=== PATIENT | female | born 1955 | race Caucasian/White ===

== ENCOUNTER → 2016-11-04 | Outpatient (CLI) | payer MEDICARE ==
[~2016-11-04] MED LIST: /ADVA50050; /ADVA50050 IN; AMBI10TA OR; AMRIX; ANEXSIA; ASPI325T OR; ASPI81TA63; ATIV0.5T; ATIV0.5T OR; BACL10TA2 OR; BENEDRYL OR; CALC500T21 PO; CALCCHW12 OR; CELE40TA; CELE40TA OR; CITRACAL; CITRACAL OR; COLA100C2; COLA100C2 OR; DULC100C PO; ECHI80CA PO; ECHINACEA PO; FIBEPOW PO; HYDR25TA6; HYDR25TA6 OR; HYDROCODONE/APAP PO; LAC PO; LISI5TAB PO; LYRI150C PO; METAMUCIL; MULTTAB4 PO; NEUR100C OR; NEUR600T; OCUVTAB PO; OXYB5TA PO; PENNSAID DROPS TOP; PREG50CA OR; PROV90AE; PROV90AE IN; RANI150C; RANI150C OR; RYZOLT; SAVELLA OR; SIMV40TA2 PO; SKEL800T5; SKEL800T5 OR; SOMA350T PO; SUPECAP24 PO; SYNT100T; SYNT100T OR; TOPA25TA10 PO; TOPI25TA2 PO; TOPI50TA; TRAM50TA2; TRAM50TA2 OR; TRAZADONE PO; ULTR300T; UTI ANTIBIOTIC PO; VITA100C7 PO; VITA500047 PO; VITAD1000T PO; ZINC220T2 OR; ZOCO40TA; ZOCO40TA OR; [UNRECOGNIZED DRUG - OTHER] PO; b/p med PO; cyclobenzaprine PO; savella PO
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
== END ==
LOC: M PAIN 13:20
PROVIDERS: ATTEND Nurse Practitioner Family
DX: Z09 Encounter for follow-up examination after completed treatment for conditions other than malignant neoplasm (principal); G89.29 Other chronic pain; M51.26 Other intervertebral disc displacement, lumbar region; I10 Essential (primary) hypertension; E03.9 Hypothyroidism, unspecified; F32.9 Major depressive disorder, single episode, unspecified; F41.9 Anxiety disorder, unspecified; M79.7 Fibromyalgia; M19.90 Unspecified osteoarthritis, unspecified site; K21.9 Gastro-esophageal reflux disease without esophagitis; E78.5 Hyperlipidemia, unspecified; J44.9 Chronic obstructive pulmonary disease, unspecified; I69.351 Hemiplegia and hemiparesis following cerebral infarction affecting right dominant side; G43.909 Migraine, unspecified, not intractable, without status migrainosus; E55.9 Vitamin D deficiency, unspecified; M94.0 Chondrocostal junction syndrome [Tietze]; Z79.891 Long term (current) use of opiate analgesic; Z79.82 Long term (current) use of aspirin; Z79.51 Long term (current) use of inhaled steroids; Z79.899 Other long term (current) drug therapy; Z88.0 Allergy status to penicillin; Z91.010 Allergy to peanuts; Z88.8 Allergy status to other drugs, medicaments and biological substances

== ENCOUNTER 2016-12-06 09:38 | Emergency (ER) | payer MEDICARE ==
[~2016-12-06] VITALS: Ht 152.4 cm; Wt 117.9 kg
[~2016-12-06 09:38] MED LIST changes: -PRED20TA PO; -VALI5TAB PO
[2016-12-06] MEDS ORDERED: methylPREDNISolone INJ 125 MG/2 ML VIAL (J2930) IM ONE (10:15)
[2016-12-06] MEDS ORDERED: PRED20TA PO (11:47)
[2016-12-06] MEDS ORDERED: VALI5TAB PO (11:47)
--- NOTE | 2016-12-06 11:52 | REP ---
LUMBOSACRAL SPINE: Five views of the lumbosacral spine performed. There is no compression fracture or malalignment. There is no spondylolysis or spondylolisthesis. There is mild diffuse spurring. There is mild disc space narrowing and subchondral sclerosis at all levels with a more moderate degree of disc space narrowing at L5-S1, with vacuum phenomenon also noted at that level. There is scleroses and spurring at the posterior facet joints of L5-S1. The posterior elements are intact. IMPRESSION: Degenerative changes without fracture or dislocation. Signed by Dmitri Arthur MD 12/06/2016 01:26 P
[2016-12-06 11:53] VITALS: BP 133/82
--- NOTE | 2016-12-06 12:06 | REP ---
PELVIS AND RIGHT HIP: AP view of the pelvis and two views of the right hip are performed. There is no acute fracture or dislocation. Multiple phleboliths are seen in the pelvis. IMPRESSION: No fracture or dislocation. Signed by Dmitri Arthur MD 12/06/2016 01:27 P
== END 2016-12-06 11:59 | disposition home or self-care (01) ==
LOC: M ED 10:21
DX: M25.551 Pain in right hip (principal); G89.29 Other chronic pain; M54.9 Dorsalgia, unspecified; I10 Essential (primary) hypertension; E03.9 Hypothyroidism, unspecified; M79.7 Fibromyalgia; E78.00 Pure hypercholesterolemia, unspecified; F41.9 Anxiety disorder, unspecified; F32.9 Major depressive disorder, single episode, unspecified; Z86.73 Personal history of transient ischemic attack (TIA), and cerebral infarction without residual deficits; F19.21 Other psychoactive substance dependence, in remission; Z79.899 Other long term (current) drug therapy; Z79.82 Long term (current) use of aspirin; Z88.0 Allergy status to penicillin; Z88.8 Allergy status to other drugs, medicaments and biological substances
CPT/HCPCS: 72110; 73502; 96372; 99282; J2930; J3360

== ENCOUNTER → 2016-12-06 | Outpatient (CLI) | payer MEDICARE ==
[~2016-12-06] MED LIST changes: +PRED20TA PO; +VALI5TAB PO
[2016-12-06 09:59] LABS: BASO # 0.1 K/mm3 (0.0-0.2); BASO % 1.6 % (0.0-1.0); EOS # 0.2 K/mm3 (0.0-0.50); EOS % 3.2 % (0.0-3.0); LYMPH # 2.2 K/mm3 (1.5-4.5); LYMPH % 41.8 % (24.0-44.0); MEAN CORPUSCULAR HEMOGLOBIN 27.1 pg (27.0-33.0); MEAN CORPUSCULAR HGB CONC 31.5 g/dl (32.0-36.5); MEAN CORPUSCULAR VOLUME 86.3 fl (80.0-96.0); MONO # 0.2 K/mm3 (0.0-0.8); MONO % 4.4 % (0.0-5.0); NEUTROPHILS # 2.5 K/mm3 (1.8-7.7); RED CELL DISTRIBUTION WIDTH 12.7 % (11.5-14.5); WHITE BLOOD COUNT 5.3 K/mm3 (4.0-10.0)
[2016-12-06 10:41] LABS: ALBUMIN 3.7 GM/DL (3.2-5.2); ALBUMIN/GLOBULIN RATIO 1.28 (1.00-1.93); BILIRUBIN,TOTAL 0.2 MG/DL (0.2-1.0); CALCIUM LEVEL 9.2 MG/DL (8.5-10.1); CREATININE FOR GFR 1.06 MG/DL (0.55-1.02); FREE T4 1.25 NG/DL (0.76-1.46); GLOMERULAR FILTRATION RATE 56.5 (>51); POTASSIUM SERUM 3.8 MEQ/L (3.5-5.1); TOTAL PROTEIN 6.6 GM/DL (6.4-8.2)
== END ==
LOC: M LAB 09:21
PROVIDERS: ATTEND Nurse Practitioner Adult Health
DX: E03.9 Hypothyroidism, unspecified (principal); E78.4 Other hyperlipidemia; E55.9 Vitamin D deficiency, unspecified; Z79.899 Other long term (current) drug therapy

== ENCOUNTER → 2016-12-13 | Outpatient (CLI) | payer MEDICARE ==
[~2016-12-13] MED LIST changes: +ISOVUE-M 300 61% 15ML VIAL (Q9967) As Ordered ONE; +LIDOCAINE 1% SDV INJ 30 ML VIAL As Ordered ONE; +PRED20TA PO; +VALI5TAB PO; +methylPREDNISolone SUSP 40 MG/ML (DEPO-medrol) VIAL (J1030) As Ordered ONE
--- NOTE | 2016-12-13 10:32 | REP ---
FLUOROSCOPIC GUIDANCE FOR LUMBAR SPINE EPIDURAL INJECTION: 12/13/2016 CLINICAL HISTORY: Back pain. Three images from C-arm fluoroscopy provided to Dr. Joyner of the pain clinic are reviewed. Initial image shows a needle to the right of midline at the L4-5 disc level with the second image showing epidural contrast adjacent and the third image with the needle removed. Fluoroscopy time: 10 seconds. Signed by Arron Thompson MD 12/13/2016 08:07 P
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
== END | disposition home or self-care (01) ==
LOC: M PAIN 08:40
PROVIDERS: ATTEND Anesthesiology
DX: G89.29 Other chronic pain (principal); M51.16 Intervertebral disc disorders with radiculopathy, lumbar region; I10 Essential (primary) hypertension; J44.9 Chronic obstructive pulmonary disease, unspecified; E78.5 Hyperlipidemia, unspecified; M94.0 Chondrocostal junction syndrome [Tietze]; E55.9 Vitamin D deficiency, unspecified; K21.9 Gastro-esophageal reflux disease without esophagitis; G43.909 Migraine, unspecified, not intractable, without status migrainosus; Z79.899 Other long term (current) drug therapy; Z79.82 Long term (current) use of aspirin; Z79.51 Long term (current) use of inhaled steroids; Z88.0 Allergy status to penicillin; Z88.8 Allergy status to other drugs, medicaments and biological substances; Z91.018 Allergy to other foods
CPT/HCPCS: 62323; J1030; Q9967

== ENCOUNTER → 2017-01-01 | Outpatient (CLI) | payer MEDICARE ==
[~2017-01-01] MED LIST changes: -ISOVUE-M 300 61% 15ML VIAL (Q9967) As Ordered ONE; -LIDOCAINE 1% SDV INJ 30 ML VIAL As Ordered ONE; -methylPREDNISolone SUSP 40 MG/ML (DEPO-medrol) VIAL (J1030) As Ordered ONE
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
== END ==
LOC: M PAIN 14:40
PROVIDERS: ATTEND Nurse Practitioner Family
DX: M51.26 Other intervertebral disc displacement, lumbar region (principal); Z79.891 Long term (current) use of opiate analgesic; Z79.82 Long term (current) use of aspirin; Z79.899 Other long term (current) drug therapy; Z88.0 Allergy status to penicillin; Z88.8 Allergy status to other drugs, medicaments and biological substances; Z91.010 Allergy to peanuts; Z91.018 Allergy to other foods; Z91.048 Other nonmedicinal substance allergy status

== ENCOUNTER → 2017-02-06 | Outpatient (CLI) | payer MEDICARE ==
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
== END ==
LOC: M PAIN 14:00
PROVIDERS: ATTEND Nurse Practitioner Family
DX: M51.26 Other intervertebral disc displacement, lumbar region (principal); Z79.891 Long term (current) use of opiate analgesic; Z79.82 Long term (current) use of aspirin; Z79.899 Other long term (current) drug therapy; Z88.0 Allergy status to penicillin; Z91.018 Allergy to other foods; Z91.09 Other allergy status, other than to drugs and biological substances; Z88.8 Allergy status to other drugs, medicaments and biological substances

== ENCOUNTER → 2017-04-01 | Outpatient (REF) | payer MEDICARE ==
[~2017-04-01] MED LIST changes: +AMIT10TA PO; +ASPI1TAB15 PO; +DITR1TAB PO; +ESOM1CAP5 PO; +HYDR25TAB PO; +LEVO100T5 PO; -OXYB5TA PO; +OXYB5TAB10 PO; +SERT50TA PO; +TOPA1TAB PO; -TOPA25TA10 PO; +TRAM100T18 PO
[2017-04-01 13:41] LABS: ALBUMIN 3.8 GM/DL (3.2-5.2); ALBUMIN/GLOBULIN RATIO 1.19 (1.00-1.93); BILIRUBIN,TOTAL 0.4 MG/DL (0.2-1.0); CALCIUM LEVEL 9.8 MG/DL (8.5-10.1); CREATININE FOR GFR 1.06 MG/DL (0.55-1.02); GLOMERULAR FILTRATION RATE 56.5 (>51); POTASSIUM SERUM 3.8 MEQ/L (3.5-5.1)
== END ==
LOC: M LAB REF 12:23
PROVIDERS: ATTEND Family Medicine Addiction Medicine
DX: E03.9 Hypothyroidism, unspecified (principal)

== ENCOUNTER → 2017-04-17 | Outpatient (CLI) | payer MEDICARE, MEDICAID ==
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
== END ==
LOC: M PAIN 13:00
PROVIDERS: ATTEND Nurse Practitioner Family
DX: M51.26 Other intervertebral disc displacement, lumbar region (principal); Z79.891 Long term (current) use of opiate analgesic; Z79.82 Long term (current) use of aspirin; Z79.899 Other long term (current) drug therapy; Z87.891 Personal history of nicotine dependence; Z88.0 Allergy status to penicillin; Z91.010 Allergy to peanuts; Z91.048 Other nonmedicinal substance allergy status

== ENCOUNTER → 2017-05-27 | Outpatient (CLI) | payer MEDICARE, MEDICAID ==
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
== END ==
LOC: M PAIN 11:15
PROVIDERS: ATTEND Nurse Practitioner Family
DX: G43.719 Chronic migraine without aura, intractable, without status migrainosus (principal); Z79.82 Long term (current) use of aspirin; Z79.891 Long term (current) use of opiate analgesic; Z79.899 Other long term (current) drug therapy; Z87.891 Personal history of nicotine dependence; I10 Essential (primary) hypertension; J44.9 Chronic obstructive pulmonary disease, unspecified; K21.9 Gastro-esophageal reflux disease without esophagitis; Z88.0 Allergy status to penicillin; Z88.8 Allergy status to other drugs, medicaments and biological substances; Z91.010 Allergy to peanuts; Z91.09 Other allergy status, other than to drugs and biological substances

== ENCOUNTER → 2017-06-09 | Outpatient (CLI) | payer MEDICARE, MEDICAID ==
--- NOTE | 2017-06-09 16:06 | REP ---
CAROTID ULTRASOUND: Real-time ultrasound evaluation and duplex Doppler interrogation of the extracranial carotid vasculature is performed. There is mild plaquing and narrowing in both carotid bulbs extending into the internal and external carotid arteries. Luminal narrowing is less than 50%. There is no evidence of hemodynamically significant stenosis of either internal carotid artery. Normal flow velocities are seen. The vertebral arteries demonstrate normal direction of flow. RIGHT LEFT Peak systolic velocity ICA 66.7 cm/s 74.7 cm/s End diastolic velocity ICA 30.1 cm/s 20.9 cm/s Peak systolic velocity CCA 83.3 cm/s 98.1 cm/s Peak systolic velocity ECA 81.1 cm/s 68.1 cm/s ICA/CCA ratio 0.8 0.8 IMPRESSION: Bilateral luminal narrowing of the internal carotid arteries less than 50%. No evidence of hemodynamically significant stenosis. Signed by Dmitri Arthur MD 06/09/2017 03:58 P
== END ==
LOC: M RAD 13:36
PROVIDERS: ATTEND Family Medicine Addiction Medicine
DX: R42 Dizziness and giddiness (principal)

== ENCOUNTER 2017-07-03 10:50 | Day surgery (SDC) | payer MEDICARE ==
[~2017-07-03] VITALS: Ht 152.4 cm; Wt 96.2 kg
[2017-07-03] MEDS ORDERED: NS 1,000 ML IV ONE (11:15)
[2017-07-03] MEDS ORDERED: LIDOCAINE 2% INJ 100 MG/5 ML SDV (FOR ANES.) As Ordered ONE (13:17)
[2017-07-03] MEDS ORDERED: PROPOFOL 200 MG/20 ML VIAL As Ordered ONE (13:17)
--- NOTE | 2017-07-03 13:20 | ROOR ---
Patient Name: Andree Pablo Procedure Date: 07/03/2017 12:56 PM Date of : 1955 Age: 61 Room: [facility], [facility]IN [facility] Gender: Female Note Status: Finalized Procedure: Colonoscopy Indications: High risk colon cancer surveillance: Personal history of colonic polyps, Last colonoscopy: June 2014 Providers: Micah MIRZA MD Referring MD: Tien LOAIZA MD Requesting Provider: Medicines: Monitored Anesthesia Care Complications: No immediate complications. Procedure: Pre-Anesthesia Assessment: - The heart rate, respiratory rate, oxygen saturations, blood pressure, adequacy of pulmonary ventilation, and response to care were monitored throughout the procedure. The Colonoscope was introduced through the anus and advanced to the terminal ileum, with identification of the appendiceal orifice and IC valve. Findings: The perianal and digital rectal examinations were normal. (EXAM: Complete, PREP: Fair/Adequate) The colon (entire examined portion) was redundant. Mild diverticulosis and small internal hemorrhoids. The entire examined colon appeared normal on direct and retroflexion views. Impression: - (EXAM: Complete, PREP: Fair/Adequate) - Redundant colon. - Mild diverticulosis and small internal hemorrhoids. - The entire examined colon is normal on direct and retroflexion views. - No specimens collected. Recommendation: - Repeat colonoscopy in 5 years for surveillance based on personal history of previous adenomatous polyps. Micah Mirza MD Micah MIRZA MD 07/03/2017 1:20:14 PM This report has been signed electronically. Number of Addenda: 0 Note Initiated On: 07/03/2017 12:56 PM Estimated Blood Loss: Estimated blood loss: none.
[2017-07-03 13:31] VITALS: BP 61/67
== END 2017-07-03 14:01 | disposition home or self-care (01) ==
LOC: M OPP 10:50 → EDSTATUS 12:30 → M OPP 14:01
PROVIDERS: ATTEND Internal Medicine Gastroenterology
DX: Z12.11 Encounter for screening for malignant neoplasm of colon (principal); Z86.010 Personal history of colon polyps; K57.30 Diverticulosis of large intestine without perforation or abscess without bleeding; K64.8 Other hemorrhoids; Q43.8 Other specified congenital malformations of intestine; I10 Essential (primary) hypertension; E78.5 Hyperlipidemia, unspecified; E03.9 Hypothyroidism, unspecified; R12 Heartburn; M19.90 Unspecified osteoarthritis, unspecified site; M51.9 Unspecified thoracic, thoracolumbar and lumbosacral intervertebral disc disorder; F41.9 Anxiety disorder, unspecified; F31.9 Bipolar disorder, unspecified; R51 Headache; I63.9 Cerebral infarction, unspecified; R06.02 Shortness of breath; J44.9 Chronic obstructive pulmonary disease, unspecified; G47.30 Sleep apnea, unspecified; F10.20 Alcohol dependence, uncomplicated; Z87.891 Personal history of nicotine dependence; Z88.8 Allergy status to other drugs, medicaments and biological substances; Z88.0 Allergy status to penicillin; Z79.82 Long term (current) use of aspirin; Z79.899 Other long term (current) drug therapy; Z80.1 Family history of malignant neoplasm of trachea, bronchus and lung

== ENCOUNTER 2017-08-11 09:41 | Emergency (ER) | payer MEDICARE ==
[~2017-08-11] VITALS: Ht 152.4 cm; Wt 100.0 kg
[2017-08-11] MEDS ORDERED: TIZA4CAP3 PO (09:56)
[2017-08-11] MEDS ORDERED: ERYTOIN8 OD (11:11)
[2017-08-11] MEDS ORDERED: ALLE180T33 PO (11:11)
[2017-08-11] MEDS ORDERED: BACT800T5 PO (11:11)
[2017-08-11 11:23] VITALS: BP 128/78
== END 2017-08-11 11:25 | disposition home or self-care (01) ==
LOC: M ED 09:41
DX: H01.004 Unspecified blepharitis left upper eyelid (principal)

== ENCOUNTER → 2017-09-03 | Outpatient (CLI) | payer MEDICARE ==
[~2017-09-03] MED LIST changes: -/ADVA50050; -/ADVA50050 IN; -AMBI10TA OR; -AMIT10TA PO; -AMRIX; -ANEXSIA; -ASPI1TAB15 PO; -ASPI325T OR; -ASPI81TA63; -ATIV0.5T; -ATIV0.5T OR; -BACL10TA2 OR; -BENEDRYL OR; +BOTULINUM INJ 100 UNITS (J0585) IM; -CALC500T21 PO; -CALCCHW12 OR; -CELE40TA; -CELE40TA OR; -CITRACAL; -CITRACAL OR; -COLA100C2; -COLA100C2 OR; -DITR1TAB PO; -DULC100C PO; -ECHI80CA PO; -ECHINACEA PO; -ESOM1CAP5 PO; -FIBEPOW PO; -HYDR25TA6; -HYDR25TA6 OR; -HYDR25TAB PO; -HYDROCODONE/APAP PO; -LAC PO; -LEVO100T5 PO; -LISI5TAB PO; -LYRI150C PO; -METAMUCIL; -MULTTAB4 PO; -NEUR100C OR; -NEUR600T; -OCUVTAB PO; -OXYB5TAB10 PO; -PENNSAID DROPS TOP; -PRED20TA PO; -PREG50CA OR; -PROV90AE; -PROV90AE IN; -RANI150C; -RANI150C OR; -RYZOLT; -SAVELLA OR; -SERT50TA PO; -SIMV40TA2 PO; -SKEL800T5; -SKEL800T5 OR; -SOMA350T PO; -SUPECAP24 PO; -SYNT100T; -SYNT100T OR; -TOPA1TAB PO; -TOPI25TA2 PO; -TOPI50TA; -TRAM100T18 PO; -TRAM50TA2; -TRAM50TA2 OR; -TRAZADONE PO; -ULTR300T; -UTI ANTIBIOTIC PO; -VALI5TAB PO; -VITA100C7 PO; -VITA500047 PO; -VITAD1000T PO; -ZINC220T2 OR; -ZOCO40TA; -ZOCO40TA OR; -[UNRECOGNIZED DRUG - OTHER] PO; -b/p med PO; -cyclobenzaprine PO; -savella PO
== END ==
LOC: M PAIN 13:00
DX: G43.709 Chronic migraine without aura, not intractable, without status migrainosus (principal); I10 Essential (primary) hypertension; E03.9 Hypothyroidism, unspecified; F31.9 Bipolar disorder, unspecified; F41.9 Anxiety disorder, unspecified; J44.9 Chronic obstructive pulmonary disease, unspecified; F10.21 Alcohol dependence, in remission; L23.1 Allergic contact dermatitis due to adhesives; Z88.0 Allergy status to penicillin; Z88.8 Allergy status to other drugs, medicaments and biological substances; Z91.010 Allergy to peanuts; Z79.82 Long term (current) use of aspirin; Z79.891 Long term (current) use of opiate analgesic; Z79.899 Other long term (current) drug therapy; Z86.59 Personal history of other mental and behavioral disorders
CPT/HCPCS: J0585

== ENCOUNTER → 2017-09-29 | Outpatient (CLI) | payer MEDICARE | LOC: M PAIN 13:15 | DX: G43.709 Chronic migraine without aura, not intractable, without status migrainosus (principal); I10 Essential (primary) hypertension; E03.9 Hypothyroidism, unspecified; F31.9 Bipolar disorder, unspecified; F41.9 Anxiety disorder, unspecified; M79.7 Fibromyalgia; M19.90 Unspecified osteoarthritis, unspecified site; E78.5 Hyperlipidemia, unspecified; J44.9 Chronic obstructive pulmonary disease, unspecified; M94.0 Chondrocostal junction syndrome [Tietze]; Z79.82 Long term (current) use of aspirin; Z79.899 Other long term (current) drug therapy; Z88.0 Allergy status to penicillin; Z88.8 Allergy status to other drugs, medicaments and biological substances; Z91.010 Allergy to peanuts; Z91.048 Other nonmedicinal substance allergy status; Z86.59 Personal history of other mental and behavioral disorders; Z87.891 Personal history of nicotine dependence | CPT/HCPCS: G0463 ==

== ENCOUNTER → 2017-10-07 | Outpatient (CLI) | payer MEDICARE | LOC: M PAIN 10:15 | DX: M46.96 Unspecified inflammatory spondylopathy, lumbar region (principal); G89.29 Other chronic pain; I10 Essential (primary) hypertension; E03.9 Hypothyroidism, unspecified; E78.5 Hyperlipidemia, unspecified; J44.9 Chronic obstructive pulmonary disease, unspecified; F32.9 Major depressive disorder, single episode, unspecified; F41.9 Anxiety disorder, unspecified; Z79.891 Long term (current) use of opiate analgesic; Z79.899 Other long term (current) drug therapy; Z88.0 Allergy status to penicillin; Z88.8 Allergy status to other drugs, medicaments and biological substances; Z91.010 Allergy to peanuts; Z91.09 Other allergy status, other than to drugs and biological substances; Z87.891 Personal history of nicotine dependence | CPT/HCPCS: G0463 ==

== ENCOUNTER → 2017-10-22 | Outpatient (CLI) | payer MEDICARE ==
[~2017-10-22] MED LIST changes: -BOTULINUM INJ 100 UNITS (J0585) IM; +BUPIVACAINE HCL 0.25% 30 ML VIAL As Ordered; +ISOVUE-M 300 61% 15ML VIAL (Q9967) As Ordered; +LIDOCAINE 1% SDV INJ 30 ML VIAL As Ordered; +TRIAMCINOLONE ACETONIDE SUSP 40 MG/ML VIAL (J3301) As Ordered
== END ==
LOC: M PAIN 11:15
DX: G89.29 Other chronic pain (principal); M47.816 Spondylosis without myelopathy or radiculopathy, lumbar region; M47.817 Spondylosis without myelopathy or radiculopathy, lumbosacral region; I10 Essential (primary) hypertension; E03.9 Hypothyroidism, unspecified; E78.5 Hyperlipidemia, unspecified; F32.9 Major depressive disorder, single episode, unspecified; J44.9 Chronic obstructive pulmonary disease, unspecified; F41.9 Anxiety disorder, unspecified; Z79.82 Long term (current) use of aspirin; Z79.891 Long term (current) use of opiate analgesic; Z79.899 Other long term (current) drug therapy; Z88.0 Allergy status to penicillin; Z88.8 Allergy status to other drugs, medicaments and biological substances; Z91.010 Allergy to peanuts; Z91.048 Other nonmedicinal substance allergy status
CPT/HCPCS: J3301

== ENCOUNTER → 2017-11-05 | Outpatient (CLI) | payer MEDICARE | LOC: M PAIN 13:00 | DX: M46.96 Unspecified inflammatory spondylopathy, lumbar region (principal); I10 Essential (primary) hypertension; E03.9 Hypothyroidism, unspecified; F32.9 Major depressive disorder, single episode, unspecified; F41.9 Anxiety disorder, unspecified; E78.5 Hyperlipidemia, unspecified; M94.0 Chondrocostal junction syndrome [Tietze]; J44.9 Chronic obstructive pulmonary disease, unspecified; Z79.891 Long term (current) use of opiate analgesic; Z79.899 Other long term (current) drug therapy; Z79.82 Long term (current) use of aspirin; Z87.891 Personal history of nicotine dependence | CPT/HCPCS: G0463 ==

== ENCOUNTER → 2018-01-13 | Outpatient (REF) | payer MEDICARE ==
[2018-01-13 13:28] LABS: ALBUMIN 3.7 GM/DL (3.2-5.2); ALBUMIN/GLOBULIN RATIO 1.09 (1.00-1.93); ALKALINE PHOSPHATASE 98 U/L (45-117); ALT/SGPT 24 U/L (12-78); ANION GAP 9 MEQ/L (8-16); AST/SGOT 18 U/L (7-37); BILIRUBIN,TOTAL 0.3 MG/DL (0.2-1.0); BLOOD UREA NITROGEN 17 MG/DL (7-18); CALCIUM LEVEL 9.1 MG/DL (8.8-10.2); CARBON DIOXIDE LEVEL 32 MEQ/L (21-32); CHLORIDE LEVEL 103 MEQ/L (98-107); CHOLESTEROL LEVEL 221 MG/DL (<200); CHOLESTEROL RISK RATIO 4.169 (<5); CREATININE FOR GFR 1.13 MG/DL (0.55-1.30); GLOMERULAR FILTRATION RATE 52.3 (>45); GLUCOSE, FASTING 93 MG/DL (70-100); HDL CHOLESTEROL 53 MG/DL (>40); NON-HDL-C 168 MG/DL; POTASSIUM SERUM 3.3 MEQ/L (3.5-5.1); SODIUM LEVEL 144 MEQ/L (136-145); TOTAL PROTEIN 7.1 GM/DL (6.4-8.2); TRIGLYCERIDES LEVEL 240 MG/DL (<150)
[2018-01-14 10:29] LABS: HEPATITIS B SURFACE ANTIGEN NEGATIVE (NEGATIVE)
[2018-01-14 10:40] LABS: HEPATITIS B SURFACE ANTIBODY NEGATIVE (POSITIVE)
[2018-01-14 10:54] LABS: HEPATITIS C VIRUS ABY INDEX < 0.0 INDEX (<0.8)
== END ==
LOC: M LAB REF 12:40
DX: E78.5 Hyperlipidemia, unspecified (principal); Z20.5 Contact with and (suspected) exposure to viral hepatitis
CPT/HCPCS: 84443

== ENCOUNTER → 2018-01-15 | Outpatient (CLI) | payer MEDICARE ==
[~2018-01-15] MED LIST changes: +BOTULINUM INJ 100 UNITS (J0585) IM; -BUPIVACAINE HCL 0.25% 30 ML VIAL As Ordered; -ISOVUE-M 300 61% 15ML VIAL (Q9967) As Ordered; -LIDOCAINE 1% SDV INJ 30 ML VIAL As Ordered; -TRIAMCINOLONE ACETONIDE SUSP 40 MG/ML VIAL (J3301) As Ordered
== END ==
LOC: M PAIN 11:30
DX: G43.709 Chronic migraine without aura, not intractable, without status migrainosus (principal); I10 Essential (primary) hypertension; E03.9 Hypothyroidism, unspecified; F31.9 Bipolar disorder, unspecified; F41.9 Anxiety disorder, unspecified; M54.5 Low back pain; M79.7 Fibromyalgia; K21.9 Gastro-esophageal reflux disease without esophagitis; E78.5 Hyperlipidemia, unspecified; J44.9 Chronic obstructive pulmonary disease, unspecified; E55.9 Vitamin D deficiency, unspecified; I69.351 Hemiplegia and hemiparesis following cerebral infarction affecting right dominant side; Z79.891 Long term (current) use of opiate analgesic; Z79.899 Other long term (current) drug therapy; Z87.891 Personal history of nicotine dependence; Z88.0 Allergy status to penicillin; Z88.8 Allergy status to other drugs, medicaments and biological substances; Z91.018 Allergy to other foods; Z91.048 Other nonmedicinal substance allergy status
CPT/HCPCS: J0585

== ENCOUNTER → 2018-03-23 | Outpatient (REF) | payer MEDICARE ==
[2018-03-23 13:56] LABS: ALBUMIN 3.6 GM/DL (3.2-5.2); ALBUMIN/GLOBULIN RATIO 1.13 (1.00-1.93); ALKALINE PHOSPHATASE 97 U/L (45-117); ALT/SGPT 21 U/L (12-78); ANION GAP 8 MEQ/L (8-16); AST/SGOT 13 U/L (7-37); BILIRUBIN,TOTAL 0.2 MG/DL (0.2-1.0); BLOOD UREA NITROGEN 22 MG/DL (7-18); CALCIUM LEVEL 9.1 MG/DL (8.8-10.2); CARBON DIOXIDE LEVEL 32 MEQ/L (21-32); CHLORIDE LEVEL 101 MEQ/L (98-107); CREATININE FOR GFR 1.14 MG/DL (0.55-1.30); GLOMERULAR FILTRATION RATE 51.8 (>45); GLUCOSE, FASTING 108 MG/DL (70-100); POTASSIUM SERUM 3.3 MEQ/L (3.5-5.1); SODIUM LEVEL 141 MEQ/L (136-145); TOTAL PROTEIN 6.8 GM/DL (6.4-8.2)
== END ==
LOC: M LAB REF 13:17
DX: E87.6 Hypokalemia (principal); E03.9 Hypothyroidism, unspecified
CPT/HCPCS: 84443

== ENCOUNTER → 2018-04-13 | Outpatient (CLI) | payer MEDICARE ==
[2018-04-13 12:51] LABS: COLLAGEN EPINEPHRINE 102 SECONDS (74-162)
== END ==
LOC: M LAB 12:03
DX: H02.423 Myogenic ptosis of bilateral eyelids (principal)
CPT/HCPCS: 36415

== ENCOUNTER 2018-05-16 19:45 | Emergency (ER) | payer MEDICARE ==
[2018-05-16 20:43] LABS: BEDSIDE GLUCOSE 128 MG/DL (80-115)
[2018-05-16 20:47] LABS: BASO # 0.1 10^3/uL (0.0-0.2); BASO % 0.9 % (0.0-1.0); EOS # 0.1 10^3/uL (0.0-0.50); EOS % 0.9 % (0.0-3.0); HEMOGLOBIN 14.1 g/dl (12.0-15.5); IMMATURE GRANULOCYTE % 0.4 % (0-3.0); LYMPH # 2.1 10^3/uL (1.5-4.5); MEAN CORPUSCULAR HEMOGLOBIN 27.7 pg (27.0-33.0); MEAN CORPUSCULAR HGB CONC 33.6 g/dl (32.0-36.5); MEAN CORPUSCULAR VOLUME 82.5 fl (80.0-96.0); MONO # 0.6 10^3/uL (0.0-0.8); MONO % 6.7 % (0.0-5.0); NEUTROPHILS # 6.2 10^3/uL (1.8-7.7); NEUTROPHILS % 68.1 % (36.0-66.0); PLATELET COUNT, AUTOMATED 233 10^3/uL (150-450); RED BLOOD COUNT 5.09 10^6/uL (4.00-5.40); RED CELL DISTRIBUTION WIDTH 12.6 % (11.5-14.5); WHITE BLOOD COUNT 9.1 10^3/uL (4.0-10.0)
[2018-05-16 20:48] LABS: ANION GAP 10 MEQ/L (8-16); BLOOD UREA NITROGEN 17 MG/DL (7-18); CALCIUM LEVEL 9.1 MG/DL (8.8-10.2); CARBON DIOXIDE LEVEL 29 MEQ/L (21-32); CHLORIDE LEVEL 101 MEQ/L (98-107); CK-MB VALUE MASS < 1.0 NG/ML (<3.6); CPK CREATINE PHOSPHOKINASE 45 U/L (26-192); CREATININE FOR GFR 1.33 MG/DL (0.55-1.30); GLOMERULAR FILTRATION RATE 43.3 (>45); GLUCOSE, FASTING 122 MG/DL (70-100); MB/CK RELATIVE INDEX 2.22 (< OR =4); SODIUM LEVEL 140 MEQ/L (136-145); TROPONIN I < 0.02 NG/ML (< 0.10)
[2018-05-16 20:51] LABS: INR 0.95; PROTHROMBIN TIME 12.8 SECONDS (12.1-14.4)
[2018-05-16 20:52] LABS: PARTIAL THROMBOPLASTIN TIME 26.7 SECONDS (25.4-37.6)
[2018-05-16] MEDS: NS 1,000 ML IV (21:10)
== END 2018-05-16 21:25 | disposition short-term general hospital (02) ==
LOC: M ED 19:45
DX: I69.320 Aphasia following cerebral infarction (principal); I10 Essential (primary) hypertension; J44.9 Chronic obstructive pulmonary disease, unspecified; Z87.891 Personal history of nicotine dependence; Z79.82 Long term (current) use of aspirin; Z79.899 Other long term (current) drug therapy; Z88.0 Allergy status to penicillin; Z88.8 Allergy status to other drugs, medicaments and biological substances; Z91.018 Allergy to other foods
CPT/HCPCS: 71045

== ENCOUNTER → 2018-05-21 | Outpatient (CLI) | payer MEDICARE | LOC: M PAIN 14:00 | DX: G43.009 Migraine without aura, not intractable, without status migrainosus (principal); I10 Essential (primary) hypertension; E03.9 Hypothyroidism, unspecified; F31.9 Bipolar disorder, unspecified; F41.9 Anxiety disorder, unspecified; M54.5 Low back pain; M79.7 Fibromyalgia; M19.90 Unspecified osteoarthritis, unspecified site; K21.9 Gastro-esophageal reflux disease without esophagitis; E78.5 Hyperlipidemia, unspecified; J44.9 Chronic obstructive pulmonary disease, unspecified; E55.9 Vitamin D deficiency, unspecified; Z87.891 Personal history of nicotine dependence; Z79.82 Long term (current) use of aspirin; Z79.899 Other long term (current) drug therapy; Z88.0 Allergy status to penicillin; Z88.8 Allergy status to other drugs, medicaments and biological substances; Z91.018 Allergy to other foods; Z91.048 Other nonmedicinal substance allergy status | CPT/HCPCS: G0463 ==

== ENCOUNTER → 2018-06-23 | Outpatient (CLI) | payer MEDICARE | LOC: M PAIN 12:30 | DX: G43.709 Chronic migraine without aura, not intractable, without status migrainosus (principal); I10 Essential (primary) hypertension; E03.9 Hypothyroidism, unspecified; F31.9 Bipolar disorder, unspecified; F41.9 Anxiety disorder, unspecified; M79.7 Fibromyalgia; M19.90 Unspecified osteoarthritis, unspecified site; E78.5 Hyperlipidemia, unspecified; J44.9 Chronic obstructive pulmonary disease, unspecified; G81.91 Hemiplegia, unspecified affecting right dominant side; F10.21 Alcohol dependence, in remission; E66.01 Morbid (severe) obesity due to excess calories; Z68.42 Body mass index [BMI] 45.0-49.9, adult; Z79.82 Long term (current) use of aspirin; Z79.899 Other long term (current) drug therapy; Z88.0 Allergy status to penicillin; Z88.8 Allergy status to other drugs, medicaments and biological substances; Z91.09 Other allergy status, other than to drugs and biological substances; Z91.010 Allergy to peanuts; Z86.59 Personal history of other mental and behavioral disorders | CPT/HCPCS: J0585 ==

== ENCOUNTER → 2018-07-15 | Outpatient (CLI) | payer MEDICARE | LOC: M PAIN 13:00 | DX: G43.009 Migraine without aura, not intractable, without status migrainosus (principal); I10 Essential (primary) hypertension; E03.9 Hypothyroidism, unspecified; F31.9 Bipolar disorder, unspecified; F41.9 Anxiety disorder, unspecified; M54.5 Low back pain; M79.7 Fibromyalgia; M19.90 Unspecified osteoarthritis, unspecified site; K21.9 Gastro-esophageal reflux disease without esophagitis; E78.5 Hyperlipidemia, unspecified; J44.9 Chronic obstructive pulmonary disease, unspecified; I69.351 Hemiplegia and hemiparesis following cerebral infarction affecting right dominant side; E55.9 Vitamin D deficiency, unspecified; Z87.891 Personal history of nicotine dependence; Z88.0 Allergy status to penicillin; Z88.8 Allergy status to other drugs, medicaments and biological substances; Z91.018 Allergy to other foods; Z91.048 Other nonmedicinal substance allergy status; Z79.82 Long term (current) use of aspirin; Z79.891 Long term (current) use of opiate analgesic; Z79.899 Other long term (current) drug therapy | CPT/HCPCS: G0463 ==

== ENCOUNTER → 2018-07-29 | Outpatient (CLI) | payer MEDICARE | LOC: M RAD 15:16 | DX: M51.16 Intervertebral disc disorders with radiculopathy, lumbar region (principal) | CPT/HCPCS: 72148 ==

== ENCOUNTER → 2018-10-28 | Outpatient (CLI) | payer MEDICARE ==
[~2018-10-28] MED LIST changes: +/ADVA50050; +/ADVA50050 IN; +ALLE180T33 PO; +AMBI10TA OR; +AMIT10TA PO; +AMRIX; +ANEXSIA; +ASPI1TAB15 PO; +ASPI325T OR; +ASPI81TA63; +ATIV0.5T; +ATIV0.5T OR; +BACL10TA2 OR; +BACT800T5 PO; +BENEDRYL OR; -BOTULINUM INJ 100 UNITS (J0585) IM; +BOTULINUM INJ 100 UNITS (J0585) IM ONE; +CALC500T21 PO; +CALCCHW12 OR; +CELE40TA; +CELE40TA OR; +CITRACAL; +CITRACAL OR; +COLA100C2; +COLA100C2 OR; +DITR1TAB PO; +DULC100C PO; +ECHI80CA PO; +ECHINACEA PO; +ERYTOIN8 OD; +ESOM1CAP5 PO; +FIBEPOW PO; +HYDR25TA6; +HYDR25TA6 OR; +HYDR25TAB PO; +HYDROCODONE/APAP PO; +LAC PO; +LEVO100T5 PO; +LISI5TAB PO; +LYRI150C PO; +METAMUCIL; +MULTTAB4 PO; +NEUR100C OR; +NEUR600T; +OCUVTAB PO; +OXYB10TA; +OXYB5TAB10 PO; +PENNSAID DROPS TOP; +PRED20TA PO; +PREG50CA OR; +PROV90AE; +PROV90AE IN; +RANI150C; +RANI150C OR; +RANI150T; +RYZOLT; +SAVELLA OR; +SERT50TA PO; +SIMV40TA2 PO; +SKEL800T5; +SKEL800T5 OR; +SOMA350T PO; +SUPECAP24 PO; +SYNT100T; +SYNT100T OR; +TIZA4CAP PO; +TOPA1TAB PO; +TOPI25TA2 PO; +TOPI50TA; +TRAM100T18 PO; +TRAM50TA2; +TRAM50TA2 OR; +TRAZADONE PO; +ULTR300T; +UTI ANTIBIOTIC PO; +VALI5TAB PO; +VITA100C7 PO; +VITA500047 PO; +VITAD1000T PO; +ZINC220T2 OR; +ZOCO40TA; +ZOCO40TA OR; +[UNRECOGNIZED DRUG - OTHER] PO; +b/p med PO; +cyclobenzaprine PO; +savella PO
--- NOTE | 2018-11-16 00:18 | ECWPNPC ---
PATIENT NAME: LUIS ENRIQUE MCMILLAN : 1955 GENDER: FEMALE VISIT DATE: 10/28/2018 DISCHARGE DATE: 10/28/18 1326 VISIT LOCKED DATE TIME: PHYSICIAN: SCOTT BRUCE MD RESOURCE: SCOTT BRUCE MD REASON FOR APPOINTMENT 1. BOTOX IN OCT HISTORY OF PRESENT ILLNESS HISTORY OF PRESENT ILLNESS: PAIN THE PATIENT DESCRIBES THE PAIN... FALL RISK SCREENING: SCREENING : NO FALLS IN THE PAST YEAR. CURRENT MEDICATIONS TAKING ASPIR-81 81 MG TABLET DELAYED RELEASE 1 TABLET ORALLY ONCE A DAY, NOTES: NONE IN >2 WEEKS TAKING LEVOTHYROXINE SODIUM 100 MCG TABLET 1 TABLET EVERY MORNING ON AN EMPTY STOMACH ORALLY ONCE A DAY, NOTES: 10/28/18 0800 TAKING ADVAIR DISKUS 250-50 MCG/DOSE MISCELLANEOUS 1 INHALATION EVERY 12 HRS, NOTES: CURRENTLY OUT OF TAKING VENTOLIN HFA 108 (90 BASE) MCG/ACT AEROSOL SOLUTION 2 PUFFS INHALATION Q4-6H PRN, NOTES: 10/26/18 TAKING GENERLAC 10 GM/15ML SOLUTION 30 ML NEEDED ORALLY BID, NOTES: 10/27/18 TAKING OXYBUTYNIN CHLORIDE ER 10 MG TABLET EXTENDED RELEASE 24 HOUR 1 TABLET ORALLY ONCE A DAY, NOTES: 10/28/18 0800 TAKING HYDROCHLOROTHIAZIDE 25 MG TABLET 1 TABLET ORALLY ONCE A DAY, NOTES: 10/28/18 0800 TAKING NEBULIZERS - MISCELLANEOUS ALBUTEROL INHALATION Q 4-6 HRS. PRN TAKING MAXALT 10 MG TABLET 1 TABLET NEEDED ONE TIME ORALLY ONCE AT ONSET OF H/A,REPEAT IN 2HR IF NO IMPROVEMENT, NOTES: NONE IN A FEW WEEKS TAKING SERTRALINE HCL 25 MG TABLET 1 TABLET ORALLY ONCE A DAY, NOTES: 10/28/18 0800 TAKING TRAZODONE HCL 100 MG TABLET 2 TABLET AT BEDTIME ORALLY ONCE A DAY, NOTES: 10/27/18 PM TAKING ZANTAC 150 MG TABLET 1 TABLET ORALLY DAILY, NOTES: 10/28/18 0800 TAKING MUCINEX 600 MG TABLET EXTENDED RELEASE 1 TABLET NEEDED ORALLY EVERY 12 HRS, NOTES: NONE IN 3 DAYS TAKING TIZANIDINE HCL 4 MG TABLET 1 TABLET NEEDED ORALLY THREE TIMES A DAY, NOTES: 10/27/18 PM TAKING NORCO 7.5-325 MG TABLET 1 TABLET NEEDED ORALLY EVERY 6 HRS PRN MDD4, NOTES: 10/28/18 0800 NOT-TAKING ZOCOR 40 MG TABLET 1 TABLET EVERY EVENING ORALLY ONCE A DAY, NOTES: NONE IN >2 WEEKS NOT-TAKING ATORVASTATIN CALCIUM 20 MG TABLET 4 TABLET ORALLY ONCE A DAY MEDICATION LIST REVIEWED AND RECONCILED WITH THE PATIENT PAST MEDICAL HISTORY HYPERTENSION HYPOTHYROIDISM DEPRESSION BIPOLAR DISORDER ANXIETY LOW BACK PAIN FIBROMYALGIA ARTHRITIS ESOPHAGEAL REFLUX HYPERLIPIDEMIA COPD CVA S/P R SIDE WEAKNESS MIGRAINE HEADACHE VITAMIN D DEFICIENCY ETOH HX OF SUBSTANCE ABUSE HX OF TIETZE SYNDROME BRONCHITIS 03/2016 ALLERGIES LITHIUM CARBONATE: COLLEPSED, WENT TO ED: ALLERGY PENICILLIN (FOR ALLERGIES USE ONLY): HIVES: ALLERGY NUTS: SOB: ALLERGY ADHESIVES: TEARS SKINS: ALLERGY SURGICAL HISTORY T&A APPENDECTOMY C SECTION X 3 BILAT EYE LID LIFT 04/2018 FAMILY HISTORY FATHER: ALIVE, DIAGNOSED WITH HYPERTENSION SOCIAL HISTORY GENERAL: TOBACCO USE ARE YOU A: QUIT SMOKING ABOUT 7 YEARS AGO ALCOHOL SCREENING POINTS: 0, INTERPRETATION: NEGATIVE. RECREATIONAL DRUG USE DENIES; HISTORY OF ETOH DRUG ABUSE. CLEAN/SOBER SINCE EARLY . CAFFEINE >5/DAY. SEXUAL HX HAD SEX IN THE LAST 12 MONTHS (VAGINAL, ORAL, OR ANAL)?: NO, HAVE YOU EVER HAD AN STD?: NO. QUAKER NO JUDAISM BELIEFS THAT WOULD IMPACT HEALTH CARE. LANGUAGE SYRIAC. LEARNING BARRIERS / SPECIAL NEEDS CHANGE FROM LAST VISIT?NO BARRIERS TO LEARNING?NO HEARING IMPAIRED?NO VISION IMPAIRED?YES :CORRECTIVE LENSES COGNITIVELY IMPAIRED?NO READINESS TO LEARN?YES LEARNING PREFERENCES?NO LEARNING CAPABILITIES PRESENT?YES EMOTIONAL BARRIERS?NO SPECIAL DEVICES?YES :CANE ASSOCIATE PROGRAM MANAGER NEEDED?NO OCCUPATION: UNEMPLOYED. DIET: REG. EXERCISE: WALKS,WATER AEROBICS. MARITAL STATUS: . OTHERS AT HOME: DAUGHTER & GRANDDAUGHTER. PAIN CLINIC PFS, CLERGY, PUBLIC HEALTH REFERRALS PFS REFERRAL NEEDED?NO CLERGY REFERRAL NEEDED?NO PUBLIC HEALTH REFERRAL NEEDED?NO HAS THE PATIENT BEEN EDUCATED REGARDING HIS/HER PLAN OF CARE?YES HERE FOR A NEW BODY PART / ALREADY ESTABLISHED PT HAS THE PATIENT BEEN EDUCATED REGARDING PAIN, THE RISK FOR PAIN, THE IMPORTANCE OF EFFECTIVE PAIN MANAGEMENT, AND THE PAIN ASSESSMENT PROCESS?YES PLEASE DOCUMENT ANY ADDTIONAL DETAILS. INSTRUCTED ON KEEPING TRACK OF WHICH BODY PART SHE IS HERE FOR ADVANCE DIRECTIVE ADVANCE DIRECTIVE DISCUSSED WITH PATIENT:YES DECLINED HCP INFO AND ASSISTANCE WITH FORM AT THIS TIME. 10/28/18 REVIEWED WITH PT 10/28/18 1126 BV. HOSPITALIZATION/MAJOR DIAGNOSTIC PROCEDURE SURGICAL RELATED BACK PAIN E REVIEW OF SYSTEMS REVIEWED BY: PROVIDER: . CONSTITUTIONAL: ANY CHANGE IN YOUR MEDICAL CONDITION? NO . CHILLS NO . FEVER NO . INFECTION: DO YOU HAVE NEW INFECTIONS? NO . DO YOU HAVE HISTORY OF MRSA? NO . MUSCULOSKELETAL: ANY NEW PATTERNS OF PAIN OR NUMBNESS? NO . GASTROENTEROLOGY: ANY NEW CHANGE IN BOWEL CONTROL? NO . GENITOURINARY: ANY NEW CHANGE IN BLADDER CONTROL? NO . IS THERE A CHANCE YOU COULD BE ? NO . HEMATOLOGY/LYMPH: DO YOU TAKE ANY BLOOD THINNERS? (FOR EXAMPLE- COUMADIN, PLAVIX, AGGRENOX, PLATEL, PRADAXA, OR XARELTO) NO . WHEN WAS YOUR LAST DOSE? DATE: TIME: . NEUROLOGY: HAVE YOU FALLEN IN THE PAST 12 MONTHS? YES, PT HAD A FALL IN JULY, SLIPPED ON ICE. DENIES ANY INJURIES OR ED VISIT ASSOCIATED WITH FALL. . ANY NEW EXTREMITY NUMBNESS OR WEAKNESS? NO . CARDIOLOGY: DO YOU HAVE A PACEMAKER OR DEFIBRILLATOR? NO . RESPIRATORY: HAVE YOU BEEN SICK IN THE PAST WEEK? NO . FEVER NO . FLU LIKE SYMPTOMS? NO . COUGH NO . INTEGUMENTARY: DO YOU HAVE ANY RASHES OR OPEN SORES? NO . ALLERGIC/IMMUNO: ARE YOU ALLERGIC TO IV DYE? NO . ANY NEW ALLERGIES? NO . PSYCHIATRIC: DO YOU HAVE THOUGHTS OF HURTING YOURSELF OR SOMEONE ELSE? NO . ARE YOU ABUSED, NEGLECTED, OR IN AN UNSAFE ENVIRONMENT? NO . ENDOCRINOLOGY: ARE YOU DIABETIC? NO . OTHER: DO YOU NEED ANY PRESCRIPTIONS? NO . IF YES, PLEASE LIST: ____ . ANY NEW PROBLEMS WITH YOUR MEDICATIONS? NO . WHEN DID YOU LAST EAT? YES, 10/27/18 PM . WHEN DID YOU LAST DRINK? 10/28/18 0500 DIET COKE . WHAT DID YOU LAST DRINK? ____ . NAME OF PERSON DRIVING YOU HOME? TRAVIS . DO YOU HAVE ANY OTHER QUESTIONS OR CONCERNS NO . VITAL SIGNS WT 232.8 LBS, HT 60.5", BMI 44.71 INDEX, BP 141/63 MM HG, HR 89 /MIN, RR 18 /MIN, TEMP 97.0 F, OXYGEN SAT % 95%, NA INITIALS AW 1057, REVIEWED BY: BV. ASSESSMENTS CHRONIC MIGRAINE - G43.709 (PRIMARY) PROCEDURES PN BOTOX INJECTIONS SUBSEQUENT INJECTIONS PRE PROCEDURE DIAGNOSIS CHRONIC MIGRAINE HEADACHES. POST PROCEDURE DIAGNOSIS CHRONIC MIGRAINE HEADACHES. PROCEDURE BOTOX INJECTION AT THE HEAD, NECK AND SHOULDERS. SURGEON DR. SCOTT BRUCE APPRENTICE COSMETOLOGIST NONE ANESTHESIA NONE PRE PROCEDURE NOTE THE PATIENT HAS HISTORY OF CHRONIC MIGRAINE HEADACHES. I EVALUATE THE PATIENT AND REVIEWED THE CHART. I WENT OVER THE RISKS, ALTERNATIVES, AND BENEFITS ASSOCIATED WITH THIS PROCEDURE. THE PATIENT WOULD LIKE TO PROCEED AND GIVE CONSENT TO PERFORMED THE PROCEDURE. THE PATIENT DENIES UNEXPLAINABLE WEIGHT LOSS, FEVER, CHILLS, OR NEW CHANGES IN URINARY OR BOWEL CONTROL. THE PATIENT DID A BOTOX INJECTION AT THE HEAD, NECK AND SHOULDERS 3 MONTHS AGO AND EXPRESSED MORE THAN 50% REDUCTION ON THE FREQUENCY AND INTENSITY OF THE HEADACHES. PRESENTLY SHE IS HAVING APPROXIMATELY 2 HEADACHES PER MONTH. THE PATIENT EXPRESS THAT THE USE OF BOTOX HAS REDUCE SIGNIFICANTLY THE SEVERITY OF THE HEADACHES AND EXPRESSED THAT WANT TO RECEIVE THIS PROCEDURE AGAIN TODAY DESCRIPTION OF PROCEDURE THE PATIENTS WAS BROUGHT TO THE PROCEDURE ROOM AND PLACED IN THE SUPINE POSITION. I CHECKED LATERALITY AND THE AREAS WHERE THE PROCEDURE WAS GOING TO BE PERFORMED WITH THE PATIENT AND THE SUPPORTING STAFF AT THE MOMENT OF THE TIME OUT IN THE PROCEDURE ROOM. FOR THE PROCEDURE I USED A SOLUTION OF 5 UNITS OF BOTOX PER EACH 0.1 ML OF THE SOLUTION. I USED A 30-GAUGE NEEDLE TO INJECT THE SOLUTION AT THE SELECTED LOCATIONS. I INJECTED FIRST THE RIGHT AND LEFT BINDER CHAINSTITCH MUSCLES. THE LANDMARK FOR BOTH INJECTIONS WAS APPROXIMATELY 1 CM ABOVE THE SUPERIOR MEDIAL EDGE OF THE EYEBROW. AFTER THESE TWO INJECTIONS, I INJECTED THE PROCERUS MUSCLE AT THE MIDLINE POINT BETWEEN THESE FIRST TWO INJECTIONS. THEN I PROCEEDED TO INJECT THE RIGHT AND LEFT FRONTALIS MUSCLE. TWO INJECTIONS WERE DONE IN EACH SIDE. THE FIRST INJECTION WAS DONE APPROXIMATELY 2 CM ABOVE THE FIRST INJECTION OF THE BINDER CHAINSTITCH. THE SECOND INJECTION WAS DONE APPROXIMATELY 1.5 CM LATERAL TO THIS FIST INJECTION OF THE FRONTALIS OF EACH SIDE. AFTER THE INJECTIONS OVER THE FOREHEAD WERE DONE, THE PATIENT'S HEAD WAS TURNED TO THE LEFT SIDE AND WE STARTED TO WORK WITH THE RIGHT TEMPORALIS MUSCLE. FIRST INJECTION WAS DONE IN A VERTICAL LINE OF THE TRAGUS APPROXIMATELY 3 CM ABOVE THE TRAGUS. THE SECOND INJECTION WAS DONE APPROXIMATELY 2 CM ABOVE THE FIRST INJECTION. THE THIRD INJECTION WAS DONE APPROXIMATELY 1 CM FRONT SINCLAIR FROM THIS VERTICAL LINE CREATED AT THE LEVEL OF THE TRAGUS, SNF BETWEEN THESE TWO INJECTIONS. THE FOURTH INJECTION WAS DONE APPROXIMATELY 1.5 CM BACK FROM THE SECOND INJECTION TO THE TEMPORALIS IN LINE TO THE MIDPORTION OF THE EAR. THEN, WE PROCEEDED TO INJECT THE LEFT TEMPORALIS MUSCLE. WE CLEANED THE AREA WITH ALCOHOL AND PROCEEDED TO PERFORM THE SAME FOR INJECTIONS DESCRIBED ABOVE BUT IN THE LEFT TEMPORALIS MUSCLE USING THE SAME LANDMARKS. AFTER THESE INJECTIONS WERE DONE, THE PATIENT WAS SEATED. FIRST, WE STARTED TO INJECT THE LEFT AND RIGHT OCCIPITALIS MUSCLE. I INJECTED AT THE FOLLOWING PLACES IN THE RIGHT AND LEFT MUSCLE. THE FIRST INJECTION WAS DONE AT THE MIDPOINT POSITION BETWEEN THE MASTOID PROCESS AND THE INION OF THE OCCIPITAL PROTUBERANCE. THE SECOND INJECTION WAS DONE APPROXIMATELY 1.5 CM SUPERIOR AND LATERAL OF THIS POINT. THE THIRD INJECTION WAS DONE APPROXIMATELY 1.5 CM SUPERIOR AND MEDIAL TO THIS FIRST INJECTION. THEN, I PROCEEDED TO INJECT THE RIGHT AND LEFT PARASPINAL MUSCLES. LANDMARK OF THE INJECTION WERE APPROXIMATELY: FIRST INJECTION 3 CM BELOW THE INION AND 1 CM LATERAL TO THE MIDLINE AND SECOND INJECTION AT EACH SIDE WAS DONE APPROXIMATELY 1.5 CM SUPERIOR AND LATERAL OF THE FIRST INJECTION. THE LAST GROUP OF INJECTIONS WAS DONE OVER THE RIGHT AND LEFT TRAPEZIUS MUSCLE OVER THE SHOULDERS AREA. THE FIRST INJECTION WAS DONE AT THE MIDPOINT BETWEEN THE INFLECTION POINT BETWEEN THE NECK AND SHOULDER AND THE ACROMION. THE SECOND AND THIRD INJECTIONS WERE DONE APPROXIMATELY 2.5 CM LATERAL AND MEDIAL FROM THIS FIRST INJECTION. SAME TARGETS WERE USED IN THE RIGHT AND LEFT SIDE. IN TOTAL, I INJECTED 155 UNITS OF BOTOX. PROCEDURE WAS DONE WITHOUT EVIDENCE OF PARESTHESIA, PNEUMOTHORAX, OR ANY COMPLICATIONS. THE PATIENT TOLERATED THE PROCEDURE VERY WELL. THE PATIENT WAS SENT TO THE RECOVERY ROOM FOR OBSERVATIONS. INJECTIONS WERE DONE AFTER CLEANING WITH ALCOHOL, USING ASEPTIC TECHNIQUES POST PROCEDURE NOTE THE PROCEDURE DONE WAS DISCUSSED WITH THE PATIENT. THE PATIENT WILL BE SEEN IN A FOLLOW UP IN THE NEXT FEW WEEKS. INSTRUCTIONS WERE GIVEN, QUESTIONS WERE ANSWERED, AND THE PATIENT EXPRESSED UNDERSTANDING AND AGREES WITH THE PLAN. I, ANNABEL ARMAS, DOCUMENTED THE ABOVE INFORMATION ACTING A SCRIBE FOR DR. BRUCE. I HAVE REVIEWED THE ABOVE DOCUMENT, WRITTEN BY ANNABEL LOZOYA AND I VERIFY THAT IT IS ACCURATE. PROCEDURE CODES 42073 CHEMODENERV MUSC MIGRAINE DISPOSITION & COMMUNICATION FOLLOW UP 3 WEEKS ELECTRONICALLY SIGNED BY SCOTT BRUCE MD, MD ON 11/15/2018 AT 12:53 PM EST DISCLAIMER : THIS IS A VISIT SUMMARY EXTRACTED FROM THE [facility] [facility]. IT IS NOT A COPY OF THE [employer] PROGRESS NOTE. MTDD
== END ==
LOC: M PAIN 11:30
PROVIDERS: ATTEND Anesthesiology
DX: G43.709 Chronic migraine without aura, not intractable, without status migrainosus (principal); I10 Essential (primary) hypertension; E03.9 Hypothyroidism, unspecified; M79.7 Fibromyalgia; M19.90 Unspecified osteoarthritis, unspecified site; E78.5 Hyperlipidemia, unspecified; J44.9 Chronic obstructive pulmonary disease, unspecified; M94.0 Chondrocostal junction syndrome [Tietze]; E66.01 Morbid (severe) obesity due to excess calories; Z68.41 Body mass index [BMI] 40.0-44.9, adult; Z79.82 Long term (current) use of aspirin; Z79.899 Other long term (current) drug therapy; Z88.0 Allergy status to penicillin; Z88.8 Allergy status to other drugs, medicaments and biological substances; Z91.010 Allergy to peanuts; Z91.09 Other allergy status, other than to drugs and biological substances; Z86.59 Personal history of other mental and behavioral disorders; Z87.891 Personal history of nicotine dependence
CPT/HCPCS: 64615; J0585

== ENCOUNTER → 2018-11-11 | Outpatient (CLI) | payer MEDICARE ==
[~2018-11-11] MED LIST changes: -BOTULINUM INJ 100 UNITS (J0585) IM ONE
--- NOTE | 2018-11-26 01:05 | ECWPNPC ---
PATIENT NAME: LUIS ENRIQUE MCMILLAN : 1955 GENDER: FEMALE VISIT DATE: 11/11/2018 DISCHARGE DATE: 11/11/18 1525 VISIT LOCKED DATE TIME: PHYSICIAN: MEAGAN OROSCO RESOURCE: MEAGAN OROSCO REASON FOR APPOINTMENT 1. POST BOTOX/ MEDS HISTORY OF PRESENT ILLNESS HISTORY OF PRESENT ILLNESS: HERE FOR POST PROCEDURE F/U.HAD BOTOX ON 10/28/18.REPORTING SIGNIFICANT DECREASE IN FREQUENCY AND INTENSITY OF MIGRAINE HEADACHES SINCE BOTOX.CHIEF AREA OF PAIN IS LOW BACK WITH RADIATION INTO RIGHT LEG.PAIN HAS GOTTEN SO BAD IT MAKES HER CRY.RATING PAIN VAS 6/10-LOW BACK. PAIN THE PATIENT DESCRIBES THE PAIN... FALL RISK SCREENING: SCREENING : NO FALLS IN THE PAST YEAR. CURRENT MEDICATIONS TAKING ASPIR-81 81 MG TABLET DELAYED RELEASE 1 TABLET ORALLY ONCE A DAY TAKING LEVOTHYROXINE SODIUM 100 MCG TABLET 1 TABLET EVERY MORNING ON AN EMPTY STOMACH ORALLY ONCE A DAY TAKING ADVAIR DISKUS 250-50 MCG/DOSE MISCELLANEOUS 1 INHALATION EVERY 12 HRS TAKING VENTOLIN HFA 108 (90 BASE) MCG/ACT AEROSOL SOLUTION 2 PUFFS INHALATION Q4-6H PRN TAKING GENERLAC 10 GM/15ML SOLUTION 30 ML NEEDED ORALLY BID TAKING OXYBUTYNIN CHLORIDE ER 10 MG TABLET EXTENDED RELEASE 24 HOUR 1 TABLET ORALLY ONCE A DAY TAKING HYDROCHLOROTHIAZIDE 25 MG TABLET 1 TABLET ORALLY ONCE A DAY TAKING NEBULIZERS - MISCELLANEOUS ALBUTEROL INHALATION Q 4-6 HRS. PRN TAKING MAXALT 10 MG TABLET 1 TABLET NEEDED ONE TIME ORALLY ONCE AT ONSET OF H/A,REPEAT IN 2HR IF NO IMPROVEMENT TAKING SERTRALINE HCL 25 MG TABLET 1 TABLET ORALLY ONCE A DAY TAKING TRAZODONE HCL 100 MG TABLET 2 TABLET AT BEDTIME ORALLY ONCE A DAY TAKING ZANTAC 150 MG TABLET 1 TABLET ORALLY DAILY TAKING MUCINEX 600 MG TABLET EXTENDED RELEASE 1 TABLET NEEDED ORALLY EVERY 12 HRS TAKING TIZANIDINE HCL 4 MG TABLET 1 TABLET NEEDED ORALLY THREE TIMES A DAY TAKING NORCO 7.5-325 MG TABLET 1 TABLET NEEDED ORALLY EVERY 6 HRS PRN MDD4 NOT-TAKING ZOCOR 40 MG TABLET 1 TABLET EVERY EVENING ORALLY ONCE A DAY, NOTES: NONE IN >2 WEEKS NOT-TAKING ATORVASTATIN CALCIUM 20 MG TABLET 4 TABLET ORALLY ONCE A DAY MEDICATION LIST REVIEWED AND RECONCILED WITH THE PATIENT PAST MEDICAL HISTORY HYPERTENSION HYPOTHYROIDISM DEPRESSION BIPOLAR DISORDER ANXIETY LOW BACK PAIN FIBROMYALGIA ARTHRITIS ESOPHAGEAL REFLUX HYPERLIPIDEMIA COPD CVA S/P R SIDE WEAKNESS MIGRAINE HEADACHE VITAMIN D DEFICIENCY ETOH HX OF SUBSTANCE ABUSE HX OF TIETZE SYNDROME BRONCHITIS 03/2016 ALLERGIES LITHIUM CARBONATE: COLLEPSED, WENT TO ED: ALLERGY PENICILLIN (FOR ALLERGIES USE ONLY): HIVES: ALLERGY NUTS: SOB: ALLERGY ADHESIVES: TEARS SKINS: ALLERGY SURGICAL HISTORY T&A APPENDECTOMY C SECTION X 3 BILAT EYE LID LIFT 04/2018 FAMILY HISTORY FATHER: ALIVE, DIAGNOSED WITH HYPERTENSION, CANCER MOTHER: , DIAGNOSED WITH DIABETES, PSYCHIATRIC CONDITIONS, OTHER 3 BROTHER(S) . 1 SON(S) , 2 DAUGHTER(S) . MOTHER - PARKINSON'SBROTHER - COLON CANCERDAUGHTER - FIBROMYALGIA. SOCIAL HISTORY GENERAL: TOBACCO USE ARE YOU A: QUIT SMOKING ABOUT 7 YEARS AGO ALCOHOL SCREENING POINTS: 0, INTERPRETATION: NEGATIVE. RECREATIONAL DRUG USE DENIES; HISTORY OF ETOH DRUG ABUSE. CLEAN/SOBER SINCE EARLY . CAFFEINE >5/DAY. SEXUAL HX HAD SEX IN THE LAST 12 MONTHS (VAGINAL, ORAL, OR ANAL)?: NO, HAVE YOU EVER HAD AN STD?: NO. PENTECOSTAL NO TAOISM BELIEFS THAT WOULD IMPACT HEALTH CARE. LANGUAGE [place]. LEARNING BARRIERS / SPECIAL NEEDS CHANGE FROM LAST VISIT?NO BARRIERS TO LEARNING?NO HEARING IMPAIRED?NO VISION IMPAIRED?YES :CORRECTIVE LENSES COGNITIVELY IMPAIRED?NO READINESS TO LEARN?YES LEARNING PREFERENCES?NO LEARNING CAPABILITIES PRESENT?YES EMOTIONAL BARRIERS?NO SPECIAL DEVICES?YES :CANE REFERRAL AND INFORMATION AIDE NEEDED?NO OCCUPATION: UNEMPLOYED. DIET: REG. EXERCISE: WALKS,WATER AEROBICS. MARITAL STATUS: . OTHERS AT HOME: DAUGHTER & GRANDDAUGHTER. PAIN CLINIC PFS, CLERGY, PUBLIC HEALTH REFERRALS PFS REFERRAL NEEDED?NO CLERGY REFERRAL NEEDED?NO PUBLIC HEALTH REFERRAL NEEDED?NO HAS THE PATIENT BEEN EDUCATED REGARDING HIS/HER PLAN OF CARE?YES HERE FOR A NEW BODY PART / ALREADY ESTABLISHED PT HAS THE PATIENT BEEN EDUCATED REGARDING PAIN, THE RISK FOR PAIN, THE IMPORTANCE OF EFFECTIVE PAIN MANAGEMENT, AND THE PAIN ASSESSMENT PROCESS?YES PLEASE DOCUMENT ANY ADDTIONAL DETAILS. INSTRUCTED ON KEEPING TRACK OF WHICH BODY PART SHE IS HERE FOR ADVANCE DIRECTIVE ADVANCE DIRECTIVE DISCUSSED WITH PATIENT:YES DECLINED HCP INFO AND ASSISTANCE WITH FORM AT THIS TIME. REVIEWED WITH PT 10/28/18 1126 BVREVIEWED WITH PATIENT 11/11/18 1444 JS. HOSPITALIZATION/MAJOR DIAGNOSTIC PROCEDURE SURGICAL RELATED BACK PAIN MHE REVIEW OF SYSTEMS REVIEWED BY: PROVIDER: MEAGAN NORMAN . CONSTITUTIONAL: ANY CHANGE IN YOUR MEDICAL CONDITION? NO . CHILLS NO . FEVER NO . INFECTION: DO YOU HAVE NEW INFECTIONS? NO . DO YOU HAVE HISTORY OF MRSA? NO . MUSCULOSKELETAL: ANY NEW PATTERNS OF PAIN OR NUMBNESS? NO . GASTROENTEROLOGY: ANY NEW CHANGE IN BOWEL CONTROL? NO . GENITOURINARY: ANY NEW CHANGE IN BLADDER CONTROL? NO . IS THERE A CHANCE YOU COULD BE ? NO . HEMATOLOGY/LYMPH: DO YOU TAKE ANY BLOOD THINNERS? (FOR EXAMPLE- COUMADIN, PLAVIX, AGGRENOX, PLATEL, PRADAXA, OR XARELTO) NO . WHEN WAS YOUR LAST DOSE? DATE: TIME: . NEUROLOGY: HAVE YOU FALLEN IN THE PAST 12 MONTHS? NO . ANY NEW EXTREMITY NUMBNESS OR WEAKNESS? YES, STATES RIGHT LEG NUMBNESS, BURNING, AND WEAKNESS. BURNING NEW WITHIN THE LAST COUPLS OF MONTHS . CARDIOLOGY: DO YOU HAVE A PACEMAKER OR DEFIBRILLATOR? NO . RESPIRATORY: HAVE YOU BEEN SICK IN THE PAST WEEK? NO . FEVER NO . FLU LIKE SYMPTOMS? NO . COUGH NO . INTEGUMENTARY: DO YOU HAVE ANY RASHES OR OPEN SORES? NO . ALLERGIC/IMMUNO: ARE YOU ALLERGIC TO IV DYE? NO . ANY NEW ALLERGIES? NO . PSYCHIATRIC: DO YOU HAVE THOUGHTS OF HURTING YOURSELF OR SOMEONE ELSE? NO . ARE YOU ABUSED, NEGLECTED, OR IN AN UNSAFE ENVIRONMENT? NO . ENDOCRINOLOGY: ARE YOU DIABETIC? NO . OTHER: DO YOU NEED ANY PRESCRIPTIONS? YES . IF YES, PLEASE LIST: ____NORCO . ANY NEW PROBLEMS WITH YOUR MEDICATIONS? NO . WHEN DID YOU LAST EAT? ____ . WHEN DID YOU LAST DRINK? ____ . WHAT DID YOU LAST DRINK? ____ . NAME OF PERSON DRIVING YOU HOME? ____ . DO YOU HAVE ANY OTHER QUESTIONS OR CONCERNS NO . VITAL SIGNS WT 232.6 LBS, HT 60.5", BMI 44.67 INDEX, BP 141/66 MM HG, HR 86 /MIN, RR 18 /MIN, TEMP 98.0 F, OXYGEN SAT % 95%, SAFE IN ENV? (Y/N) YES, NA INITIALS SC 14:42, REVIEWED BY: JOSE. EXAMINATION NEUROLOGICAL: CRANIAL NERVES:2-12-INTACT . MOTOR STRENGTH:WEAK OVER RIGHT UPPER AND LOWER EXTREMITY COMPARED WITH LEFT. . SENSORY:SLIGHT DECREASE IN SENSE OF TOUCH OVER RIGHT UPPER AND LOWER EXTREMITY. . REFLEXES:2/4 BILATERALLY . CEREBELLAR SIGNS:NEGATIVE RHOMBERG . GAIT AND STATION:WITHIN NORMAL LIMITS . GENERAL EXAMINATION: GENERAL APPEARANCE:AWAKE,ALERT ,PLEAASANT . PSYCHAFFECT NORMAL . LUNGS:LUNG NUÑEZ ARE CLEAR TO AUSCULTATION BILATERALLY. GOOD MOVEMENT OF AIR . HEART:S1, S2 IN A REGULAR RATE AND RHYTHM. NO SIGNIFICANT MURMURS, RUBS OR GALLOPS NOTED . LUMBAR SACRAL SPINEPALPATION:TENDER OVER BILAT. L4/5-L5/S1 LUMBAR FACETS WITH FACET LOADING. INCREASE IN PAIN W EXTENSION. ASSESSMENTS OTHER SPONDYLOSIS, LUMBOSACRAL REGION - M47.897 (PRIMARY) TREATMENT OTHER SPONDYLOSIS, LUMBOSACRAL REGION NOTES: BILAT L4/5-L5/S1 DIAG FACET BLOCKISTOP REGISTRY REVIEWED AND DEMONSTRATES COMPLLIANCE. (REF # [id number] ) BRINGS IN MEDICATIONS WHICH IS APPROPRIATE FOR WHAT WAS DISPENSED. RECENT URINE TOXICOLOGY REVIEWED. NO UNAUTHORIZED MEDICATIONS. NO ILLICIT SUBSTANCES AND PRESCRIBED MEDICATIONS WERE PRESENT. , URINE TOX TODAYRISKS AND BENEFITS OF NARCOTIC/OPIOD MEDICATIONS WERE REVIEWED WITH PATIENT - THIS INCLUDES BUT IS NOT LIMITED TO RISK OF DEPENDANCE/DEVELOPMENT OF ADDICTION, MOOD DISTURBANCE AND DEPRESSION, OSTEOPOROSIS, HORMONAL AND LABIDAL CHANGES, RESPIRATORY DEPRESSION AND . PATIENT IS ADVISED NOT TO DRIVE OR DRINK ALCOHOL WHILE ON THESE MEDICATIONS, , [facility] NARCOTIC AGREEMENT WAS UPDATED REVIEWED AND SIGNED TODAY BY THE PATIENT. SEE ATTACHED DOCUMENT FOR FULL DETAILS; SPECIFIC ISSUES WERE REVIEWED: 1) KEEP PAIN MEDS IN THEIR ORIGINAL BOTTLES AND ANY WEEKLY PLANNERS ARE TO BE BROUGHT TO THE PAIN CENTER AT EVERY VISIT. 2) THE PATIENT IS NOT TO INCREASE DOSING OR TIMING OF THEIR PAIN MEDICATION WITHOUT SPECIFIC DIRECTION OF THEIR PAIN CENTERPROVIDER (NOT ER OR OTHER PROVIDERS). 3) ALL PAIN MEDS ARE TO BE KEPT SECURED, IN A LOCKED BOX. 4) NO PAIN MEDS ARE TO BE SHARED WITH ANY OTHER PERSON FOR ANY REASON. 5) NO PAIN MEDS MAY BE TAKEN FROM ANY FRIENDS OR RELATIVES FOR ANY REASON 6) NO MEDS OR SUBSTANCES WHICH ARE NOT LEGAL ARE TO BE USED- NO MARIJUANA, NO COCAINE, AMPHETAMINES, HEROIN, OR OTHERS ARE EVER TO BE USED. 7)URINE TESTING IS DONE TO ACCOUNT FOR MEDS AND SUBSTANCES BEING TAKEN AND WILL BE DONE RANDOMLY. PROCEDURE CODES FA211 ESTABILISHED PATIENT [facility] CHARGE DISPOSITION & COMMUNICATION FOLLOW UP POST (REASON: BILAT L4/5-L5/S1 DIAG FACET BLOCK) ELECTRONICALLY SIGNED BY ESTER DUARTE ON 11/25/2018 AT 11:43 AM EDT DISCLAIMER : THIS IS A VISIT SUMMARY EXTRACTED FROM THE [employer] CHART. IT IS NOT A COPY OF THE [employer] PROGRESS NOTE. ELE[employer]ARD
== END ==
LOC: M PAIN 14:30
PROVIDERS: ATTEND Nurse Practitioner Family
DX: M47.897 Other spondylosis, lumbosacral region (principal); I10 Essential (primary) hypertension; E03.9 Hypothyroidism, unspecified; M79.7 Fibromyalgia; M19.90 Unspecified osteoarthritis, unspecified site; E78.5 Hyperlipidemia, unspecified; J44.9 Chronic obstructive pulmonary disease, unspecified; E66.01 Morbid (severe) obesity due to excess calories; Z68.41 Body mass index [BMI] 40.0-44.9, adult; Z79.82 Long term (current) use of aspirin; Z79.899 Other long term (current) drug therapy; Z88.0 Allergy status to penicillin; Z88.8 Allergy status to other drugs, medicaments and biological substances; Z91.018 Allergy to other foods; Z91.09 Other allergy status, other than to drugs and biological substances; Z87.891 Personal history of nicotine dependence; Z86.69 Personal history of other diseases of the nervous system and sense organs; Z86.59 Personal history of other mental and behavioral disorders

== ENCOUNTER → 2018-12-01 | Outpatient (CLI) | payer MEDICARE ==
[~2018-12-01] MED LIST changes: +BUPIVACAINE HCL 0.25% 30 ML VIAL As Ordered ONE; +ISOVUE-M 300 61% 15ML VIAL (Q9967) As Ordered ONE; +LIDOCAINE 1% SDV INJ 30 ML VIAL As Ordered ONE
--- NOTE | 2018-12-01 12:42 | REP ---
Partial lumbar spine series: Four views . History: Injection procedure for pain. 34 seconds of fluoroscopy time is reported. Findings: A sequence of four fluoroscopically obtained last image hold procedural spot radiographs of the lumbar spine document needle position and contrast injection associated with injection procedure. Electronically Signed by Andrea Woods MD 12/01/2018 12:34 P
--- NOTE | 2018-12-11 01:18 | ECWPNPC ---
PATIENT NAME: LUIS ENRIQUE MCMILLAN : 1955 GENDER: FEMALE VISIT DATE: 12/01/2018 DISCHARGE DATE: 12/01/18 1211 VISIT LOCKED DATE TIME: PHYSICIAN: SCOTT BRUCE MD RESOURCE: SCOTT BRUCE MD REASON FOR APPOINTMENT 1. BILAT L4/5-L5/S1 DIAG FACET BLOCK HISTORY OF PRESENT ILLNESS HISTORY OF PRESENT ILLNESS: PAIN THE PATIENT DESCRIBES THE PAIN... FALL RISK SCREENING: SCREENING : NO FALLS IN THE PAST YEAR. CURRENT MEDICATIONS TAKING LEVOTHYROXINE SODIUM 100 MCG TABLET 1 TABLET EVERY MORNING ON AN EMPTY STOMACH ORALLY ONCE A DAY, NOTES: 0700 TAKING ADVAIR DISKUS 250-50 MCG/DOSE MISCELLANEOUS 1 INHALATION EVERY 12 HRS, NOTES: COUPLE DAYS AGO TAKING VENTOLIN HFA 108 (90 BASE) MCG/ACT AEROSOL SOLUTION 2 PUFFS INHALATION Q4-6H PRN, NOTES: NONE RECENT TAKING GENERLAC 10 GM/15ML SOLUTION 30 ML NEEDED ORALLY BID, NOTES: 11/30/18 0900 TAKING OXYBUTYNIN CHLORIDE ER 10 MG TABLET EXTENDED RELEASE 24 HOUR 1 TABLET ORALLY ONCE A DAY, NOTES: 0700 TAKING HYDROCHLOROTHIAZIDE 25 MG TABLET 1 TABLET ORALLY ONCE A DAY, NOTES: 0700 TAKING NEBULIZERS - MISCELLANEOUS ALBUTEROL INHALATION Q 4-6 HRS. PRN, NOTES: NONE RECENT TAKING MAXALT 10 MG TABLET 1 TABLET NEEDED ONE TIME ORALLY ONCE AT ONSET OF H/A,REPEAT IN 2HR IF NO IMPROVEMENT, NOTES: NONE RECENT TAKING SERTRALINE HCL 25 MG TABLET 1 TABLET ORALLY ONCE A DAY, NOTES: 0700 TAKING TRAZODONE HCL 100 MG TABLET 2 TABLET AT BEDTIME ORALLY ONCE A DAY, NOTES: 11/30/18 2200 TAKING ZANTAC 150 MG TABLET 1 TABLET ORALLY DAILY, NOTES: 0700 TAKING MUCINEX 600 MG TABLET EXTENDED RELEASE 1 TABLET NEEDED ORALLY EVERY 12 HRS, NOTES: 0700 TAKING TIZANIDINE HCL 4 MG TABLET 1 TABLET NEEDED ORALLY THREE TIMES A DAY, NOTES: 2 DAYS AGO TAKING NORCO 7.5-325 MG TABLET 1 TABLET NEEDED ORALLY EVERY 6 HRS PRN MDD4, NOTES: 11/30/18 1600 NOT-TAKING ASPIR-81 81 MG TABLET DELAYED RELEASE 1 TABLET ORALLY ONCE A DAY NOT-TAKING ZOCOR 40 MG TABLET 1 TABLET EVERY EVENING ORALLY ONCE A DAY, NOTES: NONE IN >2 WEEKS NOT-TAKING ATORVASTATIN CALCIUM 20 MG TABLET 4 TABLET ORALLY ONCE A DAY MEDICATION LIST REVIEWED AND RECONCILED WITH THE PATIENT PAST MEDICAL HISTORY HYPERTENSION HYPOTHYROIDISM DEPRESSION BIPOLAR DISORDER ANXIETY LOW BACK PAIN FIBROMYALGIA ARTHRITIS ESOPHAGEAL REFLUX HYPERLIPIDEMIA COPD CVA S/P R SIDE WEAKNESS MIGRAINE HEADACHE VITAMIN D DEFICIENCY ETOH HX OF SUBSTANCE ABUSE HX OF TIETZE SYNDROME BRONCHITIS 03/2016 ALLERGIES LITHIUM CARBONATE: COLLEPSED, WENT TO ED - ALLERGY PENICILLIN (FOR ALLERGIES USE ONLY): HIVES - ALLERGY NUTS: SOB - ALLERGY ADHESIVES: TEARS SKINS - ALLERGY SURGICAL HISTORY T&A APPENDECTOMY C SECTION X 3 BILAT EYE LID LIFT 04/2018 FAMILY HISTORY FATHER: ALIVE, DIAGNOSED WITH HYPERTENSION, CANCER MOTHER: , OTHER, DIABETES, PSYCHIATRIC CONDITIONS 3 BROTHER(S) . 1 SON(S) , 2 DAUGHTER(S) . MOTHER - PARKINSON\\'S\\NBROTHER - COLON CANCER\\NDAUGHTER - FIBROMYALGIA. SOCIAL HISTORY GENERAL: TOBACCO USE ARE YOU A: QUIT SMOKING ABOUT 7 YEARS AGO LATEX QUESTIONNAIRE LATEX ALLERGY : HAVE YOU EVER DEVELOPED ANY TYPE OF REACTION AFTER HANDLING LATEX PRODUCTS SUCH RUBBER GLOVES, CONDOMS, DIAPHRAGMS, BALLOONS, SOCKS, OR UNDERWEAR?NO LATEX ALLERGY : HAVE YOU EVER DEVELOPED ANY TYPE OF REACTION DURING OR AFTER DENTAL APPOINTMENT, VAGINAL/RECTAL EXAMINATION, SURGICAL PROCEDURE, OR ANY OTHER EXPOSURE?NO LATEX RISK : HAVE YOU EVER HAD ANY DIFFICULTY BREATHING OR HIVES AFTER EATING OR HANDLING ANY FRUITS, OR VEGETABLES; SUCH KIWI, BANANAS, STONE FRUITS, OR CHESTNUTSYES - PLEASE INDICATE : CHESTNUTS LATEX RISK : DO YOU HAVE A PREVIOUS PERSONAL HISTORY OF MORE THAN NINE SURGERIES, SPINA BIFIDA, OR REPEATED CATHERTIZATIONS? NO LATEX RISK : ARE YOU FREQUENTLY EXPOSED TO LATEX PRODUCTS IN YOUR OCCUPATION?NO DATE ASKED : 12/01/2018 ALCOHOL SCREENING POINTS: 0, INTERPRETATION: NEGATIVE. RECREATIONAL DRUG USE DENIES; HISTORY OF ETOH DRUG ABUSE. CLEAN/SOBER SINCE EARLY . CAFFEINE >5/DAY. SEXUAL HX HAD SEX IN THE LAST 12 MONTHS (VAGINAL, ORAL, OR ANAL)?: NO, HAVE YOU EVER HAD AN STD?: NO. EVANGELICAL NO HINDUISM BELIEFS THAT WOULD IMPACT HEALTH CARE. LANGUAGE BENGALI. 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 DIET: REG. EXERCISE: WALKS,WATER AEROBICS. MARITAL STATUS: . OTHERS AT HOME: DAUGHTER & GRANDDAUGHTER. PAIN CLINIC PFS, CLERGY, PUBLIC HEALTH REFERRALS PFS REFERRAL NEEDED?NO CLERGY REFERRAL NEEDED?NO PUBLIC HEALTH REFERRAL NEEDED?NO HAS THE PATIENT BEEN EDUCATED REGARDING HIS/HER PLAN OF CARE?YES HERE FOR A NEW BODY PART / ALREADY ESTABLISHED PT HAS THE PATIENT BEEN EDUCATED REGARDING PAIN, THE RISK FOR PAIN, THE IMPORTANCE OF EFFECTIVE PAIN MANAGEMENT, AND THE PAIN ASSESSMENT PROCESS?YES PLEASE DOCUMENT ANY ADDTIONAL DETAILS. INSTRUCTED ON KEEPING TRACK OF WHICH BODY PART SHE IS HERE FOR ADVANCE DIRECTIVE ADVANCE DIRECTIVE DISCUSSED WITH PATIENT:YES DECLINED HCP INFO AND ASSISTANCE WITH FORM AT THIS TIME. REVIEWED WITH PT 10/28/18 1126 BVREVIEWED WITH PATIENT 11/11/18 1444 JSREVIEWED WITH PATIENT 12/01/18 1001 JS. HOSPITALIZATION/MAJOR DIAGNOSTIC PROCEDURE SURGICAL RELATED BACK PAIN MHE REVIEW OF SYSTEMS REVIEWED BY: PROVIDER: . CONSTITUTIONAL: ANY CHANGE IN YOUR MEDICAL CONDITION? NO . CHILLS NO . FEVER NO . INFECTION: DO YOU HAVE NEW INFECTIONS? NO . DO YOU HAVE HISTORY OF MRSA? NO . MUSCULOSKELETAL: ANY NEW PATTERNS OF PAIN OR NUMBNESS? NO . GASTROENTEROLOGY: ANY NEW CHANGE IN BOWEL CONTROL? NO . GENITOURINARY: ANY NEW CHANGE IN BLADDER CONTROL? NO . IS THERE A CHANCE YOU COULD BE ? NO . HEMATOLOGY/LYMPH: DO YOU TAKE ANY BLOOD THINNERS? (FOR EXAMPLE- COUMADIN, PLAVIX, AGGRENOX, PLATEL, PRADAXA, OR XARELTO) NO . WHEN WAS YOUR LAST DOSE? DATE: TIME: . NEUROLOGY: HAVE YOU FALLEN IN THE PAST 12 MONTHS? NO . ANY NEW EXTREMITY NUMBNESS OR WEAKNESS? YES, STATES RIGHT LEG NUMBNESS AND WEAKNESS, STATES IT STARTED A FEW MONTHS AGO . CARDIOLOGY: DO YOU HAVE A PACEMAKER OR DEFIBRILLATOR? NO . RESPIRATORY: HAVE YOU BEEN SICK IN THE PAST WEEK? NO . FEVER NO . FLU LIKE SYMPTOMS? NO . COUGH NO . INTEGUMENTARY: DO YOU HAVE ANY RASHES OR OPEN SORES? NO . ALLERGIC/IMMUNO: ARE YOU ALLERGIC TO IV DYE? NO . ANY NEW ALLERGIES? NO . PSYCHIATRIC: DO YOU HAVE THOUGHTS OF HURTING YOURSELF OR SOMEONE ELSE? NO . ARE YOU ABUSED, NEGLECTED, OR IN AN UNSAFE ENVIRONMENT? NO . ENDOCRINOLOGY: ARE YOU DIABETIC? NO . OTHER: DO YOU NEED ANY PRESCRIPTIONS? NO . IF YES, PLEASE LIST: ____ . ANY NEW PROBLEMS WITH YOUR MEDICATIONS? NO . WHEN DID YOU LAST EAT? ____11/30/18 1800 . WHEN DID YOU LAST DRINK? ____12/01/18 0700 . WHAT DID YOU LAST DRINK? ____WATER . NAME OF PERSON DRIVING YOU HOME? ____MARY . DO YOU HAVE ANY OTHER QUESTIONS OR CONCERNS NO . VITAL SIGNS WT 235.8 LBS, HT 60.5", BMI 45.29 INDEX, BP 127/80 MM HG, HR 104 /MIN, RR 18 /MIN, TEMP 98.1 F, OXYGEN SAT % 96%, SAFE IN ENV? (Y/N) YES, NA INITIALS AW 0910, REVIEWED BY: JS. ASSESSMENTS SPONDYLOSIS OF LUMBAR REGION WITHOUT MYELOPATHY OR RADICULOPATHY - M47.816 (PRIMARY) SPONDYLOSIS OF LUMBOSACRAL REGION WITHOUT MYELOPATHY OR RADICULOPATHY - M47.817 PROCEDURES PN LUMBAR FACET BLOCK DIAGNOSTIC PRE PROCEDURE DIAGNOSIS LUMBAR SPONDYLOSIS, LUMBOSACRAL SPONDYLOSIS POST PROCEDURE DIAGNOSIS LUMBAR SPONDYLOSIS, LUMBOSACRAL SPONDYLOSIS PROCEDURE BILATERAL L4-L5 AND BILATERAL L5-S1 FACET BLOCK DIAGNOSTIC NUMBER [address] SCOTT BRUCE ORANGE GROWER NONE ANESTHESIA LOCAL PRE PROCEDURE NOTE THE PATIENT WITH HISTORY OF CHRONIC LOW BACK PAIN. I EVALUATED THE PATIENT AND REVIEWED THE CHART. I WENT OVER THE RISKS, ALTERNATIVES, AND BENEFITS ASSOCIATED WITH THIS PROCEDURE. THE PATIENT WOULD LIKE TO PROCEED AND GAVE CONSENT TO PERFORM THE PROCEDURE. AGREED WITH THE PATIENT WE ARE DOING THIS PROCEDURE TO DETERMINE IF THE PATIENT IS A CANDIDATE FOR A RADIOFREQUENCY ABLATION OF THE FACETS JOINTS. THE PATIENT DENIES UNEXPLAINABLE WEIGHT LOSS, FEVER, CHILLS, OR NEW CHANGES IN URINARY OR BOWEL CONTROL DESCRIPTION OF PROCEDURE THE PATIENT WAS BROUGHT TO THE PROCEDURE ROOM AND PLACED IN THE PRONE POSITION. THE LUMBOSACRAL AREA WAS CLEANED WITH CHLORAPREP SOLUTION AND DRAPED ASEPTICALLY. THE PROCEDURE WAS DONE UNDER STERILE CONDITIONS. I CHECKED LATERALITY AND THE LEVEL WHERE THE PROCEDURE WAS GOING TO BE PERFORMED WITH THE PATIENT AND THE SUPPORTING STAFF AT THE MOMENT OF THE TIME OUT IN THE PROCEDURE ROOM. UNDER FLUOROSCOPIC GUIDANCE, TARGETS WERE SELECTED AT THE INTERSECTION OF THE RIGHT AND LEFT TRANSVERSE PROCESS OF L4, L5 AND ALA OF S1 WITH ITS RESPECTIVE SUPERIOR ARTICULAR PROCESS. LIDOCAINE WAS USED TO NUMB THE SKIN AND THE SUBCUTANEOUS TISSUE BELOW IT. SPINAL NEEDLE, 22-GAUGE WAS ADVANCED UNDER FLUOROSCOPIC GUIDANCE AND FOLLOWING PATIENT FEEDBACK UNTIL THE TARGETS WERE REACHED. POSITION OF THE NEEDLES WAS VERIFIED WITH AP AND LATERAL VIEWS. AFTER PROPER POSITION OF THE NEEDLES WAS ACHIEVED, ISOVUE-M DYE 30% 0.1 ML WAS INJECTED AT EACH SITE SHOWING ADEQUATE SPREAD OF THE DYE. THEN A SOLUTION OF 0.4 ML OF BUPIVACAINE 0.25% WAS INJECTED AT EACH SITE. THERE WAS NO EVIDENCE OF BLOOD, PARESTHESIA OR CEREBROSPINAL FLUID DURING THE PROCEDURE. THE PATIENT WAS SENT TO THE RECOVERY ROOM. THE PATIENT WAS MOVING THE EXTREMITIES AND DOING WELL. THERE WAS NO COMPLICATION DURING THE PROCEDURE. FLUOROSCOPY TIME WAS 34 SECONDS POST PROCEDURE NOTE THE PATIENT WILL DOCUMENT HIS PAIN LEVEL AND RESPONSE TO THIS PROCEDURE EVERY 30 MINUTES. THE PATIENT WILL BE SEEN IN A FOLLOW UP IN THE NEXT FEW WEEKS. FURTHER DETERMINATION FOR HIS CASE WILL BE DONE AT THE NEXT VISIT. INSTRUCTIONS WERE GIVEN, QUESTIONS WERE ANSWERED, AND THE PATIENT EXPRESSED UNDERSTANDING AND AGREED WITH THE PLAN. I, ANNABEL ARMAS, DOCUMENTED THE ABOVE INFORMATION ACTING A SCRIBE FOR DR. BRUCE. I HAVE REVIEWED THE ABOVE DOCUMENT, WRITTEN BY ANNABEL RACHELIBKeyona AND I VERIFY THAT IT IS ACCURATE. DIAGNOSTIC IMAGING [facility] FACET BLOCK (PAIN)[id number] PROCEDURE CODES 6045F RADXPS IN END [id number] PXD [id number] INJ PARAVERT F JNT L/S 1 LEV, MODIFIERS: 50 [id number] INJ PARAVERT F JNT L/S 2 LEV, MODIFIERS: 50 DISPOSITION & COMMUNICATION FOLLOW UP 3 WEEKS ELECTRONICALLY SIGNED BY SCOTT BRUCE MD, MD ON 12/10/2018 AT 09:28 AM EDT DISCLAIMER : THIS IS A VISIT SUMMARY EXTRACTED FROM THE [employer] CHART. IT IS NOT A COPY OF THE [employer] PROGRESS NOTE. MTDD
== END ==
LOC: M PAIN 08:45
PROVIDERS: ATTEND Anesthesiology
DX: G89.29 Other chronic pain (principal); M47.816 Spondylosis without myelopathy or radiculopathy, lumbar region; M47.817 Spondylosis without myelopathy or radiculopathy, lumbosacral region; I10 Essential (primary) hypertension; E03.9 Hypothyroidism, unspecified; F31.9 Bipolar disorder, unspecified; F41.9 Anxiety disorder, unspecified; J44.9 Chronic obstructive pulmonary disease, unspecified; E78.5 Hyperlipidemia, unspecified; M79.7 Fibromyalgia; M19.90 Unspecified osteoarthritis, unspecified site; G43.909 Migraine, unspecified, not intractable, without status migrainosus; M94.0 Chondrocostal junction syndrome [Tietze]; E66.01 Morbid (severe) obesity due to excess calories; Z68.42 Body mass index [BMI] 45.0-49.9, adult; Z79.899 Other long term (current) drug therapy; Z88.0 Allergy status to penicillin; Z88.8 Allergy status to other drugs, medicaments and biological substances; Z91.018 Allergy to other foods; Z91.09 Other allergy status, other than to drugs and biological substances; Z87.891 Personal history of nicotine dependence; Z86.59 Personal history of other mental and behavioral disorders
CPT/HCPCS: 64493; 64494; Q9967

== ENCOUNTER → 2018-12-31 | Outpatient (CLI) | payer MEDICARE ==
[~2018-12-31] MED LIST changes: -/ADVA50050; -/ADVA50050 IN; +ADVA1AER2; +ADVA1AER2 IN; -BUPIVACAINE HCL 0.25% 30 ML VIAL As Ordered ONE; -ISOVUE-M 300 61% 15ML VIAL (Q9967) As Ordered ONE; -LIDOCAINE 1% SDV INJ 30 ML VIAL As Ordered ONE; +SERT-141 PO; -SERT50TA PO
--- NOTE | 2019-01-18 00:16 | ECWPNPC ---
PATIENT NAME: LUIS ENRIQUE MCMILLAN : 1955 GENDER: FEMALE VISIT DATE: 12/31/2018 DISCHARGE DATE: 12/31/18 1405 VISIT LOCKED DATE TIME: PHYSICIAN: MEAGAN OROSCO RESOURCE: MEAGAN OROSCO REASON FOR APPOINTMENT 1. POST PROC HISTORY OF PRESENT ILLNESS HISTORY OF PRESENT ILLNESS: HERE FOR POST PROCEDURE F/U .HAD DX BILAT. L4/5-L5/S1 LFB ON 12/01/18.REPORTING >80% REDUCTION IN PAIN X24 HRS THEN PAIN ABRUPTLY RETURNED.RATING LBP 7-9/10 VAS. PAIN THE PATIENT DESCRIBES THE PAIN... THE PATIENT DESCRIBES THE PAIN... FALL RISK SCREENING: SCREENING :NO FALLS REPORTED IN THE LAST YEAR :NO FALLS REPORTED IN THE LAST YEAR SCREENING :NO FALLS REPORTED IN THE LAST YEAR :NO FALLS REPORTED IN THE LAST YEAR CURRENT MEDICATIONS TAKING ZOCOR 40 MG TABLET 1 TABLET EVERY EVENING ORALLY ONCE A DAY, NOTES: NONE IN >2 WEEKS TAKING ATORVASTATIN CALCIUM 20 MG TABLET 4 TABLET ORALLY ONCE A DAY TAKING LEVOTHYROXINE SODIUM 100 MCG TABLET 1 TABLET EVERY MORNING ON AN EMPTY STOMACH ORALLY ONCE A DAY, NOTES: 0700 TAKING ADVAIR DISKUS 250-50 MCG/DOSE MISCELLANEOUS 1 INHALATION EVERY 12 HRS, NOTES: COUPLE DAYS AGO TAKING VENTOLIN HFA 108 (90 BASE) MCG/ACT AEROSOL SOLUTION 2 PUFFS INHALATION Q4-6H PRN, NOTES: NONE RECENT TAKING GENERLAC 10 GM/15ML SOLUTION 30 ML NEEDED ORALLY BID, NOTES: 11/30/18 0900 TAKING OXYBUTYNIN CHLORIDE ER 10 MG TABLET EXTENDED RELEASE 24 HOUR 1 TABLET ORALLY ONCE A DAY, NOTES: 0700 TAKING HYDROCHLOROTHIAZIDE 25 MG TABLET 1 TABLET ORALLY ONCE A DAY, NOTES: 0700 TAKING NEBULIZERS - MISCELLANEOUS ALBUTEROL INHALATION Q 4-6 HRS. PRN, NOTES: NONE RECENT TAKING MAXALT 10 MG TABLET 1 TABLET NEEDED ONE TIME ORALLY ONCE AT ONSET OF H/A,REPEAT IN 2HR IF NO IMPROVEMENT, NOTES: NONE RECENT TAKING SERTRALINE HCL 25 MG TABLET 1 TABLET ORALLY ONCE A DAY, NOTES: 0700 TAKING TRAZODONE HCL 100 MG TABLET 2 TABLET AT BEDTIME ORALLY ONCE A DAY, NOTES: 11/30/18 2200 TAKING ZANTAC 150 MG TABLET 1 TABLET ORALLY DAILY, NOTES: 0700 TAKING MUCINEX 600 MG TABLET EXTENDED RELEASE 1 TABLET NEEDED ORALLY EVERY 12 HRS, NOTES: 0700 TAKING TIZANIDINE HCL 4 MG TABLET 1 TABLET NEEDED ORALLY THREE TIMES A DAY, NOTES: 2 DAYS AGO TAKING NORCO 7.5-325 MG TABLET 1 TABLET NEEDED ORALLY EVERY 6 HRS PRN MDD4, NOTES: 11/30/18 1600 DISCONTINUED ASPIR-81 81 MG TABLET DELAYED RELEASE 1 TABLET ORALLY ONCE A DAY MEDICATION LIST REVIEWED AND RECONCILED WITH THE PATIENT PAST MEDICAL HISTORY HYPERTENSION HYPOTHYROIDISM DEPRESSION BIPOLAR DISORDER ANXIETY LOW BACK PAIN FIBROMYALGIA ARTHRITIS ESOPHAGEAL REFLUX HYPERLIPIDEMIA COPD CVA S/P R SIDE WEAKNESS MIGRAINE HEADACHE VITAMIN D DEFICIENCY ETOH HX OF SUBSTANCE ABUSE HX OF TIETZE SYNDROME BRONCHITIS 03/2016 ALLERGIES LITHIUM CARBONATE: COLLEPSED, WENT TO ED - ALLERGY PENICILLIN (FOR ALLERGIES USE ONLY): HIVES - ALLERGY NUTS: SOB - ALLERGY ADHESIVES: TEARS SKINS - ALLERGY SURGICAL HISTORY T&A APPENDECTOMY C SECTION X 3 BILAT EYE LID LIFT 04/2018 FAMILY HISTORY FATHER: ALIVE, DIAGNOSED WITH HYPERTENSION, CANCER MOTHER: , DIABETES, PSYCHIATRIC CONDITIONS, OTHER 3 BROTHER(S) . 1 SON(S) , 2 DAUGHTER(S) . MOTHER - PARKINSON\\\\\\'S\\\\NBROTHER - COLON CANCER\\\\NDAUGHTER - FIBROMYALGIA//SON DDD. SOCIAL HISTORY GENERAL: TOBACCO USE ARE YOU A: QUIT SMOKING ABOUT 7 YEARS AGO LATEX QUESTIONNAIRE LATEX ALLERGY : HAVE YOU EVER DEVELOPED ANY TYPE OF REACTION AFTER HANDLING LATEX PRODUCTS SUCH RUBBER GLOVES, CONDOMS, DIAPHRAGMS, BALLOONS, SOCKS, OR UNDERWEAR?NO LATEX ALLERGY : HAVE YOU EVER DEVELOPED ANY TYPE OF REACTION DURING OR AFTER DENTAL APPOINTMENT, VAGINAL/RECTAL EXAMINATION, SURGICAL PROCEDURE, OR ANY OTHER EXPOSURE?NO LATEX RISK : HAVE YOU EVER HAD ANY DIFFICULTY BREATHING OR HIVES AFTER EATING OR HANDLING ANY FRUITS, OR VEGETABLES; SUCH KIWI, BANANAS, STONE FRUITS, OR CHESTNUTSYES - PLEASE INDICATE : CHESTNUTS LATEX RISK : DO YOU HAVE A PREVIOUS PERSONAL HISTORY OF MORE THAN NINE SURGERIES, SPINA BIFIDA, OR REPEATED CATHERTIZATIONS? NO LATEX RISK : ARE YOU FREQUENTLY EXPOSED TO LATEX PRODUCTS IN YOUR OCCUPATION?NO DATE ASKED : 12/31/2018 ALCOHOL SCREENING POINTS: 0, INTERPRETATION: NEGATIVE. RECREATIONAL DRUG USE DENIES; HISTORY OF ETOH DRUG ABUSE. CLEAN/SOBER SINCE EARLY . CAFFEINE >5/DAY. SEXUAL HX HAD SEX IN THE LAST 12 MONTHS (VAGINAL, ORAL, OR ANAL)?: NO, HAVE YOU EVER HAD AN STD?: NO. MORAVIAN NO VOODOO BELIEFS THAT WOULD IMPACT HEALTH CARE. LANGUAGE ICELANDIC. 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 DIET: REG. EXERCISE: WALKS,WATER AEROBICS. MARITAL STATUS: . OTHERS AT HOME: DAUGHTER & GRANDDAUGHTER. PAIN CLINIC PFS, CLERGY, PUBLIC HEALTH REFERRALS PFS REFERRAL NEEDED?NO CLERGY REFERRAL NEEDED?NO PUBLIC HEALTH REFERRAL NEEDED?NO HAS THE PATIENT BEEN EDUCATED REGARDING HIS/HER PLAN OF CARE?YES HERE FOR A NEW BODY PART / ALREADY ESTABLISHED PT HAS THE PATIENT BEEN EDUCATED REGARDING PAIN, THE RISK FOR PAIN, THE IMPORTANCE OF EFFECTIVE PAIN MANAGEMENT, AND THE PAIN ASSESSMENT PROCESS?YES PLEASE DOCUMENT ANY ADDTIONAL DETAILS. INSTRUCTED ON KEEPING TRACK OF WHICH BODY PART SHE IS HERE FOR ADVANCE DIRECTIVE ADVANCE DIRECTIVE DISCUSSED WITH PATIENT:YES DECLINED HCP INFO AND ASSISTANCE WITH FORM AT THIS TIME. REVIEWED WITH PT 10/28/18 1126 BVREVIEWED WITH PATIENT 11/11/18 1444 JSREVIEWED WITH PATIENT 12/01/18 1001 JS. HOSPITALIZATION/MAJOR DIAGNOSTIC PROCEDURE SURGICAL RELATED BACK PAIN MHE REVIEW OF SYSTEMS REVIEWED BY: PROVIDER: MEAGAN NORMAN, . CONSTITUTIONAL: ANY CHANGE IN YOUR MEDICAL CONDITION? NO, NO . CHILLS NO, NO . FEVER NO, NO . INFECTION: DO YOU HAVE NEW INFECTIONS? NO, NO . DO YOU HAVE HISTORY OF MRSA? NO, NO . MUSCULOSKELETAL: ANY NEW PATTERNS OF PAIN OR NUMBNESS? NO, NO . GASTROENTEROLOGY: ANY NEW CHANGE IN BOWEL CONTROL? NO, NO . GENITOURINARY: ANY NEW CHANGE IN BLADDER CONTROL? NO, NO . IS THERE A CHANCE YOU COULD BE ? NO, NO . HEMATOLOGY/LYMPH: DO YOU TAKE ANY BLOOD THINNERS? (FOR EXAMPLE- COUMADIN, PLAVIX, AGGRENOX, PLATEL, PRADAXA, OR XARELTO) NO, NO . WHEN WAS YOUR LAST DOSE? DATE: TIME: , DATE: TIME: . NEUROLOGY: HAVE YOU FALLEN IN THE PAST 12 MONTHS? NO, NO . ANY NEW EXTREMITY NUMBNESS OR WEAKNESS? NO, NO . CARDIOLOGY: DO YOU HAVE A PACEMAKER OR DEFIBRILLATOR? NO, NO . RESPIRATORY: HAVE YOU BEEN SICK IN THE PAST WEEK? NO, NO . FEVER NO, NO . FLU LIKE SYMPTOMS? NO, NO . COUGH NO, NO . INTEGUMENTARY: DO YOU HAVE ANY RASHES OR OPEN SORES? NO, NO . ALLERGIC/IMMUNO: ARE YOU ALLERGIC TO IV DYE? NO, NO . ANY NEW ALLERGIES? NO, NO . PSYCHIATRIC: DO YOU HAVE THOUGHTS OF HURTING YOURSELF OR SOMEONE ELSE? NO, NO . ARE YOU ABUSED, NEGLECTED, OR IN AN UNSAFE ENVIRONMENT? NO, NO . ENDOCRINOLOGY: ARE YOU DIABETIC? NO, NO . OTHER: DO YOU NEED ANY PRESCRIPTIONS? YES, NO . IF YES, PLEASE LIST: ____VICODIN, ____ . ANY NEW PROBLEMS WITH YOUR MEDICATIONS? NO, NO . WHEN DID YOU LAST EAT? ____, ____ . WHEN DID YOU LAST DRINK? ____, ____ . WHAT DID YOU LAST DRINK? ____, ____ . NAME OF PERSON DRIVING YOU HOME? ____, ____ . DO YOU HAVE ANY OTHER QUESTIONS OR CONCERNS NO, NO . VITAL SIGNS WT 231.6 LBS, HT 60.5", BMI 44.48 INDEX, BP 137/66 MM HG, HR 85 /MIN, RR 18 /MIN, TEMP 99.1 F, OXYGEN SAT % 94%, SAFE IN ENV? (Y/N) YES, NA INITIALS AW 1307, REVIEWED BY: DEMETRI. EXAMINATION GENERAL EXAMINATION: GENERAL APPEARANCE:AWAKE,ALERT ,PLEAASANT . PSYCHAFFECT NORMAL . LUNGS:LUNG NUÑEZ ARE CLEAR TO AUSCULTATION BILATERALLY. GOOD MOVEMENT OF AIR . HEART:S1, S2 IN A REGULAR RATE AND RHYTHM. NO SIGNIFICANT MURMURS, RUBS OR GALLOPS NOTED . LUMBAR SACRAL SPINEPALPATION:TENDER OVER BILAT. L4/5-L5/S1 LUMBAR FACETS WITH FACET LOADING RIGHT >LEFT INCREASE IN PAIN W EXTENSION. ASSESSMENTS SPONDYLOSIS OF LUMBAR REGION WITHOUT MYELOPATHY OR RADICULOPATHY - M47.816 (PRIMARY) TREATMENT SPONDYLOSIS OF LUMBAR REGION WITHOUT MYELOPATHY OR RADICULOPATHY REFILL NORCO TABLET, 7.5-325 MG, 1 TABLET NEEDED, ORALLY, EVERY 6 HRS PRN MDD4, 30 DAY(S), 120, REFILLS 0, NOTES: 11/30/18 1600 STOP TIZANIDINE HCL TABLET, 4 MG, 1 TABLET NEEDED, ORALLY, THREE TIMES A DAY, NOTES: 2 DAYS AGO START SOMA TABLET, 350 MG, 1 TABLET NEEDED, ORALLY, BID, 30 DAY(S), 60 TABLET, REFILLS 2 NOTES: RIGHT L4/5-L5/S1 DX BLOCK #2, ISTOP REGISTRY REVIEWED AND DEMONSTRATES COMPLLIANCE. BRINGS IN MEDICATIONS WHICH IS APPROPRIATE FOR WHAT WAS DISPENSED. RECENT URINE TOXICOLOGY REVIEWED. NO UNAUTHORIZED MEDICATIONS. NO ILLICIT SUBSTANCES AND PRESCRIBED MEDICATIONS WERE PRESENT.RISKS AND BENEFITS OF NARCOTIC/OPIOD MEDICATIONS WERE REVIEWED WITH PATIENT - THIS INCLUDES BUT IS NOT LIMITED TO RISK OF DEPENDANCE/DEVELOPMENT OF ADDICTION, MOOD DISTURBANCE AND DEPRESSION, OSTEOPOROSIS, HORMONAL AND LABIDAL CHANGES, RESPIRATORY DEPRESSION AND . PATIENT IS ADVISED NOT TO DRIVE OR DRINK ALCOHOL WHILE ON THESE MEDICATIONS,. PREVENTIVE MEDICINE PAIN CLINIC TEACHING: PROCEDURE TEACHING TEACHING FOR LUMBAR DIAGNOSTIC FACET BLOCKS REVEIWED WITH PT. RUSSELL SALEH RN. PROCEDURE CODES FA211 ESTABILISHED PATIENT [facility] CHARGE DISPOSITION & COMMUNICATION FOLLOW UP POST (REASON: RIGHT L4/5-L5/S1 DX BLOCK #2) ELECTRONICALLY SIGNED BY ESTER DUARTE ON 01/17/2019 AT 03:03 PM EDT DISCLAIMER : THIS IS A VISIT SUMMARY EXTRACTED FROM THE [employer] CHART. IT IS NOT A COPY OF THE [employer] PROGRESS NOTE. CAN
== END ==
LOC: M PAIN 13:30
PROVIDERS: ATTEND Nurse Practitioner Family
DX: M47.816 Spondylosis without myelopathy or radiculopathy, lumbar region (principal); I10 Essential (primary) hypertension; E03.9 Hypothyroidism, unspecified; Z86.59 Personal history of other mental and behavioral disorders; M79.7 Fibromyalgia; M19.90 Unspecified osteoarthritis, unspecified site; K21.9 Gastro-esophageal reflux disease without esophagitis; E78.5 Hyperlipidemia, unspecified; J44.9 Chronic obstructive pulmonary disease, unspecified; G43.909 Migraine, unspecified, not intractable, without status migrainosus; Z87.891 Personal history of nicotine dependence; Z88.0 Allergy status to penicillin; Z88.8 Allergy status to other drugs, medicaments and biological substances; Z91.010 Allergy to peanuts; Z91.09 Other allergy status, other than to drugs and biological substances; E66.01 Morbid (severe) obesity due to excess calories; Z68.41 Body mass index [BMI] 40.0-44.9, adult; Z79.899 Other long term (current) drug therapy

== ENCOUNTER → 2019-01-21 | Outpatient (CLI) | payer MEDICARE ==
[~2019-01-21] MED LIST changes: +BUPIVACAINE HCL 0.25% 30 ML VIAL As Ordered ONE; +ISOVUE-M 300 61% 15ML VIAL (Q9967) As Ordered ONE; +LIDOCAINE 1% SDV INJ 30 ML VIAL As Ordered ONE
--- NOTE | 2019-01-21 14:58 | REP ---
Partial lumbar spine series: Three views . History: Injection procedure for pain. 21 seconds of fluoroscopy time is reported. Findings: A sequence of three fluoroscopically obtained last image hold procedural spot radiographs of the lumbar spine document needle position and contrast injection associated with injection procedure. Electronically Signed by Andrea Woods MD 01/21/2019 02:50 P
--- NOTE | 2019-02-06 23:33 | ECWPNPC ---
PATIENT NAME: LUIS ENRIQUE MCMILLAN : 1955 GENDER: FEMALE VISIT DATE: 01/21/2019 DISCHARGE DATE: 01/21/19 1333 VISIT LOCKED DATE TIME: PHYSICIAN: SCOTT BRUCE MD RESOURCE: SCOTT BRUCE MD REASON FOR APPOINTMENT 1. RIGHT L4/5-L5/S1 DX BLOCK #2 HISTORY OF PRESENT ILLNESS HISTORY OF PRESENT ILLNESS: PAIN THE PATIENT DESCRIBES THE PAIN... FALL RISK SCREENING: SCREENING :NO FALLS REPORTED IN THE LAST YEAR CURRENT MEDICATIONS TAKING ZOCOR 40 MG TABLET 1 TABLET EVERY EVENING ORALLY ONCE A DAY, NOTES: 01/20 1000 TAKING LEVOTHYROXINE SODIUM 100 MCG TABLET 1 TABLET EVERY MORNING ON AN EMPTY STOMACH ORALLY ONCE A DAY, NOTES: 01/20 1000 TAKING ADVAIR DISKUS 250-50 MCG/DOSE MISCELLANEOUS 1 INHALATION EVERY 12 HRS, NOTES: NONE RECENT TAKING VENTOLIN HFA 108 (90 BASE) MCG/ACT AEROSOL SOLUTION 2 PUFFS INHALATION Q4-6H PRN, NOTES: NONE RECENT TAKING GENERLAC 10 GM/15ML SOLUTION 30 ML NEEDED ORALLY BID, NOTES: 1 WEEK AGO TAKING OXYBUTYNIN CHLORIDE ER 10 MG TABLET EXTENDED RELEASE 24 HOUR 1 TABLET ORALLY ONCE A DAY, NOTES: 01/20 1000 TAKING HYDROCHLOROTHIAZIDE 25 MG TABLET 1 TABLET ORALLY ONCE A DAY, NOTES: 01/21 0700 TAKING NEBULIZERS - MISCELLANEOUS ALBUTEROL INHALATION Q 4-6 HRS. PRN TAKING MAXALT 10 MG TABLET 1 TABLET NEEDED ONE TIME ORALLY ONCE AT ONSET OF H/A,REPEAT IN 2HR IF NO IMPROVEMENT, NOTES: NONE RECENT TAKING SERTRALINE HCL 25 MG TABLET 1 TABLET ORALLY ONCE A DAY, NOTES: 01/20 1000 TAKING TRAZODONE HCL 100 MG TABLET 2 TABLET AT BEDTIME ORALLY ONCE A DAY, NOTES: 01/20 2200 TAKING ZANTAC 150 MG TABLET 1 TABLET ORALLY DAILY, NOTES: 01/20 1000 TAKING MUCINEX 600 MG TABLET EXTENDED RELEASE 1 TABLET NEEDED ORALLY EVERY 12 HRS, NOTES: 01/20 1400 TAKING NORCO 7.5-325 MG TABLET 1 TABLET NEEDED ORALLY EVERY 6 HRS PRN MDD4, NOTES: 01/20 1800 TAKING TIZANIDINE HCL 4 MG TABLET 1 TABLET NEEDED ORALLY THREE TIMES A DAY, NOTES: 01/19 NOT-TAKING ATORVASTATIN CALCIUM 20 MG TABLET 4 TABLET ORALLY ONCE A DAY NOT-TAKING SOMA 350 MG TABLET 1 TABLET NEEDED ORALLY BID, NOTES: INSURANCE WON'T COVER MEDICATION LIST REVIEWED AND RECONCILED WITH THE PATIENT PAST MEDICAL HISTORY HYPERTENSION HYPOTHYROIDISM DEPRESSION BIPOLAR DISORDER ANXIETY LOW BACK PAIN FIBROMYALGIA ARTHRITIS ESOPHAGEAL REFLUX HYPERLIPIDEMIA COPD CVA S/P R SIDE WEAKNESS MIGRAINE HEADACHE VITAMIN D DEFICIENCY ETOH HX OF SUBSTANCE ABUSE HX OF TIETZE SYNDROME BRONCHITIS 03/2016 TIA 08/2018 ALLERGIES LITHIUM CARBONATE: COLLEPSED, WENT TO ED - ALLERGY PENICILLIN (FOR ALLERGIES USE ONLY): HIVES - ALLERGY NUTS: SOB - ALLERGY ADHESIVES: TEARS SKINS - ALLERGY SURGICAL HISTORY T&A APPENDECTOMY C SECTION X 3 BILAT EYE LID LIFT 04/2018 HYSTERECTOMY 1982 FAMILY HISTORY FATHER: ALIVE, DIAGNOSED WITH HYPERTENSION, CANCER MOTHER: , DIABETES, PSYCHIATRIC CONDITIONS, OTHER 3 BROTHER(S) . 1 SON(S) , 2 DAUGHTER(S) . MOTHER - PARKINSON\\\\\\'S\\\\NBROTHER - COLON CANCER\\\\NDAUGHTER - FIBROMYALGIA//SON DDD. SOCIAL HISTORY GENERAL: TOBACCO USE ARE YOU A: QUIT SMOKING ABOUT 7 YEARS AGO OTHERS AT HOME: DAUGHTER & GRANDDAUGHTER. DIET: REG. LANGUAGE TAMAZIGHT. DOMESTIC VIOLENCE DO YOU FEEL SAFE IN YOUR ENVIRONMENT?YES RECREATIONAL DRUG USE DENIES; HISTORY OF ETOH DRUG ABUSE. CLEAN/SOBER SINCE EARLY . EXERCISE: WALKS,WATER AEROBICS. LEARNING BARRIERS / SPECIAL NEEDS CHANGE FROM LAST VISIT?NO BARRIERS TO LEARNING?NO HEARING IMPAIRED?NO VISION IMPAIRED?YES :CORRECTIVE LENSES COGNITIVELY IMPAIRED?NO READINESS TO LEARN?YES LEARNING PREFERENCES?NO LEARNING CAPABILITIES PRESENT?YES EMOTIONAL BARRIERS?NO SPECIAL DEVICES?YES :CANE PUBLIC HEALTH SANITARIAN NEEDED?NO PAIN CLINIC PFS, CLERGY, PUBLIC HEALTH REFERRALS PFS REFERRAL NEEDED?NO CLERGY REFERRAL NEEDED?NO PUBLIC HEALTH REFERRAL NEEDED?NO HAS THE PATIENT BEEN EDUCATED REGARDING HIS/HER PLAN OF CARE?YES HAS THE PATIENT BEEN EDUCATED REGARDING PAIN, THE RISK FOR PAIN, THE IMPORTANCE OF EFFECTIVE PAIN MANAGEMENT, AND THE PAIN ASSESSMENT PROCESS?YES LATEX QUESTIONNAIRE LATEX ALLERGY : HAVE YOU EVER DEVELOPED ANY TYPE OF REACTION AFTER HANDLING LATEX PRODUCTS SUCH RUBBER GLOVES, CONDOMS, DIAPHRAGMS, BALLOONS, SOCKS, OR UNDERWEAR?NO LATEX ALLERGY : HAVE YOU EVER DEVELOPED ANY TYPE OF REACTION DURING OR AFTER DENTAL APPOINTMENT, VAGINAL/RECTAL EXAMINATION, SURGICAL PROCEDURE, OR ANY OTHER EXPOSURE?NO LATEX RISK : HAVE YOU EVER HAD ANY DIFFICULTY BREATHING OR HIVES AFTER EATING OR HANDLING ANY FRUITS, OR VEGETABLES; SUCH KIWI, BANANAS, STONE FRUITS, OR CHESTNUTSYES - PLEASE INDICATE : CHESTNUTS LATEX RISK : DO YOU HAVE A PREVIOUS PERSONAL HISTORY OF MORE THAN NINE SURGERIES, SPINA BIFIDA, OR REPEATED CATHERTIZATIONS? NO LATEX RISK : ARE YOU FREQUENTLY EXPOSED TO LATEX PRODUCTS IN YOUR OCCUPATION?NO DATE ASKED : 01/21/2019 CAFFEINE >5/DAY. ADVANCE DIRECTIVE ADVANCE DIRECTIVE DISCUSSED WITH PATIENT:YES 01/21/19 PT. DOES NOT HAVE ANY ADVANCED DIRECTIVES AND SHE DECLINED HCP INFO AND ASSISTANCE WITH FORM AT THIS TIME. AD WORSHIP NO TENRIISM BELIEFS THAT WOULD IMPACT HEALTH CARE. MARITAL STATUS: . ALCOHOL SCREENING POINTS: 0, INTERPRETATION: NEGATIVE. OCCUPATION: UNEMPLOYED. SEXUAL HX HAD SEX IN THE LAST 12 MONTHS (VAGINAL, ORAL, OR ANAL)?: NO, HAVE YOU EVER HAD AN STD?: NO. REVIEWED WITH PT 10/28/18 1126 BVREVIEWED WITH PATIENT 11/11/18 1444 JSREVIEWED WITH PATIENT 12/01/18 1001 JS. HOSPITALIZATION/MAJOR DIAGNOSTIC PROCEDURE SURGICAL RELATED BACK PAIN MHE REVIEW OF SYSTEMS REVIEWED BY: PROVIDER: . CONSTITUTIONAL: ANY CHANGE IN YOUR MEDICAL CONDITION? NO . CHILLS NO . FEVER NO . INFECTION: DO YOU HAVE NEW INFECTIONS? NO . DO YOU HAVE HISTORY OF MRSA? NO . MUSCULOSKELETAL: ANY NEW PATTERNS OF PAIN OR NUMBNESS? YES, HAS NEW PAIN LEFT KNEE UP TO HIP, THIS IS CAUISING HER TO STUMBLE ONCE IN A WHILE . GASTROENTEROLOGY: ANY NEW CHANGE IN BOWEL CONTROL? NO . GENITOURINARY: ANY NEW CHANGE IN BLADDER CONTROL? NO . IS THERE A CHANCE YOU COULD BE ? NO . HEMATOLOGY/LYMPH: DO YOU TAKE ANY BLOOD THINNERS? (FOR EXAMPLE- COUMADIN, PLAVIX, AGGRENOX, PLATEL, PRADAXA, OR XARELTO) NO . WHEN WAS YOUR LAST DOSE? DATE: TIME: . NEUROLOGY: HAVE YOU FALLEN IN THE PAST 12 MONTHS? YES, COUPLE OF TIMES. NO INJURY BUT INCREASE IN PAIN AFTER . ANY NEW EXTREMITY NUMBNESS OR WEAKNESS? YES, INCREASE IN PAIN LEFT KNEE UP TO HIP X 2 WEEKS . CARDIOLOGY: DO YOU HAVE A PACEMAKER OR DEFIBRILLATOR? NO . RESPIRATORY: HAVE YOU BEEN SICK IN THE PAST WEEK? NO . FEVER NO . FLU LIKE SYMPTOMS? NO . COUGH NO . INTEGUMENTARY: DO YOU HAVE ANY RASHES OR OPEN SORES? NO . ALLERGIC/IMMUNO: ARE YOU ALLERGIC TO IV DYE? NO . ANY NEW ALLERGIES? NO . PSYCHIATRIC: DO YOU HAVE THOUGHTS OF HURTING YOURSELF OR SOMEONE ELSE? NO . ARE YOU ABUSED, NEGLECTED, OR IN AN UNSAFE ENVIRONMENT? NO . ENDOCRINOLOGY: ARE YOU DIABETIC? NO . OTHER: DO YOU NEED ANY PRESCRIPTIONS? NO . IF YES, PLEASE LIST: ____ . ANY NEW PROBLEMS WITH YOUR MEDICATIONS? NO . WHEN DID YOU LAST EAT? 01/20 1800 . WHEN DID YOU LAST DRINK? 01/21 0600 . WHAT DID YOU LAST DRINK? DIET COKE . NAME OF PERSON DRIVING YOU HOME? DAUGHTER, OZZY . DO YOU HAVE ANY OTHER QUESTIONS OR CONCERNS NO PT HAS NOT HAD ANY VACCINES IN THE PAST 30 DAYS . VITAL SIGNS WT 231.2 LBS, HT 60.5", BMI 44.41 INDEX, BP 116/69 MM HG, HR 85 /MIN, RR 18 /MIN, TEMP 97.4 F, OXYGEN SAT % 93%, SAFE IN ENV? (Y/N) Y, NA INITIALS SC 10:45, REVIEWED BY: AD. ASSESSMENTS SPONDYLOSIS OF LUMBAR REGION WITHOUT MYELOPATHY OR RADICULOPATHY - M47.816 (PRIMARY) SPONDYLOSIS OF LUMBOSACRAL REGION WITHOUT MYELOPATHY OR RADICULOPATHY - M47.817 TREATMENT SPONDYLOSIS OF LUMBAR REGION WITHOUT MYELOPATHY OR RADICULOPATHY [facility] FACET BLOCK (PAIN)[id number] PROCEDURES PN LUMBAR FACET BLOCK DIAGNOSTIC PRE PROCEDURE DIAGNOSIS LUMBAR SPONDYLOSIS, LUMBOSACRAL SPONDYLOSIS POST PROCEDURE DIAGNOSIS LUMBAR SPONDYLOSIS, LUMBOSACRAL SPONDYLOSIS PROCEDURE RIGHT L4-L5 AND RIGHT L5-S1 FACET BLOCK DIAGNOSTIC NUMBER [address] 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 I EVALUATED THE PATIENT AND REVIEWED THE CHART. I WENT OVER THE RISKS, ALTERNATIVES, AND BENEFITS ASSOCIATED WITH THIS PROCEDURE. THE PATIENT WOULD LIKE TO PROCEED AND GAVE CONSENT TO PERFORM THE PROCEDURE. AGREED WITH THE PATIENT WE ARE DOING THIS PROCEDURE TO DETERMINE IF THE PATIENT IS A CANDIDATE FOR A RADIOFREQUENCY ABLATION OF THE FACETS JOINTS. THE PATIENT DENIES UNEXPLAINABLE WEIGHT LOSS, FEVER, CHILLS, OR NEW CHANGES IN URINARY OR BOWEL CONTROL DESCRIPTION OF PROCEDURE THE PATIENT WAS BROUGHT TO THE PROCEDURE ROOM AND PLACED IN THE PRONE POSITION. THE LUMBOSACRAL AREA WAS CLEANED WITH CHLORAPREP SOLUTION AND DRAPED ASEPTICALLY. THE PROCEDURE WAS DONE UNDER STERILE CONDITIONS. I CHECKED LATERALITY AND THE LEVEL WHERE THE PROCEDURE WAS GOING TO BE PERFORMED WITH THE PATIENT AND THE SUPPORTING STAFF AT THE MOMENT OF THE TIME OUT IN THE PROCEDURE ROOM. UNDER FLUOROSCOPIC GUIDANCE, TARGETS WERE SELECTED AT THE INTERSECTION OF THE RIGHT TRANSVERSE PROCESS OF L4, L5 AND ALA OF S1 WITH ITS RESPECTIVE SUPERIOR ARTICULAR PROCESS. LIDOCAINE WAS USED TO NUMB THE SKIN AND THE SUBCUTANEOUS TISSUE BELOW IT. SPINAL NEEDLE, 22-GAUGE WAS ADVANCED UNDER FLUOROSCOPIC GUIDANCE AND FOLLOWING PATIENT FEEDBACK UNTIL THE TARGETS WERE REACHED. POSITION OF THE NEEDLES WAS VERIFIED WITH AP AND LATERAL VIEWS. AFTER PROPER POSITION OF THE NEEDLES WAS ACHIEVED, ISOVUE-M DYE 30% 0.1 ML WAS INJECTED AT EACH SITE SHOWING ADEQUATE SPREAD OF THE DYE. THEN A SOLUTION OF 0.4 ML OF BUPIVACAINE 0.25% WAS INJECTED AT EACH SITE. THERE WAS NO EVIDENCE OF BLOOD, PARESTHESIA OR CEREBROSPINAL FLUID DURING THE PROCEDURE. THE PATIENT WAS SENT TO THE RECOVERY ROOM. THE PATIENT WAS MOVING THE EXTREMITIES AND DOING WELL. THERE WAS NO COMPLICATION DURING THE PROCEDURE. FLUOROSCOPY TIME WAS 21 SECONDS POST PROCEDURE NOTE THE PATIENT WILL DOCUMENT HIS PAIN LEVEL AND RESPONSE TO THIS PROCEDURE EVERY 30 MINUTES. THE PATIENT WILL BE SEEN IN A FOLLOW UP IN THE NEXT FEW WEEKS. FURTHER DETERMINATION FOR HIS CASE WILL BE DONE AT THE NEXT VISIT. INSTRUCTIONS WERE GIVEN, QUESTIONS WERE ANSWERED, AND THE PATIENT EXPRESSED UNDERSTANDING AND AGREED WITH THE PLAN. I, ANNABEL ARMAS, DOCUMENTED THE ABOVE INFORMATION ACTING A SCRIBE FOR DR. BRUCE. I HAVE REVIEWED THE ABOVE DOCUMENT, WRITTEN BY ANNABEL LOZOYA AND I VERIFY THAT IT IS ACCURATE. PROCEDURE CODES 6045F RADXPS IN END [id number] PXD [id number] INJ PARAVERT F JNT L/S 1 LEV, MODIFIERS: RT [id number] INJ PARAVERT F JNT L/S 2 LEV, MODIFIERS: RT DISPOSITION & COMMUNICATION FOLLOW UP 3 WEEKS ELECTRONICALLY SIGNED BY SCOTT BRUCE MD, MD ON 02/06/2019 AT 04:51 PM EDT DISCLAIMER : THIS IS A VISIT SUMMARY EXTRACTED FROM THE bulletn. CHART. IT IS NOT A COPY OF THE bulletn. PROGRESS NOTE. MTDD
== END ==
LOC: M PAIN 10:45
PROVIDERS: ATTEND Anesthesiology
DX: G89.29 Other chronic pain (principal); M47.816 Spondylosis without myelopathy or radiculopathy, lumbar region; M47.817 Spondylosis without myelopathy or radiculopathy, lumbosacral region; I10 Essential (primary) hypertension; E03.9 Hypothyroidism, unspecified; M79.7 Fibromyalgia; M19.90 Unspecified osteoarthritis, unspecified site; E78.5 Hyperlipidemia, unspecified; J44.9 Chronic obstructive pulmonary disease, unspecified; G43.909 Migraine, unspecified, not intractable, without status migrainosus; M94.0 Chondrocostal junction syndrome [Tietze]; E66.01 Morbid (severe) obesity due to excess calories; Z68.41 Body mass index [BMI] 40.0-44.9, adult; Z79.899 Other long term (current) drug therapy; Z88.0 Allergy status to penicillin; Z88.8 Allergy status to other drugs, medicaments and biological substances; Z91.09 Other allergy status, other than to drugs and biological substances; Z91.018 Allergy to other foods; Z86.59 Personal history of other mental and behavioral disorders; Z86.79 Personal history of other diseases of the circulatory system
CPT/HCPCS: 64493; 64494; Q9967

== ENCOUNTER → 2019-02-16 | Outpatient (CLI) | payer MEDICARE ==
[~2019-02-16] MED LIST changes: -BUPIVACAINE HCL 0.25% 30 ML VIAL As Ordered ONE; -ISOVUE-M 300 61% 15ML VIAL (Q9967) As Ordered ONE; -LIDOCAINE 1% SDV INJ 30 ML VIAL As Ordered ONE
--- NOTE | 2019-03-04 01:22 | ECWPNPC ---
PATIENT NAME: LUIS ENRIQUE MCMILLAN : 1955 GENDER: FEMALE VISIT DATE: 02/16/2019 DISCHARGE DATE: 02/16/19 1357 VISIT LOCKED DATE TIME: PHYSICIAN: MEAGAN OROSCO RESOURCE: MEAGAN OROSCO REASON FOR APPOINTMENT 1. POST PROC HISTORY OF PRESENT ILLNESS HISTORY OF PRESENT ILLNESS: HERE FOR POST PROCEDURE F/U .HAD DX RIGHT L4/5-L5/S1 LFB #2 ON 01/21/19.REPORTING >80% REDUCTION IN PAIN X24 HRS THEN PAIN ABRUPTLY RETURNED.RATING LBP 6/10 VAS.DISCUSSED RF. PAIN THE PATIENT DESCRIBES THE PAIN... THE PATIENT DESCRIBES THE PAIN... THE PATIENT DESCRIBES THE PAIN... THE PATIENT DESCRIBES THE PAIN... FALL RISK SCREENING: SCREENING :NO FALLS REPORTED IN THE LAST YEAR :NO FALLS REPORTED IN THE LAST YEAR SCREENING :NO FALLS REPORTED IN THE LAST YEAR :NO FALLS REPORTED IN THE LAST YEAR CURRENT MEDICATIONS TAKING ZOCOR 40 MG TABLET 1 TABLET EVERY EVENING ORALLY ONCE A DAY TAKING LEVOTHYROXINE SODIUM 100 MCG TABLET 1 TABLET EVERY MORNING ON AN EMPTY STOMACH ORALLY ONCE A DAY TAKING ADVAIR DISKUS 250-50 MCG/DOSE MISCELLANEOUS 1 INHALATION EVERY 12 HRS, NOTES: NONE RECENT TAKING VENTOLIN HFA 108 (90 BASE) MCG/ACT AEROSOL SOLUTION 2 PUFFS INHALATION Q4-6H PRN, NOTES: NONE RECENT TAKING GENERLAC 10 GM/15ML SOLUTION 30 ML NEEDED ORALLY BID, NOTES: 1 WEEK AGO TAKING OXYBUTYNIN CHLORIDE ER 10 MG TABLET EXTENDED RELEASE 24 HOUR 1 TABLET ORALLY ONCE A DAY TAKING HYDROCHLOROTHIAZIDE 25 MG TABLET 1 TABLET ORALLY ONCE A DAY TAKING NEBULIZERS - MISCELLANEOUS ALBUTEROL INHALATION Q 4-6 HRS. PRN TAKING MAXALT 10 MG TABLET 1 TABLET NEEDED ONE TIME ORALLY ONCE AT ONSET OF H/A,REPEAT IN 2HR IF NO IMPROVEMENT TAKING SERTRALINE HCL 25 MG TABLET 1 TABLET ORALLY ONCE A DAY TAKING TRAZODONE HCL 100 MG TABLET 2 TABLET AT BEDTIME ORALLY ONCE A DAY TAKING ZANTAC 150 MG TABLET 1 TABLET ORALLY DAILY TAKING MUCINEX 600 MG TABLET EXTENDED RELEASE 1 TABLET NEEDED ORALLY EVERY 12 HRS TAKING TIZANIDINE HCL 4 MG TABLET 1 TABLET NEEDED ORALLY THREE TIMES A DAY TAKING NORCO 7.5-325 MG TABLET 1 TABLET NEEDED ORALLY EVERY 6 HRS PRN MDD4, NOTES: 5/8 1800 UNKNOWN ATORVASTATIN CALCIUM 20 MG TABLET 4 TABLET ORALLY ONCE A DAY UNKNOWN SOMA 350 MG TABLET 1 TABLET NEEDED ORALLY BID, NOTES: INSURANCE WON'T COVER MEDICATION LIST REVIEWED AND RECONCILED WITH THE PATIENT PAST MEDICAL HISTORY HYPERTENSION HYPOTHYROIDISM DEPRESSION BIPOLAR DISORDER ANXIETY LOW BACK PAIN FIBROMYALGIA ARTHRITIS ESOPHAGEAL REFLUX HYPERLIPIDEMIA COPD CVA S/P R SIDE WEAKNESS MIGRAINE HEADACHE VITAMIN D DEFICIENCY ETOH HX OF SUBSTANCE ABUSE HX OF TIETZE SYNDROME BRONCHITIS 03/2016 TIA 08/2018 ALLERGIES LITHIUM CARBONATE: COLLEPSED, WENT TO ED - ALLERGY PENICILLIN (FOR ALLERGIES USE ONLY): HIVES - ALLERGY NUTS: SOB - ALLERGY ADHESIVES: TEARS SKINS - ALLERGY SURGICAL HISTORY T&A APPENDECTOMY C SECTION X 3 BILAT EYE LID LIFT 04/2018 HYSTERECTOMY 1982 FAMILY HISTORY FATHER: ALIVE, DIAGNOSED WITH HYPERTENSION, CANCER MOTHER: , OTHER, DIABETES, PSYCHIATRIC CONDITIONS 3 BROTHER(S) . 1 SON(S) , 2 DAUGHTER(S) . MOTHER - PARKINSON\\\\\\'S\\\\NBROTHER - COLON CANCER\\\\NDAUGHTER - FIBROMYALGIA//SON DDD. SOCIAL HISTORY GENERAL: TOBACCO USE ARE YOU A: QUIT SMOKING ABOUT 7 YEARS AGO OTHERS AT HOME: DAUGHTER & GRANDDAUGHTER. DIET: REG. LANGUAGE [place]. DOMESTIC VIOLENCE DO YOU FEEL SAFE IN YOUR ENVIRONMENT?YES RECREATIONAL DRUG USE DENIES; HISTORY OF ETOH DRUG ABUSE. CLEAN/SOBER SINCE EARLY . EXERCISE: WALKS,WATER AEROBICS. 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?NO PAIN CLINIC PFS, CLERGY, PUBLIC HEALTH REFERRALS PFS REFERRAL NEEDED?NO CLERGY REFERRAL NEEDED?NO PUBLIC HEALTH REFERRAL NEEDED?NO HAS THE PATIENT BEEN EDUCATED REGARDING HIS/HER PLAN OF CARE?YES HAS THE PATIENT BEEN EDUCATED REGARDING PAIN, THE RISK FOR PAIN, THE IMPORTANCE OF EFFECTIVE PAIN MANAGEMENT, AND THE PAIN ASSESSMENT PROCESS?YES LATEX QUESTIONNAIRE LATEX ALLERGY : HAVE YOU EVER DEVELOPED ANY TYPE OF REACTION AFTER HANDLING LATEX PRODUCTS SUCH RUBBER GLOVES, CONDOMS, DIAPHRAGMS, BALLOONS, SOCKS, OR UNDERWEAR?NO LATEX ALLERGY : HAVE YOU EVER DEVELOPED ANY TYPE OF REACTION DURING OR AFTER DENTAL APPOINTMENT, VAGINAL/RECTAL EXAMINATION, SURGICAL PROCEDURE, OR ANY OTHER EXPOSURE?NO LATEX RISK : HAVE YOU EVER HAD ANY DIFFICULTY BREATHING OR HIVES AFTER EATING OR HANDLING ANY FRUITS, OR VEGETABLES; SUCH KIWI, BANANAS, STONE FRUITS, OR CHESTNUTSYES - PLEASE INDICATE : CHESTNUTS LATEX RISK : DO YOU HAVE A PREVIOUS PERSONAL HISTORY OF MORE THAN NINE SURGERIES, SPINA BIFIDA, OR REPEATED CATHERTIZATIONS? NO LATEX RISK : ARE YOU FREQUENTLY EXPOSED TO LATEX PRODUCTS IN YOUR OCCUPATION?NO DATE ASKED : 01/21/2019 CAFFEINE >5/DAY. ADVANCE DIRECTIVE ADVANCE DIRECTIVE DISCUSSED WITH PATIENT:YES 01/21/19 PT. DOES NOT HAVE ANY ADVANCED DIRECTIVES AND SHE DECLINED HCP INFO AND ASSISTANCE WITH FORM AT THIS TIME. AD ANGLICAN NO YAZIDISM BELIEFS THAT WOULD IMPACT HEALTH CARE. MARITAL STATUS: . ALCOHOL SCREENING POINTS: 0, INTERPRETATION: NEGATIVE. OCCUPATION: UNEMPLOYED. SEXUAL HX HAD SEX IN THE LAST 12 MONTHS (VAGINAL, ORAL, OR ANAL)?: NO, HAVE YOU EVER HAD AN STD?: NO. REVIEWED WITH PT 10/28/18 1126 BVREVIEWED WITH PATIENT 11/11/18 1444 JSREVIEWED WITH PATIENT 12/01/18 1001 JS. HOSPITALIZATION/MAJOR DIAGNOSTIC PROCEDURE SURGICAL RELATED BACK PAIN MHE REVIEW OF SYSTEMS REVIEWED BY: PROVIDER: MEAGAN NORMAN . CONSTITUTIONAL: ANY CHANGE IN YOUR MEDICAL CONDITION? NO . CHILLS NO . FEVER NO . INFECTION: DO YOU HAVE NEW INFECTIONS? NO . DO YOU HAVE HISTORY OF MRSA? NO . MUSCULOSKELETAL: ANY NEW PATTERNS OF PAIN OR NUMBNESS? NO . GASTROENTEROLOGY: ANY NEW CHANGE IN BOWEL CONTROL? NO . GENITOURINARY: ANY NEW CHANGE IN BLADDER CONTROL? NO . IS THERE A CHANCE YOU COULD BE ? NO . HEMATOLOGY/LYMPH: DO YOU TAKE ANY BLOOD THINNERS? (FOR EXAMPLE- COUMADIN, PLAVIX, AGGRENOX, PLATEL, PRADAXA, OR XARELTO) NO . WHEN WAS YOUR LAST DOSE? DATE: TIME: . NEUROLOGY: HAVE YOU FALLEN IN THE PAST 12 MONTHS? NO . ANY NEW EXTREMITY NUMBNESS OR WEAKNESS? NO . CARDIOLOGY: DO YOU HAVE A PACEMAKER OR DEFIBRILLATOR? NO . RESPIRATORY: HAVE YOU BEEN SICK IN THE PAST WEEK? NO . FEVER NO . FLU LIKE SYMPTOMS? NO . COUGH NO . INTEGUMENTARY: DO YOU HAVE ANY RASHES OR OPEN SORES? NO . ALLERGIC/IMMUNO: ARE YOU ALLERGIC TO IV DYE? NO . ANY NEW ALLERGIES? NO . PSYCHIATRIC: DO YOU HAVE THOUGHTS OF HURTING YOURSELF OR SOMEONE ELSE? NO . ARE YOU ABUSED, NEGLECTED, OR IN AN UNSAFE ENVIRONMENT? NO . ENDOCRINOLOGY: ARE YOU DIABETIC? NO . OTHER: DO YOU NEED ANY PRESCRIPTIONS? NO . IF YES, PLEASE LIST: ____ . ANY NEW PROBLEMS WITH YOUR MEDICATIONS? NO . WHEN DID YOU LAST EAT? ____ . WHEN DID YOU LAST DRINK? ____ . WHAT DID YOU LAST DRINK? ____ . NAME OF PERSON DRIVING YOU HOME? ____ . DO YOU HAVE ANY OTHER QUESTIONS OR CONCERNS PT LAST HAD BOTOX IN OCT , . VITAL SIGNS WT 227.4 LBS, HT 60.5", BMI 43.68 INDEX, BP 125/59 MM HG, HR 71 /MIN, RR 18 /MIN, TEMP 97.6 F, OXYGEN SAT % 93%, SAFE IN ENV? (Y/N) YES, NA INITIALS RI 12:57, REVIEWED BY: KG. EXAMINATION GENERAL EXAMINATION: GENERAL APPEARANCE:AWAKE,ALERT ,PLEAASANT . PSYCHAFFECT NORMAL . LUNGS:LUNG NUÑEZ ARE CLEAR TO AUSCULTATION BILATERALLY. GOOD MOVEMENT OF AIR . HEART:S1, S2 IN A REGULAR RATE AND RHYTHM. NO SIGNIFICANT MURMURS, RUBS OR GALLOPS NOTED . LUMBAR SACRAL SPINEPALPATION:TENDER OVER BILAT. L4/5-L5/S1 LUMBAR FACETS WITH FACET LOADING RIGHT >LEFT INCREASE IN PAIN W EXTENSION. ASSESSMENTS SPONDYLOSIS OF LUMBAR REGION WITHOUT MYELOPATHY OR RADICULOPATHY - M47.816 (PRIMARY) MIGRAINE WITH AURA AND WITH STATUS MIGRAINOSUS, NOT INTRACTABLE - G43.101 TREATMENT SPONDYLOSIS OF LUMBAR REGION WITHOUT MYELOPATHY OR RADICULOPATHY REFILL NORCO TABLET, 7.5-325 MG, 1 TABLET NEEDED, ORALLY, EVERY 6 HRS PRN MDD4, 30 DAY(S), 120, REFILLS 0, NOTES: 01/20 1800 CONTINUE TIZANIDINE HCL TABLET, 4 MG, 1 TABLET NEEDED, ORALLY, THREE TIMES A DAY NOTES: RIGHT L4/5-L5/S1 RFSCHEDULE BOTOX, ISTOP REGISTRY REVIEWED AND DEMONSTRATES COMPLLIANCE. BRINGS IN MEDICATIONS WHICH IS APPROPRIATE FOR WHAT WAS DISPENSED. RECENT URINE TOXICOLOGY REVIEWED. NO UNAUTHORIZED MEDICATIONS. NO ILLICIT SUBSTANCES AND PRESCRIBED MEDICATIONS WERE PRESENT. , RISKS AND BENEFITS OF NARCOTIC/OPIOD MEDICATIONS WERE REVIEWED WITH PATIENT - THIS INCLUDES BUT IS NOT LIMITED TO RISK OF DEPENDANCE/DEVELOPMENT OF ADDICTION, MOOD DISTURBANCE AND DEPRESSION, OSTEOPOROSIS, HORMONAL AND LABIDAL CHANGES, RESPIRATORY DEPRESSION AND . PATIENT IS ADVISED NOT TO DRIVE OR DRINK ALCOHOL WHILE ON THESE MEDICATIONS. PROCEDURE CODES FA211 ESTABILISHED PATIENT [facility] CHARGE DISPOSITION & COMMUNICATION FOLLOW UP POST--SCHEDULE BOTOX (REASON: RIGHT L4/5-L5/S1 RF) ELECTRONICALLY SIGNED BY ESTER DUARTE ON 03/02/2019 AT 12:59 PM EDT DISCLAIMER : THIS IS A VISIT SUMMARY EXTRACTED FROM THE [employer] CHART. IT IS NOT A COPY OF THE [employer] PROGRESS NOTE. CAN
== END ==
LOC: M PAIN 13:15
PROVIDERS: ATTEND Nurse Practitioner Family
DX: M47.816 Spondylosis without myelopathy or radiculopathy, lumbar region (principal); G43.101 Migraine with aura, not intractable, with status migrainosus; I10 Essential (primary) hypertension; E03.9 Hypothyroidism, unspecified; M79.7 Fibromyalgia; Z79.891 Long term (current) use of opiate analgesic; Z79.899 Other long term (current) drug therapy; Z87.891 Personal history of nicotine dependence; Z88.8 Allergy status to other drugs, medicaments and biological substances; Z88.0 Allergy status to penicillin; Z91.018 Allergy to other foods; Z91.048 Other nonmedicinal substance allergy status

== ENCOUNTER → 2019-03-02 | Outpatient (REF) | payer MEDICARE ==
[2019-03-02 14:04] LABS: BASO # 0.1 10^3/uL (0.0-0.2); EOS # 0.2 10^3/uL (0.0-0.50); EOS % 1.9 % (0.0-3.0); HEMATOCRIT 43.3 % (36.0-47.0); HEMOGLOBIN 13.3 g/dl (12.0-15.5); LYMPH # 2.1 10^3/uL (1.5-4.5); LYMPH % 25.8 % (24.0-44.0); MEAN CORPUSCULAR HEMOGLOBIN 26.7 pg (27.0-33.0); MEAN CORPUSCULAR HGB CONC 30.7 g/dl (32.0-36.5); MEAN CORPUSCULAR VOLUME 86.8 fl (80.0-96.0); MONO # 0.5 10^3/uL (0.0-0.8); MONO % 6.8 % (0.0-5.0); NEUTROPHILS # 5.1 10^3/uL (1.8-7.7); NEUTROPHILS % 64.1 % (36.0-66.0); PLATELET COUNT, AUTOMATED 253 10^3/uL (150-450); RED BLOOD COUNT 4.99 10^6/uL (4.00-5.40)
[2019-03-02 14:16] LABS: ALBUMIN 3.8 GM/DL (3.2-5.2); BILIRUBIN,TOTAL 0.3 MG/DL (0.2-1.0); CALCIUM LEVEL 9.8 MG/DL (8.8-10.2); CHOLESTEROL RISK RATIO 4.037 (<5); CREATININE FOR GFR 1.25 MG/DL (0.55-1.30); GLOMERULAR FILTRATION RATE 46.4 (>45); THYROID STIMULATING HORMONE 0.469 uIU/ML (0.358-3.740); TOTAL PROTEIN 7.2 GM/DL (6.4-8.2)
== END ==
LOC: M LAB REF 12:33
PROVIDERS: ATTEND Family Medicine Addiction Medicine
DX: I10 Essential (primary) hypertension (principal)

== ENCOUNTER → 2019-04-01 | Outpatient (CLI) | payer MEDICARE ==
[~2019-04-01] MED LIST changes: +BOTULINUM INJ 100 UNITS (J0585) IM ONE
--- NOTE | 2019-04-11 23:35 | ECWPNPC ---
PATIENT NAME: LUIS ENRIQUE MCMILLAN : 1955 GENDER: FEMALE VISIT DATE: 04/01/2019 DISCHARGE DATE: 04/01/19 1426 VISIT LOCKED DATE TIME: PHYSICIAN: SCOTT BRUCE MD RESOURCE: SCOTT BRUCE MD REASON FOR APPOINTMENT 1. BOTOX HISTORY OF PRESENT ILLNESS HISTORY OF PRESENT ILLNESS: PAIN THE PATIENT DESCRIBES THE PAIN... FALL RISK SCREENING: SCREENING :NO FALLS REPORTED IN THE LAST YEAR CURRENT MEDICATIONS TAKING ZOCOR 40 MG TABLET 1 TABLET EVERY EVENING ORALLY ONCE A DAY, NOTES: 04/01/19 0600 TAKING LEVOTHYROXINE SODIUM 100 MCG TABLET 1 TABLET EVERY MORNING ON AN EMPTY STOMACH ORALLY ONCE A DAY, NOTES: 04/01/19 0600 TAKING ADVAIR DISKUS 250-50 MCG/DOSE MISCELLANEOUS 1 INHALATION EVERY 12 HRS, NOTES: 03/31/19 AM TAKING VENTOLIN HFA 108 (90 BASE) MCG/ACT AEROSOL SOLUTION 2 PUFFS INHALATION Q4-6H PRN, NOTES: NONE RECENT TAKING GENERLAC 10 GM/15ML SOLUTION 30 ML NEEDED ORALLY BID, NOTES: 2 DAYS AGO TAKING OXYBUTYNIN CHLORIDE ER 10 MG TABLET EXTENDED RELEASE 24 HOUR 1 TABLET ORALLY ONCE A DAY, NOTES: 04/01/19 06 TAKING HYDROCHLOROTHIAZIDE 25 MG TABLET 1 TABLET ORALLY ONCE A DAY, NOTES: 04/01/19 0600 TAKING NEBULIZERS - MISCELLANEOUS ALBUTEROL INHALATION Q 4-6 HRS. PRN TAKING MAXALT 10 MG TABLET 1 TABLET NEEDED ONE TIME ORALLY ONCE AT ONSET OF H/A,REPEAT IN 2HR IF NO IMPROVEMENT, NOTES: NONE RECENT TAKING SERTRALINE HCL 25 MG TABLET 1 TABLET ORALLY ONCE A DAY, NOTES: 04/01/19599 TAKING TRAZODONE HCL 100 MG TABLET 2 TABLET AT BEDTIME ORALLY ONCE A DAY, NOTES: 03/31/19 PM TAKING ZANTAC 150 MG TABLET 1 TABLET ORALLY DAILY, NOTES: 04/01/19 0600 TAKING MUCINEX 600 MG TABLET EXTENDED RELEASE 1 TABLET NEEDED ORALLY EVERY 12 HRS, NOTES: 03/31/19 TAKING NORCO 7.5-325 MG TABLET 1 TABLET NEEDED ORALLY EVERY 6 HRS PRN MDD4, NOTES: 04/01/19 0600 TAKING TIZANIDINE HCL 4 MG TABLET 1 TABLET NEEDED ORALLY THREE TIMES A DAY, NOTES: NONE IN A COUPLE DAYS TAKING ASPIRIN 81 81 MG TABLET DELAYED RELEASE 1 TABLET ORALLY ONCE A DAY, NOTES: 04/01/19 NOT-TAKING ATORVASTATIN CALCIUM 20 MG TABLET 4 TABLET ORALLY ONCE A DAY NOT-TAKING SOMA 350 MG TABLET 1 TABLET NEEDED ORALLY BID, NOTES: INSURANCE WON'T COVER MEDICATION LIST REVIEWED AND RECONCILED WITH THE PATIENT PAST MEDICAL HISTORY HYPERTENSION HYPOTHYROIDISM DEPRESSION BIPOLAR DISORDER ANXIETY LOW BACK PAIN FIBROMYALGIA ARTHRITIS ESOPHAGEAL REFLUX HYPERLIPIDEMIA COPD CVA S/P R SIDE WEAKNESS MIGRAINE HEADACHE VITAMIN D DEFICIENCY ETOH HX OF SUBSTANCE ABUSE HX OF TIETZE SYNDROME BRONCHITIS 03/2016 TIA 08/2018 ALLERGIES LITHIUM CARBONATE: COLLEPSED, WENT TO ED - ALLERGY PENICILLIN (FOR ALLERGIES USE ONLY): HIVES - ALLERGY NUTS: SOB - ALLERGY ADHESIVES: TEARS SKINS - ALLERGY SURGICAL HISTORY T&A APPENDECTOMY C SECTION X 3 BILAT EYE LID LIFT 04/2018 HYSTERECTOMY 1982 FAMILY HISTORY FATHER: ALIVE, DIAGNOSED WITH HYPERTENSION, CANCER MOTHER: , OTHER, DIABETES, PSYCHIATRIC CONDITIONS 3 BROTHER(S) . 1 SON(S) , 2 DAUGHTER(S) . MOTHER - PARKINSON\\\\\\'S\\\\NBROTHER - COLON CANCER\\\\NDAUGHTER - FIBROMYALGIA//SON DDD. SOCIAL HISTORY GENERAL: TOBACCO USE ARE YOU A: QUIT SMOKING ABOUT 7 YEARS AGO OTHERS AT HOME: DAUGHTER & GRANDDAUGHTER. DIET: REG. LANGUAGE KOREAN. DOMESTIC VIOLENCE DO YOU FEEL SAFE IN YOUR ENVIRONMENT?YES RECREATIONAL DRUG USE DENIES; HISTORY OF ETOH DRUG ABUSE. CLEAN/SOBER SINCE EARLY . EXERCISE: WALKS,WATER AEROBICS. 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?NO PAIN CLINIC PFS, CLERGY, PUBLIC HEALTH REFERRALS PFS REFERRAL NEEDED?NO CLERGY REFERRAL NEEDED?NO PUBLIC HEALTH REFERRAL NEEDED?NO HAS THE PATIENT BEEN EDUCATED REGARDING HIS/HER PLAN OF CARE?YES HAS THE PATIENT BEEN EDUCATED REGARDING PAIN, THE RISK FOR PAIN, THE IMPORTANCE OF EFFECTIVE PAIN MANAGEMENT, AND THE PAIN ASSESSMENT PROCESS?YES LATEX QUESTIONNAIRE LATEX ALLERGY : HAVE YOU EVER DEVELOPED ANY TYPE OF REACTION AFTER HANDLING LATEX PRODUCTS SUCH RUBBER GLOVES, CONDOMS, DIAPHRAGMS, BALLOONS, SOCKS, OR UNDERWEAR?NO LATEX ALLERGY : HAVE YOU EVER DEVELOPED ANY TYPE OF REACTION DURING OR AFTER DENTAL APPOINTMENT, VAGINAL/RECTAL EXAMINATION, SURGICAL PROCEDURE, OR ANY OTHER EXPOSURE?NO LATEX RISK : HAVE YOU EVER HAD ANY DIFFICULTY BREATHING OR HIVES AFTER EATING OR HANDLING ANY FRUITS, OR VEGETABLES; SUCH KIWI, BANANAS, STONE FRUITS, OR CHESTNUTSYES - PLEASE INDICATE : CHESTNUTS LATEX RISK : DO YOU HAVE A PREVIOUS PERSONAL HISTORY OF MORE THAN NINE SURGERIES, SPINA BIFIDA, OR REPEATED CATHERIZATIONS? NO LATEX RISK : ARE YOU FREQUENTLY EXPOSED TO LATEX PRODUCTS IN YOUR OCCUPATION?NO DATE ASKED : 01/21/2019 CAFFEINE >5/DAY. ADVANCE DIRECTIVE ADVANCE DIRECTIVE DISCUSSED WITH PATIENT:YES 04/01/19 PT. DOES NOT HAVE ANY ADVANCED DIRECTIVES AND SHE DECLINED HCP INFO AND ASSISTANCE WITH FORM AT THIS TIME.BV CONGREGATION NO DENOMINATIONAL BELIEFS THAT WOULD IMPACT HEALTH CARE. MARITAL STATUS: . ALCOHOL SCREENING POINTS: 0, INTERPRETATION: NEGATIVE. OCCUPATION: UNEMPLOYED. SEXUAL HX HAD SEX IN THE LAST 12 MONTHS (VAGINAL, ORAL, OR ANAL)?: NO, HAVE YOU EVER HAD AN STD?: NO. REVIEWED WITH PT 10/28/18 1126 BVREVIEWED WITH PATIENT 11/11/18 1444 JSREVIEWED WITH PATIENT 12/01/18 1001 JSREVIEWED WITH PT 04/01/19 1216 BV. HOSPITALIZATION/MAJOR DIAGNOSTIC PROCEDURE SURGICAL RELATED BACK PAIN MHE REVIEW OF SYSTEMS REVIEWED BY: PROVIDER: . CONSTITUTIONAL: ANY CHANGE IN YOUR MEDICAL CONDITION? NO . CHILLS NO . FEVER NO . INFECTION: DO YOU HAVE NEW INFECTIONS? NO . DO YOU HAVE HISTORY OF MRSA? NO . MUSCULOSKELETAL: ANY NEW PATTERNS OF PAIN OR NUMBNESS? NO . GASTROENTEROLOGY: ANY NEW CHANGE IN BOWEL CONTROL? NO . GENITOURINARY: ANY NEW CHANGE IN BLADDER CONTROL? NO . IS THERE A CHANCE YOU COULD BE ? NO . HEMATOLOGY/LYMPH: DO YOU TAKE ANY BLOOD THINNERS? (FOR EXAMPLE- COUMADIN, PLAVIX, AGGRENOX, PLATEL, PRADAXA, OR XARELTO) NO . WHEN WAS YOUR LAST DOSE? DATE: TIME: . NEUROLOGY: HAVE YOU FALLEN IN THE PAST 12 MONTHS? NO . ANY NEW EXTREMITY NUMBNESS OR WEAKNESS? NO . CARDIOLOGY: DO YOU HAVE A PACEMAKER OR DEFIBRILLATOR? NO . RESPIRATORY: HAVE YOU BEEN SICK IN THE PAST WEEK? NO . FEVER NO . FLU LIKE SYMPTOMS? NO . COUGH NO . INTEGUMENTARY: DO YOU HAVE ANY RASHES OR OPEN SORES? NO . ALLERGIC/IMMUNO: ARE YOU ALLERGIC TO IV DYE? NO . ANY NEW ALLERGIES? NO . PSYCHIATRIC: DO YOU HAVE THOUGHTS OF HURTING YOURSELF OR SOMEONE ELSE? NO . ARE YOU ABUSED, NEGLECTED, OR IN AN UNSAFE ENVIRONMENT? NO . ENDOCRINOLOGY: ARE YOU DIABETIC? NO . OTHER: DO YOU NEED ANY PRESCRIPTIONS? NO . IF YES, PLEASE LIST: ____ . ANY NEW PROBLEMS WITH YOUR MEDICATIONS? NO . WHEN DID YOU LAST EAT? 04/01/19599 . WHEN DID YOU LAST DRINK? 04/01/19599 . WHAT DID YOU LAST DRINK? DIET COKE . NAME OF PERSON DRIVING YOU HOME? OZZY-DAUGHTER . DO YOU HAVE ANY OTHER QUESTIONS OR CONCERNS NO . VITAL SIGNS WT 230 LBS, HT 60.5", BMI 44.17 INDEX, BP 136/62 MM HG, HR 83 /MIN, RR 18 /MIN, TEMP 97.3 F, OXYGEN SAT % 96%, NA INITIALS SC 11:22, REVIEWED BY: BV. ASSESSMENTS CHRONIC MIGRAINE - G43.709 (PRIMARY) PROCEDURES PN BOTOX INJECTIONS SUBSEQUENT INJECTIONS PRE PROCEDURE DIAGNOSIS CHRONIC MIGRAINE HEADACHES. POST PROCEDURE DIAGNOSIS CHRONIC MIGRAINE HEADACHES. PROCEDURE BOTOX INJECTION AT THE HEAD, NECK AND SHOULDERS. SURGEON DR. SCOTT BRUCE DECORATING AND ASSEMBLY SUPERVISOR NONE ANESTHESIA NONE PRE PROCEDURE NOTE THE PATIENT HAS HISTORY OF CHRONIC MIGRAINE HEADACHES. I EVALUATE THE PATIENT AND REVIEWED THE CHART. I WENT OVER THE RISKS, ALTERNATIVES, AND BENEFITS ASSOCIATED WITH THIS PROCEDURE. THE PATIENT WOULD LIKE TO PROCEED AND GIVE CONSENT TO PERFORMED THE PROCEDURE. THE PATIENT DENIES UNEXPLAINABLE WEIGHT LOSS, FEVER, CHILLS, OR NEW CHANGES IN URINARY OR BOWEL CONTROL. THE PATIENT DID A BOTOX INJECTION AT THE HEAD, NECK AND SHOULDERS 4 MONTHS AGO AND EXPRESSED MORE THAN 50% REDUCTION ON THE FREQUENCY AND INTENSITY OF THE HEADACHES FOR MONTHS AFTER THE BOTOX. SHE WAS HAVING NO MORE THAN 4 HEADACHES PER MONTH. NOW HEADACHES HAS COME BACK AND SHE IS HAVING THEM ALMOST EVERY DAY. THE PATIENT EXPRESS THAT THE USE OF BOTOX HAS REDUCE SIGNIFICANTLY THE SEVERITY OF THE HEADACHES IN BLANCHE PAST AND EXPRESSED THAT WANT TO RECEIVE THIS PROCEDURE AGAIN TODAY DESCRIPTION OF PROCEDURE THE PATIENTS WAS BROUGHT TO THE PROCEDURE ROOM AND PLACED IN THE SUPINE POSITION. I CHECKED LATERALITY AND THE AREAS WHERE THE PROCEDURE WAS GOING TO BE PERFORMED WITH THE PATIENT AND THE SUPPORTING STAFF AT THE MOMENT OF THE TIME OUT IN THE PROCEDURE ROOM. FOR THE PROCEDURE I USED A SOLUTION OF 5 UNITS OF BOTOX PER EACH 0.1 ML OF THE SOLUTION. I USED A 30-GAUGE NEEDLE TO INJECT THE SOLUTION AT THE SELECTED LOCATIONS. I INJECTED FIRST THE RIGHT AND LEFT UNIX ENGINEER MUSCLES. THE LANDMARK FOR BOTH INJECTIONS WAS APPROXIMATELY 1 CM ABOVE THE SUPERIOR MEDIAL EDGE OF THE EYEBROW. AFTER THESE TWO INJECTIONS, I INJECTED THE PROCERUS MUSCLE AT THE MIDLINE POINT BETWEEN THESE FIRST TWO INJECTIONS. THEN I PROCEEDED TO INJECT THE RIGHT AND LEFT FRONTALIS MUSCLE. TWO INJECTIONS WERE DONE IN EACH SIDE. THE FIRST INJECTION WAS DONE APPROXIMATELY 2 CM ABOVE THE FIRST INJECTION OF THE UNIX ENGINEER. THE SECOND INJECTION WAS DONE APPROXIMATELY 1.5 CM LATERAL TO THIS FIST INJECTION OF THE FRONTALIS OF EACH SIDE. AFTER THE INJECTIONS OVER THE FOREHEAD WERE DONE, THE PATIENT'S HEAD WAS TURNED TO THE LEFT SIDE AND WE STARTED TO WORK WITH THE RIGHT TEMPORALIS MUSCLE. FIRST INJECTION WAS DONE IN A VERTICAL LINE OF THE TRAGUS APPROXIMATELY 3 CM ABOVE THE TRAGUS. THE SECOND INJECTION WAS DONE APPROXIMATELY 2 CM ABOVE THE FIRST INJECTION. THE THIRD INJECTION WAS DONE APPROXIMATELY 1 CM FRONT SINCLAIR FROM THIS VERTICAL LINE CREATED AT THE LEVEL OF THE TRAGUS, MCFP BETWEEN THESE TWO INJECTIONS. THE FOURTH INJECTION WAS DONE APPROXIMATELY 1.5 CM BACK FROM THE SECOND INJECTION TO THE TEMPORALIS IN LINE TO THE MIDPORTION OF THE EAR. THEN, WE PROCEEDED TO INJECT THE LEFT TEMPORALIS MUSCLE. WE CLEANED THE AREA WITH ALCOHOL AND PROCEEDED TO PERFORM THE SAME FOR INJECTIONS DESCRIBED ABOVE BUT IN THE LEFT TEMPORALIS MUSCLE USING THE SAME LANDMARKS. AFTER THESE INJECTIONS WERE DONE, THE PATIENT WAS SEATED. FIRST, WE STARTED TO INJECT THE LEFT AND RIGHT OCCIPITALIS MUSCLE. I INJECTED AT THE FOLLOWING PLACES IN THE RIGHT AND LEFT MUSCLE. THE FIRST INJECTION WAS DONE AT THE MIDPOINT POSITION BETWEEN THE MASTOID PROCESS AND THE INION OF THE OCCIPITAL PROTUBERANCE. THE SECOND INJECTION WAS DONE APPROXIMATELY 1.5 CM SUPERIOR AND LATERAL OF THIS POINT. THE THIRD INJECTION WAS DONE APPROXIMATELY 1.5 CM SUPERIOR AND MEDIAL TO THIS FIRST INJECTION. THEN, I PROCEEDED TO INJECT THE RIGHT AND LEFT PARASPINAL MUSCLES. LANDMARK OF THE INJECTION WERE APPROXIMATELY: FIRST INJECTION 3 CM BELOW THE INION AND 1 CM LATERAL TO THE MIDLINE AND SECOND INJECTION AT EACH SIDE WAS DONE APPROXIMATELY 1.5 CM SUPERIOR AND LATERAL OF THE FIRST INJECTION. THE LAST GROUP OF INJECTIONS WAS DONE OVER THE RIGHT AND LEFT TRAPEZIUS MUSCLE OVER THE SHOULDERS AREA. THE FIRST INJECTION WAS DONE AT THE MIDPOINT BETWEEN THE INFLECTION POINT BETWEEN THE NECK AND SHOULDER AND THE ACROMION. THE SECOND AND THIRD INJECTIONS WERE DONE APPROXIMATELY 2.5 CM LATERAL AND MEDIAL FROM THIS FIRST INJECTION. SAME TARGETS WERE USED IN THE RIGHT AND LEFT SIDE. IN TOTAL, I INJECTED 155 UNITS OF BOTOX. PROCEDURE WAS DONE WITHOUT EVIDENCE OF PARESTHESIA, PNEUMOTHORAX, OR ANY COMPLICATIONS. THE PATIENT TOLERATED THE PROCEDURE VERY WELL. THE PATIENT WAS SENT TO THE RECOVERY ROOM FOR OBSERVATIONS. INJECTIONS WERE DONE AFTER CLEANING WITH ALCOHOL, USING ASEPTIC TECHNIQUES POST PROCEDURE NOTE THE PROCEDURE DONE WAS DISCUSSED WITH THE PATIENT. THE PATIENT WILL BE SEEN IN A FOLLOW UP IN THE NEXT FEW WEEKS. INSTRUCTIONS WERE GIVEN, QUESTIONS WERE ANSWERED, AND THE PATIENT EXPRESSED UNDERSTANDING AND AGREES WITH THE PLAN. I, ANNABEL ARMAS, DOCUMENTED THE ABOVE INFORMATION ACTING A SCRIBE FOR DR. BRUCE. I HAVE REVIEWED THE ABOVE DOCUMENT, WRITTEN BY ANNABEL LOZOYA AND I VERIFY THAT IT IS ACCURATE. PROCEDURE CODES 81261 CHEMODENERV [facility]C MIGRAINE DISPOSITION & COMMUNICATION FOLLOW UP 3 WEEKS ELECTRONICALLY SIGNED BY SCOTT BRUCE MD, MD ON 04/11/2019 AT 01:25 PM EDT DISCLAIMER : THIS IS A VISIT SUMMARY EXTRACTED FROM THE [facility] CHART. IT IS NOT A COPY OF THE [facility] PROGRESS NOTE. CAN
== END ==
LOC: M PAIN 11:30
PROVIDERS: ATTEND Anesthesiology
DX: G43.709 Chronic migraine without aura, not intractable, without status migrainosus (principal); I10 Essential (primary) hypertension; E03.9 Hypothyroidism, unspecified; F31.9 Bipolar disorder, unspecified; F41.9 Anxiety disorder, unspecified; M54.5 Low back pain; M79.7 Fibromyalgia; K21.9 Gastro-esophageal reflux disease without esophagitis; E78.5 Hyperlipidemia, unspecified; J44.9 Chronic obstructive pulmonary disease, unspecified; G43.909 Migraine, unspecified, not intractable, without status migrainosus; I69.351 Hemiplegia and hemiparesis following cerebral infarction affecting right dominant side; E55.9 Vitamin D deficiency, unspecified; Z90.710 Acquired absence of both cervix and uterus; Z87.891 Personal history of nicotine dependence; Z79.82 Long term (current) use of aspirin; Z79.891 Long term (current) use of opiate analgesic; Z79.899 Other long term (current) drug therapy
CPT/HCPCS: 64615; J0585

== ENCOUNTER → 2019-05-03 | Outpatient (CLI) | payer MEDICARE ==
[~2019-05-03] MED LIST changes: -BOTULINUM INJ 100 UNITS (J0585) IM ONE; -OXYB10TA; +OXYB10TA2
--- NOTE | 2019-05-20 01:28 | ECWPNPC ---
PATIENT NAME: LUIS ENRIQUE MCMILLAN : 1955 GENDER: FEMALE VISIT DATE: 05/03/2019 DISCHARGE DATE: 05/03/19 1213 VISIT LOCKED DATE TIME: PHYSICIAN: MEAGAN OROSCO RESOURCE: MEAGAN OROSCO REASON FOR APPOINTMENT 1. POST BOTOX HISTORY OF PRESENT ILLNESS HISTORY OF PRESENT ILLNESS: HERE FOR F/U OF CHRONIC MIGRAINE HEADACHE.HAD BOTOX ON 04/01/19.CONTINUES TO BENEFIT FROM THIS TODAY.REPORTS NO MIGRAINE HEADACHES SINCE BOTOX. PAIN THE PATIENT DESCRIBES THE PAIN... FALL RISK SCREENING: SCREENING :NO FALLS REPORTED IN THE LAST YEAR CURRENT MEDICATIONS TAKING ZOCOR 40 MG TABLET 1 TABLET EVERY EVENING ORALLY ONCE A DAY TAKING LEVOTHYROXINE SODIUM 100 MCG TABLET 1 TABLET EVERY MORNING ON AN EMPTY STOMACH ORALLY ONCE A DAY TAKING ADVAIR DISKUS 250-50 MCG/DOSE MISCELLANEOUS 1 INHALATION EVERY 12 HRS TAKING VENTOLIN HFA 108 (90 BASE) MCG/ACT AEROSOL SOLUTION 2 PUFFS INHALATION Q4-6H PRN TAKING GENERLAC 10 GM/15ML SOLUTION 30 ML NEEDED ORALLY BID TAKING OXYBUTYNIN CHLORIDE ER 10 MG TABLET EXTENDED RELEASE 24 HOUR 1 TABLET ORALLY ONCE A DAY TAKING HYDROCHLOROTHIAZIDE 25 MG TABLET 1 TABLET ORALLY ONCE A DAY TAKING NEBULIZERS - MISCELLANEOUS ALBUTEROL INHALATION Q 4-6 HRS. PRN TAKING MAXALT 10 MG TABLET 1 TABLET NEEDED ONE TIME ORALLY ONCE AT ONSET OF H/A,REPEAT IN 2HR IF NO IMPROVEMENT TAKING SERTRALINE HCL 25 MG TABLET 1 TABLET ORALLY ONCE A DAY TAKING TRAZODONE HCL 100 MG TABLET 2 TABLET AT BEDTIME ORALLY ONCE A DAY TAKING ZANTAC 150 MG TABLET 1 TABLET ORALLY DAILY TAKING MUCINEX 600 MG TABLET EXTENDED RELEASE 1 TABLET NEEDED ORALLY EVERY 12 HRS TAKING TIZANIDINE HCL 4 MG TABLET 1 TABLET NEEDED ORALLY THREE TIMES A DAY TAKING ASPIRIN 81 81 MG TABLET DELAYED RELEASE 1 TABLET ORALLY ONCE A DAY TAKING NORCO 7.5-325 MG TABLET 1 TABLET NEEDED ORALLY EVERY 6 HRS PRN MDD4 NOT-TAKING ATORVASTATIN CALCIUM 20 MG TABLET 4 TABLET ORALLY ONCE A DAY NOT-TAKING SOMA 350 MG TABLET 1 TABLET NEEDED ORALLY BID, NOTES: INSURANCE WON'T COVER MEDICATION LIST REVIEWED AND RECONCILED WITH THE PATIENT PAST MEDICAL HISTORY HYPERTENSION HYPOTHYROIDISM DEPRESSION BIPOLAR DISORDER ANXIETY LOW BACK PAIN FIBROMYALGIA ARTHRITIS ESOPHAGEAL REFLUX HYPERLIPIDEMIA COPD CVA S/P R SIDE WEAKNESS MIGRAINE HEADACHE VITAMIN D DEFICIENCY ETOH HX OF SUBSTANCE ABUSE HX OF TIETZE SYNDROME BRONCHITIS 03/2016 TIA 08/2018 ALLERGIES LITHIUM CARBONATE: COLLEPSED, WENT TO ED - ALLERGY PENICILLIN (FOR ALLERGIES USE ONLY): HIVES - ALLERGY NUTS: SOB - ALLERGY ADHESIVES: TEARS SKINS - ALLERGY SURGICAL HISTORY T&A APPENDECTOMY C SECTION X 3 BILAT EYE LID LIFT 04/2018 HYSTERECTOMY 1982 FAMILY HISTORY FATHER: ALIVE, DIAGNOSED WITH HYPERTENSION, CANCER MOTHER: , DIABETES, PSYCHIATRIC CONDITIONS, OTHER 3 BROTHER(S) . 1 SON(S) , 2 DAUGHTER(S) . MOTHER - PARKINSON\\\\\\'S\\\\NBROTHER - COLON CANCER\\\\NDAUGHTER - FIBROMYALGIA//SON DDD. SOCIAL HISTORY GENERAL: TOBACCO USE ARE YOU A: QUIT SMOKING ABOUT 7 YEARS AGO OTHERS AT HOME: DAUGHTER & GRANDDAUGHTER. DIET: REG. LANGUAGE LITHUANIAN. DOMESTIC VIOLENCE DO YOU FEEL SAFE IN YOUR ENVIRONMENT?YES RECREATIONAL DRUG USE DENIES; HISTORY OF ETOH DRUG ABUSE. CLEAN/SOBER SINCE EARLY . EXERCISE: WALKS,WATER AEROBICS. 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?NO PAIN CLINIC PFS, CLERGY, PUBLIC HEALTH REFERRALS PFS REFERRAL NEEDED?NO CLERGY REFERRAL NEEDED?NO PUBLIC HEALTH REFERRAL NEEDED?NO HAS THE PATIENT BEEN EDUCATED REGARDING HIS/HER PLAN OF CARE?YES HAS THE PATIENT BEEN EDUCATED REGARDING PAIN, THE RISK FOR PAIN, THE IMPORTANCE OF EFFECTIVE PAIN MANAGEMENT, AND THE PAIN ASSESSMENT PROCESS?YES LATEX QUESTIONNAIRE LATEX ALLERGY : HAVE YOU EVER DEVELOPED ANY TYPE OF REACTION AFTER HANDLING LATEX PRODUCTS SUCH RUBBER GLOVES, CONDOMS, DIAPHRAGMS, BALLOONS, SOCKS, OR UNDERWEAR?NO LATEX ALLERGY : HAVE YOU EVER DEVELOPED ANY TYPE OF REACTION DURING OR AFTER DENTAL APPOINTMENT, VAGINAL/RECTAL EXAMINATION, SURGICAL PROCEDURE, OR ANY OTHER EXPOSURE?NO LATEX RISK : HAVE YOU EVER HAD ANY DIFFICULTY BREATHING OR HIVES AFTER EATING OR HANDLING ANY FRUITS, OR VEGETABLES; SUCH KIWI, BANANAS, STONE FRUITS, OR CHESTNUTSYES - PLEASE INDICATE : CHESTNUTS LATEX RISK : DO YOU HAVE A PREVIOUS PERSONAL HISTORY OF MORE THAN NINE SURGERIES, SPINA BIFIDA, OR REPEATED CATHERIZATIONS? NO LATEX RISK : ARE YOU FREQUENTLY EXPOSED TO LATEX PRODUCTS IN YOUR OCCUPATION?NO DATE ASKED : 01/21/2019 CAFFEINE >5/DAY. ADVANCE DIRECTIVE ADVANCE DIRECTIVE DISCUSSED WITH PATIENT:YES PT. DOES NOT HAVE ANY ADVANCED DIRECTIVES AND SHE DECLINED HCP INFO AND ASSISTANCE WITH FORM AT THIS TIME. MORMONISM NO FAITH BELIEFS THAT WOULD IMPACT HEALTH CARE. MARITAL STATUS: . ALCOHOL SCREENING POINTS: 0, INTERPRETATION: NEGATIVE. OCCUPATION: UNEMPLOYED. SEXUAL HX HAD SEX IN THE LAST 12 MONTHS (VAGINAL, ORAL, OR ANAL)?: NO, HAVE YOU EVER HAD AN STD?: NO. REVIEWED WITH PT 10/28/18 1126 BVREVIEWED WITH PATIENT 11/11/18 1444 JSREVIEWED WITH PATIENT 12/01/18 1001 JSREVIEWED WITH PT 04/01/19 1216 BV. HOSPITALIZATION/MAJOR DIAGNOSTIC PROCEDURE SURGICAL RELATED BACK PAIN MHE REVIEW OF SYSTEMS REVIEWED BY: PROVIDER: MEAGAN NORMAN . CONSTITUTIONAL: ANY CHANGE IN YOUR MEDICAL CONDITION? NO . CHILLS NO . FEVER NO . INFECTION: DO YOU HAVE NEW INFECTIONS? NO . DO YOU HAVE HISTORY OF MRSA? NO . MUSCULOSKELETAL: ANY NEW PATTERNS OF PAIN OR NUMBNESS? NO . GASTROENTEROLOGY: ANY NEW CHANGE IN BOWEL CONTROL? NO . GENITOURINARY: ANY NEW CHANGE IN BLADDER CONTROL? NO . IS THERE A CHANCE YOU COULD BE ? NO . HEMATOLOGY/LYMPH: DO YOU TAKE ANY BLOOD THINNERS? (FOR EXAMPLE- COUMADIN, PLAVIX, AGGRENOX, PLATEL, PRADAXA, OR XARELTO) NO . WHEN WAS YOUR LAST DOSE? DATE: TIME: . NEUROLOGY: HAVE YOU FALLEN IN THE PAST 12 MONTHS? NO . ANY NEW EXTREMITY NUMBNESS OR WEAKNESS? NO . CARDIOLOGY: DO YOU HAVE A PACEMAKER OR DEFIBRILLATOR? NO . RESPIRATORY: HAVE YOU BEEN SICK IN THE PAST WEEK? NO . FEVER NO . FLU LIKE SYMPTOMS? NO . COUGH NO . INTEGUMENTARY: DO YOU HAVE ANY RASHES OR OPEN SORES? YES, SORES TO ARMS AND LEGS . ALLERGIC/IMMUNO: ARE YOU ALLERGIC TO IV DYE? NO . ANY NEW ALLERGIES? NO . PSYCHIATRIC: DO YOU HAVE THOUGHTS OF HURTING YOURSELF OR SOMEONE ELSE? NO . ARE YOU ABUSED, NEGLECTED, OR IN AN UNSAFE ENVIRONMENT? NO . ENDOCRINOLOGY: ARE YOU DIABETIC? NO . OTHER: DO YOU NEED ANY PRESCRIPTIONS? YES, TIZANIDINE . IF YES, PLEASE LIST: ____ . ANY NEW PROBLEMS WITH YOUR MEDICATIONS? NO . WHEN DID YOU LAST EAT? ____ . WHEN DID YOU LAST DRINK? ____ . WHAT DID YOU LAST DRINK? ____ . NAME OF PERSON DRIVING YOU HOME? ____ . DO YOU HAVE ANY OTHER QUESTIONS OR CONCERNS NO . VITAL SIGNS WT 230.8 LBS, HT 60.5", BMI 44.33 INDEX, BP 143/75 MM HG, HR 89 /MIN, RR 18 /MIN, TEMP 97.6 F, OXYGEN SAT % 96%, NA INITIALS AW 1139, REVIEWED BY: EM. EXAMINATION NEUROLOGICAL: CRANIAL NERVES:2-12-INTACT. MOTOR STRENGTH:WEAK OVER RIGHT UPPER AND LOWER EXTREMITY COMPARED WITH LEFT.. SENSORY:SLIGHT DECREASE IN SENSE OF TOUCH OVER RIGHT UPPER AND LOWER EXTREMITY.. REFLEXES:2/4 BILATERALLY. CEREBELLAR SIGNS:NEGATIVE RHOMBERG. GAIT AND STATION:WITHIN NORMAL LIMITS. GENERAL EXAMINATION: LUNGS: LUNG SOUNDS ARE CLEAR. HEART: HEART SOUNDS ARE NORMAL, RHYTHM IS REGULAR, NO MURMUR. ASSESSMENTS MIGRAINE WITH AURA AND WITH STATUS MIGRAINOSUS, NOT INTRACTABLE - G43.101 (PRIMARY) TREATMENT MIGRAINE WITH AURA AND WITH STATUS MIGRAINOSUS, NOT INTRACTABLE REFILL TIZANIDINE HCL TABLET, 4 MG, 1 TABLET NEEDED, ORALLY, Q8H PRN MUSC;E SPASM PAIN, 30 DAYS, 45, REFILLS 2 NOTES: BOTOX. PROCEDURE CODES FA211 ESTABILISHED PATIENT [facility] CHARGE DISPOSITION & COMMUNICATION FOLLOW UP BOTOX-@ +POST W ME ELECTRONICALLY SIGNED BY ESTER DUARTE ON 05/19/2019 AT 04:07 PM EDT DISCLAIMER : THIS IS A VISIT SUMMARY EXTRACTED FROM THE [facility] Program CHART. IT IS NOT A COPY OF THE [facility] Program PROGRESS NOTE. CAN
== END ==
LOC: M PAIN 11:45
PROVIDERS: ATTEND Nurse Practitioner Family
DX: G43.101 Migraine with aura, not intractable, with status migrainosus (principal); G89.29 Other chronic pain; I10 Essential (primary) hypertension; E03.9 Hypothyroidism, unspecified; Z86.59 Personal history of other mental and behavioral disorders; M79.7 Fibromyalgia; M19.90 Unspecified osteoarthritis, unspecified site; K21.9 Gastro-esophageal reflux disease without esophagitis; E78.5 Hyperlipidemia, unspecified; J44.9 Chronic obstructive pulmonary disease, unspecified; Z87.891 Personal history of nicotine dependence; Z88.0 Allergy status to penicillin; Z88.8 Allergy status to other drugs, medicaments and biological substances; Z91.010 Allergy to peanuts; Z91.09 Other allergy status, other than to drugs and biological substances; E66.01 Morbid (severe) obesity due to excess calories; Z68.41 Body mass index [BMI] 40.0-44.9, adult; Z79.82 Long term (current) use of aspirin; Z79.899 Other long term (current) drug therapy

== ENCOUNTER → 2019-05-20 | Outpatient (CLI) | payer MEDICARE ==
[~2019-05-20] MED LIST changes: +BUPIVACAINE HCL 0.25% 30 ML VIAL As Ordered ONE; +ISOVUE-M 300 61% 15ML VIAL (Q9967) As Ordered ONE; +LIDOCAINE 1% SDV INJ 30 ML VIAL As Ordered ONE; +TRIAMCINOLONE ACETONIDE SUSP 40 MG/ML VIAL (J3301) As Ordered ONE
--- NOTE | 2019-05-20 12:54 | REP ---
Partial lumbar spine series: Three views . History: Injection procedure for pain. 60 seconds of fluoroscopy time is reported. Findings: A sequence of three fluoroscopically obtained last image hold procedural spot radiographs of the lumbar spine document needle position and contrast injection associated with injection procedure. Electronically Signed by Andrea Woods MD 05/20/2019 12:46 P
--- NOTE | 2019-06-02 00:45 | ECWPNPC ---
PATIENT NAME: LUIS ENRIQUE MCMILLAN : 1955 GENDER: FEMALE VISIT DATE: 05/20/2019 DISCHARGE DATE: 05/20/19 1303 VISIT LOCKED DATE TIME: PHYSICIAN: SCOTT BRUCE MD RESOURCE: SCOTT BRUCE MD REASON FOR APPOINTMENT 1. RIGHT L4/5-L5/S1 RF. HISTORY OF PRESENT ILLNESS HISTORY OF PRESENT ILLNESS: PAIN THE PATIENT DESCRIBES THE PAIN... FALL RISK SCREENING: SCREENING :NO FALLS REPORTED IN THE LAST YEAR CURRENT MEDICATIONS TAKING ZOCOR 40 MG TABLET 1 TABLET EVERY EVENING ORALLY ONCE A DAY TAKING LEVOTHYROXINE SODIUM 100 MCG TABLET 1 TABLET EVERY MORNING ON AN EMPTY STOMACH ORALLY ONCE A DAY TAKING ADVAIR DISKUS 250-50 MCG/DOSE MISCELLANEOUS 1 INHALATION EVERY 12 HRS TAKING VENTOLIN HFA 108 (90 BASE) MCG/ACT AEROSOL SOLUTION 2 PUFFS INHALATION Q4-6H PRN TAKING GENERLAC 10 GM/15ML SOLUTION 30 ML NEEDED ORALLY BID TAKING OXYBUTYNIN CHLORIDE ER 10 MG TABLET EXTENDED RELEASE 24 HOUR 1 TABLET ORALLY ONCE A DAY TAKING HYDROCHLOROTHIAZIDE 25 MG TABLET 1 TABLET ORALLY ONCE A DAY TAKING NEBULIZERS - MISCELLANEOUS ALBUTEROL INHALATION Q 4-6 HRS. PRN TAKING MAXALT 10 MG TABLET 1 TABLET NEEDED ONE TIME ORALLY ONCE AT ONSET OF H/A,REPEAT IN 2HR IF NO IMPROVEMENT TAKING SERTRALINE HCL 25 MG TABLET 1 TABLET ORALLY ONCE A DAY TAKING TRAZODONE HCL 50 MG TABLET 1 TABLET AT BEDTIME ORALLY ONCE A DAY TAKING ZANTAC 150 MG TABLET 1 TABLET ORALLY DAILY TAKING MUCINEX 600 MG TABLET EXTENDED RELEASE 1 TABLET NEEDED ORALLY EVERY 12 HRS TAKING ASPIRIN 81 81 MG TABLET DELAYED RELEASE 1 TABLET ORALLY ONCE A DAY TAKING TIZANIDINE HCL 4 MG TABLET 1 TABLET NEEDED ORALLY Q8H PRN MUSC;E SPASM PAIN TAKING NORCO 7.5-325 MG TABLET 1 TABLET NEEDED ORALLY EVERY 6 HRS PRN MDD4, NOTES: 05/19/19@1900 DISCONTINUED ATORVASTATIN CALCIUM 20 MG TABLET 4 TABLET ORALLY ONCE A DAY DISCONTINUED SOMA 350 MG TABLET 1 TABLET NEEDED ORALLY BID, NOTES: INSURANCE WON'T COVER MEDICATION LIST REVIEWED AND RECONCILED WITH THE PATIENT PAST MEDICAL HISTORY HYPERTENSION HYPOTHYROIDISM DEPRESSION BIPOLAR DISORDER ANXIETY LOW BACK PAIN FIBROMYALGIA ARTHRITIS ESOPHAGEAL REFLUX HYPERLIPIDEMIA COPD CVA S/P R SIDE WEAKNESS MIGRAINE HEADACHE VITAMIN D DEFICIENCY ETOH HX OF SUBSTANCE ABUSE HX OF TIETZE SYNDROME BRONCHITIS 03/2016 TIA 08/2018 ALLERGIES LITHIUM CARBONATE: COLLEPSED, WENT TO ED - ALLERGY PENICILLIN (FOR ALLERGIES USE ONLY): HIVES - ALLERGY NUTS: SOB - ALLERGY ADHESIVES: TEARS SKINS - ALLERGY SURGICAL HISTORY T&A APPENDECTOMY C SECTION X 3 BILAT EYE LID LIFT 04/2018 HYSTERECTOMY 1982 FAMILY HISTORY FATHER: ALIVE, DIAGNOSED WITH HYPERTENSION, OTHER MALIGNANT NEOPLASM OF UNSPECIFIED SITE MOTHER: , DIABETES, UNSPECIFIED NONPSYCHOTIC MENTAL DISORDER FOLLOWING ORGANIC BRAIN DAMAGE, OTHER SPECIFIED CONDITIONS INFLUENCING HEALTH STATUS 3 BROTHER(S) . 1 SON(S) , 2 DAUGHTER(S) . MOTHER - PARKINSON\\\\\\'S\\\\NBROTHER - COLON CANCER\\\\NDAUGHTER - FIBROMYALGIA//SON DDD. SOCIAL HISTORY GENERAL: TOBACCO USE ARE YOU A: QUIT SMOKING ABOUT 7 YEARS AGO OTHERS AT HOME: DAUGHTER & GRANDDAUGHTER. DIET: REG. LANGUAGE SYRIAC. DOMESTIC VIOLENCE DO YOU FEEL SAFE IN YOUR ENVIRONMENT?YES RECREATIONAL DRUG USE DENIES; HISTORY OF ETOH DRUG ABUSE. CLEAN/SOBER SINCE EARLY . EXERCISE: WALKS,WATER AEROBICS. LEARNING BARRIERS / SPECIAL NEEDS CHANGE FROM LAST VISIT?NO BARRIERS TO LEARNING?NO HEARING IMPAIRED?NO VISION IMPAIRED?YES COGNITIVELY IMPAIRED?NO :CORRECTIVE LENSES READINESS TO LEARN?YES LEARNING PREFERENCES?NO LEARNING CAPABILITIES PRESENT?YES EMOTIONAL BARRIERS?NO SPECIAL DEVICES?YES :CANE REBRANDER NEEDED?NO PAIN CLINIC PFS, CLERGY, PUBLIC HEALTH REFERRALS PFS REFERRAL NEEDED?NO CLERGY REFERRAL NEEDED?NO PUBLIC HEALTH REFERRAL NEEDED?NO HAS THE PATIENT BEEN EDUCATED REGARDING HIS/HER PLAN OF CARE?YES HAS THE PATIENT BEEN EDUCATED REGARDING PAIN, THE RISK FOR PAIN, THE IMPORTANCE OF EFFECTIVE PAIN MANAGEMENT, AND THE PAIN ASSESSMENT PROCESS?YES LATEX QUESTIONNAIRE LATEX ALLERGY : HAVE YOU EVER DEVELOPED ANY TYPE OF REACTION AFTER HANDLING LATEX PRODUCTS SUCH RUBBER GLOVES, CONDOMS, DIAPHRAGMS, BALLOONS, SOCKS, OR UNDERWEAR?NO LATEX ALLERGY : HAVE YOU EVER DEVELOPED ANY TYPE OF REACTION DURING OR AFTER DENTAL APPOINTMENT, VAGINAL/RECTAL EXAMINATION, SURGICAL PROCEDURE, OR ANY OTHER EXPOSURE?NO LATEX RISK : HAVE YOU EVER HAD ANY DIFFICULTY BREATHING OR HIVES AFTER EATING OR HANDLING ANY FRUITS, OR VEGETABLES; SUCH KIWI, BANANAS, STONE FRUITS, OR CHESTNUTSYES - PLEASE INDICATE : CHESTNUTS LATEX RISK : DO YOU HAVE A PREVIOUS PERSONAL HISTORY OF MORE THAN NINE SURGERIES, SPINA BIFIDA, OR REPEATED CATHERIZATIONS? NO LATEX RISK : ARE YOU FREQUENTLY EXPOSED TO LATEX PRODUCTS IN YOUR OCCUPATION?NO DATE ASKED : 05/20/2019 CAFFEINE >5/DAY. ADVANCE DIRECTIVE ADVANCE DIRECTIVE DISCUSSED WITH PATIENT:YES PT. DOES NOT HAVE ANY ADVANCED DIRECTIVES AND SHE DECLINED HCP INFO AND ASSISTANCE WITH FORM AT THIS TIME. MORMON NO JUDAISM BELIEFS THAT WOULD IMPACT HEALTH CARE. MARITAL STATUS: . ALCOHOL SCREENING POINTS: 0, INTERPRETATION: NEGATIVE. OCCUPATION: UNEMPLOYED. SEXUAL HX HAD SEX IN THE LAST 12 MONTHS (VAGINAL, ORAL, OR ANAL)?: NO, HAVE YOU EVER HAD AN STD?: NO. REVIEWED WITH PT 10/28/18 1126 BVREVIEWED WITH PATIENT 11/11/18 1444 JSREVIEWED WITH PATIENT 12/01/18 1001 JSREVIEWED WITH PT 04/01/19 1216 BV. HOSPITALIZATION/MAJOR DIAGNOSTIC PROCEDURE SURGICAL RELATED BACK PAIN MHE REVIEW OF SYSTEMS REVIEWED BY: PROVIDER: . CONSTITUTIONAL: ANY CHANGE IN YOUR MEDICAL CONDITION? NO . CHILLS NO . FEVER NO . INFECTION: DO YOU HAVE NEW INFECTIONS? NO . DO YOU HAVE HISTORY OF MRSA? NO . MUSCULOSKELETAL: ANY NEW PATTERNS OF PAIN OR NUMBNESS? NO . GASTROENTEROLOGY: ANY NEW CHANGE IN BOWEL CONTROL? NO . GENITOURINARY: ANY NEW CHANGE IN BLADDER CONTROL? NO . IS THERE A CHANCE YOU COULD BE ? NO . HEMATOLOGY/LYMPH: DO YOU TAKE ANY BLOOD THINNERS? (FOR EXAMPLE- COUMADIN, PLAVIX, AGGRENOX, PLATEL, PRADAXA, OR XARELTO) NO . WHEN WAS YOUR LAST DOSE? DATE: TIME: . NEUROLOGY: HAVE YOU FALLEN IN THE PAST 12 MONTHS? NO . ANY NEW EXTREMITY NUMBNESS OR WEAKNESS? NO . CARDIOLOGY: DO YOU HAVE A PACEMAKER OR DEFIBRILLATOR? NO . RESPIRATORY: HAVE YOU BEEN SICK IN THE PAST WEEK? NO . FEVER NO . FLU LIKE SYMPTOMS? NO . COUGH NO . INTEGUMENTARY: DO YOU HAVE ANY RASHES OR OPEN SORES? NO . ALLERGIC/IMMUNO: ARE YOU ALLERGIC TO IV DYE? NO . ANY NEW ALLERGIES? NO . PSYCHIATRIC: DO YOU HAVE THOUGHTS OF HURTING YOURSELF OR SOMEONE ELSE? NO . ARE YOU ABUSED, NEGLECTED, OR IN AN UNSAFE ENVIRONMENT? NO . ENDOCRINOLOGY: ARE YOU DIABETIC? NO . OTHER: DO YOU NEED ANY PRESCRIPTIONS? NO . IF YES, PLEASE LIST: ____ . ANY NEW PROBLEMS WITH YOUR MEDICATIONS? NO . WHEN DID YOU LAST EAT? ____05/19/19 . WHEN DID YOU LAST DRINK? ____0 . WHAT DID YOU LAST DRINK? ____DIET COKE . NAME OF PERSON DRIVING YOU HOME? ____OZZY . DO YOU HAVE ANY OTHER QUESTIONS OR CONCERNS NO . VITAL SIGNS WT 229.0 LBS, HT 60.5", BMI 43.98 INDEX, BP 139/87 MM HG, HR 90 /MIN, RR 18 /MIN, TEMP 97.3 F, OXYGEN SAT % 97%, SAFE IN ENV? (Y/N) YES, NA INITIALS AW 0941, REVIEWED BY: VD. ASSESSMENTS SPONDYLOSIS WITHOUT MYELOPATHY OR RADICULOPATHY, LUMBAR REGION - M47.816 (PRIMARY) SPONDYLOSIS OF LUMBOSACRAL REGION WITHOUT MYELOPATHY OR RADICULOPATHY - M47.817 TREATMENT SPONDYLOSIS WITHOUT MYELOPATHY OR RADICULOPATHY, LUMBAR REGION SMC FACET BLOCK (PAIN)[id number] PROCEDURES PN RADIOFREQUENCY PRE PROCEDURE DIAGNOSES LUMBAR SPONDYLOSIS. LUMBOSACRAL SPONDYLOSIS POST PROCEDURE DIAGNOSES LUMBAR SPONDYLOSIS. LUMBOSACRAL SPONDYLOSIS PROCEDURE RIGHT L4-L5 AND RIGHT L5-S1 LUMBAR FACET RADIOFREQUENCY SURGEON DR. SCOTT BRUCE AUTOMATION SALES MANAGER NONE ANESTHESIA LOCAL PRE PROCEDURE REPORT THE PATIENT HAS HISTORY OF CHRONIC LOW BACK PAIN. I EVALUATED THE PATIENT AND REVIEWED THE CHART. I WENT OVER THE RISKS, ALTERNATIVES, AND BENEFITS ASSOCIATED WITH THIS PROCEDURE. THE PATIENT WOULD LIKE TO PROCEED AND GIVES CONSENT TO PERFORM THE PROCEDURE. THE PATIENT DENIES UNEXPLAINABLE WEIGHT LOSS, FEVER, CHILLS, OR NEW CHANGES IN URINARY OR BOWEL CONTROL DESCRIPTION OF PROCEDURE THE PATIENT WAS BROUGHT TO THE PROCEDURE ROOM AND PLACED IN THE PRONE POSITION. THE LUMBOSACRAL AREA WAS CLEANED WITH CHLORAPREP SOLUTION AND DRAPED ASEPTICALLY. THE PROCEDURE WAS DONE UNDER STERILE CONDITIONS. I CHECKED LATERALITY AND THE LEVEL WHERE THE PROCEDURE WAS GOING TO BE PERFORMED WITH THE PATIENT AND THE SUPPORTING STAFF AT THE MOMENT OF THE TIME OUT IN THE PROCEDURE ROOM. UNDER FLUOROSCOPIC GUIDANCE, TARGETS WERE SELECTED AT THE INTERSECTION OF THE RIGHT TRANSVERSE PROCESS OF L4, L5 AND ALA OF S1 WITH ITS RESPECTIVE SUPERIOR ARTICULAR PROCESS. LIDOCAINE WAS USED TO NUMB THE SKIN AND THE SUBCUTANEOUS TISSUE BELOW IT. RADIOFREQUENCY NEEDLES 22-GAUGE 15 CM LONG WITH 10 MM ACTIVE CURVE TIP WERE ADVANCED UNDER FLUOROSCOPIC GUIDANCE AND FOLLOWING PATIENT FEEDBACK UNTIL THE TARGET AREA WAS REACHED. POSITION OF THE NEEDLES WAS VERIFIED WITH AP AND LATERAL VIEWS. AFTER PROPER POSITION OF THE NEEDLE WAS ACHIEVED, WE WORKED WITH THE SELECTED MEDIAN BRANCHES OF L3, L4 AND THE DORSAL RAMI OF L5. WE MEASURED THE CORRESPONDING IMPEDANCES, SENSORY STIMULATION AND MOTOR RESPONSES INDICATED IN THE RADIOFREQUENCY WORKSHEET. POSITION OF THE NEEDLES WAS VERIFIED AGAIN WITH AP AND LATERAL VIEWS. LIDOCAINE 1%, 2 ML, WAS INJECTED AT EACH LEVEL. RADIOFREQUENCY WAS DONE AT EACH LEVEL AT 80 DEGREES FOR 90 SECONDS. AFTER RADIOFREQUENCY WAS DONE, THE PATIENT RECEIVED BUPIVACAINE 0.125% 1 CC WITH KENALOG 5 MG AT EACH SITE. THERE WAS NO EVIDENCE OF BLOOD, PARESTHESIA OR CEREBROSPINAL FLUID DURING THE PROCEDURE. THE PATIENT WAS SENT TO THE RECOVERY ROOM. THE PATIENT WAS MOVING THE EXTREMITIES AND DOING WELL. THERE WAS NO COMPLICATION DURING THE PROCEDURE. FLUOROSCOPY TIME WAS 60 SECONDS POST PROCEDURE NOTE THE PATIENT WILL BE SEEN IN A FOLLOW UP IN THE NEXT FEW WEEKS. INSTRUCTIONS WERE GIVEN, QUESTIONS WERE ANSWERED, AND THE PATIENT EXPRESSED UNDERSTANDING AND AGREES WITH THE PLAN. I, MELISA NOEL, DOCUMENTED THE ABOVE INFORMATION ACTING A SCRIBE FOR DR. BRUCE. I HAVE REVIEWED THE ABOVE DOCUMENT, WRITTEN BY MELISA NOEL SCRIBE AND I VERIFY THAT IT IS ACCURATE. PROCEDURE CODES 67304 DESTROY LUMB/SAC FACET JNT, MODIFIERS: RT 74659 DESTROY L/S FACET JNT ADDL, MODIFIERS: RT 6045F RADXPS IN END [id number] PXD DISPOSITION & COMMUNICATION FOLLOW UP 3 WEEKS ELECTRONICALLY SIGNED BY SCOTT BRUCE MD, MD ON 06/01/2019 AT 10:49 AM EDT DISCLAIMER : THIS IS A VISIT SUMMARY EXTRACTED FROM THE [employer] CHART. IT IS NOT A COPY OF THE [employer] PROGRESS NOTE. MTDD
== END ==
LOC: M PAIN 10:00
PROVIDERS: ATTEND Anesthesiology
DX: M47.816 Spondylosis without myelopathy or radiculopathy, lumbar region (principal); M47.817 Spondylosis without myelopathy or radiculopathy, lumbosacral region; I10 Essential (primary) hypertension; E03.9 Hypothyroidism, unspecified; F31.9 Bipolar disorder, unspecified; F41.9 Anxiety disorder, unspecified; M79.7 Fibromyalgia; M19.90 Unspecified osteoarthritis, unspecified site; K21.9 Gastro-esophageal reflux disease without esophagitis; E78.5 Hyperlipidemia, unspecified; J44.9 Chronic obstructive pulmonary disease, unspecified; I69.351 Hemiplegia and hemiparesis following cerebral infarction affecting right dominant side; G43.909 Migraine, unspecified, not intractable, without status migrainosus; E55.9 Vitamin D deficiency, unspecified; Z90.49 Acquired absence of other specified parts of digestive tract; Z87.891 Personal history of nicotine dependence; Z79.82 Long term (current) use of aspirin; Z79.899 Other long term (current) drug therapy; Z79.891 Long term (current) use of opiate analgesic; Z88.0 Allergy status to penicillin; Z88.8 Allergy status to other drugs, medicaments and biological substances; Z91.018 Allergy to other foods; Z91.048 Other nonmedicinal substance allergy status
CPT/HCPCS: 64635; 64636; J3301; Q9967

== ENCOUNTER → 2019-06-03 | Outpatient (REF) | payer MEDICARE ==
[~2019-06-03] MED LIST changes: -BUPIVACAINE HCL 0.25% 30 ML VIAL As Ordered ONE; -ISOVUE-M 300 61% 15ML VIAL (Q9967) As Ordered ONE; -LIDOCAINE 1% SDV INJ 30 ML VIAL As Ordered ONE; -TRIAMCINOLONE ACETONIDE SUSP 40 MG/ML VIAL (J3301) As Ordered ONE
[2019-06-03 14:14] LABS: CHOLESTEROL RISK RATIO 3.61 (<5)
== END ==
LOC: M LAB REF 12:28
PROVIDERS: ATTEND Nurse Practitioner Family
DX: E78.1 Pure hyperglyceridemia (principal)

== ENCOUNTER → 2019-06-04 | Outpatient (CLI) | payer MEDICARE | LOC: M PAIN 13:00 | PROVIDERS: ATTEND Nurse Practitioner Family | DX: M47.816 Spondylosis without myelopathy or radiculopathy, lumbar region (principal); M47.817 Spondylosis without myelopathy or radiculopathy, lumbosacral region; I10 Essential (primary) hypertension; E03.9 Hypothyroidism, unspecified; Z86.59 Personal history of other mental and behavioral disorders; M79.7 Fibromyalgia; M19.90 Unspecified osteoarthritis, unspecified site; J44.9 Chronic obstructive pulmonary disease, unspecified; G43.909 Migraine, unspecified, not intractable, without status migrainosus; Z87.891 Personal history of nicotine dependence; Z88.0 Allergy status to penicillin; Z88.8 Allergy status to other drugs, medicaments and biological substances; Z91.018 Allergy to other foods; Z91.09 Other allergy status, other than to drugs and biological substances; E66.01 Morbid (severe) obesity due to excess calories; Z68.41 Body mass index [BMI] 40.0-44.9, adult; Z79.82 Long term (current) use of aspirin; Z79.899 Other long term (current) drug therapy ==

== ENCOUNTER → 2019-07-06 | Outpatient (CLI) | payer MEDICARE ==
[~2019-07-06] MED LIST changes: +BOTULINUM INJ 100 UNITS (J0585) IM ONE
--- NOTE | 2019-07-10 23:17 | ECWPNPC ---
PATIENT NAME: LUIS ENRIQUE MCMILLAN : 1955 GENDER: FEMALE VISIT DATE: 07/06/2019 DISCHARGE DATE: 07/06/19 1354 VISIT LOCKED DATE TIME: PHYSICIAN: SCOTT BRUCE MD RESOURCE: SCOTT BRUCE MD REASON FOR APPOINTMENT 1. BOTOX HISTORY OF PRESENT ILLNESS HISTORY OF PRESENT ILLNESS: PAIN THE PATIENT DESCRIBES THE PAIN... FALL RISK SCREENING: SCREENING :NO FALLS REPORTED IN THE LAST YEAR CURRENT MEDICATIONS TAKING ZOCOR 40 MG TABLET 1 TABLET EVERY EVENING ORALLY ONCE A DAY, NOTES: 07/05 1130 TAKING LEVOTHYROXINE SODIUM 100 MCG TABLET 1 TABLET EVERY MORNING ON AN EMPTY STOMACH ORALLY ONCE A DAY, NOTES: 07/05 1130 TAKING VENTOLIN HFA 108 (90 BASE) MCG/ACT AEROSOL SOLUTION 2 PUFFS INHALATION Q4-6H PRN, NOTES: NONE RECENT TAKING GENERLAC 10 GM/15ML SOLUTION 30 ML NEEDED ORALLY BID, NOTES: 07/04 TAKING OXYBUTYNIN CHLORIDE ER 10 MG TABLET EXTENDED RELEASE 24 HOUR 1 TABLET ORALLY ONCE A DAY, NOTES: 07/05 1130 TAKING HYDROCHLOROTHIAZIDE 25 MG TABLET 1 TABLET ORALLY ONCE A DAY, NOTES: 07/05 1130 TAKING NEBULIZERS - MISCELLANEOUS ALBUTEROL INHALATION Q 4-6 HRS. PRN TAKING MAXALT 10 MG TABLET 1 TABLET NEEDED ONE TIME ORALLY ONCE AT ONSET OF H/A,REPEAT IN 2HR IF NO IMPROVEMENT, NOTES: NONE RECENT TAKING SERTRALINE HCL 25 MG TABLET 1 TABLET ORALLY ONCE A DAY, NOTES: 07/05 1130 TAKING TRAZODONE HCL 50 MG TABLET 1 TABLET AT BEDTIME ORALLY ONCE A DAY, NOTES: 07/05 2200 TAKING ZANTAC 150 MG TABLET 1 TABLET ORALLY DAILY, NOTES: 07/05 1130 TAKING MUCINEX 600 MG TABLET EXTENDED RELEASE 1 TABLET NEEDED ORALLY EVERY 12 HRS, NOTES: 07/06 0600 TAKING ASPIRIN 81 81 MG TABLET DELAYED RELEASE 1 TABLET ORALLY ONCE A DAY, NOTES: 07/06 1130 TAKING NORCO 7.5-325 MG TABLET 1 TABLET NEEDED ORALLY EVERY 6 HRS MDD4, NOTES: 07/05 1900 TAKING TIZANIDINE HCL 4 MG TABLET 1 TABLET NEEDED ORALLY Q8H PRN MUSC;E SPASM PAIN, NOTES: 07/04 NOT-TAKING ADVAIR DISKUS 250-50 MCG/DOSE MISCELLANEOUS 1 INHALATION EVERY 12 HRS DISCONTINUED NORCO 7.5-325 MG TABLET 1 TABLET NEEDED ORALLY EVERY 6 HRS PRN MDD4, NOTES: DUPLICATE MEDICATION LIST REVIEWED AND RECONCILED WITH THE PATIENT PAST MEDICAL HISTORY HYPERTENSION HYPOTHYROIDISM DEPRESSION BIPOLAR DISORDER ANXIETY LOW BACK PAIN FIBROMYALGIA ARTHRITIS ESOPHAGEAL REFLUX HYPERLIPIDEMIA COPD CVA S/P R SIDE WEAKNESS MIGRAINE HEADACHE VITAMIN D DEFICIENCY ETOH HX OF SUBSTANCE ABUSE HX OF TIETZE SYNDROME BRONCHITIS 03/2016 TIA 08/2018 ALLERGIES LITHIUM CARBONATE: COLLEPSED, WENT TO ED - ALLERGY PENICILLIN (FOR ALLERGIES USE ONLY): HIVES - ALLERGY NUTS: SOB - ALLERGY ADHESIVES: TEARS SKINS - ALLERGY SURGICAL HISTORY T&A APPENDECTOMY C SECTION X 3 BILAT EYE LID LIFT 04/2018 HYSTERECTOMY 1982 FAMILY HISTORY FATHER: ALIVE, LUNG CA, DIAGNOSED WITH HYPERTENSION, OTHER MALIGNANT NEOPLASM OF UNSPECIFIED SITE MOTHER: , DIABETES, UNSPECIFIED NONPSYCHOTIC MENTAL DISORDER FOLLOWING ORGANIC BRAIN DAMAGE, OTHER SPECIFIED CONDITIONS INFLUENCING HEALTH STATUS 3 BROTHER(S) . 1 SON(S) , 2 DAUGHTER(S) . MOTHER - PARKINSON, JEAN'S DISEASE\\\\\\'S\\\\NBROTHER - COLON CANCER\\\\NDAUGHTERS - FIBROMYALGIA//SON DDD, DAUGHTER RA. SOCIAL HISTORY GENERAL: TOBACCO USE ARE YOU A: QUIT SMOKING ABOUT 7 YEARS AGO OTHERS AT HOME: DAUGHTER & GRANDDAUGHTER. DIET: REG. LANGUAGE JAPANESE. DOMESTIC VIOLENCE DO YOU FEEL SAFE IN YOUR ENVIRONMENT?YES RECREATIONAL DRUG USE DENIES; HISTORY OF ETOH DRUG ABUSE. CLEAN/SOBER SINCE EARLY . EXERCISE: WALKS,WATER AEROBICS. LEARNING BARRIERS / SPECIAL NEEDS CHANGE FROM LAST VISIT?NO BARRIERS TO LEARNING?NO HEARING IMPAIRED?NO VISION IMPAIRED?YES :CORRECTIVE LENSES COGNITIVELY IMPAIRED?NO READINESS TO LEARN?YES LEARNING PREFERENCES?NO LEARNING CAPABILITIES PRESENT?YES EMOTIONAL BARRIERS?NO SPECIAL DEVICES?YES :CANE CALL PERSON NEEDED?NO PAIN CLINIC PFS, CLERGY, PUBLIC HEALTH REFERRALS PFS REFERRAL NEEDED?NO CLERGY REFERRAL NEEDED?NO PUBLIC HEALTH REFERRAL NEEDED?NO HAS THE PATIENT BEEN EDUCATED REGARDING HIS/HER PLAN OF CARE?YES HAS THE PATIENT BEEN EDUCATED REGARDING PAIN, THE RISK FOR PAIN, THE IMPORTANCE OF EFFECTIVE PAIN MANAGEMENT, AND THE PAIN ASSESSMENT PROCESS?YES LATEX QUESTIONNAIRE LATEX ALLERGY : HAVE YOU EVER DEVELOPED ANY TYPE OF REACTION AFTER HANDLING LATEX PRODUCTS SUCH RUBBER GLOVES, CONDOMS, DIAPHRAGMS, BALLOONS, SOCKS, OR UNDERWEAR?NO LATEX ALLERGY : HAVE YOU EVER DEVELOPED ANY TYPE OF REACTION DURING OR AFTER DENTAL APPOINTMENT, VAGINAL/RECTAL EXAMINATION, SURGICAL PROCEDURE, OR ANY OTHER EXPOSURE?NO LATEX RISK : HAVE YOU EVER HAD ANY DIFFICULTY BREATHING OR HIVES AFTER EATING OR HANDLING ANY FRUITS, OR VEGETABLES; SUCH KIWI, BANANAS, STONE FRUITS, OR CHESTNUTSYES - PLEASE INDICATE : CHESTNUTS LATEX RISK : DO YOU HAVE A PREVIOUS PERSONAL HISTORY OF MORE THAN NINE SURGERIES, SPINA BIFIDA, OR REPEATED CATHERIZATIONS? NO LATEX RISK : ARE YOU FREQUENTLY EXPOSED TO LATEX PRODUCTS IN YOUR OCCUPATION?NO DATE ASKED : 07/06/2019 CAFFEINE >5/DAY. ADVANCE DIRECTIVE ADVANCE DIRECTIVE DISCUSSED WITH PATIENT:YES 07/06/19 PT. DOES NOT HAVE ANY ADVANCED DIRECTIVES AND SHE DECLINED HCP INFO AND ASSISTANCE WITH FORM AT THIS TIME. STATES SHE HAS THE INFORMATION BUT HASN'T COMPLETED THEM YET. ANABAPTISM NO BUDDHIST BELIEFS THAT WOULD IMPACT HEALTH CARE. MARITAL STATUS: . ALCOHOL SCREENING POINTS: 0, INTERPRETATION: NEGATIVE. OCCUPATION: UNEMPLOYED. SEXUAL HX HAD SEX IN THE LAST 12 MONTHS (VAGINAL, ORAL, OR ANAL)?: NO, HAVE YOU EVER HAD AN STD?: NO. REVIEWED WITH PT 10/28/18 1126 BVREVIEWED WITH PATIENT 11/11/18 1444 JSREVIEWED WITH PATIENT 12/01/18 1001 JSREVIEWED WITH PT 04/01/19 1216 BV. HOSPITALIZATION/MAJOR DIAGNOSTIC PROCEDURE SURGICAL RELATED BACK PAIN MHE UTI CVA REVIEW OF SYSTEMS REVIEWED BY: PROVIDER: . CONSTITUTIONAL: ANY CHANGE IN YOUR MEDICAL CONDITION? NO . CHILLS NO . FEVER NO . INFECTION: DO YOU HAVE NEW INFECTIONS? NO . DO YOU HAVE HISTORY OF MRSA? NO . MUSCULOSKELETAL: ANY NEW PATTERNS OF PAIN OR NUMBNESS? NO . GASTROENTEROLOGY: ANY NEW CHANGE IN BOWEL CONTROL? NO . GENITOURINARY: ANY NEW CHANGE IN BLADDER CONTROL? NO . IS THERE A CHANCE YOU COULD BE ? NO . HEMATOLOGY/LYMPH: DO YOU TAKE ANY BLOOD THINNERS? (FOR EXAMPLE- COUMADIN, PLAVIX, AGGRENOX, PLATEL, PRADAXA, OR XARELTO) NO . WHEN WAS YOUR LAST DOSE? DATE: TIME: . NEUROLOGY: HAVE YOU FALLEN IN THE PAST 12 MONTHS? NO . ANY NEW EXTREMITY NUMBNESS OR WEAKNESS? NO . CARDIOLOGY: DO YOU HAVE A PACEMAKER OR DEFIBRILLATOR? NO . RESPIRATORY: HAVE YOU BEEN SICK IN THE PAST WEEK? NO . FEVER NO . FLU LIKE SYMPTOMS? NO . COUGH NO . INTEGUMENTARY: DO YOU HAVE ANY RASHES OR OPEN SORES? NO . ALLERGIC/IMMUNO: ARE YOU ALLERGIC TO IV DYE? NO . ANY NEW ALLERGIES? NO . PSYCHIATRIC: DO YOU HAVE THOUGHTS OF HURTING YOURSELF OR SOMEONE ELSE? NO . ARE YOU ABUSED, NEGLECTED, OR IN AN UNSAFE ENVIRONMENT? NO . ENDOCRINOLOGY: ARE YOU DIABETIC? NO . OTHER: DO YOU NEED ANY PRESCRIPTIONS? NO . IF YES, PLEASE LIST: ____ . ANY NEW PROBLEMS WITH YOUR MEDICATIONS? NO . WHEN DID YOU LAST EAT? 07/05 1930 . WHEN DID YOU LAST DRINK? 07/06 645 . WHAT DID YOU LAST DRINK? DIET COKE . NAME OF PERSON DRIVING YOU HOME? OZZY . DO YOU HAVE ANY OTHER QUESTIONS OR CONCERNS NO . VITAL SIGNS WT 232.2 LBS, HT 60.5", BMI 44.60 INDEX, BP 142/42 MM HG, HR 114 /MIN, RR 18 /MIN, TEMP 97.6 F, OXYGEN SAT % 95%, SAFE IN ENV? (Y/N) Y, NA INITIALS AW 1121, REVIEWED BY: AD. ASSESSMENTS CHRONIC MIGRAINE WITHOUT AURA, NOT INTRACTABLE, WITHOUT STATUS MIGRAINOSUS - G43.709 (PRIMARY) PROCEDURES PN BOTOX INJECTIONS SUBSEQUENT INJECTIONS PRE PROCEDURE DIAGNOSIS CHRONIC MIGRAINE HEADACHES. POST PROCEDURE DIAGNOSIS CHRONIC MIGRAINE HEADACHES. PROCEDURE BOTOX INJECTION AT THE HEAD, NECK, AND SHOULDERS. SURGEON DR. SCOTT BRUCE STORAGE BRINE WORKER NONE ANESTHESIA NONE PRE PROCEDURE NOTE THE PATIENT HAS HISTORY OF CHRONIC MIGRAINE HEADACHES. I EVALUATED THE PATIENT AND REVIEWED THE CHART. I WENT OVER THE RISKS, ALTERNATIVES, AND BENEFITS ASSOCIATED WITH THIS PROCEDURE. THE PATIENT WOULD LIKE TO PROCEED AND GIVES CONSENT TO PERFORM THE PROCEDURE. THE PATIENT DENIES UNEXPLAINABLE WEIGHT LOSS, FEVER, CHILLS, OR NEW CHANGES IN URINARY OR BOWEL CONTROL. THE PATIENT DID A BOTOX INJECTION AT THE HEAD, NECK, AND SHOULDERS 3 MONTHS AGO AND EXPRESSED MORE THAN 50% REDUCTION ON THE FREQUENCY AND INTENSITY OF THE HEADACHES, WHERE BEFORE BOTOX SHE WOULD EXPERIENCE HEADACHES EVERY DAY, BUT NOW SHE ONLY EXPERIENCES 4 HEADACHES A MONTH. THE PATIENT EXPRESSED THAT THE USE OF BOTOX HAS REDUCED SIGNIFICANTLY THE SEVERITY OF THE HEADACHES AND EXPRESSED THAT SHE WANTS TO RECEIVE THIS PROCEDURE AGAIN TODAY. DESCRIPTION OF PROCEDURE THE PATIENTS WAS BROUGHT TO THE PROCEDURE ROOM AND PLACED IN THE SUPINE POSITION. I CHECKED LATERALITY AND THE AREAS WHERE THE PROCEDURE WAS GOING TO BE PERFORMED WITH THE PATIENT AND THE SUPPORTING STAFF AT THE MOMENT OF THE TIME OUT IN THE PROCEDURE ROOM. FOR THE PROCEDURE I USED A SOLUTION OF 5 UNITS OF BOTOX PER EACH 0.1 ML OF THE SOLUTION. I USED A 30-GAUGE NEEDLE TO INJECT THE SOLUTION AT THE SELECTED LOCATIONS. I INJECTED FIRST THE RIGHT AND LEFT REGIONAL CONSTRUCTION MANAGER MUSCLES. THE LANDMARK FOR BOTH INJECTIONS WAS APPROXIMATELY 1 CM ABOVE THE SUPERIOR MEDIAL EDGE OF THE EYEBROW. AFTER THESE TWO INJECTIONS, I INJECTED THE PROCERUS MUSCLE AT THE MIDLINE POINT BETWEEN THESE FIRST TWO INJECTIONS. THEN I PROCEEDED TO INJECT THE RIGHT AND LEFT FRONTALIS MUSCLE. TWO INJECTIONS WERE DONE IN EACH SIDE. THE FIRST INJECTION WAS DONE APPROXIMATELY 2 CM ABOVE THE FIRST INJECTION OF THE REGIONAL CONSTRUCTION MANAGER. THE SECOND INJECTION WAS DONE APPROXIMATELY 1.5 CM LATERAL TO THIS FIST INJECTION OF THE FRONTALIS OF EACH SIDE. AFTER THE INJECTIONS OVER THE FOREHEAD WERE DONE, THE PATIENT'S HEAD WAS TURNED TO THE LEFT SIDE AND WE STARTED TO WORK WITH THE RIGHT TEMPORALIS MUSCLE. FIRST INJECTION WAS DONE IN A VERTICAL LINE OF THE TRAGUS APPROXIMATELY 3 CM ABOVE THE TRAGUS. THE SECOND INJECTION WAS DONE APPROXIMATELY 2 CM ABOVE THE FIRST INJECTION. THE THIRD INJECTION WAS DONE APPROXIMATELY 1 CM FRONT SINCLAIR FROM THIS VERTICAL LINE CREATED AT THE LEVEL OF THE TRAGUS, INTERMEDIATE BETWEEN THESE TWO INJECTIONS. THE FOURTH INJECTION WAS DONE APPROXIMATELY 1.5 CM BACK FROM THE SECOND INJECTION TO THE TEMPORALIS IN LINE TO THE MIDPORTION OF THE EAR. THEN, WE PROCEEDED TO INJECT THE LEFT TEMPORALIS MUSCLE. WE CLEANED THE AREA WITH ALCOHOL AND PROCEEDED TO PERFORM THE SAME FOR INJECTIONS DESCRIBED ABOVE BUT IN THE LEFT TEMPORALIS MUSCLE USING THE SAME LANDMARKS. AFTER THESE INJECTIONS WERE DONE, THE PATIENT WAS SEATED. FIRST, WE STARTED TO INJECT THE LEFT AND RIGHT OCCIPITALIS MUSCLE. I INJECTED AT THE FOLLOWING PLACES IN THE RIGHT AND LEFT MUSCLE. THE FIRST INJECTION WAS DONE AT THE MIDPOINT POSITION BETWEEN THE MASTOID PROCESS AND THE INION OF THE OCCIPITAL PROTUBERANCE. THE SECOND INJECTION WAS DONE APPROXIMATELY 1.5 CM SUPERIOR AND LATERAL OF THIS POINT. THE THIRD INJECTION WAS DONE APPROXIMATELY 1.5 CM SUPERIOR AND MEDIAL TO THIS FIRST INJECTION. THEN, I PROCEEDED TO INJECT THE RIGHT AND LEFT PARASPINAL MUSCLES. LANDMARK OF THE INJECTION WERE APPROXIMATELY: FIRST INJECTION 3 CM BELOW THE INION AND 1 CM LATERAL TO THE MIDLINE AND SECOND INJECTION AT EACH SIDE WAS DONE APPROXIMATELY 1.5 CM SUPERIOR AND LATERAL OF THE FIRST INJECTION. THE LAST GROUP OF INJECTIONS WAS DONE OVER THE RIGHT AND LEFT TRAPEZIUS MUSCLE OVER THE SHOULDERS AREA. THE FIRST INJECTION WAS DONE AT THE MIDPOINT BETWEEN THE INFLECTION POINT BETWEEN THE NECK AND SHOULDER AND THE ACROMION. THE SECOND AND THIRD INJECTIONS WERE DONE APPROXIMATELY 2.5 CM LATERAL AND MEDIAL FROM THIS FIRST INJECTION. SAME TARGETS WERE USED IN THE RIGHT AND LEFT SIDE. IN TOTAL, I INJECTED 155 UNITS OF BOTOX. PROCEDURE WAS DONE WITHOUT EVIDENCE OF PARESTHESIA, PNEUMOTHORAX, OR ANY COMPLICATIONS. THE PATIENT TOLERATED THE PROCEDURE VERY WELL. THE PATIENT WAS SENT TO THE RECOVERY ROOM FOR OBSERVATIONS. INJECTIONS WERE DONE AFTER CLEANING WITH ALCOHOL, USING ASEPTIC TECHNIQUES POST PROCEDURE NOTE THE PROCEDURE DONE WAS DISCUSSED WITH THE PATIENT. THE PATIENT WILL BE SEEN IN A FOLLOW UP IN THE NEXT FEW WEEKS. INSTRUCTIONS WERE GIVEN, QUESTIONS WERE ANSWERED, AND THE PATIENT EXPRESSED UNDERSTANDING AND AGREES WITH THE PLAN. I, MELISA NOEL, DOCUMENTED THE ABOVE INFORMATION ACTING A SCRIBE FOR DR. BRUCE. I HAVE REVIEWED THE ABOVE DOCUMENT, WRITTEN BY MELISA LOZOYA AND I VERIFY THAT IT IS ACCURATE. PROCEDURE CODES 30536 [facility] DISPOSITION & COMMUNICATION FOLLOW UP 3 WEEKS ELECTRONICALLY SIGNED BY SCOTT BRUCE MD, MD ON 07/10/2019 AT 07:43 AM EDT DISCLAIMER : THIS IS A VISIT SUMMARY EXTRACTED FROM THE [employer] CHART. IT IS NOT A COPY OF THE [employer] PROGRESS NOTE. CAN
== END ==
LOC: M PAIN 11:30
PROVIDERS: ATTEND Anesthesiology
DX: G43.709 Chronic migraine without aura, not intractable, without status migrainosus (principal); I10 Essential (primary) hypertension; E03.9 Hypothyroidism, unspecified; F31.9 Bipolar disorder, unspecified; F41.9 Anxiety disorder, unspecified; M54.5 Low back pain; M79.7 Fibromyalgia; M19.90 Unspecified osteoarthritis, unspecified site; K21.9 Gastro-esophageal reflux disease without esophagitis; E78.5 Hyperlipidemia, unspecified; J44.9 Chronic obstructive pulmonary disease, unspecified; I69.351 Hemiplegia and hemiparesis following cerebral infarction affecting right dominant side; E55.9 Vitamin D deficiency, unspecified; M94.0 Chondrocostal junction syndrome [Tietze]; Z90.49 Acquired absence of other specified parts of digestive tract; Z87.891 Personal history of nicotine dependence; Z79.82 Long term (current) use of aspirin; Z79.891 Long term (current) use of opiate analgesic; Z79.899 Other long term (current) drug therapy; Z88.0 Allergy status to penicillin; Z91.018 Allergy to other foods; Z88.8 Allergy status to other drugs, medicaments and biological substances; Z91.048 Other nonmedicinal substance allergy status
CPT/HCPCS: 64615; J0585

== ENCOUNTER → 2019-07-13 | Outpatient (CLI) | payer MEDICARE ==
[~2019-07-13] MED LIST changes: -BOTULINUM INJ 100 UNITS (J0585) IM ONE; +BUPIVACAINE HCL 0.25% 30 ML VIAL As Ordered ONE; +ISOVUE-M 300 61% 15ML VIAL (Q9967) As Ordered ONE; +LIDOCAINE 1% SDV INJ 30 ML VIAL As Ordered ONE
--- NOTE | 2019-07-13 12:12 | REP ---
C-ARM VIEWS LUMBAR SPINE: CLINICAL HISTORY: Pain. Two C-arm views of the lumbar spine performed during facet block injection by Dr. Joyner. [place] are seen along the lower lumbar facets. 23 seconds of fluoroscopy time utilized. Electronically Signed by Dmitri Arthur MD 07/13/2019 02:02 P
--- NOTE | 2019-07-20 02:04 | ECWPNPC ---
PATIENT NAME: LUIS ENRIQUE MCMILLAN : 1955 GENDER: FEMALE VISIT DATE: 07/13/2019 DISCHARGE DATE: 07/13/19 1010 VISIT LOCKED DATE TIME: PHYSICIAN: SCOTT BRUCE MD RESOURCE: SCOTT BRUCE MD REASON FOR APPOINTMENT 1. LFB DX L4-L5, L5/S1 LEFT HISTORY OF PRESENT ILLNESS HISTORY OF PRESENT ILLNESS: PAIN THE PATIENT DESCRIBES THE PAIN... FALL RISK SCREENING: SCREENING :NO FALLS REPORTED IN THE LAST YEAR CURRENT MEDICATIONS TAKING ZOCOR 40 MG TABLET 1 TABLET EVERY EVENING ORALLY ONCE A DAY TAKING LEVOTHYROXINE SODIUM 100 MCG TABLET 1 TABLET EVERY MORNING ON AN EMPTY STOMACH ORALLY ONCE A DAY TAKING VENTOLIN HFA 108 (90 BASE) MCG/ACT AEROSOL SOLUTION 2 PUFFS INHALATION Q4-6H PRN, NOTES: NONE RECENT TAKING GENERLAC 10 GM/15ML SOLUTION 30 ML NEEDED ORALLY BID TAKING OXYBUTYNIN CHLORIDE ER 10 MG TABLET EXTENDED RELEASE 24 HOUR 1 TABLET ORALLY ONCE A DAY TAKING HYDROCHLOROTHIAZIDE 25 MG TABLET 1 TABLET ORALLY ONCE A DAY TAKING NEBULIZERS - MISCELLANEOUS ALBUTEROL INHALATION Q 4-6 HRS. PRN TAKING MAXALT 10 MG TABLET 1 TABLET NEEDED ONE TIME ORALLY ONCE AT ONSET OF H/A,REPEAT IN 2HR IF NO IMPROVEMENT, NOTES: NONE RECENT TAKING SERTRALINE HCL 25 MG TABLET 1 TABLET ORALLY ONCE A DAY TAKING TRAZODONE HCL 50 MG TABLET 1 TABLET AT BEDTIME ORALLY ONCE A DAY TAKING ZANTAC 150 MG TABLET 1 TABLET ORALLY DAILY TAKING MUCINEX 600 MG TABLET EXTENDED RELEASE 1 TABLET NEEDED ORALLY EVERY 12 HRS TAKING ASPIRIN 81 81 MG TABLET DELAYED RELEASE 1 TABLET ORALLY ONCE A DAY TAKING NORCO 7.5-325 MG TABLET 1 TABLET NEEDED ORALLY EVERY 6 HRS MDD4, NOTES: 07/13 0300 TAKING TIZANIDINE HCL 4 MG TABLET 1 TABLET NEEDED ORALLY Q8H PRN MUSC;E SPASM PAIN, NOTES: 07/11/19 TAKING ADVAIR DISKUS 250-50 MCG/DOSE MISCELLANEOUS 1 INHALATION EVERY 12 HRS MEDICATION LIST REVIEWED AND RECONCILED WITH THE PATIENT PAST MEDICAL HISTORY HYPERTENSION HYPOTHYROIDISM DEPRESSION BIPOLAR DISORDER ANXIETY LOW BACK PAIN FIBROMYALGIA ARTHRITIS ESOPHAGEAL REFLUX HYPERLIPIDEMIA COPD CVA S/P R SIDE WEAKNESS MIGRAINE HEADACHE VITAMIN D DEFICIENCY ETOH HX OF SUBSTANCE ABUSE HX OF TIETZE SYNDROME BRONCHITIS 03/2016 TIA 08/2018 ALLERGIES LITHIUM CARBONATE: COLLEPSED, WENT TO ED - ALLERGY PENICILLIN (FOR ALLERGIES USE ONLY): HIVES - ALLERGY NUTS: SOB - ALLERGY ADHESIVES: TEARS SKINS - ALLERGY SURGICAL HISTORY T&A APPENDECTOMY C SECTION X 3 BILAT EYE LID LIFT 04/2018 HYSTERECTOMY 1982 FAMILY HISTORY FATHER: ALIVE, LUNG CA, DIAGNOSED WITH HYPERTENSION, OTHER MALIGNANT NEOPLASM OF UNSPECIFIED SITE MOTHER: , DIABETES, UNSPECIFIED NONPSYCHOTIC MENTAL DISORDER FOLLOWING ORGANIC BRAIN DAMAGE, OTHER SPECIFIED CONDITIONS INFLUENCING HEALTH STATUS 3 BROTHER(S) . 1 SON(S) , 2 DAUGHTER(S) . MOTHER - PARKINSON, JEAN'S DISEASE\\\\\\'S\\\\NBROTHER - COLON CANCER\\\\NDAUGHTERS - FIBROMYALGIA//SON DDD, DAUGHTER RA. SOCIAL HISTORY GENERAL: TOBACCO USE ARE YOU A: QUIT SMOKING ABOUT 7 YEARS AGO OTHERS AT HOME: DAUGHTER & GRANDDAUGHTER. DIET: REG. LANGUAGE YORUBA. DOMESTIC VIOLENCE DO YOU FEEL SAFE IN YOUR ENVIRONMENT?YES RECREATIONAL DRUG USE DENIES; HISTORY OF ETOH DRUG ABUSE. CLEAN/SOBER SINCE EARLY . EXERCISE: WALKS,WATER AEROBICS. LEARNING BARRIERS / SPECIAL NEEDS CHANGE FROM LAST VISIT?NO BARRIERS TO LEARNING?NO HEARING IMPAIRED?NO VISION IMPAIRED?YES COGNITIVELY IMPAIRED?NO :CORRECTIVE LENSES READINESS TO LEARN?YES LEARNING PREFERENCES?NO LEARNING CAPABILITIES PRESENT?YES EMOTIONAL BARRIERS?NO SPECIAL DEVICES?YES :CANE HEAT TREATMENT TECHNICIAN NEEDED?NO PAIN CLINIC PFS, CLERGY, PUBLIC HEALTH REFERRALS PFS REFERRAL NEEDED?NO CLERGY REFERRAL NEEDED?NO PUBLIC HEALTH REFERRAL NEEDED?NO HAS THE PATIENT BEEN EDUCATED REGARDING HIS/HER PLAN OF CARE?YES HAS THE PATIENT BEEN EDUCATED REGARDING PAIN, THE RISK FOR PAIN, THE IMPORTANCE OF EFFECTIVE PAIN MANAGEMENT, AND THE PAIN ASSESSMENT PROCESS?YES LATEX QUESTIONNAIRE LATEX ALLERGY : HAVE YOU EVER DEVELOPED ANY TYPE OF REACTION AFTER HANDLING LATEX PRODUCTS SUCH RUBBER GLOVES, CONDOMS, DIAPHRAGMS, BALLOONS, SOCKS, OR UNDERWEAR?NO LATEX ALLERGY : HAVE YOU EVER DEVELOPED ANY TYPE OF REACTION DURING OR AFTER DENTAL APPOINTMENT, VAGINAL/RECTAL EXAMINATION, SURGICAL PROCEDURE, OR ANY OTHER EXPOSURE?NO DATE ASKED : 07/06/2019 LATEX RISK : HAVE YOU EVER HAD ANY DIFFICULTY BREATHING OR HIVES AFTER EATING OR HANDLING ANY FRUITS, OR VEGETABLES; SUCH KIWI, BANANAS, STONE FRUITS, OR CHESTNUTSYES - PLEASE INDICATE : CHESTNUTS LATEX RISK : DO YOU HAVE A PREVIOUS PERSONAL HISTORY OF MORE THAN NINE SURGERIES, SPINA BIFIDA, OR REPEATED CATHERIZATIONS? NO LATEX RISK : ARE YOU FREQUENTLY EXPOSED TO LATEX PRODUCTS IN YOUR OCCUPATION?NO CAFFEINE >5/DAY. ADVANCE DIRECTIVE ADVANCE DIRECTIVE DISCUSSED WITH PATIENT:YES 07/06/19 PT. DOES NOT HAVE ANY ADVANCED DIRECTIVES AND SHE DECLINED HCP INFO AND ASSISTANCE WITH FORM AT THIS TIME. STATES SHE HAS THE INFORMATION BUT HASN'T COMPLETED THEM YET. CONFUCIANIST NO ORIENTAL ORTHODOX BELIEFS THAT WOULD IMPACT HEALTH CARE. MARITAL STATUS: . ALCOHOL SCREENING POINTS: 0, INTERPRETATION: NEGATIVE. OCCUPATION: UNEMPLOYED. SEXUAL HX HAD SEX IN THE LAST 12 MONTHS (VAGINAL, ORAL, OR ANAL)?: NO, HAVE YOU EVER HAD AN STD?: NO. REVIEWED WITH PT 10/28/18 1126 BVREVIEWED WITH PATIENT 11/11/18 1444 JSREVIEWED WITH PATIENT 12/01/18 1001 JSREVIEWED WITH PT 04/01/19 1216 BV. HOSPITALIZATION/MAJOR DIAGNOSTIC PROCEDURE SURGICAL RELATED BACK PAIN MHE UTI CVA REVIEW OF SYSTEMS REVIEWED BY: PROVIDER: . CONSTITUTIONAL: ANY CHANGE IN YOUR MEDICAL CONDITION? NO . CHILLS NO . FEVER NO . INFECTION: DO YOU HAVE NEW INFECTIONS? NO . DO YOU HAVE HISTORY OF MRSA? NO . MUSCULOSKELETAL: ANY NEW PATTERNS OF PAIN OR NUMBNESS? YES PT REPORTS LEFT HAND GOES NUMB AT TIMES . GASTROENTEROLOGY: ANY NEW CHANGE IN BOWEL CONTROL? NO . GENITOURINARY: ANY NEW CHANGE IN BLADDER CONTROL? NO . IS THERE A CHANCE YOU COULD BE ? NO . HEMATOLOGY/LYMPH: DO YOU TAKE ANY BLOOD THINNERS? (FOR EXAMPLE- COUMADIN, PLAVIX, AGGRENOX, PLATEL, PRADAXA, OR XARELTO) NO . WHEN WAS YOUR LAST DOSE? DATE: TIME: . NEUROLOGY: HAVE YOU FALLEN IN THE PAST 12 MONTHS? NO . ANY NEW EXTREMITY NUMBNESS OR WEAKNESS? NO . CARDIOLOGY: DO YOU HAVE A PACEMAKER OR DEFIBRILLATOR? NO . RESPIRATORY: HAVE YOU BEEN SICK IN THE PAST WEEK? NO . FEVER NO . FLU LIKE SYMPTOMS? NO . COUGH NO . INTEGUMENTARY: DO YOU HAVE ANY RASHES OR OPEN SORES? NO . ALLERGIC/IMMUNO: ARE YOU ALLERGIC TO IV DYE? NO . ANY NEW ALLERGIES? NO . PSYCHIATRIC: DO YOU HAVE THOUGHTS OF HURTING YOURSELF OR SOMEONE ELSE? NO . ARE YOU ABUSED, NEGLECTED, OR IN AN UNSAFE ENVIRONMENT? NO . ENDOCRINOLOGY: ARE YOU DIABETIC? NO . OTHER: DO YOU NEED ANY PRESCRIPTIONS? NO . IF YES, PLEASE LIST: ____ . ANY NEW PROBLEMS WITH YOUR MEDICATIONS? NO . WHEN DID YOU LAST EAT? ____07/12/19 1830 . WHEN DID YOU LAST DRINK? ____07/12/190 . WHAT DID YOU LAST DRINK? ____DIET COKE . NAME OF PERSON DRIVING YOU HOME? ____MARY . DO YOU HAVE ANY OTHER QUESTIONS OR CONCERNS NO . VITAL SIGNS WT 232.2 LBS, HT 60.5", BMI 44.60 INDEX, BP 176/82 MM HG, HR 90 /MIN, RR 18 /MIN, TEMP 98.3 F, OXYGEN SAT % 94%, SAFE IN ENV? (Y/N) YES, NA INITIALS WA 09:10, REVIEWED BY: SILVIA. ASSESSMENTS SPONDYLOSIS WITHOUT MYELOPATHY OR RADICULOPATHY, LUMBAR REGION - M47.816 (PRIMARY) SPONDYLOSIS WITHOUT MYELOPATHY OR RADICULOPATHY, LUMBOSACRAL REGION - M47.817 TREATMENT SPONDYLOSIS WITHOUT MYELOPATHY OR RADICULOPATHY, LUMBAR REGION SMC FACET BLOCK (PAIN)[id number] PROCEDURES PN LUMBAR FACET BLOCK DIAGNOSTIC PRE PROCEDURE DIAGNOSIS LUMBAR SPONDYLOSIS, LUMBOSACRAL SPONDYLOSIS POST PROCEDURE DIAGNOSIS LUMBAR SPONDYLOSIS, LUMBOSACRAL SPONDYLOSIS PROCEDURE LEFT L4-L5 AND LEFT L5-S1 FACET BLOCK DIAGNOSTIC NUMBER [address] SCOTT BRUCE EXTENSION SERVICE SPECIALIST NONE ANESTHESIA LOCAL PRE PROCEDURE NOTE THE PATIENT WITH HISTORY OF CHRONIC LOW BACK PAIN. I EVALUATED THE PATIENT AND REVIEWED THE CHART. I WENT OVER THE RISKS, ALTERNATIVES, AND BENEFITS ASSOCIATED WITH THIS PROCEDURE. THE PATIENT WOULD LIKE TO PROCEED AND GAVE CONSENT TO PERFORM THE PROCEDURE. AGREED WITH THE PATIENT WE ARE DOING THIS PROCEDURE TO DETERMINE IF THE PATIENT IS A CANDIDATE FOR A RADIOFREQUENCY ABLATION OF THE FACETS JOINTS. THE PATIENT DENIES UNEXPLAINABLE WEIGHT LOSS, FEVER, CHILLS, OR NEW CHANGES IN URINARY OR BOWEL CONTROL DESCRIPTION OF PROCEDURE THE PATIENT WAS BROUGHT TO THE PROCEDURE ROOM AND PLACED IN THE PRONE POSITION. THE LUMBOSACRAL AREA WAS CLEANED WITH CHLORAPREP SOLUTION AND DRAPED ASEPTICALLY. THE PROCEDURE WAS DONE UNDER STERILE CONDITIONS. I CHECKED LATERALITY AND THE LEVEL WHERE THE PROCEDURE WAS GOING TO BE PERFORMED WITH THE PATIENT AND THE SUPPORTING STAFF AT THE MOMENT OF THE TIME OUT IN THE PROCEDURE ROOM. UNDER FLUOROSCOPIC GUIDANCE, TARGETS WERE SELECTED AT THE INTERSECTION OF THE LEFT TRANSVERSE PROCESS OF L4, L5 AND ALA OF S1 WITH ITS RESPECTIVE SUPERIOR ARTICULAR PROCESS. LIDOCAINE WAS USED TO NUMB THE SKIN AND THE SUBCUTANEOUS TISSUE BELOW IT. SPINAL NEEDLE, 22-GAUGE WAS ADVANCED UNDER FLUOROSCOPIC GUIDANCE AND FOLLOWING PATIENT FEEDBACK UNTIL THE TARGETS WERE REACHED. POSITION OF THE NEEDLES WAS VERIFIED WITH AP AND LATERAL VIEWS. AFTER PROPER POSITION OF THE NEEDLES WAS ACHIEVED, ISOVUE-M DYE 30% 0.1 ML WAS INJECTED AT EACH SITE SHOWING ADEQUATE SPREAD OF THE DYE. THEN A SOLUTION OF 0.4 ML OF BUPIVACAINE 0.25% WAS INJECTED AT EACH SITE. THERE WAS NO EVIDENCE OF BLOOD, PARESTHESIA OR CEREBROSPINAL FLUID DURING THE PROCEDURE. THE PATIENT WAS SENT TO THE RECOVERY ROOM. THE PATIENT WAS MOVING THE EXTREMITIES AND DOING WELL. THERE WAS NO COMPLICATION DURING THE PROCEDURE. FLUOROSCOPY TIME WAS 23 SECONDS POST PROCEDURE NOTE THE PATIENT WILL DOCUMENT HIS PAIN LEVEL AND RESPONSE TO THIS PROCEDURE EVERY 30 MINUTES. THE PATIENT WILL BE SEEN IN A FOLLOW UP IN THE NEXT FEW WEEKS. FURTHER DETERMINATION FOR HIS CASE WILL BE DONE AT THE NEXT VISIT. INSTRUCTIONS WERE GIVEN, QUESTIONS WERE ANSWERED, AND THE PATIENT EXPRESSED UNDERSTANDING AND AGREED WITH THE PLAN. I, MELISA NOEL, DOCUMENTED THE ABOVE INFORMATION ACTING A SCRIBE FOR DR. BRUCE. I HAVE REVIEWED THE ABOVE DOCUMENT, WRITTEN BY MELISA NOEL SCRIBKeyona AND I VERIFY THAT IT IS ACCURATE. PROCEDURE CODES 96295 INJ PARAVERT F JNT L/S 1 LEV, [place]IFI[place]: [place] [id number] INJ PARAVERT F JNT L/S 2 LEV, MODIFIERS: LT 6045F RADXPS IN END [id number] PXD DISPOSITION & COMMUNICATION FOLLOW UP 3 WEEKS ELECTRONICALLY SIGNED BY SCOTT BRUCE MD, MD ON 07/19/2019 AT 04:03 PM EST DISCLAIMER : THIS IS A VISIT SUMMARY EXTRACTED FROM THE [employer] CHART. IT IS NOT A COPY OF THE [employer] PROGRESS NOTE. MTDD
== END ==
LOC: M PAIN 09:00
PROVIDERS: ATTEND Anesthesiology
DX: M47.816 Spondylosis without myelopathy or radiculopathy, lumbar region (principal); M47.817 Spondylosis without myelopathy or radiculopathy, lumbosacral region; I10 Essential (primary) hypertension; E03.9 Hypothyroidism, unspecified; F31.9 Bipolar disorder, unspecified; F41.9 Anxiety disorder, unspecified; M54.5 Low back pain; M79.7 Fibromyalgia; M19.90 Unspecified osteoarthritis, unspecified site; K21.9 Gastro-esophageal reflux disease without esophagitis; E78.5 Hyperlipidemia, unspecified; J44.9 Chronic obstructive pulmonary disease, unspecified; I69.351 Hemiplegia and hemiparesis following cerebral infarction affecting right dominant side; G43.909 Migraine, unspecified, not intractable, without status migrainosus; E55.9 Vitamin D deficiency, unspecified; M94.0 Chondrocostal junction syndrome [Tietze]; Z87.891 Personal history of nicotine dependence; Z90.49 Acquired absence of other specified parts of digestive tract; Z79.82 Long term (current) use of aspirin; Z79.899 Other long term (current) drug therapy; Z79.891 Long term (current) use of opiate analgesic
CPT/HCPCS: 64493; 64494; Q9967

== ENCOUNTER → 2019-08-03 | Outpatient (CLI) | payer MEDICARE ==
[~2019-08-03] MED LIST changes: -BUPIVACAINE HCL 0.25% 30 ML VIAL As Ordered ONE; -ISOVUE-M 300 61% 15ML VIAL (Q9967) As Ordered ONE; -LIDOCAINE 1% SDV INJ 30 ML VIAL As Ordered ONE; -SIMV40TA2 PO; +SIMV40TA20 PO
--- NOTE | 2019-08-19 05:25 | ECWPNPC ---
PATIENT NAME: LUIS ENRIQUE MCMILLAN : 1955 GENDER: FEMALE VISIT DATE: 08/03/2019 DISCHARGE DATE: 08/03/19 1242 VISIT LOCKED DATE TIME: PHYSICIAN: MEAGAN OROSCO RESOURCE: MEAGAN OROSCO REASON FOR APPOINTMENT 1. POST BOTOX HISTORY OF PRESENT ILLNESS HISTORY OF PRESENT ILLNESS: HERE FOR POST BOTOX VISIT.HAS HAD LESS FREQUENT HEADACHES SINCE STARTING BOTOX IE 1 PER MONTH OPPOSED TO DAILY MIGRAINES PRIOR TO STARTING BOTOX SEVERAL MONTHS AGO.MIGRAINE HEADACHES ARE BECOMING A LITTLE MORE FREQUENT OVER THE PAST FEW WEEKS. PAIN THE PATIENT DESCRIBES THE PAIN... FALL RISK SCREENING: SCREENING :NO FALLS REPORTED IN THE LAST YEAR CURRENT MEDICATIONS TAKING ZOCOR 40 MG TABLET 1 TABLET EVERY EVENING ORALLY ONCE A DAY TAKING LEVOTHYROXINE SODIUM 100 MCG TABLET 1 TABLET EVERY MORNING ON AN EMPTY STOMACH ORALLY ONCE A DAY TAKING VENTOLIN HFA 108 (90 BASE) MCG/ACT AEROSOL SOLUTION 2 PUFFS INHALATION Q4-6H PRN, NOTES: NONE RECENT TAKING GENERLAC 10 GM/15ML SOLUTION 30 ML NEEDED ORALLY BID TAKING OXYBUTYNIN CHLORIDE ER 10 MG TABLET EXTENDED RELEASE 24 HOUR 1 TABLET ORALLY ONCE A DAY TAKING HYDROCHLOROTHIAZIDE 25 MG TABLET 1 TABLET ORALLY ONCE A DAY TAKING NEBULIZERS - MISCELLANEOUS ALBUTEROL INHALATION Q 4-6 HRS. PRN TAKING MAXALT 10 MG TABLET 1 TABLET NEEDED ONE TIME ORALLY ONCE AT ONSET OF H/A,REPEAT IN 2HR IF NO IMPROVEMENT, NOTES: NONE RECENT TAKING SERTRALINE HCL 25 MG TABLET 1 TABLET ORALLY ONCE A DAY TAKING TRAZODONE HCL 50 MG TABLET 1 TABLET AT BEDTIME ORALLY ONCE A DAY TAKING ZANTAC 150 MG TABLET 1 TABLET ORALLY DAILY TAKING MUCINEX 600 MG TABLET EXTENDED RELEASE 1 TABLET NEEDED ORALLY EVERY 12 HRS TAKING ASPIRIN 81 81 MG TABLET DELAYED RELEASE 1 TABLET ORALLY ONCE A DAY TAKING ADVAIR DISKUS 250-50 MCG/DOSE MISCELLANEOUS 1 INHALATION EVERY 12 HRS TAKING NORCO 7.5-325 MG TABLET 1 TABLET NEEDED ORALLY EVERY 6 HRS MDD4 TAKING TIZANIDINE HCL 4 MG TABLET 1 TABLET NEEDED ORALLY Q8H PRN MUSC;E SPASM PAIN MEDICATION LIST REVIEWED AND RECONCILED WITH THE PATIENT PAST MEDICAL HISTORY HYPERTENSION HYPOTHYROIDISM DEPRESSION BIPOLAR DISORDER ANXIETY LOW BACK PAIN FIBROMYALGIA ARTHRITIS ESOPHAGEAL REFLUX HYPERLIPIDEMIA COPD CVA S/P R SIDE WEAKNESS MIGRAINE HEADACHE VITAMIN D DEFICIENCY ETOH HX OF SUBSTANCE ABUSE HX OF TIETZE SYNDROME BRONCHITIS 03/2016 TIA 08/2018 ALLERGIES LITHIUM CARBONATE: COLLEPSED, WENT TO ED - ALLERGY PENICILLIN (FOR ALLERGIES USE ONLY): HIVES - ALLERGY NUTS: SOB - ALLERGY ADHESIVES: TEARS SKINS - ALLERGY SURGICAL HISTORY T&A APPENDECTOMY C SECTION X 3 BILAT EYE LID LIFT 04/2018 HYSTERECTOMY 1982 FAMILY HISTORY FATHER: ALIVE, LUNG CA, DIAGNOSED WITH HYPERTENSION, OTHER MALIGNANT NEOPLASM OF UNSPECIFIED SITE MOTHER: , DIABETES, UNSPECIFIED NONPSYCHOTIC MENTAL DISORDER FOLLOWING ORGANIC BRAIN DAMAGE, OTHER SPECIFIED CONDITIONS INFLUENCING HEALTH STATUS 3 BROTHER(S) . 1 SON(S) , 2 DAUGHTER(S) . MOTHER - PARKINSON, JEAN'S DISEASE\\\\\\'S\\\\NBROTHER - COLON CANCER\\\\NDAUGHTERS - FIBROMYALGIA//SON DDD, DAUGHTER RA. SOCIAL HISTORY GENERAL: TOBACCO USE ARE YOU A: QUIT SMOKING ABOUT 7 YEARS AGO OTHERS AT HOME: DAUGHTER & GRANDDAUGHTER. DIET: REG. LANGUAGE LATVIAN. DOMESTIC VIOLENCE DO YOU FEEL SAFE IN YOUR ENVIRONMENT?YES RECREATIONAL DRUG USE DENIES; HISTORY OF ETOH DRUG ABUSE. CLEAN/SOBER SINCE EARLY . EXERCISE: WALKS,WATER AEROBICS. LEARNING BARRIERS / SPECIAL NEEDS CHANGE FROM LAST VISIT?NO BARRIERS TO LEARNING?NO HEARING IMPAIRED?NO VISION IMPAIRED?YES COGNITIVELY IMPAIRED?NO :CORRECTIVE LENSES READINESS TO LEARN?YES LEARNING PREFERENCES?NO LEARNING CAPABILITIES PRESENT?YES EMOTIONAL BARRIERS?NO SPECIAL DEVICES?YES :CANE CORRECTIVE THERAPIST NEEDED?NO PAIN CLINIC PFS, CLERGY, PUBLIC HEALTH REFERRALS PFS REFERRAL NEEDED?NO CLERGY REFERRAL NEEDED?NO PUBLIC HEALTH REFERRAL NEEDED?NO HAS THE PATIENT BEEN EDUCATED REGARDING HIS/HER PLAN OF CARE?YES HAS THE PATIENT BEEN EDUCATED REGARDING PAIN, THE RISK FOR PAIN, THE IMPORTANCE OF EFFECTIVE PAIN MANAGEMENT, AND THE PAIN ASSESSMENT PROCESS?YES LATEX QUESTIONNAIRE LATEX ALLERGY : HAVE YOU EVER DEVELOPED ANY TYPE OF REACTION AFTER HANDLING LATEX PRODUCTS SUCH RUBBER GLOVES, CONDOMS, DIAPHRAGMS, BALLOONS, SOCKS, OR UNDERWEAR?NO LATEX ALLERGY : HAVE YOU EVER DEVELOPED ANY TYPE OF REACTION DURING OR AFTER DENTAL APPOINTMENT, VAGINAL/RECTAL EXAMINATION, SURGICAL PROCEDURE, OR ANY OTHER EXPOSURE?NO LATEX RISK : HAVE YOU EVER HAD ANY DIFFICULTY BREATHING OR HIVES AFTER EATING OR HANDLING ANY FRUITS, OR VEGETABLES; SUCH KIWI, BANANAS, STONE FRUITS, OR CHESTNUTSYES - PLEASE INDICATE : CHESTNUTS LATEX RISK : DO YOU HAVE A PREVIOUS PERSONAL HISTORY OF MORE THAN NINE SURGERIES, SPINA BIFIDA, OR REPEATED CATHERIZATIONS? NO LATEX RISK : ARE YOU FREQUENTLY EXPOSED TO LATEX PRODUCTS IN YOUR OCCUPATION?NO DATE ASKED : 07/06/2019 CAFFEINE >5/DAY. ADVANCE DIRECTIVE ADVANCE DIRECTIVE DISCUSSED WITH PATIENT:YES PT DOES NOT HAVE ANY ADVANCED DIRECTIVES AND SHE DECLINED HCP INFO AND ASSISTANCE WITH FORM AT THIS TIME. STATES SHE HAS THE INFORMATION BUT HASN'T COMPLETED THEM YET. ADVENTISM NO TAOIST BELIEFS THAT WOULD IMPACT HEALTH CARE. MARITAL STATUS: . ALCOHOL SCREENING POINTS: 0, INTERPRETATION: NEGATIVE. OCCUPATION: UNEMPLOYED. SEXUAL HX HAD SEX IN THE LAST 12 MONTHS (VAGINAL, ORAL, OR ANAL)?: NO, HAVE YOU EVER HAD AN STD?: NO. REVIEWED WITH PT 10/28/18 1126 BVREVIEWED WITH PATIENT 11/11/18 1444 JSREVIEWED WITH PATIENT 12/01/18 1001 JSREVIEWED WITH PT 04/01/19 1216 BVREVIEWED WITH PATIENT 08/03/19 1152 JS. HOSPITALIZATION/MAJOR DIAGNOSTIC PROCEDURE SURGICAL RELATED BACK PAIN MHE UTI CVA REVIEW OF SYSTEMS REVIEWED BY: PROVIDER: MEAGAN NORMAN . CONSTITUTIONAL: ANY CHANGE IN YOUR MEDICAL CONDITION? NO . CHILLS NO . FEVER NO . INFECTION: DO YOU HAVE NEW INFECTIONS? NO . DO YOU HAVE HISTORY OF MRSA? NO . MUSCULOSKELETAL: ANY NEW PATTERNS OF PAIN OR NUMBNESS? NO . GASTROENTEROLOGY: ANY NEW CHANGE IN BOWEL CONTROL? NO . GENITOURINARY: ANY NEW CHANGE IN BLADDER CONTROL? NO . IS THERE A CHANCE YOU COULD BE ? NO . HEMATOLOGY/LYMPH: DO YOU TAKE ANY BLOOD THINNERS? (FOR EXAMPLE- COUMADIN, PLAVIX, AGGRENOX, PLATEL, PRADAXA, OR XARELTO) NO . WHEN WAS YOUR LAST DOSE? DATE: TIME: . NEUROLOGY: HAVE YOU FALLEN IN THE PAST 12 MONTHS? NO . ANY NEW EXTREMITY NUMBNESS OR WEAKNESS? NO . CARDIOLOGY: DO YOU HAVE A PACEMAKER OR DEFIBRILLATOR? NO . RESPIRATORY: HAVE YOU BEEN SICK IN THE PAST WEEK? NO . FEVER NO . FLU LIKE SYMPTOMS? NO . COUGH NO . INTEGUMENTARY: DO YOU HAVE ANY RASHES OR OPEN SORES? NO . ALLERGIC/IMMUNO: ARE YOU ALLERGIC TO IV DYE? NO . ANY NEW ALLERGIES? NO . PSYCHIATRIC: DO YOU HAVE THOUGHTS OF HURTING YOURSELF OR SOMEONE ELSE? NO . ARE YOU ABUSED, NEGLECTED, OR IN AN UNSAFE ENVIRONMENT? NO . ENDOCRINOLOGY: ARE YOU DIABETIC? NO . OTHER: DO YOU NEED ANY PRESCRIPTIONS? NO . IF YES, PLEASE LIST: ____ . ANY NEW PROBLEMS WITH YOUR MEDICATIONS? NO . WHEN DID YOU LAST EAT? ____ . WHEN DID YOU LAST DRINK? ____ . WHAT DID YOU LAST DRINK? ____ . NAME OF PERSON DRIVING YOU HOME? ____ . DO YOU HAVE ANY OTHER QUESTIONS OR CONCERNS FLU VACCINE IN THE NEXT FEW WEEKS . VITAL SIGNS WT 235.4 LBS, HT 60.5", BMI 45.21 INDEX, BP 132/68 MM HG, HR 93 /MIN, RR 18 /MIN, TEMP 97.5 F, OXYGEN SAT % 95%, SAFE IN ENV? (Y/N) YES, NA INITIALS HI 11:44, REVIEWED BY: JOSE. EXAMINATION NEUROLOGICAL: CRANIAL NERVES:2-12-INTACT. MOTOR STRENGTH:WEAK OVER RIGHT UPPER AND LOWER EXTREMITY COMPARED WITH LEFT.. SENSORY:SLIGHT DECREASE IN SENSE OF TOUCH OVER RIGHT UPPER AND LOWER EXTREMITY.. REFLEXES:2/4 BILATERALLY. CEREBELLAR SIGNS:NEGATIVE RHOMBERG. GAIT AND STATION:WITHIN NORMAL LIMITS. GENERAL EXAMINATION: LUNGS: LUNG SOUNDS ARE CLEAR. HEART: HEART SOUNDS ARE NORMAL, RHYTHM IS REGULAR, NO MURMUR. ASSESSMENTS MIGRAINE WITH AURA AND WITHOUT STATUS MIGRAINOSUS, NOT INTRACTABLE - G43.109 TREATMENT OTHERS NOTES: SCHEDULE BOTOX IN 3 MOS PER CLINICAL GUIDELINES FOR MIGRAINE HEADACHES. PREVENTIVE MEDICINE PAIN CLINIC TEACHING: PROCEDURE TEACHING REVIEWED INFORMATION ON BOTOX INJECTIONS PROCEDURE WITH PATIENT. ALSO REVIEWED PRE-PROCEDURE INSTRUCTIONS. PATIENT VERBALIZED AN UNDERSTANDING. DUNG PRESLEY 08/03/2019 2:29:10 PM > . PROCEDURE CODES FA211 ESTABILISHED PATIENT [facility] FACILITY CHARGE DISPOSITION & COMMUNICATION FOLLOW UP BOTOX IN 3 MOS/F/U POST BOTOX ELECTRONICALLY SIGNED BY ESTER DUARTE ON 08/18/2019 AT 03:43 PM EST DISCLAIMER : THIS IS A VISIT SUMMARY EXTRACTED FROM THE [employer] CHART. IT IS NOT A COPY OF THE [employer] PROGRESS NOTE. CAN
== END ==
LOC: M PAIN 11:30
PROVIDERS: ATTEND Nurse Practitioner Family
DX: G43.109 Migraine with aura, not intractable, without status migrainosus (principal); I10 Essential (primary) hypertension; E03.9 Hypothyroidism, unspecified; Z86.59 Personal history of other mental and behavioral disorders; M79.7 Fibromyalgia; E78.5 Hyperlipidemia, unspecified; J44.9 Chronic obstructive pulmonary disease, unspecified; Z86.73 Personal history of transient ischemic attack (TIA), and cerebral infarction without residual deficits; Z87.891 Personal history of nicotine dependence; Z88.0 Allergy status to penicillin; Z88.8 Allergy status to other drugs, medicaments and biological substances; Z91.018 Allergy to other foods; Z91.09 Other allergy status, other than to drugs and biological substances; E66.01 Morbid (severe) obesity due to excess calories; Z68.42 Body mass index [BMI] 45.0-49.9, adult; Z79.82 Long term (current) use of aspirin; Z79.899 Other long term (current) drug therapy

== ENCOUNTER 2019-09-03 15:55 | Emergency (ER) | payer MEDICARE ==
[~2019-09-03] VITALS: Ht 152.4 cm; Wt 105.9 kg
[2019-09-03 16:34] LABS: BASO # 0.1 10^3/uL (0.0-0.2); BASO % 1.1 % (0.0-1.0); EOS # 0.2 10^3/uL (0.0-0.5); EOS % 2.4 % (0.0-3.0); HEMATOCRIT 45.2 % (36.0-47.0); HEMOGLOBIN 14.4 g/dl (12.0-15.5); LYMPH # 2.4 10^3/uL (1.5-5.0); LYMPH % 25.2 % (24.0-44.0); MEAN CORPUSCULAR HGB CONC 31.9 g/dl (32.0-36.5); MEAN CORPUSCULAR VOLUME 84.6 fl (80.0-96.0); MONO # 0.6 10^3/uL (0.0-0.8); MONO % 6.5 % (0.0-5.0); NEUTROPHILS % 64.2 % (36.0-66.0); PLATELET COUNT, AUTOMATED 289 10^3/uL (150-450); RED BLOOD COUNT 5.34 10^6/uL (4.00-5.40); WHITE BLOOD COUNT 9.3 10^3/uL (4.0-10.0)
[2019-09-03] MEDS ORDERED: TIZA4TAB4 PO (16:37)
[2019-09-03] MEDS ORDERED: ANEXSIA, NORCO 7.5MG/325MG TABLET(HYDROCODONE/APAP) PO ONE (16:45)
[2019-09-03 17:23] LABS: ALBUMIN 4.1 GM/DL (3.2-5.2); BILIRUBIN,DIRECT 0.1 MG/DL (0.0-0.2); BILIRUBIN,TOTAL 0.4 MG/DL (0.2-1.0); TOTAL PROTEIN 7.5 GM/DL (6.4-8.2)
--- NOTE | 2019-09-03 17:40 | REPVR ---
PROCEDURE INFORMATION: Exam: US Abdomen Limited, Right Upper Quadrant Exam date and time: 09/03/2019 4:36 PM Age: 63 years old Clinical indication: Abdominal pain; Localized; Right upper quadrant (ruq); Additional info: RIGHT upper quadrant abdominal pain, eval for cholecystitis/lithiasis TECHNIQUE: Imaging protocol: Real-time ultrasound of the abdomen with image documentation. Examination was focused on the right upper quadrant. COMPARISON: No relevant prior studies available. FINDINGS: Liver: The liver demonstrates increased echogenicity with decreased visualization of periportal fat with moderate sound attenuation, partially obscuring the posterior liver. Gallbladder: The gallbladder wall measures 1.4 mm. No gallstones. Common bile duct: The common bile duct measures 3.9 mm. No ductal calculus. Pancreas: The pancreas neck are unremarkable. The remainder of the gland is obscured by bowel gas. Right kidney: The RIGHT kidney measures 10.6 x 4.2 x 4.6 cm. Unremarkable. The renal cortex measures 1.1 cm. IMPRESSION: 1. Limitations as above. 2. Fatty infiltration of the liver. Electronically signed by: Renan Rice On 09/03/2019 17:40:06 PM
[2019-09-03] MEDS ORDERED: SIME180C PO (17:49)
[2019-09-03 17:53] VITALS: BP 146/82
== END 2019-09-03 18:11 | disposition home or self-care (01) ==
LOC: M ED 15:55
DX: R10.11 Right upper quadrant pain (principal); E03.9 Hypothyroidism, unspecified; K21.9 Gastro-esophageal reflux disease without esophagitis; G47.33 Obstructive sleep apnea (adult) (pediatric); M51.9 Unspecified thoracic, thoracolumbar and lumbosacral intervertebral disc disorder; Z99.89 Dependence on other enabling machines and devices; Z79.899 Other long term (current) drug therapy; Z79.890 Hormone replacement therapy; Z79.82 Long term (current) use of aspirin; Z88.0 Allergy status to penicillin; Z88.8 Allergy status to other drugs, medicaments and biological substances; Z91.018 Allergy to other foods; Z91.048 Other nonmedicinal substance allergy status; Z87.891 Personal history of nicotine dependence

== ENCOUNTER → 2019-10-06 | Outpatient (CLI) | payer MEDICARE ==
[~2019-10-06] MED LIST changes: +BOTULINUM INJ 100 UNITS (J0585) IM ONE; -OXYB10TA2; +OXYB10TA23; +SIME180C PO; +TIZA4TAB4 PO
--- NOTE | 2019-10-20 04:16 | ECWPNPC ---
PATIENT NAME: LUIS ENRIQUE MCMILLAN : 1955 GENDER: FEMALE VISIT DATE: 10/06/2019 DISCHARGE DATE: 10/06/19 1317 VISIT LOCKED DATE TIME: PHYSICIAN: SCOTT BRUCE MD RESOURCE: SCOTT BRUCE MD REASON FOR APPOINTMENT 1. BOTOX HISTORY OF PRESENT ILLNESS HISTORY OF PRESENT ILLNESS: PAIN THE PATIENT DESCRIBES THE PAIN... FALL RISK SCREENING: SCREENING :NO FALLS REPORTED IN THE LAST YEAR CURRENT MEDICATIONS TAKING ZOCOR 40 MG TABLET 1 TABLET EVERY EVENING ORALLY ONCE A DAY, NOTES: 10/05/2019 1300 TAKING LEVOTHYROXINE SODIUM 100 MCG TABLET 1 TABLET EVERY MORNING ON AN EMPTY STOMACH ORALLY ONCE A DAY, NOTES: 10/05/2019 1300 TAKING VENTOLIN HFA 108 (90 BASE) MCG/ACT AEROSOL SOLUTION 2 PUFFS INHALATION Q4-6H PRN, NOTES: NONE RECENT TAKING GENERLAC 10 GM/15ML SOLUTION 30 ML NEEDED ORALLY BID, NOTES: 10/05/2019 1300 TAKING OXYBUTYNIN CHLORIDE ER 10 MG TABLET EXTENDED RELEASE 24 HOUR 1 TABLET ORALLY ONCE A DAY, NOTES: 10/05/2019 1300 TAKING HYDROCHLOROTHIAZIDE 25 MG TABLET 1 TABLET ORALLY ONCE A DAY, NOTES: 10/05/2019 1300 TAKING NEBULIZERS - MISCELLANEOUS ALBUTEROL INHALATION Q 4-6 HRS. PRN, NOTES: > 2 MONTHS TAKING MAXALT 10 MG TABLET 1 TABLET NEEDED ONE TIME ORALLY ONCE AT ONSET OF H/A,REPEAT IN 2HR IF NO IMPROVEMENT, NOTES: > 1 WEEK TAKING SERTRALINE HCL 25 MG TABLET 1 TABLET ORALLY ONCE A DAY, NOTES: 10/05/2019 1300 TAKING TRAZODONE HCL 50 MG TABLET 1 TABLET AT BEDTIME ORALLY ONCE A DAY, NOTES: 10/06/2019 0200 TAKING ZANTAC 150 MG TABLET 1 TABLET ORALLY DAILY, NOTES: 10/05/2019 1300 TAKING MUCINEX 600 MG TABLET EXTENDED RELEASE 1 TABLET NEEDED ORALLY EVERY 12 HRS, NOTES: 10/04/18 1300 TAKING ASPIRIN 81 81 MG TABLET DELAYED RELEASE 1 TABLET ORALLY ONCE A DAY, NOTES: 10/05/18 1300 TAKING ADVAIR DISKUS 250-50 MCG/DOSE MISCELLANEOUS 1 INHALATION EVERY 12 HRS, NOTES: > 2 WEEKS TAKING NORCO 7.5-325 MG TABLET 1 TABLET NEEDED ORALLY EVERY 6 HRS MDD4, NOTES: 10/06/2019 0400 TAKING TIZANIDINE HCL 4 MG TABLET 1 TABLET NEEDED ORALLY Q8H PRN MUSC;E SPASM PAIN, NOTES: 10/05/2019 1300 MEDICATION LIST REVIEWED AND RECONCILED WITH THE PATIENT PAST MEDICAL HISTORY HYPERTENSION HYPOTHYROIDISM DEPRESSION BIPOLAR DISORDER ANXIETY LOW BACK PAIN FIBROMYALGIA ARTHRITIS ESOPHAGEAL REFLUX HYPERLIPIDEMIA COPD CVA S/P R SIDE WEAKNESS MIGRAINE HEADACHE VITAMIN D DEFICIENCY ETOH HX OF SUBSTANCE ABUSE HX OF TIETZE SYNDROME BRONCHITIS 03/2016 TIA 08/2018 ALLERGIES LITHIUM CARBONATE: COLLEPSED, WENT TO ED - ALLERGY PENICILLIN (FOR ALLERGIES USE ONLY): HIVES - ALLERGY NUTS: SOB - ALLERGY ADHESIVES: TEARS SKINS - ALLERGY SURGICAL HISTORY T&A APPENDECTOMY C SECTION X 3 BILAT EYE LID LIFT 04/2018 HYSTERECTOMY 1982 FAMILY HISTORY FATHER: ALIVE, LUNG CA, DIAGNOSED WITH HYPERTENSION, OTHER MALIGNANT NEOPLASM OF UNSPECIFIED SITE MOTHER: , DIABETES, UNSPECIFIED NONPSYCHOTIC MENTAL DISORDER FOLLOWING ORGANIC BRAIN DAMAGE, OTHER SPECIFIED CONDITIONS INFLUENCING HEALTH STATUS 3 BROTHER(S) . 1 SON(S) , 2 DAUGHTER(S) . MOTHER - PARKINSON, JEAN'S DISEASE\\\\\\'S\\\\NBROTHER - COLON CANCER\\\\NDAUGHTERS - FIBROMYALGIA//SON DDD, DAUGHTER RA. SOCIAL HISTORY GENERAL: TOBACCO USE ARE YOU A: QUIT SMOKING ABOUT 7 YEARS AGO OTHERS AT HOME: DAUGHTER. 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 DOMESTIC VIOLENCE DO YOU FEEL SAFE IN YOUR ENVIRONMENT?YES RECREATIONAL DRUG USE DENIES; HISTORY OF ETOH DRUG ABUSE. CLEAN/SOBER SINCE EARLY . EXERCISE: WALKS,WATER AEROBICS. LEARNING BARRIERS / SPECIAL NEEDS CHANGE FROM LAST VISIT?NO BARRIERS TO LEARNING?NO HEARING IMPAIRED?NO VISION IMPAIRED?YES COGNITIVELY IMPAIRED?NO :CORRECTIVE LENSES READINESS TO LEARN?YES LEARNING PREFERENCES?NO LEARNING CAPABILITIES PRESENT?YES EMOTIONAL BARRIERS?NO SPECIAL DEVICES?YES :CANE POLICE DETECTIVE NEEDED?NO PAIN CLINIC PFS, CLERGY, PUBLIC HEALTH REFERRALS PFS REFERRAL NEEDED?NO CLERGY REFERRAL NEEDED?NO PUBLIC HEALTH REFERRAL NEEDED?NO HAS THE PATIENT BEEN EDUCATED REGARDING HIS/HER PLAN OF CARE?YES HAS THE PATIENT BEEN EDUCATED REGARDING PAIN, THE RISK FOR PAIN, THE IMPORTANCE OF EFFECTIVE PAIN MANAGEMENT, AND THE PAIN ASSESSMENT PROCESS?YES LATEX QUESTIONNAIRE LATEX ALLERGY : HAVE YOU EVER DEVELOPED ANY TYPE OF REACTION AFTER HANDLING LATEX PRODUCTS SUCH RUBBER GLOVES, CONDOMS, DIAPHRAGMS, BALLOONS, SOCKS, OR UNDERWEAR?NO LATEX ALLERGY : HAVE YOU EVER DEVELOPED ANY TYPE OF REACTION DURING OR AFTER DENTAL APPOINTMENT, VAGINAL/RECTAL EXAMINATION, SURGICAL PROCEDURE, OR ANY OTHER EXPOSURE?NO DATE ASKED : 07/06/2019 LATEX RISK : HAVE YOU EVER HAD ANY DIFFICULTY BREATHING OR HIVES AFTER EATING OR HANDLING ANY FRUITS, OR VEGETABLES; SUCH KIWI, BANANAS, STONE FRUITS, OR CHESTNUTSYES - PLEASE INDICATE : CHESTNUTS LATEX RISK : DO YOU HAVE A PREVIOUS PERSONAL HISTORY OF MORE THAN NINE SURGERIES, SPINA BIFIDA, OR REPEATED CATHERIZATIONS? NO LATEX RISK : ARE YOU FREQUENTLY EXPOSED TO LATEX PRODUCTS IN YOUR OCCUPATION?NO [place] >5/DAY. ADVANCE DIRECTIVE ADVANCE DIRECTIVE DISCUSSED WITH PATIENT:YES PT DOES NOT HAVE ANY ADVANCED DIRECTIVES AND SHE DECLINED HCP INFO AND ASSISTANCE WITH FORM AT THIS TIME. STATES SHE HAS THE INFORMATION BUT HASN'T COMPLETED THEM YET. 10/06/2019 CONFUCIANISM NO RESTORATIONIST BELIEFS THAT WOULD IMPACT HEALTH CARE. MARITAL STATUS: . ALCOHOL SCREENING POINTS: 0, INTERPRETATION: NEGATIVE. OCCUPATION: UNEMPLOYED. SEXUAL HX HAD SEX IN THE LAST 12 MONTHS (VAGINAL, ORAL, OR ANAL)?: NO, HAVE YOU EVER HAD AN STD?: NO. REVIEWED WITH PT 10/28/18 1126 BVREVIEWED WITH PATIENT 11/11/18 1444 JSREVIEWED WITH PATIENT 12/01/18 1001 JSREVIEWED WITH PT 04/01/19 1216 BVREVIEWED WITH PATIENT 08/03/19 1152 REVIEWED WITH PATIENT 10/06/2019 LAS. HOSPITALIZATION/MAJOR DIAGNOSTIC PROCEDURE SURGICAL RELATED BACK PAIN MHE UTI CVA REVIEW OF SYSTEMS REVIEWED BY: PROVIDER: . CONSTITUTIONAL: ANY CHANGE IN YOUR MEDICAL CONDITION? NO . CHILLS NO . FEVER NO . INFECTION: DO YOU HAVE NEW INFECTIONS? NO . DO YOU HAVE HISTORY OF MRSA? NO . MUSCULOSKELETAL: ANY NEW PATTERNS OF PAIN OR NUMBNESS? NO . GASTROENTEROLOGY: ANY NEW CHANGE IN BOWEL CONTROL? NO . GENITOURINARY: ANY NEW CHANGE IN BLADDER CONTROL? NO . IS THERE A CHANCE YOU COULD BE ? NO . HEMATOLOGY/LYMPH: DO YOU TAKE ANY BLOOD THINNERS? (FOR EXAMPLE- COUMADIN, PLAVIX, AGGRENOX, PLATEL, PRADAXA, OR XARELTO) NO . WHEN WAS YOUR LAST DOSE? DATE: TIME: . NEUROLOGY: HAVE YOU FALLEN IN THE PAST 12 MONTHS? NO . ANY NEW EXTREMITY NUMBNESS OR WEAKNESS? NO . CARDIOLOGY: DO YOU HAVE A PACEMAKER OR DEFIBRILLATOR? NO . RESPIRATORY: HAVE YOU BEEN SICK IN THE PAST WEEK? NO . FEVER NO . FLU LIKE SYMPTOMS? NO . COUGH NO . INTEGUMENTARY: DO YOU HAVE ANY RASHES OR OPEN SORES? NO . ALLERGIC/IMMUNO: ARE YOU ALLERGIC TO IV DYE? NO . ANY NEW ALLERGIES? NO . PSYCHIATRIC: DO YOU HAVE THOUGHTS OF HURTING YOURSELF OR SOMEONE ELSE? NO . ARE YOU ABUSED, NEGLECTED, OR IN AN UNSAFE ENVIRONMENT? NO . ENDOCRINOLOGY: ARE YOU DIABETIC? NO . OTHER: DO YOU NEED ANY PRESCRIPTIONS? NO . IF YES, PLEASE LIST: ____ . ANY NEW PROBLEMS WITH YOUR MEDICATIONS? NO . WHEN DID YOU LAST EAT? ____10/05/2019 1900 . WHEN DID YOU LAST DRINK? ____10/06/2019 1230 AM . WHAT DID YOU LAST DRINK? ____DIET COKE . NAME OF PERSON DRIVING YOU HOME? ____MARY . DO YOU HAVE ANY OTHER QUESTIONS OR CONCERNS NO . VITAL SIGNS WT 233.8 LBS, HT 60.5", BMI 44.90 INDEX, BP 135/64 MM HG, HR 72 /MIN, RR 18 /MIN, TEMP 97.1 F, OXYGEN SAT % 96% RA, SAFE IN ENV? (Y/N) YESA. REJI SONG. ASSESSMENTS CHRONIC MIGRAINE - G43.709 PROCEDURES PN BOTOX INJECTIONS SUBSEQUENT INJECTIONS PRE PROCEDURE DIAGNOSIS CHRONIC MIGRAINE HEADACHES. POST PROCEDURE DIAGNOSIS CHRONIC MIGRAINE HEADACHES. PROCEDURE BOTOX INJECTION AT THE HEAD, NECK AND SHOULDERS. SURGEON DR. SCOTT BRUCE ADOBE BLOCK MAKER NONE ANESTHESIA NONE PRE PROCEDURE NOTE THE PATIENT HAS HISTORY OF CHRONIC MIGRAINE HEADACHES. I EVALUATED THE PATIENT AND REVIEWED THE CHART. I WENT OVER THE RISKS, ALTERNATIVES AND BENEFITS ASSOCIATED WITH THIS PROCEDURE. THE PATIENT WOULD LIKE TO PROCEED AND GIVES CONSENT TO PERFORM THE PROCEDURE. THE PATIENT DENIES UNEXPLAINABLE WEIGHT LOSS, FEVER, CHILLS, OR NEW CHANGES IN URINARY OR BOWEL CONTROL. THE PATIENT IS PRESENTLY EXPERIENCING 2 HEADACHES PER MONTH. THE PATIENT DID A BOTOX INJECTION AT THE HEAD, NECK AND SHOULDERS 3 MONTHS AGO AND EXPRESSED MORE THAN 50% REDUCTION ON THE FREQUENCY AND INTENSITY OF THE HEADACHES. PRESENTLY SHE IS HAVING NO MORE THAN 2 HEADACHES PER DAY. THE PATIENT EXPRESSES THAT THE USE OF BOTOX HAS REDUCED SIGNIFICANTLY THE SEVERITY OF THE HEADACHES AND EXPRESSED THAT SHE WANTS TO RECEIVE THIS PROCEDURE AGAIN TODAY DESCRIPTION OF PROCEDURE THE PATIENT WAS BROUGHT TO THE PROCEDURE ROOM AND PLACED IN THE SUPINE POSITION. I CHECKED LATERALITY AND THE AREAS WHERE THE PROCEDURE WAS GOING TO BE PERFORMED WITH THE PATIENT AND THE SUPPORTING STAFF AT THE MOMENT OF THE TIMEOUT IN THE PROCEDURE ROOM. FOR THE PROCEDURE, I USED A SOLUTION OF 5 UNITS OF BOTOX PER EACH 0.1 ML OF THE SOLUTION. I USED A 30-GAUGE NEEDLE TO INJECT THE SOLUTION AT THE SELECTED LOCATIONS. I INJECTED FIRST THE RIGHT AND LEFT SENIOR PEOPLESOFT DEVELOPER MUSCLES. THE LANDMARK FOR BOTH INJECTIONS WAS APPROXIMATELY 1 CM ABOVE THE SUPERIOR MEDIAL EDGE OF THE EYEBROW. AFTER THESE TWO INJECTIONS, I INJECTED THE PROCERUS MUSCLE AT THE MIDLINE POINT BETWEEN THESE FIRST TWO INJECTIONS. THEN I PROCEEDED TO INJECT THE RIGHT AND LEFT FRONTALIS MUSCLE. TWO INJECTIONS WERE DONE IN EACH SIDE. THE FIRST INJECTION WAS DONE APPROXIMATELY 2 CM ABOVE THE FIRST INJECTION OF THE SENIOR PEOPLESOFT DEVELOPER. THE SECOND INJECTION WAS DONE APPROXIMATELY 1.5 CM LATERAL TO THIS FIST INJECTION OF THE FRONTALIS OF EACH SIDE. AFTER THE INJECTIONS OVER THE FOREHEAD WERE DONE, THE PATIENT'S HEAD WAS TURNED TO THE LEFT SIDE AND WE STARTED TO WORK WITH THE RIGHT TEMPORALIS MUSCLE. FIRST INJECTION WAS DONE IN A VERTICAL LINE OF THE TRAGUS APPROXIMATELY 3 CM ABOVE THE TRAGUS. THE SECOND INJECTION WAS DONE APPROXIMATELY 2 CM ABOVE THE FIRST INJECTION. THE THIRD INJECTION WAS DONE APPROXIMATELY 1 CM FRONT SINCLAIR FROM THIS VERTICAL LINE CREATED AT THE LEVEL OF THE TRAGUS, SNF BETWEEN THESE TWO INJECTIONS. THE FOURTH INJECTION WAS DONE APPROXIMATELY 1.5 CM BACK FROM THE SECOND INJECTION TO THE TEMPORALIS IN LINE TO THE MIDPORTION OF THE EAR. THEN, WE PROCEEDED TO INJECT THE LEFT TEMPORALIS MUSCLE. WE CLEANED THE AREA WITH ALCOHOL AND PROCEEDED TO PERFORM THE SAME FOR INJECTIONS DESCRIBED ABOVE BUT IN THE LEFT TEMPORALIS MUSCLE USING THE SAME LANDMARKS. AFTER THESE INJECTIONS WERE DONE, THE PATIENT WAS SEATED. FIRST, WE STARTED TO INJECT THE LEFT AND RIGHT OCCIPITALIS MUSCLE. I INJECTED AT THE FOLLOWING PLACES IN THE RIGHT AND LEFT MUSCLE. THE FIRST INJECTION WAS DONE AT THE MIDPOINT POSITION BETWEEN THE MASTOID PROCESS AND THE INION OF THE OCCIPITAL PROTUBERANCE. THE SECOND INJECTION WAS DONE APPROXIMATELY 1.5 CM SUPERIOR AND LATERAL OF THIS POINT. THE THIRD INJECTION WAS DONE APPROXIMATELY 1.5 CM SUPERIOR AND MEDIAL TO THIS FIRST INJECTION. THEN, I PROCEEDED TO INJECT THE RIGHT AND LEFT PARASPINAL MUSCLES. LANDMARK OF THE INJECTION WERE APPROXIMATELY: FIRST INJECTION 3 CM BELOW THE INION AND 1 CM LATERAL TO THE MIDLINE AND SECOND INJECTION AT EACH SIDE WAS DONE APPROXIMATELY 1.5 CM SUPERIOR AND LATERAL OF THE FIRST INJECTION. THE LAST GROUP OF INJECTIONS WAS DONE OVER THE RIGHT AND LEFT TRAPEZIUS MUSCLE OVER THE SHOULDERS AREA. THE FIRST INJECTION WAS DONE AT THE MIDPOINT BETWEEN THE INFLECTION POINT BETWEEN THE NECK AND SHOULDER AND THE ACROMION. THE SECOND AND THIRD INJECTIONS WERE DONE APPROXIMATELY 2.5 CM LATERAL AND MEDIAL FROM THIS FIRST INJECTION. SAME TARGETS WERE USED IN THE RIGHT AND LEFT SIDE. IN TOTAL, I INJECTED 155 UNITS OF BOTOX. PROCEDURE WAS DONE WITHOUT EVIDENCE OF PARESTHESIA, PNEUMOTHORAX, OR ANY COMPLICATIONS. THE PATIENT TOLERATED THE PROCEDURE VERY WELL. THE PATIENT WAS SENT TO THE RECOVERY ROOM FOR OBSERVATIONS. INJECTIONS WERE DONE AFTER CLEANING WITH ALCOHOL, USING ASEPTIC TECHNIQUES POST PROCEDURE NOTE THE PROCEDURE DONE WAS DISCUSSED WITH THE PATIENT. THE PATIENT WILL BE SEEN IN A FOLLOWUP IN THE NEXT FEW WEEKS. I AM LOOKING FOR LONG-LASTING PAIN RELIEF WITH THIS INTERVENTION. INSTRUCTIONS WERE GIVEN, QUESTIONS WERE ANSWERED, AND THE PATIENT EXPRESSED UNDERSTANDING AND AGREES WITH THE PLAN. I, JOAN TURNER, DOCUMENTED THE ABOVE INFORMATION ACTING A SCRIBE FOR DR. BRUCE. I HAVE REVIEWED THE ABOVE DOCUMENT, WRITTEN BY DARELL VERMA, AND I VERIFY THAT IT IS ACCURATE PROCEDURE CODES 25094 CHEMODENERV MUSC MIGRAINE DISPOSITION & COMMUNICATION FOLLOW UP 3 WEEKS ELECTRONICALLY SIGNED BY SCOTT BRUCE MD, ON 10/19/2019 AT 09:39 AM EST DISCLAIMER : THIS IS A VISIT SUMMARY EXTRACTED FROM THE [employer] CHART. IT IS NOT A COPY OF THE [employer] PROGRESS NOTE. CAN
== END ==
LOC: M PAIN 11:30
PROVIDERS: ATTEND Anesthesiology
DX: G43.709 Chronic migraine without aura, not intractable, without status migrainosus (principal); I10 Essential (primary) hypertension; E03.9 Hypothyroidism, unspecified; Z86.59 Personal history of other mental and behavioral disorders; M79.7 Fibromyalgia; E78.5 Hyperlipidemia, unspecified; J44.9 Chronic obstructive pulmonary disease, unspecified; K21.9 Gastro-esophageal reflux disease without esophagitis; Z86.73 Personal history of transient ischemic attack (TIA), and cerebral infarction without residual deficits; Z87.891 Personal history of nicotine dependence; Z88.0 Allergy status to penicillin; Z88.8 Allergy status to other drugs, medicaments and biological substances; Z91.010 Allergy to peanuts; Z91.09 Other allergy status, other than to drugs and biological substances; E66.01 Morbid (severe) obesity due to excess calories; Z68.41 Body mass index [BMI] 40.0-44.9, adult; Z79.82 Long term (current) use of aspirin; Z79.899 Other long term (current) drug therapy
CPT/HCPCS: 64615; J0585

== ENCOUNTER → 2019-11-10 | Outpatient (CLI) | payer MEDICARE ==
[~2019-11-10] MED LIST changes: -BOTULINUM INJ 100 UNITS (J0585) IM ONE
--- NOTE | 2019-11-30 04:14 | ECWPNPC ---
PATIENT NAME: LUIS ENRIQUE MCMILLAN : 1955 GENDER: FEMALE VISIT DATE: 11/10/2019 DISCHARGE DATE: 11/10/19 1448 VISIT LOCKED DATE TIME: PHYSICIAN: MEAGAN OROSCO RESOURCE: MEAGAN OROSCO REASON FOR APPOINTMENT 1. 2 WEEK FOLLOW UP HISTORY OF PRESENT ILLNESS HISTORY OF PRESENT ILLNESS: HERE FOR FOLLOW-UP OF PERSISTENT LOW BACK PAIN. STATES LOW BACK PAIN, RIGHT GREATER THAN LEF HAS BEEN SEVERE LATELY. PAIN IS RUNNING DOWN HER RIGHT LEG. REPORTS INABILITY TO GET OUT OF BED WITHOUT SEVERE DISCOMFORT. RATING PAIN LEVEL A 10 OVER 10. FINDS MEDICATIONS SOMEWHAT HELPFUL. REVIEWED MRI OF THE LS-SPINE AND DISCUSSED TREATMENT OPTIONS. PAIN THE PATIENT DESCRIBES THE PAIN... FALL RISK SCREENING: SCREENING :NO FALLS REPORTED IN THE LAST YEAR CURRENT MEDICATIONS TAKING ZOCOR 40 MG TABLET 1 TABLET EVERY EVENING ORALLY ONCE A DAY TAKING LEVOTHYROXINE SODIUM 100 MCG TABLET 1 TABLET EVERY MORNING ON AN EMPTY STOMACH ORALLY ONCE A DAY TAKING VENTOLIN HFA 108 (90 BASE) MCG/ACT AEROSOL SOLUTION 2 PUFFS INHALATION Q4-6H PRN, NOTES: NONE RECENT TAKING GENERLAC 10 GM/15ML SOLUTION 30 ML NEEDED ORALLY BID TAKING OXYBUTYNIN CHLORIDE ER 10 MG TABLET EXTENDED RELEASE 24 HOUR 1 TABLET ORALLY ONCE A DAY TAKING HYDROCHLOROTHIAZIDE 25 MG TABLET 1 TABLET ORALLY ONCE A DAY TAKING NEBULIZERS - MISCELLANEOUS ALBUTEROL INHALATION Q 4-6 HRS. PRN, NOTES: > 2 MONTHS TAKING MAXALT 10 MG TABLET 1 TABLET NEEDED ONE TIME ORALLY ONCE AT ONSET OF H/A,REPEAT IN 2HR IF NO IMPROVEMENT, NOTES: > 1 WEEK TAKING SERTRALINE HCL 25 MG TABLET 1 TABLET ORALLY ONCE A DAY, NOTES: 10/05/2019 1300 TAKING TRAZODONE HCL 50 MG TABLET 1 TABLET AT BEDTIME ORALLY ONCE A DAY, NOTES: 10/06/2019 0200 TAKING ZANTAC 150 MG TABLET 1 TABLET ORALLY DAILY, NOTES: 10/05/2019 1300 TAKING MUCINEX 600 MG TABLET EXTENDED RELEASE 1 TABLET NEEDED ORALLY EVERY 12 HRS, NOTES: 10/04/18 1300 TAKING ASPIRIN 81 81 MG TABLET DELAYED RELEASE 1 TABLET ORALLY ONCE A DAY, NOTES: 10/05/18 1300 TAKING ADVAIR DISKUS 250-50 MCG/DOSE MISCELLANEOUS 1 INHALATION EVERY 12 HRS, NOTES: > 2 WEEKS TAKING TIZANIDINE HCL 4 MG TABLET 1 TABLET NEEDED ORALLY Q8H PRN MUSC;E SPASM PAIN, NOTES: 10/05/2019 1300 TAKING NORCO 7.5-325 MG TABLET 1 TABLET NEEDED ORALLY EVERY 6 HRS MDD4, NOTES: 10/06/2019 0400 MEDICATION LIST REVIEWED AND RECONCILED WITH THE PATIENT PAST MEDICAL HISTORY HYPERTENSION HYPOTHYROIDISM DEPRESSION BIPOLAR DISORDER ANXIETY LOW BACK PAIN FIBROMYALGIA ARTHRITIS ESOPHAGEAL REFLUX HYPERLIPIDEMIA COPD CVA S/P R SIDE WEAKNESS MIGRAINE HEADACHE VITAMIN D DEFICIENCY ETOH HX OF SUBSTANCE ABUSE HX OF TIETZE SYNDROME BRONCHITIS 03/2016 TIA 08/2018 ALLERGIES LITHIUM CARBONATE: COLLEPSED, WENT TO ED - ALLERGY PENICILLIN (FOR ALLERGIES USE ONLY): HIVES - ALLERGY NUTS: SOB - ALLERGY ADHESIVES: TEARS SKINS - ALLERGY SURGICAL HISTORY T&A APPENDECTOMY C SECTION X 3 BILAT EYE LID LIFT 04/2018 HYSTERECTOMY 1982 FAMILY HISTORY FATHER: ALIVE, LUNG CA, DIAGNOSED WITH HYPERTENSION, OTHER MALIGNANT NEOPLASM OF UNSPECIFIED SITE MOTHER: , DIABETES, UNSPECIFIED NONPSYCHOTIC MENTAL DISORDER FOLLOWING ORGANIC BRAIN DAMAGE, OTHER SPECIFIED CONDITIONS INFLUENCING HEALTH STATUS 3 BROTHER(S) . 1 SON(S) , 2 DAUGHTER(S) . MOTHER - PARKINSON, JEAN'S DISEASE\\\\\\'S\\\\NBROTHER - COLON CANCER\\\\NDAUGHTERS - FIBROMYALGIA//SON DDD, DAUGHTER RA. HOSPITALIZATION/MAJOR DIAGNOSTIC PROCEDURE SURGICAL RELATED BACK PAIN MHE UTI CVA REVIEW OF SYSTEMS REVIEWED BY: PROVIDER: MEAGAN NORMAN . CONSTITUTIONAL: ANY CHANGE IN YOUR MEDICAL CONDITION? NO . CHILLS NO . FEVER NO . INFECTION: DO YOU HAVE NEW INFECTIONS? NO . DO YOU HAVE HISTORY OF MRSA? NO . MUSCULOSKELETAL: ANY NEW PATTERNS OF PAIN OR NUMBNESS? PAIN DOWN THE RIGHT BUTTOCKS AND LEG . GASTROENTEROLOGY: ANY NEW CHANGE IN BOWEL CONTROL? NO . GENITOURINARY: ANY NEW CHANGE IN BLADDER CONTROL? NO . IS THERE A CHANCE YOU COULD BE ? NO . HEMATOLOGY/LYMPH: DO YOU TAKE ANY BLOOD THINNERS? (FOR EXAMPLE- COUMADIN, PLAVIX, AGGRENOX, PLATEL, PRADAXA, OR XARELTO) NO . WHEN WAS YOUR LAST DOSE? DATE: TIME: . NEUROLOGY: HAVE YOU FALLEN IN THE PAST 12 MONTHS? NO . ANY NEW EXTREMITY NUMBNESS OR WEAKNESS? NO . CARDIOLOGY: DO YOU HAVE A PACEMAKER OR DEFIBRILLATOR? NO . RESPIRATORY: HAVE YOU BEEN SICK IN THE PAST WEEK? NO . FEVER NO . FLU LIKE SYMPTOMS? NO . COUGH NO . INTEGUMENTARY: DO YOU HAVE ANY RASHES OR OPEN SORES? NO . ALLERGIC/IMMUNO: ARE YOU ALLERGIC TO IV DYE? NO . ANY NEW ALLERGIES? NO . PSYCHIATRIC: DO YOU HAVE THOUGHTS OF HURTING YOURSELF OR SOMEONE ELSE? NO . ARE YOU ABUSED, NEGLECTED, OR IN AN UNSAFE ENVIRONMENT? NO . ENDOCRINOLOGY: ARE YOU DIABETIC? NO . OTHER: DO YOU NEED ANY PRESCRIPTIONS? NO . IF YES, PLEASE LIST: ____ . ANY NEW PROBLEMS WITH YOUR MEDICATIONS? NO . WHEN DID YOU LAST EAT? ____ . WHEN DID YOU LAST DRINK? ____ . WHAT DID YOU LAST DRINK? ____ . NAME OF PERSON DRIVING YOU HOME? ____ . DO YOU HAVE ANY OTHER QUESTIONS OR CONCERNS NO . VITAL SIGNS WT 234 LBS, HT 60.5", BMI 44.94 INDEX, BP 139/93 MM HG, HR 80 /MIN, RR 18 /MIN, TEMP 97 F,6 F, OXYGEN SAT % 98, REVIEWED BY: KG. EXAMINATION GENERAL EXAMINATION: GENERAL ALERT,NO DISTRESS . PSYCH AFFECT NORMAL . LUNGS: LUNG SOUNDS ARE CLEAR . HEART: HEART RATE REGULAR . MUSCULOSKELETAL: MST 5/5 BILAT. LOWER EXTREMITIES . LUMBAR: TENDERNESS BILAT. SIJ R>L. DIAGNOSTIC TESTS REVIEWEDMRI L/S [id number] . ASSESSMENTS SACROILIITIS - M46.1 (PRIMARY) TREATMENT SACROILIITIS REFILL TIZANIDINE HCL TABLET, 4 MG, 1 TABLET NEEDED, ORALLY, Q8H PRN MUSC;E SPASM PAIN, 30 DAYS, 90, REFILLS 2, NOTES: 10/05/2019 1300 REFILL NORCO TABLET, 7.5-325 MG, 1 TABLET NEEDED, ORALLY, EVERY 6 HRS MDD4, 30 DAYS, 120, REFILLS 0, NOTES: 10/06/2019 0400 NOTES: BILMAYRA SIJ, ISTOP REGISTRY REVIEWED AND DEMONSTRATES COMPLLIANCE. (REF # ) BRINGS IN MEDICATIONS WHICH IS APPROPRIATE FOR WHAT WAS DISPENSED. RECENT URINE TOXICOLOGY REVIEWED. NO UNAUTHORIZED MEDICATIONS. NO ILLICIT SUBSTANCES AND PRESCRIBED MEDICATIONS WERE PRESENT. , RISKS OF NARCOTIC/OPIOD MEDICATIONS INCLUDES BUT IS NOT LIMITED TO RISK OF DEPENDANCE/DEVELOPMENT OF ADDICTION, MOOD DISTURBANCE AND DEPRESSION, OSTEOPOROSIS, HORMONAL AND LABIDAL CHANGES, RESPIRATORY DEPRESSION AND . PATIENT IS ADVISED NOT TO DRIVE OR DRINK ALCOHOL WHILE ON THESE MEDICATIONS. PREVENTIVE MEDICINE PAIN CLINIC TEACHING: PROCEDURE TEACHING REVIEWED INFORMATION ON SACROILIAC JOINT INJECTION PROCEDURE WITH PATIENT. ALSO REVIEWED PRE-PROCEDURE INSTRUCTIONS. PATIENT VERBALIZED AN UNDERSTANDING. DUNG PRESLEY Silvia 11/10/2019 2:53:44 PM > . PROCEDURE CODES FA211 ESTABILISHED PATIENT [facility] CHARGE DISPOSITION & COMMUNICATION FOLLOW UP POST (REASON: BILAT SIJ) ELECTRONICALLY SIGNED BY ESTER DUARTE ON 11/29/2019 AT 09:03 AM EDT DISCLAIMER : THIS IS A VISIT SUMMARY EXTRACTED FROM THE [employer] CHART. IT IS NOT A COPY OF THE [employer] PROGRESS NOTE. CAN
== END ==
LOC: M PAIN 13:30
PROVIDERS: ATTEND Nurse Practitioner Family
DX: M46.1 Sacroiliitis, not elsewhere classified (principal); I10 Essential (primary) hypertension; E03.9 Hypothyroidism, unspecified; Z86.59 Personal history of other mental and behavioral disorders; M79.7 Fibromyalgia; K21.9 Gastro-esophageal reflux disease without esophagitis; E78.5 Hyperlipidemia, unspecified; J44.9 Chronic obstructive pulmonary disease, unspecified; G43.909 Migraine, unspecified, not intractable, without status migrainosus; Z88.0 Allergy status to penicillin; Z88.8 Allergy status to other drugs, medicaments and biological substances; Z91.018 Allergy to other foods; Z91.09 Other allergy status, other than to drugs and biological substances; E66.01 Morbid (severe) obesity due to excess calories; Z68.41 Body mass index [BMI] 40.0-44.9, adult; Z79.82 Long term (current) use of aspirin; Z79.899 Other long term (current) drug therapy

== ENCOUNTER → 2020-02-22 | Outpatient (CLI) | payer MEDICARE ==
--- NOTE | 2020-02-23 23:45 | ECWPNPC ---
PATIENT NAME: LUIS ENRIQUE MCMILLAN : 1955 GENDER: FEMALE VISIT DATE: 02/22/2020 DISCHARGE DATE: 02/22/20 1123 VISIT LOCKED DATE TIME: PHYSICIAN: MEAGAN OROSCO RESOURCE: MEAGAN OROSCO REASON FOR APPOINTMENT 1. MED MNGMNT HISTORY OF PRESENT ILLNESS GENERAL: IS BEING SEEN TODAY FOR FOLLOW-UP AND MANAGEMENT OF PERSISTENT LOW BACK PAIN AND MIGRAINE HEADACHE. THIS IS A MEDICINE MANAGEMENT VISIT. IS SCHEDULED FOR BILATERAL SIJ THIS MONTH HERE AT THE PAIN CLINIC. THIS WAS DELAYED DUE TO COVID 19 CRISIS. PATIENT WOULD LIKE TO GET BACK INTO HER EVERY 3 MONTH BOTOX ROUTINE. SINCE LAST BOTOX IN JUNE SHE'S HAD SIGNIFICANT INCREASES IN FREQUENCY AND INTENSITY OF MIGRAINE HEADACHE. HAS MIGRAINE HEADACHE TODAY. RATING PAIN LEVEL AN 8/10 VAS. -. FALL RISK SCREENING: SCREENING :NO FALLS REPORTED IN THE LAST YEAR PAIN SCREENING: PATIENT HAS A COMPLAINT OF ACUTE OR CHRONIC PAIN :YES 02/21/20 INTENSITY OF PAIN (SCALE OF 1 TO 10):6 WHAT DOES YOUR PAIN FEEL LIKE:ACHING, SHOOTING PAIN IS INCREASED BY: ACTIVITY PAIN IS DECREASED BY: MEDS, LAYING DOWN RESTING NURSING NOTE: -. PAIN CENTER INTAKE QUESTIONS: DO YOU HAVE A HISTORY OF MRSA? :NO DO YOU TAKE A BLOOD THINNERS? :NO DO YOU HAVE ANY BLEEDING DISORDERS? :NO ANY NEW NUMBNESS OR WEAKNESS IN YOUR LEGS OR ARMS? :NO ANY PACEMAKER,DEFIBRILLATOR, OR DORSAL COLUMN STIMULATOR? :NO DO YOU HAVE ANY RASHES OR OPEN SORES? :NO ARE YOU ALLERGIC TO IV DYE? :NO ARE YOU DIABETIC? :NO ANY NEW PROBLEMS WITH YOUR MEDICATIONS? :NO HAVE YOU RECEIVED A VACCINE IN THE PAST 30 DAYS? :NO DO YOU PLAN TO RECEIVE A VACCINE IN THE NEXT 21 DAYS? :NO DO YOU NEED ANY PRESCRIPTION? :NO DO YOU TAKE ANY IMMUNOSUPPRESSIVE MEDICATIONS? :NO IS THERE A CHANCE YOU COULD BE ? :NO ARE YOU BREAST FEEDING? :NO CURRENT MEDICATIONS TAKING ZOCOR 40 MG TABLET 1 TABLET EVERY EVENING ORALLY ONCE A DAY TAKING LEVOTHYROXINE SODIUM 100 MCG TABLET 1 TABLET EVERY MORNING ON AN EMPTY STOMACH ORALLY ONCE A DAY TAKING VENTOLIN HFA 108 (90 BASE) MCG/ACT AEROSOL SOLUTION 2 PUFFS INHALATION Q4-6H PRN, NOTES: NONE RECENT TAKING GENERLAC 10 GM/15ML SOLUTION 30 ML NEEDED ORALLY BID TAKING OXYBUTYNIN CHLORIDE ER 10 MG TABLET EXTENDED RELEASE 24 HOUR 1 TABLET ORALLY ONCE A DAY TAKING HYDROCHLOROTHIAZIDE 25 MG TABLET 1 TABLET ORALLY ONCE A DAY TAKING NEBULIZERS - MISCELLANEOUS ALBUTEROL INHALATION Q 4-6 HRS. PRN, NOTES: > 2 MONTHS TAKING MAXALT 10 MG TABLET 1 TABLET NEEDED ONE TIME ORALLY ONCE AT ONSET OF H/A,REPEAT IN 2HR IF NO IMPROVEMENT, NOTES: > 1 WEEK TAKING SERTRALINE HCL 25 MG TABLET 1 TABLET ORALLY ONCE A DAY TAKING TRAZODONE HCL 50 MG TABLET 1 TABLET AT BEDTIME ORALLY ONCE A DAY TAKING ZANTAC 150 MG TABLET 1 TABLET ORALLY DAILY TAKING MUCINEX 600 MG TABLET EXTENDED RELEASE 1 TABLET NEEDED ORALLY EVERY 12 HRS TAKING ASPIRIN 81 81 MG TABLET DELAYED RELEASE 1 TABLET ORALLY ONCE A DAY TAKING ADVAIR DISKUS 250-50 MCG/DOSE MISCELLANEOUS 1 INHALATION EVERY 12 HRS, NOTES: > 2 WEEKS TAKING NORCO 7.5-325 MG TABLET 1 TABLET NEEDED ORALLY EVERY 6 HRS MDD4 TAKING TIZANIDINE HCL 4 MG TABLET 1 TABLET NEEDED ORALLY Q8H PRN MUSC;E SPASM PAIN NOT-TAKING HYDROCODONE-ACETAMINOPHEN 7.5-325 MG TABLET (SCHEDULE II DRUG) ORAL Q6H PRN MDD4 MEDICATION LIST REVIEWED AND RECONCILED WITH THE PATIENT PAST MEDICAL HISTORY HYPERTENSION HYPOTHYROIDISM DEPRESSION BIPOLAR DISORDER ANXIETY LOW BACK PAIN FIBROMYALGIA ARTHRITIS ESOPHAGEAL REFLUX HYPERLIPIDEMIA COPD CVA S/P R SIDE WEAKNESS MIGRAINE HEADACHE VITAMIN D DEFICIENCY ETOH HX OF SUBSTANCE ABUSE HX OF TIETZE SYNDROME BRONCHITIS 03/2016 TIA 08/2018 ALLERGIES LITHIUM CARBONATE: COLLEPSED, WENT TO ED - ALLERGY PENICILLIN (FOR ALLERGIES USE ONLY): HIVES - ALLERGY NUTS: SOB - ALLERGY ADHESIVES: TEARS SKINS - ALLERGY SURGICAL HISTORY T&A APPENDECTOMY C SECTION X 3 BILAT EYE LID LIFT 04/2018 HYSTERECTOMY 1982 FAMILY HISTORY FATHER: ALIVE, LUNG CA, DIAGNOSED WITH OTHER MALIGNANT NEOPLASM OF UNSPECIFIED SITE, HYPERTENSION MOTHER: , UNSPECIFIED NONPSYCHOTIC MENTAL DISORDER FOLLOWING ORGANIC BRAIN DAMAGE, OTHER SPECIFIED CONDITIONS INFLUENCING HEALTH STATUS, DIABETES 3 BROTHER(S) . 1 SON(S) , 2 DAUGHTER(S) . MOTHER - PARKINSON, JEAN'S DISEASE\\\\\\'S\\\\NBROTHER - COLON CANCER\\\\NDAUGHTERS - FIBROMYALGIA//SON DDD, DAUGHTER RA. DENIES HX OF MELANOMA AND PANCREATIC CANCER. SOCIAL HISTORY GENERAL: TOBACCO USE ARE YOU A: QUIT SMOKING ABOUT 7 YEARS AGO LATEX QUESTIONNAIRE LATEX ALLERGY : HAVE YOU EVER DEVELOPED ANY TYPE OF REACTION AFTER HANDLING LATEX PRODUCTS SUCH RUBBER GLOVES, CONDOMS, DIAPHRAGMS, BALLOONS, SOCKS, OR UNDERWEAR?NO LATEX ALLERGY : HAVE YOU EVER DEVELOPED ANY TYPE OF REACTION DURING OR AFTER DENTAL APPOINTMENT, VAGINAL/RECTAL EXAMINATION, SURGICAL PROCEDURE, OR ANY OTHER EXPOSURE?NO DATE ASKED : 07/06/2019 LATEX RISK : HAVE YOU EVER HAD ANY DIFFICULTY BREATHING OR HIVES AFTER EATING OR HANDLING ANY FRUITS, OR VEGETABLES; SUCH KIWI, BANANAS, STONE FRUITS, OR CHESTNUTSYES - PLEASE INDICATE : CHESTNUTS LATEX RISK : DO YOU HAVE A PREVIOUS PERSONAL HISTORY OF MORE THAN NINE SURGERIES, SPINA BIFIDA, OR REPEATED CATHERIZATIONS? NO LATEX RISK : ARE YOU FREQUENTLY EXPOSED TO LATEX PRODUCTS IN YOUR OCCUPATION?NO ALCOHOL SCREENING POINTS: 0, INTERPRETATION: NEGATIVE. RECREATIONAL DRUG USE DENIES; HISTORY OF ETOH DRUG ABUSE. CLEAN/SOBER SINCE EARLY . CAFFEINE >5/DAY. SEXUAL HX HAD SEX IN THE LAST 12 MONTHS (VAGINAL, ORAL, OR ANAL)?: NO, HAVE YOU EVER HAD AN STD?: NO. YAZDANISM NO MORMON BELIEFS THAT WOULD IMPACT HEALTH CARE. LANGUAGE [place]ESE. LEARNING BARRIERS / SPECIAL NEEDS CHANGE FROM LAST VISIT?NO 12/16/19 BARRIERS TO LEARNING?NO HEARING IMPAIRED?NO VISION IMPAIRED?YES COGNITIVELY IMPAIRED?NO :CORRECTIVE LENSES READINESS TO LEARN?YES LEARNING PREFERENCES?NO LEARNING CAPABILITIES PRESENT?YES EMOTIONAL BARRIERS?NO SPECIAL DEVICES?YES :CANE PERSONAL CARE SERVICE PROVIDER NEEDED?NO DOMESTIC VIOLENCE DO YOU FEEL SAFE IN YOUR ENVIRONMENT?YES OCCUPATION: UNEMPLOYED. DIET: REG. EXERCISE: WALKS,WATER AEROBICS. MARITAL STATUS: . OTHERS AT HOME: DAUGHTER. PAIN CLINIC PFS, CLERGY, PUBLIC HEALTH REFERRALS PFS REFERRAL NEEDED?NO CLERGY REFERRAL NEEDED?NO PUBLIC HEALTH REFERRAL NEEDED?NO HAS THE PATIENT BEEN EDUCATED REGARDING HIS/HER PLAN OF CARE?YES HAS THE PATIENT BEEN EDUCATED REGARDING PAIN, THE RISK FOR PAIN, THE IMPORTANCE OF EFFECTIVE PAIN MANAGEMENT, AND THE PAIN ASSESSMENT PROCESS?YES ADVANCE DIRECTIVE ADVANCE DIRECTIVE DISCUSSED WITH PATIENT:YES PT DOES NOT HAVE ANY ADVANCED DIRECTIVES AND SHE DECLINED HCP INFO AND ASSISTANCE WITH FORM AT THIS TIME. STATES SHE HAS THE INFORMATION BUT HASN'T COMPLETED THEM YET. REVIEWED WITH PT 10/28/18 1126 BVREVIEWED WITH PATIENT 11/11/18 1444 JSREVIEWED WITH PATIENT 12/01/18 1001 JSREVIEWED WITH PT 04/01/19 1216 BVREVIEWED WITH PATIENT 08/03/19 1152 REVIEWED WITH PATIENT 10/06/2019 LAS. HOSPITALIZATION/MAJOR DIAGNOSTIC PROCEDURE SURGICAL RELATED BACK PAIN MHE UTI CVA REVIEW OF SYSTEMS CONSTITUTIONAL: ANY RECENT FEVER OR ILLNESS NO . CHILLS NO . GASTROENTEROLOGY: BOWEL INCONTINENCE NO . ANY NEW CHANGE IN BOWEL CONTROL? NO . ABDOMINAL PAIN NO . CONSTIPATION NO . GENITOURINARY: ANY NEW CHANGE IN BLADDER CONTROL? NO . IS THERE A CHANCE YOU COULD BE ? NO . URINARY INCONTINENCE NO . CARDIOLOGY: CHEST PRESSURE NO . CHEST PAIN NO . RESPIRATORY: COUGH NO . SHORTNESS OF BREATH NO . VITAL SIGNS WT 234.6 LBS, HT 60.5", BMI 45.06 INDEX, BP 163/77 MM HG, HR 75 /MIN, RR 18 /MIN, TEMP 97.3 F, OXYGEN SAT % 97%, SAFE IN ENV? (Y/N) Y, NA INITIALS CT 10:41, REVIEWED BY: ABBIE. EXAMINATION NEUROLOGICAL: CRANIAL NERVES:2-12-INTACT. MOTOR STRENGTH:WEAK OVER RIGHT UPPER AND LOWER EXTREMITY COMPARED WITH LEFT.. SENSORY:SLIGHT DECREASE IN SENSE OF TOUCH OVER RIGHT UPPER AND LOWER EXTREMITY.. REFLEXES:2/4 BILATERALLY. CEREBELLAR SIGNS:NEGATIVE RHOMBERG. GAIT AND STATION:WITHIN NORMAL LIMITS. GENERAL EXAMINATION: LUNGS: LUNG SOUNDS ARE CLEAR. HEART: HEART SOUNDS ARE NORMAL, RHYTHM IS REGULAR, NO MURMUR. ASSESSMENTS SACROILIITIS - M46.1 (PRIMARY) CHRONIC MIGRAINE WITHOUT AURA, NOT INTRACTABLE, WITHOUT STATUS MIGRAINOSUS - G43.709 CHRONIC PRESCRIPTION OPIATE USE - Z79.891 TREATMENT SACROILIITIS CONTINUE NORCO TABLET, 7.5-325 MG, 1 TABLET NEEDED, ORALLY, EVERY 6 HRS MDD4 CONTINUE TIZANIDINE HCL TABLET, 4 MG, 1 TABLET NEEDED, ORALLY, Q8H PRN MUSC;E SPASM PAIN NOTES: SCHEDULE BOTOX FOR CHRONIC MIGRAINE HEADACHE PER TREATMENT GUIDELINES OF EVERY 3 MONTHS FOR PREVENTION AND TREATMENT OF CHRONIC MIGRAINE HEADACHE. , ISTOP REGISTRY REVIEWED AND DEMONSTRATES COMPLLIANCE. BRINGS IN MEDICATIONS WHICH IS APPROPRIATE FOR WHAT WAS DISPENSED. RECENT URINE TOXICOLOGY REVIEWED. NO UNAUTHORIZED MEDICATIONS. NO ILLICIT SUBSTANCES AND PRESCRIBED MEDICATIONS WERE PRESENT. URINE TOXICOLOGY TODAY , RISKS OF NARCOTIC/OPIOD MEDICATIONS INCLUDES BUT IS NOT LIMITED TO RISK OF DEPENDANCE/DEVELOPMENT OF ADDICTION, MOOD DISTURBANCE AND DEPRESSION, OSTEOPOROSIS, HORMONAL AND LABIDAL CHANGES, RESPIRATORY DEPRESSION AND . PATIENT IS ADVISED NOT TO DRIVE OR DRINK ALCOHOL WHILE ON THESE MEDICATIONS. OTHERS CLINICAL NOTES: PRE SCREENING CALL DONE 02/21/20 EM. DISPOSITION & COMMUNICATION FOLLOW UP POST (REASON: SCHEDULE BOTOX ) ELECTRONICALLY SIGNED BY ESTER DUARTE ON 02/23/2020 AT 03:14 PM EDT DISCLAIMER : THIS IS A VISIT SUMMARY EXTRACTED FROM THE [employer] CHART. IT IS NOT A COPY OF THE [employer] PROGRESS NOTE. ELEAZARD
== END ==
LOC: M PAIN 10:45
PROVIDERS: ATTEND Nurse Practitioner Family
DX: M46.1 Sacroiliitis, not elsewhere classified (principal); G43.709 Chronic migraine without aura, not intractable, without status migrainosus; Z79.891 Long term (current) use of opiate analgesic

== ENCOUNTER → 2020-02-29 | Outpatient (REF) | payer MEDICARE, SELFPAY ==
[2020-02-29 19:21] LABS: APPEARANCE, URINE CLEAR (CLEAR); BACTERIA, URINE AUTO NEGATIVE (NEGATIVE); BILIRUBIN, URINE AUTO NEGATIVE (NEGATIVE); BLOOD, URINE BLOOD 1+ (NEGATIVE); COLOR, URINE YELLOW (YELLOW); GLUCOSE, URINE (UA) AUTO NEGATIVE (NEGATIVE); KETONE, URINE AUTO NEGATIVE (NEGATIVE); LEUKOCYTE ESTERASE, URINE AUTO TRACE (NEGATIVE); MUCUS, URINE SMALL (NEGATIVE); NITRITE, URINE AUTO NEGATIVE (NEGATIVE); PROTEIN, URINE AUTO NEGATIVE (NEGATIVE); RBC, URINE AUTO 2 /HPF (0-3); SPECIFIC GRAVITY URINE AUTO 1.018 (1.002-1.035); SQUAMOUS EPITHELIAL CELL UR AU 2 /HPF (0-6); UROBILINOGEN, URINE AUTO 0.2 mg/dL (0.0-2.0); WBC, URINE AUTO 2 /HPF (0-3)
[2020-02-29 19:33] LABS: BASO # 0.1 10^3/uL (0.0-0.2); BASO % 1.2 % (0.0-1.0); EOS # 0.2 10^3/uL (0.0-0.5); EOS % 2.7 % (0.0-3.0); HEMATOCRIT 44.5 % (36.0-47.0); HEMOGLOBIN 13.9 g/dl (12.0-15.5); LYMPH # 2.5 10^3/uL (1.5-5.0); LYMPH % 33.7 % (24.0-44.0); MEAN CORPUSCULAR HEMOGLOBIN 26.6 pg (27.0-33.0); MEAN CORPUSCULAR HGB CONC 31.2 g/dl (32.0-36.5); MEAN CORPUSCULAR VOLUME 85.1 fl (80.0-96.0); MONO # 0.4 10^3/uL (0.0-0.8); MONO % 5.9 % (0.0-5.0); NEUTROPHILS # 4.2 10^3/uL (1.5-8.5); PLATELET COUNT, AUTOMATED 279 10^3/uL (150-450); RED BLOOD COUNT 5.23 10^6/uL (4.00-5.40); WHITE BLOOD COUNT 7.5 10^3/uL (4.0-10.0)
[2020-02-29 19:54] LABS: HEMOGLOBIN A1c 6.3 %
[2020-02-29 20:02] LABS: ALBUMIN 4.1 GM/DL (3.2-5.2); BILIRUBIN,TOTAL 0.3 MG/DL (0.2-1.0); CALCIUM LEVEL 9.7 MG/DL (8.8-10.2); CHOLESTEROL RISK RATIO 5.34 (<5); CREATININE FOR GFR 1.17 MG/DL (0.55-1.30); FREE T4 1.4 NG/DL (0.76-1.46); GLOMERULAR FILTRATION RATE 49.9 (>45); THYROID STIMULATING HORMONE 1.02 uIU/ML (0.358-3.740); TOTAL PROTEIN 7.8 GM/DL (6.4-8.2)
[2020-02-29 20:05] LABS: TOTAL 25(OH) VITAMIN D 15.2 NG/ML (30.0-100.0)
== END ==
LOC: M LAB REF 17:50
PROVIDERS: ATTEND Nurse Practitioner Family
DX: R73.03 Prediabetes (principal); F51.04 Psychophysiologic insomnia; E78.1 Pure hyperglyceridemia; M25.562 Pain in left knee; E87.6 Hypokalemia; E66.9 Obesity, unspecified; E55.9 Vitamin D deficiency, unspecified

== ENCOUNTER → 2020-03-20 | Outpatient (CLI) | payer MEDICARE ==
[~2020-03-20] MED LIST changes: +ASPI-546 PO; -ASPI1TAB15 PO
== END ==
LOC: M LABSMTC 10:10
PROVIDERS: ATTEND Anesthesiology
DX: Z11.59 Encounter for screening for other viral diseases (principal)
CPT/HCPCS: C9803; U0003

== ENCOUNTER → 2020-03-23 | Outpatient (CLI) | payer MEDICARE ==
[~2020-03-23] MED LIST changes: -ASPI-546 PO; +ASPI1TAB15 PO; +BOTOX THERAPEUTIC 100 UNIT VIAL (J0585 PER 1 UNIT) IM ONE
--- NOTE | 2020-03-29 03:02 | ECWPNPC ---
PATIENT NAME: LUIS ENRIQUE MCMILLAN : 1955 GENDER: FEMALE VISIT DATE: 03/23/2020 DISCHARGE DATE: 03/23/20 1405 VISIT LOCKED DATE TIME: PHYSICIAN: SCOTT BRUCE MD RESOURCE: SCOTT BRUCE MD REASON FOR APPOINTMENT 1. BOTOX HISTORY OF PRESENT ILLNESS GENERAL: -. FALL RISK SCREENING: SCREENING :NO FALLS REPORTED IN THE LAST YEAR PAIN SCREENING: PATIENT HAS A COMPLAINT OF ACUTE OR CHRONIC PAIN :YES LOCATION OF PAIN:HEAD INTENSITY OF PAIN (SCALE OF 1 TO 10):5 WHAT DOES YOUR PAIN FEEL LIKE:ACHING, CONTINOUS NURSING NOTE: -. PAIN CENTER INTAKE QUESTIONS: DO YOU HAVE A HISTORY OF MRSA? :NO DO YOU TAKE A BLOOD THINNERS? :NO DO YOU HAVE ANY BLEEDING DISORDERS? :NO ANY NEW NUMBNESS OR WEAKNESS IN YOUR LEGS OR ARMS? :NO ANY PACEMAKER,DEFIBRILLATOR, OR DORSAL COLUMN STIMULATOR? :NO DO YOU HAVE ANY RASHES OR OPEN SORES? :NO ARE YOU ALLERGIC TO IV DYE? :NO ARE YOU DIABETIC? :NO ANY NEW PROBLEMS WITH YOUR MEDICATIONS? :NO HAVE YOU RECEIVED A VACCINE IN THE PAST 30 DAYS? :NO DO YOU PLAN TO RECEIVE A VACCINE IN THE NEXT 21 DAYS? :NO DO YOU TAKE ANY IMMUNOSUPPRESSIVE MEDICATIONS? :NO ANY HISTORY OF SEIZURES? :NO ANY HISTORY OF CARDIAC ISSUES OR EVENTS? :NO DO YOU HAVE SLEEP APNEA? :YES DO YOU WEAR A CPAP?NO ANY RECENT HEAD INJURY? :NO DO YOU HAVE ANY NEW INFECTIONS? :NO IS THERE A CHANCE YOU COULD BE ? :NO ARE YOU BREAST FEEDING? :NO WHEN DID YOU LAST EAT? : -03/22 5P WHEN DID YOU LAST DRINK? : -03/23 6A WHAT DID YOU LAST DRINK? : -DIET COKE NAME OF PERSON DRIVING YOU HOME? : -GRANDDAUGHTER DO YOU HAVE ANY OTHER QUESTIONS OR CONCERNS? : NONE CURRENT MEDICATIONS TAKING ZOCOR 40 MG TABLET 1 TABLET EVERY EVENING ORALLY ONCE A DAY, NOTES: 03/23 6A TAKING LEVOTHYROXINE SODIUM 100 MCG TABLET 1 TABLET EVERY MORNING ON AN EMPTY STOMACH ORALLY ONCE A DAY, NOTES: 03/23 6A TAKING VENTOLIN HFA 108 (90 BASE) MCG/ACT AEROSOL SOLUTION 2 PUFFS INHALATION Q4-6H PRN, NOTES: 03/22 12NOON TAKING GENERLAC 10 GM/15ML SOLUTION 30 ML NEEDED ORALLY BID, NOTES: 03/22 7A TAKING OXYBUTYNIN CHLORIDE ER 10 MG TABLET EXTENDED RELEASE 24 HOUR 1 TABLET ORALLY ONCE A DAY, NOTES: 03/23 6A TAKING HYDROCHLOROTHIAZIDE 25 MG TABLET 1 TABLET ORALLY ONCE A DAY, NOTES: 03/23 6A TAKING NEBULIZERS - MISCELLANEOUS ALBUTEROL INHALATION Q 4-6 HRS. PRN, NOTES: > 2 MONTHS TAKING MAXALT 10 MG TABLET 1 TABLET NEEDED ONE TIME ORALLY ONCE AT ONSET OF H/A,REPEAT IN 2HR IF NO IMPROVEMENT, NOTES: 3 WEEKS TAKING SERTRALINE HCL 25 MG TABLET 1 TABLET ORALLY ONCE A DAY, NOTES: 03/23 6A TAKING TRAZODONE HCL 50 MG TABLET 1 TABLET AT BEDTIME ORALLY ONCE A DAY, NOTES: 03/22 9P TAKING ZANTAC 150 MG TABLET 1 TABLET ORALLY DAILY, NOTES: 03/23 6A TAKING MUCINEX 600 MG TABLET EXTENDED RELEASE 1 TABLET NEEDED ORALLY EVERY 12 HRS, NOTES: 03/22 2P TAKING ASPIRIN 81 81 MG TABLET DELAYED RELEASE 1 TABLET ORALLY ONCE A DAY, NOTES: 03/23 6A TAKING ADVAIR DISKUS 250-50 MCG/DOSE MISCELLANEOUS 1 INHALATION EVERY 12 HRS, NOTES: 03/23 7A TAKING TIZANIDINE HCL 4 MG TABLET 1 TABLET NEEDED ORALLY Q8H PRN MUSC;E SPASM PAIN, NOTES: 03/22 9P TAKING NORCO 7.5-325 MG TABLET 1 TABLET NEEDED ORALLY EVERY 6 HRS MDD4, NOTES: 03/23 6A TAKING VITAMIN D3 MAXIMUM STRENGTH 125 MCG (5000 UT) CAPSULE DIRECTED ORALLY NOT-TAKING HYDROCODONE-ACETAMINOPHEN 7.5-325 MG TABLET (SCHEDULE II DRUG) ORAL Q6H PRN MDD4 MEDICATION LIST REVIEWED AND RECONCILED WITH THE PATIENT PAST MEDICAL HISTORY HYPERTENSION HYPOTHYROIDISM DEPRESSION BIPOLAR DISORDER ANXIETY LOW BACK PAIN FIBROMYALGIA ARTHRITIS ESOPHAGEAL REFLUX HYPERLIPIDEMIA COPD CVA S/P R SIDE WEAKNESS MIGRAINE HEADACHE VITAMIN D DEFICIENCY ETOH HX OF SUBSTANCE ABUSE HX OF TIETZE SYNDROME BRONCHITIS 03/2016 TIA 08/2018 ALLERGIES LITHIUM CARBONATE: COLLEPSED, WENT TO ED - ALLERGY PENICILLIN (FOR ALLERGIES USE ONLY): HIVES - ALLERGY NUTS: SOB - ALLERGY ADHESIVES: TEARS SKINS - ALLERGY SURGICAL HISTORY T&A APPENDECTOMY C SECTION X 3 BILAT EYE LID LIFT 04/2018 HYSTERECTOMY 1982 FAMILY HISTORY FATHER: ALIVE, LUNG CA, DIAGNOSED WITH HYPERTENSION, OTHER MALIGNANT NEOPLASM OF UNSPECIFIED SITE MOTHER: , UNSPECIFIED NONPSYCHOTIC MENTAL DISORDER FOLLOWING ORGANIC BRAIN DAMAGE, OTHER SPECIFIED CONDITIONS INFLUENCING HEALTH STATUS, DIABETES 3 BROTHER(S) . 1 SON(S) , 2 DAUGHTER(S) . MOTHER - PARKINSON, JEAN'S DISEASE\\\\\\'S\\\\NBROTHER - COLON CANCER\\\\NDAUGHTERS - FIBROMYALGIA//SON DDD, DAUGHTER RA. DENIES HX OF MELANOMA AND PANCREATIC CANCER. SOCIAL HISTORY GENERAL: TOBACCO USE ARE YOU A: QUIT SMOKING ABOUT 7 YEARS AGO LATEX QUESTIONNAIRE LATEX ALLERGY : HAVE YOU EVER DEVELOPED ANY TYPE OF REACTION AFTER HANDLING LATEX PRODUCTS SUCH RUBBER GLOVES, CONDOMS, DIAPHRAGMS, BALLOONS, SOCKS, OR UNDERWEAR?NO LATEX ALLERGY : HAVE YOU EVER DEVELOPED ANY TYPE OF REACTION DURING OR AFTER DENTAL APPOINTMENT, VAGINAL/RECTAL EXAMINATION, SURGICAL PROCEDURE, OR ANY OTHER EXPOSURE?NO LATEX RISK : HAVE YOU EVER HAD ANY DIFFICULTY BREATHING OR HIVES AFTER EATING OR HANDLING ANY FRUITS, OR VEGETABLES; SUCH KIWI, BANANAS, STONE FRUITS, OR CHESTNUTSYES - PLEASE INDICATE : CHESTNUTS LATEX RISK : DO YOU HAVE A PREVIOUS PERSONAL HISTORY OF MORE THAN NINE SURGERIES, SPINA BIFIDA, OR REPEATED CATHERIZATIONS? NO LATEX RISK : ARE YOU FREQUENTLY EXPOSED TO LATEX PRODUCTS IN YOUR OCCUPATION?NO DATE ASKED : 03/23/2020 ALCOHOL SCREENING POINTS: 0, INTERPRETATION: NEGATIVE. RECREATIONAL DRUG USE DENIES; HISTORY OF ETOH DRUG ABUSE. CLEAN/SOBER SINCE EARLY . CAFFEINE >5/DAY. SEXUAL HX HAD SEX IN THE LAST 12 MONTHS (VAGINAL, ORAL, OR ANAL)?: NO, HAVE YOU EVER HAD AN STD?: NO. JAIN NO MOSQUE BELIEFS THAT WOULD IMPACT HEALTH CARE. LANGUAGE BURMESE. LEARNING BARRIERS / SPECIAL NEEDS CHANGE FROM LAST VISIT?NO 12/16/19 BARRIERS TO LEARNING?NO HEARING IMPAIRED?NO VISION IMPAIRED?YES COGNITIVELY IMPAIRED?NO :CORRECTIVE LENSES READINESS TO LEARN?YES LEARNING PREFERENCES?NO LEARNING CAPABILITIES PRESENT?YES EMOTIONAL BARRIERS?NO SPECIAL DEVICES?YES :CANE BOOK SHELVER NEEDED?NO DOMESTIC VIOLENCE DO YOU FEEL SAFE IN YOUR ENVIRONMENT?YES OCCUPATION: UNEMPLOYED. DIET: REG. EXERCISE: WALKS,WATER AEROBICS. MARITAL STATUS: . OTHERS AT HOME: DAUGHTER. PAIN CLINIC PFS, CLERGY, PUBLIC HEALTH REFERRALS PFS REFERRAL NEEDED?NO CLERGY REFERRAL NEEDED?NO PUBLIC HEALTH REFERRAL NEEDED?NO WAS THE PROVIDER NOTIFIED OF ANY PERTINENT INFO?YES HAS THE PATIENT BEEN EDUCATED REGARDING HIS/HER PLAN OF CARE?YES HAS THE PATIENT BEEN EDUCATED REGARDING PAIN, THE RISK FOR PAIN, THE IMPORTANCE OF EFFECTIVE PAIN MANAGEMENT, AND THE PAIN ASSESSMENT PROCESS?YES ADVANCE DIRECTIVE ADVANCE DIRECTIVE DISCUSSED WITH PATIENT:YES PT DOES NOT HAVE ANY ADVANCED DIRECTIVES AND SHE DECLINED HCP INFO AND ASSISTANCE WITH FORM AT THIS TIME. STATES SHE HAS THE INFORMATION BUT HASN'T COMPLETED THEM YET. HOSPITALIZATION/MAJOR DIAGNOSTIC PROCEDURE SURGICAL RELATED BACK PAIN MHE UTI CVA VITAL SIGNS WT 231.6 LBS, HT 60.5", BMI 44.48 INDEX, BP 140/84 MM HG, HR 88 /MIN, RR 18 /MIN, TEMP 97.6 F, OXYGEN SAT % 93%, SAFE IN ENV? (Y/N) Y, REVIEWED BY: MARGY. EXAMINATION GENERAL EXAMINATION: THE PATIENT IS ALERT, ORIENTED TIMES THREE AND COOPERATIVE. HEART SHOWS REGULAR RHYTHM, NO MURMURS AND NO GALLOPS. LUNGS ARE CLEAR TO AUSCULTATION. ASSESSMENTS CHRONIC MIGRAINE - G43.709 (PRIMARY) PROCEDURES PAIN NURSING RECORD PRE-PROCEDURE IV SITE N/A, PRE-PROCEDURE ORAL MEDICATIONS NA PROCEDURE IN ROOM 1220, PHYSICIAN IN ROOM 1344, START 1347, FINISH 1358, PHYSICIAN OUT OF ROOM 1358, OUT OF ROOM 1403, STEROID N/A, O2 RA, ECG N/A, PATIENT SHIELDED NO, SAFETY STRAP NO, PREP ALCOHOL DR. BRUCE, IV INFUSED N/A, DRESSING N/A LOC: HERRERA DEXTER 03/23/2020 12:53:15 PM > 1. ALERT, ORIENTED RESP: HERRERA DEXTER 03/23/2020 12:53:20 PM > 1. REGULAR, NO DYSPNEA COLOR: HERRERA DEXTER 03/23/2020 12:53:24 PM > 1. PINK SKIN: ISACCHERRERA 03/23/2020 12:53:27 PM > 1. WARM, DRY POSITION: ISACCHERRERA 03/23/2020 12:53:31 PM > 4. OTHER-SUPINE AND SITTING VITALS: ISACCHERRERA 03/23/2020 2:02:01 PM > 141/71, 85,18,97% DISCHARGE: POST PAIN 12/23-HEAD, DRESSING SITE NO DRESSING, IV N/A, GAIT STEADY, TEACHING COMPLETED, PATIENT ACKNOWLEDGES UNDERSTANDING YES, PATIENT DISCHARGED AT 1403 PN BOTOX INJECTIONS FIRST INJECTION PRE PROCEDURE DIAGNOSIS CHRONIC MIGRAINE HEADACHES POST PROCEDURE DIAGNOSIS CHRONIC MIGRAINE HEADACHES PROCEDURE BOTOX INJECTION AT THE HEAD, NECK AND SHOULDERS SURGEON DR. SCOTT BRUCE CHECK WEIGHER NONE ANESTHESIA NONE PRE PROCEDURE NOTE THE PATIENT HAS HISTORY OF CHRONIC MIGRAINE HEADACHES. I EVALUATED THE PATIENT AND REVIEWED THE CHART. I WENT OVER THE RISKS, ALTERNATIVES, AND BENEFITS ASSOCIATED WITH THIS PROCEDURE. THE PATIENT WOULD LIKE TO PROCEED AND GAVE CONSENT TO PERFORM THE PROCEDURE. THE PATIENT DENIES UNEXPLAINABLE WEIGHT LOSS, FEVER, CHILLS, OR NEW CHANGES IN URINARY OR BOWEL CONTROL. THE PATIENT HAS BEEN SUFFERING FROM SEVERE MIGRAINE HEADACHES EVERY DAY OF THE MONTH. THE PATIENT HAD BOTOX INJECTIONS 6 MONTHS AGO. AFTER THE INJECTIONS, HER HEADACHES WENT DOWN TO 3-4 A MONTH. THE PATIENT STATES THAT THE HEADACHES HAVE COME BACK. THE MAKE IT SO SHE CANNOT FUNCTION AND THEY LAST ALL DAY. THE PATIENT HAS USED THE MEDICATIONS LISTED IN THE CHART TO TREAT THE HEADACHES FOR MANY MONTHS BUT THE HEADACHES PERSIST DESCRIBED ABOVE DESCRIPTION OF PROCEDURE THE PATIENT WAS BROUGHT TO THE PROCEDURE ROOM AND PLACED IN THE SUPINE POSITION. I CHECKED LATERALITY AND THE AREAS WHERE THE PROCEDURE WAS GOING TO BE PERFORMED WITH THE PATIENT AND THE SUPPORTING STAFF AT THE MOMENT OF THE TIME OUT IN THE PROCEDURE ROOM. FOR THE PROCEDURE I USED A SOLUTION OF 5 UNITS OF BOTOX PER EACH 0.1 ML OF THE SOLUTION. I USED A 30-GAUGE NEEDLE TO INJECT THE SOLUTION AT THE SELECTED LOCATIONS. I INJECTED FIRST THE RIGHT AND LEFT BACCARAT MANAGER MUSCLES. THE LANDMARK FOR BOTH INJECTIONS WAS APPROXIMATELY 1 CM ABOVE THE SUPERIOR MEDIAL EDGE OF THE EYEBROW. AFTER THESE TWO INJECTIONS, I INJECTED THE PROCERUS MUSCLE AT THE MIDLINE POINT BETWEEN THESE FIRST TWO INJECTIONS. THEN I PROCEEDED TO INJECT THE RIGHT AND LEFT FRONTALIS MUSCLE. TWO INJECTIONS WERE DONE IN EACH SIDE. THE FIRST INJECTION WAS DONE APPROXIMATELY 2 CM ABOVE THE FIRST INJECTION OF THE BACCARAT MANAGER. THE SECOND INJECTION WAS DONE APPROXIMATELY 1.5 CM LATERAL TO THIS FIST INJECTION OF THE FRONTALIS OF EACH SIDE. AFTER THE INJECTIONS OVER THE FOREHEAD WERE DONE, THE PATIENT'S HEAD WAS TURNED TO THE LEFT SIDE AND WE STARTED TO WORK WITH THE RIGHT TEMPORALIS MUSCLE. FIRST INJECTION WAS DONE IN A VERTICAL LINE OF THE TRAGUS APPROXIMATELY 3 CM ABOVE THE TRAGUS. THE SECOND INJECTION WAS DONE APPROXIMATELY 2 CM ABOVE THE FIRST INJECTION. THE THIRD INJECTION WAS DONE APPROXIMATELY 1 CM FRONTWARD FROM THIS VERTICAL LINE CREATED AT THE LEVEL OF THE TRAGUS, DETENTION BETWEEN THESE TWO INJECTIONS. THE FOURTH INJECTION WAS DONE APPROXIMATELY 1.5 CM BACK FROM THE SECOND INJECTION TO THE TEMPORALIS IN LINE TO THE MIDPORTION OF THE EAR. THEN, WE PROCEEDED TO INJECT THE LEFT TEMPORALIS MUSCLE. WE CLEANED THE AREA WITH ALCOHOL AND PROCEEDED TO PERFORM THE SAME FOR INJECTIONS DESCRIBED ABOVE BUT IN THE LEFT TEMPORALIS MUSCLE USING THE SAME LANDMARKS. AFTER THESE INJECTIONS WERE DONE, THE PATIENT WAS SEATED. FIRST, WE STARTED TO INJECT THE LEFT AND RIGHT OCCIPITALIS MUSCLE. I INJECTED AT THE FOLLOWING PLACES IN THE RIGHT AND LEFT MUSCLE. THE FIRST INJECTION WAS DONE AT THE MIDPOINT POSITION BETWEEN THE MASTOID PROCESS AND THE INION OF THE OCCIPITAL PROTUBERANCE. THE SECOND INJECTION WAS DONE APPROXIMATELY 1.5 CM SUPERIOR AND LATERAL OF THIS POINT. THE THIRD INJECTION WAS DONE APPROXIMATELY 1.5 CM SUPERIOR AND MEDIAL TO THIS FIRST INJECTION. NEXT, I PROCEEDED TO INJECT THE RIGHT AND LEFT PARASPINAL MUSCLES. LANDMARK OF THE INJECTION WERE APPROXIMATELY: FIRST INJECTION 3 CM BELOW THE INION AND 1 CM LATERAL TO THE MIDLINE AND SECOND INJECTION AT EACH SIDE WAS DONE APPROXIMATELY 1.5 CM SUPERIOR AND LATERAL OF THE FIRST INJECTION. THE LAST GROUP OF INJECTIONS WAS DONE OVER THE RIGHT AND LEFT TRAPEZIUS MUSCLE OVER THE SHOULDERS AREA. THE FIRST INJECTION WAS DONE AT THE MIDPOINT BETWEEN THE INFLECTION POINT BETWEEN THE NECK AND SHOULDER AND THE ACROMION. THE SECOND AND THIRD INJECTIONS WERE DONE APPROXIMATELY 2.5 CM LATERAL AND MEDIAL FROM THIS FIRST INJECTION. SAME TARGETS WERE USED IN THE RIGHT AND LEFT SIDE. IN TOTAL, I INJECTED 155 UNITS OF BOTOX. THE MEDICATIONS WERE VERIFIED WITH THE NURSE. PROCEDURE WAS DONE WITHOUT EVIDENCE OF PARESTHESIA OR ANY COMPLICATIONS. THE PATIENT TOLERATED THE PROCEDURE VERY WELL. ESTIMATED BLOOD LOSS WAS LESS THAN 5 ML. THE PATIENT WAS SENT TO THE RECOVERY ROOM FOR OBSERVATIONS. INJECTIONS WERE DONE AFTER CLEANING WITH ALCOHOL, USING ASEPTIC TECHNIQUES POST PROCEDURE NOTE THE PROCEDURE DONE WAS DISCUSSED WITH THE PATIENT. THE PATIENT WILL BE SEEN IN A FOLLOW UP IN THE NEXT FEW WEEKS. I AM LOOKING FOR LONG LASTING PAIN RELIEF FOR THE PATIENT WITH THIS INTERVENTION. INSTRUCTIONS WERE GIVEN, QUESTIONS WERE ANSWERED, AND THE PATIENT EXPRESSED UNDERSTANDING AND AGREES WITH THE PLAN. I, ANTOINETTE LINDA, DOCUMENTED THE ABOVE INFORMATION ACTING A SCRIBE FOR DR. BRUCE. I HAVE REVIEWED THE ABOVE DOCUMENT, WRITTEN BY ANTOINETTE LINDA, TOOLMAKER HELPER, AND I VERIFY THAT IT IS ACCURATE PROCEDURE CODES 00058 CHEMODENERV MUSC MIGRAINE DISPOSITION & COMMUNICATION FOLLOW UP F/UP WITH PNEUMATIC JACKETER (REASON: POST BOTOX) ELECTRONICALLY SIGNED BY SCOTT BRUCE MD, MD ON 03/28/2020 AT 12:49 PM EDT DISCLAIMER : THIS IS A VISIT SUMMARY EXTRACTED FROM THE [employer] CHART. IT IS NOT A COPY OF THE [employer] PROGRESS NOTE. CAN
== END ==
LOC: M PAIN 11:15
PROVIDERS: ATTEND Anesthesiology
DX: G43.709 Chronic migraine without aura, not intractable, without status migrainosus (principal)
CPT/HCPCS: 64615; J0585

== ENCOUNTER → 2020-04-14 | Outpatient (POV) | payer MEDICAID, MEDICARE ==
[~2020-04-14] MED LIST changes: +ASPI-546 PO; -ASPI1TAB15 PO; -BOTOX THERAPEUTIC 100 UNIT VIAL (J0585 PER 1 UNIT) IM ONE
== END ==
LOC: M PAIN 09:30
PROVIDERS: ATTEND Nurse Practitioner Family
DX: G43.709 Chronic migraine without aura, not intractable, without status migrainosus (principal)

== ENCOUNTER → 2020-06-16 | Outpatient (CLI) | payer MEDICARE | LOC: M LABSMTC 13:16 | PROVIDERS: ATTEND Anesthesiology | DX: Z20.828 Contact with and (suspected) exposure to other viral communicable diseases (principal) | CPT/HCPCS: C9803; U0003 ==

== ENCOUNTER → 2020-06-21 | Outpatient (CLI) | payer MEDICARE ==
[~2020-06-21] MED LIST changes: +BOTOX THERAPEUTIC 100 UNIT VIAL (J0585 PER 1 UNIT) IM ONE
--- NOTE | 2020-06-26 13:39 | ECWPNPC ---
PATIENT NAME: LUIS ENRIQUE MCMILLAN : 1955 GENDER: FEMALE VISIT DATE: 06/21/2020 DISCHARGE DATE: 06/21/20 1224 VISIT LOCKED DATE TIME: PHYSICIAN: SCOTT BRUCE MD RESOURCE: SCOTT BRUCE MD REASON FOR APPOINTMENT 1. BOTOX HISTORY OF PRESENT ILLNESS PAIN CENTER INTAKE QUESTIONS: DO YOU HAVE A HISTORY OF MRSA? :NO DO YOU TAKE A BLOOD THINNERS? :NO DO YOU HAVE ANY BLEEDING DISORDERS? :NO ANY NEW NUMBNESS OR WEAKNESS IN YOUR LEGS OR ARMS? :NO ANY PACEMAKER,DEFIBRILLATOR, OR DORSAL COLUMN STIMULATOR? :NO DO YOU HAVE ANY RASHES OR OPEN SORES? :NO ARE YOU ALLERGIC TO IV DYE? :NO ARE YOU DIABETIC? :NO ANY NEW PROBLEMS WITH YOUR MEDICATIONS? :NO HAVE YOU RECEIVED A VACCINE IN THE PAST 30 DAYS? :NO DO YOU PLAN TO RECEIVE A VACCINE IN THE NEXT 21 DAYS? :NO DO YOU TAKE ANY IMMUNOSUPPRESSIVE MEDICATIONS? :NO ANY HISTORY OF SEIZURES? :NO ANY HISTORY OF CARDIAC ISSUES OR EVENTS? :NO DO YOU HAVE SLEEP APNEA? :YES DO YOU WEAR A CPAP?YES NON-COMPLIANT ANY RECENT HEAD INJURY? :NO DO YOU HAVE ANY NEW INFECTIONS? :NO IS THERE A CHANCE YOU COULD BE ? :NO ARE YOU BREAST FEEDING? :NO WHEN DID YOU LAST EAT? : 06/20/2020 1600 WHEN DID YOU LAST DRINK? : 06/21/2020 0500 WHAT DID YOU LAST DRINK? : DIET COKE NAME OF PERSON DRIVING YOU HOME? : -DAUGHTER-OZZY DO YOU HAVE ANY OTHER QUESTIONS OR CONCERNS? : - GENERAL: -. FALL RISK SCREENING: SCREENING :NO FALLS REPORTED IN THE LAST YEAR PAIN SCREENING: PATIENT HAS A COMPLAINT OF ACUTE OR CHRONIC PAIN :YES LOCATION OF PAIN:HEAD, NECK INTENSITY OF PAIN (SCALE OF 1 TO 10):4 WHAT DOES YOUR PAIN FEEL LIKE:ACHING, CONTINOUS, THROBBING DURATION:CONTINOUS PAIN IS INCREASED BY:ACTIVITIES PAIN IS DECREASED BY:USE OF PAIN MEDICATIONS, OTHERS LAYING DOWN, NO LIGHT, WARM CLOTH NURSING NOTE: -. CURRENT MEDICATIONS TAKING ZOCOR 40 MG TABLET 1 TABLET EVERY EVENING ORALLY ONCE A DAY, NOTES: 06/21/2020 2200 TAKING LEVOTHYROXINE SODIUM 100 MCG TABLET 1 TABLET EVERY MORNING ON AN EMPTY STOMACH ORALLY ONCE A DAY, NOTES: 06/21/2020 1100 TAKING VENTOLIN HFA 108 (90 BASE) MCG/ACT AEROSOL SOLUTION 2 PUFFS INHALATION Q4-6H PRN, NOTES: NONE RECENT TAKING OXYBUTYNIN CHLORIDE ER 10 MG TABLET EXTENDED RELEASE 24 HOUR 1 TABLET ORALLY ONCE A DAY, NOTES: 06/21/20201099 TAKING HYDROCHLOROTHIAZIDE 25 MG TABLET 1 TABLET ORALLY ONCE A DAY, NOTES: 06/21/20201099 TAKING NEBULIZERS - MISCELLANEOUS ALBUTEROL INHALATION Q 4-6 HRS. PRN TAKING MAXALT 10 MG TABLET 1 TABLET NEEDED ONE TIME ORALLY ONCE AT ONSET OF H/A,REPEAT IN 2HR IF NO IMPROVEMENT, NOTES: 06/21/20201099 TAKING SERTRALINE HCL 25 MG TABLET 1 TABLET ORALLY ONCE A DAY, NOTES: 06/21/20201099 TAKING TRAZODONE HCL 50 MG TABLET 1 TABLET AT BEDTIME ORALLY ONCE A DAY, NOTES: 06/21/20202199 TAKING ZANTAC 150 MG TABLET 1 TABLET ORALLY DAILY, NOTES: 06/21/20201099 TAKING MUCINEX 600 MG TABLET EXTENDED RELEASE 1 TABLET NEEDED ORALLY EVERY 12 HRS, NOTES: 06/21/20201099 TAKING ASPIRIN 81 81 MG TABLET DELAYED RELEASE 1 TABLET ORALLY ONCE A DAY, NOTES: 06/21/20201099 TAKING ADVAIR DISKUS 250-50 MCG/DOSE MISCELLANEOUS 1 INHALATION EVERY 12 HRS, NOTES: 06/21/20201099 TAKING TIZANIDINE HCL 4 MG TABLET 1 TABLET NEEDED ORALLY Q8H PRN MUSC;E SPASM PAIN, NOTES: 06/21/20201099 TAKING NORCO 7.5-325 MG TABLET 1 TABLET NEEDED ORALLY EVERY 6 HRS MDD4, NOTES: 06/22/2020 0500 TAKING VITAMIN D3 MAXIMUM STRENGTH 125 MCG (5000 UT) CAPSULE DIRECTED ORALLY TWICE WEEKLY, NOTES: 06/18/2020 TAKING LACTULOSE 10 GM/15ML SYRUP 15 ML ORALLY ONCE A DAY, NOTES: 06/21/20201099 TAKING VITAMIN B12 500 MCG TABLET 1 TABLET ORALLY ONCE A DAY, NOTES: 06/21/20201099 TAKING VITAMIN C 500 MG CAPSULE DIRECTED ORALLY , NOTES: 06/21/20201099 TAKING DULCOLAX 5 MG TABLET DELAYED RELEASE 1 TABLET NEEDED ORALLY ONCE A DAY, NOTES: 06/21/20201099 NOT-TAKING GENERLAC 10 GM/15ML SOLUTION 30 ML NEEDED ORALLY BID NOT-TAKING HYDROCODONE-ACETAMINOPHEN 7.5-325 MG TABLET (SCHEDULE II DRUG) ORAL Q6H PRN MDD4 MEDICATION LIST REVIEWED AND RECONCILED WITH THE PATIENT PAST MEDICAL HISTORY HYPERTENSION HYPOTHYROIDISM DEPRESSION BIPOLAR DISORDER ANXIETY LOW BACK PAIN FIBROMYALGIA ARTHRITIS ESOPHAGEAL REFLUX HYPERLIPIDEMIA COPD CVA S/P R SIDE WEAKNESS MIGRAINE HEADACHE VITAMIN D DEFICIENCY ETOH HX OF SUBSTANCE ABUSE HX OF TIETZE SYNDROME BRONCHITIS 03/2016 TIA 08/2018 ALLERGIES LITHIUM CARBONATE: COLLEPSED, WENT TO ED - ALLERGY PENICILLIN (FOR ALLERGIES USE ONLY): HIVES - ALLERGY NUTS: SOB - ALLERGY ADHESIVES: TEARS SKINS - ALLERGY SURGICAL HISTORY T&A APPENDECTOMY C SECTION X 3 BILAT EYE LID LIFT 04/2018 HYSTERECTOMY 1982 FAMILY HISTORY FATHER: ALIVE, LUNG CA, DIAGNOSED WITH HYPERTENSION, OTHER MALIGNANT NEOPLASM OF UNSPECIFIED SITE MOTHER: , DIABETES, UNSPECIFIED NONPSYCHOTIC MENTAL DISORDER FOLLOWING ORGANIC BRAIN DAMAGE, OTHER SPECIFIED CONDITIONS INFLUENCING HEALTH STATUS 3 BROTHER(S) . 1 SON(S) , 2 DAUGHTER(S) . MOTHER - PARKINSON, JEAN'S DISEASE\\\\\\'S\\\\NBROTHER - COLON CANCER\\\\NDAUGHTERS - FIBROMYALGIA//SON DDD, DAUGHTER RA. DENIES HX OF MELANOMA AND PANCREATIC CANCER. SOCIAL HISTORY GENERAL: TOBACCO USE ARE YOU A: QUIT SMOKING ABOUT 7 YEARS AGO LATEX QUESTIONNAIRE LATEX ALLERGY : HAVE YOU EVER DEVELOPED ANY TYPE OF REACTION AFTER HANDLING LATEX PRODUCTS SUCH RUBBER GLOVES, CONDOMS, DIAPHRAGMS, BALLOONS, SOCKS, OR UNDERWEAR?NO LATEX ALLERGY : HAVE YOU EVER DEVELOPED ANY TYPE OF REACTION DURING OR AFTER DENTAL APPOINTMENT, VAGINAL/RECTAL EXAMINATION, SURGICAL PROCEDURE, OR ANY OTHER EXPOSURE?NO LATEX RISK : HAVE YOU EVER HAD ANY DIFFICULTY BREATHING OR HIVES AFTER EATING OR HANDLING ANY FRUITS, OR VEGETABLES; SUCH KIWI, BANANAS, STONE FRUITS, OR CHESTNUTSYES - PLEASE INDICATE : CHESTNUTS LATEX RISK : DO YOU HAVE A PREVIOUS PERSONAL HISTORY OF MORE THAN NINE SURGERIES, SPINA BIFIDA, OR REPEATED CATHERIZATIONS? NO LATEX RISK : ARE YOU FREQUENTLY EXPOSED TO LATEX PRODUCTS IN YOUR OCCUPATION?NO DATE ASKED : 03/23/2020 ALCOHOL SCREENING POINTS: 0, INTERPRETATION: NEGATIVE. RECREATIONAL DRUG USE DENIES; HISTORY OF ETOH DRUG ABUSE. CLEAN/SOBER SINCE EARLY . CAFFEINE >5/DAY. SEXUAL HX HAD SEX IN THE LAST 12 MONTHS (VAGINAL, ORAL, OR ANAL)?: NO, HAVE YOU EVER HAD AN STD?: NO. DRUZE NO BAHAI BELIEFS THAT WOULD IMPACT HEALTH CARE. LANGUAGE MAORI. LEARNING BARRIERS / SPECIAL NEEDS CHANGE FROM LAST VISIT?NO 12/16/19 BARRIERS TO LEARNING?NO HEARING IMPAIRED?NO VISION IMPAIRED?YES COGNITIVELY IMPAIRED?NO :CORRECTIVE LENSES READINESS TO LEARN?YES LEARNING PREFERENCES?NO LEARNING CAPABILITIES PRESENT?YES EMOTIONAL BARRIERS?NO SPECIAL DEVICES?YES :CANE WEB APPLICATION DEVELOPER NEEDED?NO DOMESTIC VIOLENCE DO YOU FEEL SAFE IN YOUR ENVIRONMENT?YES OCCUPATION: UNEMPLOYED. DIET: REG. EXERCISE: WALKS,WATER AEROBICS. MARITAL STATUS: . OTHERS AT HOME: DAUGHTER. PAIN CLINIC PFS, CLERGY, PUBLIC HEALTH REFERRALS PFS REFERRAL NEEDED?NO CLERGY REFERRAL NEEDED?NO PUBLIC HEALTH REFERRAL NEEDED?NO WAS THE PROVIDER NOTIFIED OF ANY PERTINENT INFO?YES HAS THE PATIENT BEEN EDUCATED REGARDING HIS/HER PLAN OF CARE?YES HAS THE PATIENT BEEN EDUCATED REGARDING PAIN, THE RISK FOR PAIN, THE IMPORTANCE OF EFFECTIVE PAIN MANAGEMENT, AND THE PAIN ASSESSMENT PROCESS?YES ADVANCE DIRECTIVE ADVANCE DIRECTIVE DISCUSSED WITH PATIENT:YES PT DOES NOT HAVE ANY ADVANCED DIRECTIVES AND SHE DECLINED HCP INFO AND ASSISTANCE WITH FORM AT THIS TIME. STATES SHE HAS THE INFORMATION BUT HASN'T COMPLETED THEM YET. HOSPITALIZATION/MAJOR DIAGNOSTIC PROCEDURE SURGICAL RELATED BACK PAIN MHE UTI CVA VITAL SIGNS WT 237.0 LBS, HT 60.5", BMI 45.52 INDEX, BP 164/85 MM HG, HR 89 /MIN, RR 18 /MIN, TEMP 97.9 F, OXYGEN SAT % 98%, SAFE IN ENV? (Y/N) Y, REVIEWED BY: JOSE. EXAMINATION GENERAL EXAMINATION: THE PATIENT IS ALERT, ORIENTED TIMES THREE AND COOPERATIVE. HEART SHOWS REGULAR RHYTHM, NO MURMURS AND NO GALLOPS. LUNGS ARE CLEAR TO AUSCULTATION. ASSESSMENTS CHRONIC MIGRAINE - G43.709 (PRIMARY) TREATMENT OTHERS CLINICAL NOTES: 06/20/20 @ 11:20 JULY WYNNE, CARDING SUPERVISOR. PROCEDURES PAIN NURSING RECORD PRE-PROCEDURE IV SITE N/A, PRE-PROCEDURE ORAL MEDICATIONS NONE PROCEDURE IN ROOM 1151, PHYSICIAN IN ROOM 1155, START 1200, FINISH 1209, PHYSICIAN OUT OF ROOM 1210, OUT OF ROOM 1213, STEROID N/A, O2 RA, ECG N/A, PATIENT SHIELDED NO, SAFETY STRAP NO, PREP ALCOHOL DR. BRUCE, IV INFUSED N/A, DRESSING N/A LOC: DUNG PRESLEY 06/21/2020 12:00:56 PM > , 1. ALERT, ORIENTED RESP: DUNG PRESLEY 06/21/2020 12:01:07 PM > , 1. REGULAR, NO DYSPNEA COLOR: DUNG PRESLEY 06/21/2020 12:01:13 PM > , 1. PINK SKIN: DUNG PRESLEY 06/21/2020 12:01:21 PM > , 1. WARM, DRY POSITION: DUNG PRESLEY 06/21/2020 12:01:31 PM > , 4. OTHER - SUPINE AND UPRIGHT VITALS: DUNG PRESLEY 06/21/2020 12:14:08 PM > 173/84, 85, 18, 98% DISCHARGE: POST PAIN 10/25, DRESSING SITE NO DRESSING, IV N/A, GAIT STEADY, TEACHING COMPLETED, PATIENT ACKNOWLEDGES UNDERSTANDING YES, PATIENT DISCHARGED AT 1223 PN BOTOX INJECTIONS SUBSEQUENT INJECTIONS PRE PROCEDURE DIAGNOSIS CHRONIC MIGRAINE HEADACHES POST PROCEDURE DIAGNOSIS CHRONIC MIGRAINE HEADACHES PROCEDURE BOTOX INJECTION AT THE HEAD, NECK AND SHOULDERS SURGEON DR. SCOTT BRUCE INTELLIGENCE MANAGER NONE ANESTHESIA NONE PRE PROCEDURE NOTE THE PATIENT WITH HISTORY OF CHRONIC MIGRAINE HEADACHES. I EVALUATED THE PATIENT AND REVIEWED THE CHART. I WENT OVER THE RISKS, ALTERNATIVES, AND BENEFITS ASSOCIATED WITH THIS PROCEDURE. THE PATIENT WOULD LIKE TO PROCEED AND GAVE CONSENT TO PERFORM THE PROCEDURE. THE PATIENT DENIES UNEXPLAINABLE WEIGHT LOSS, FEVER, CHILLS, OR NEW CHANGES IN URINARY OR BOWEL CONTROL. THE PATIENT DID A BOTOX INJECTION AT THE HEAD, NECK AND SHOULDERS 3 MONTHS AGO. BEFORE THAT INJECTION, SHE WAS HAVING HEADACHES EVERY DAY. AFTER BOTOX, SHE WAS HAVING 2 TO 3 HEADACHES PER MONTH. THE PATIENT SAID THAT THE USE OF BOTOX HAS REDUCED SIGNIFICANTLY THE SEVERITY OF THE HEADACHES. THE PATIENT WOULD LIKE TO PROCEED WITH THIS PROCEDURE AGAIN TODAY. THE PATIENT IS COVID-19 NEGATIVE DESCRIPTION OF PROCEDURE THE PATIENT WAS BROUGHT TO THE PROCEDURE ROOM AND PLACED IN THE SUPINE POSITION. I CHECKED LATERALITY AND THE AREAS WHERE THE PROCEDURE WAS GOING TO BE PERFORMED WITH THE PATIENT AND THE SUPPORTING STAFF AT THE MOMENT OF THE TIME OUT IN THE PROCEDURE ROOM. FOR THE PROCEDURE I USED A SOLUTION OF 5 UNITS OF BOTOX PER EACH 0.1 ML OF THE SOLUTION. I USED A 30-GAUGE NEEDLE TO INJECT THE SOLUTION AT THE SELECTED LOCATIONS. I INJECTED FIRST THE RIGHT AND LEFT KISS MACHINE OPERATOR MUSCLES. THE LANDMARK FOR BOTH INJECTIONS WAS APPROXIMATELY 1 CM ABOVE THE SUPERIOR MEDIAL EDGE OF THE EYEBROW. AFTER THESE TWO INJECTIONS, I INJECTED THE PROCERUS MUSCLE AT THE MIDLINE POINT BETWEEN THESE FIRST TWO INJECTIONS. THEN I PROCEEDED TO INJECT THE RIGHT AND LEFT FRONTALIS MUSCLE. TWO INJECTIONS WERE DONE IN EACH SIDE. THE FIRST INJECTION WAS DONE APPROXIMATELY 2 CM ABOVE THE FIRST INJECTION OF THE KISS MACHINE OPERATOR. THE SECOND INJECTION WAS DONE APPROXIMATELY 1.5 CM LATERAL TO THIS FIST INJECTION OF THE FRONTALIS OF EACH SIDE. AFTER THE INJECTIONS OVER THE FOREHEAD WERE DONE, THE PATIENT'S HEAD WAS TURNED TO THE LEFT SIDE AND WE STARTED TO WORK WITH THE RIGHT TEMPORALIS MUSCLE. FIRST INJECTION WAS DONE IN A VERTICAL LINE OF THE TRAGUS APPROXIMATELY 3 CM ABOVE THE TRAGUS. THE SECOND INJECTION WAS DONE APPROXIMATELY 2 CM ABOVE THE FIRST INJECTION. THE THIRD INJECTION WAS DONE APPROXIMATELY 1 CM FRONTWARD FROM THIS VERTICAL LINE CREATED AT THE LEVEL OF THE TRAGUS, CUSTODIAL BETWEEN THESE TWO INJECTIONS. THE FOURTH INJECTION WAS DONE APPROXIMATELY 1.5 CM BACK FROM THE SECOND INJECTION TO THE TEMPORALIS IN LINE TO THE MIDPORTION OF THE EAR. THEN, WE PROCEEDED TO INJECT THE LEFT TEMPORALIS MUSCLE. WE CLEANED THE AREA WITH ALCOHOL AND PROCEEDED TO PERFORM THE SAME FOR INJECTIONS DESCRIBED ABOVE BUT IN THE LEFT TEMPORALIS MUSCLE USING THE SAME LANDMARKS. AFTER THESE INJECTIONS WERE DONE, THE PATIENT WAS SEATED. FIRST, WE STARTED TO INJECT THE LEFT AND RIGHT OCCIPITALIS MUSCLE. I INJECTED AT THE FOLLOWING PLACES IN THE RIGHT AND LEFT MUSCLE. THE FIRST INJECTION WAS DONE AT THE MIDPOINT POSITION BETWEEN THE MASTOID PROCESS AND THE INION OF THE OCCIPITAL PROTUBERANCE. THE SECOND INJECTION WAS DONE APPROXIMATELY 1.5 CM SUPERIOR AND LATERAL OF THIS POINT. THE THIRD INJECTION WAS DONE APPROXIMATELY 1.5 CM SUPERIOR AND MEDIAL TO THIS FIRST INJECTION. NEXT, I PROCEEDED TO INJECT THE RIGHT AND LEFT PARASPINAL MUSCLES. LANDMARK OF THE INJECTION WERE APPROXIMATELY: FIRST INJECTION 3 CM BELOW THE INION AND 1 CM LATERAL TO THE MIDLINE AND SECOND INJECTION AT EACH SIDE WAS DONE APPROXIMATELY 1.5 CM SUPERIOR AND LATERAL OF THE FIRST INJECTION. THE LAST GROUP OF INJECTIONS WAS DONE OVER THE RIGHT AND LEFT TRAPEZIUS MUSCLE OVER THE SHOULDER AREA. THE FIRST INJECTION WAS DONE AT THE MIDPOINT BETWEEN THE INFLECTION POINT BETWEEN THE NECK AND SHOULDER AND THE ACROMION. THE SECOND AND THIRD INJECTIONS WERE DONE APPROXIMATELY 2.5 CM LATERAL AND MEDIAL FROM THIS FIRST INJECTION. SAME TARGETS WERE USED IN THE RIGHT AND LEFT SIDE. IN TOTAL, I INJECTED 155 UNITS OF BOTOX. THE MEDICATION WAS VERIFIED WITH THE NURSE. PROCEDURE WAS DONE WITHOUT EVIDENCE OF PARESTHESIA, PNEUMOTHORAX, OR ANY COMPLICATIONS. THE PATIENT TOLERATED THE PROCEDURE VERY WELL. EBL LESS THAN 5 ML. THE PATIENT WAS SENT TO THE RECOVERY ROOM FOR OBSERVATIONS. INJECTIONS WERE DONE AFTER CLEANING WITH ALCOHOL, USING ASEPTIC TECHNIQUES POST PROCEDURE NOTE THE PROCEDURE WAS DISCUSSED WITH THE PATIENT. THE PATIENT WILL BE SEEN IN A FOLLOW UP IN THE NEXT FEW WEEKS. I AM LOOKING FOR LONG LASTING PAIN RELIEF FOR THE PATIENT WITH THIS INTERVENTION. INSTRUCTIONS WERE GIVEN, QUESTIONS WERE ANSWERED, AND THE PATIENT EXPRESSED UNDERSTANDING AND AGREED WITH THE PLAN. I, ANTOINETTE LINDA, DOCUMENTED THE ABOVE INFORMATION ACTING A SCRIBE FOR DR. BRUCE. I HAVE REVIEWED THE ABOVE DOCUMENT, WRITTEN BY ANTOINETTE LINDA, REAL ESTATE SALES MANAGER, AND I VERIFY THAT IT IS ACCURATE PROCEDURE CODES 62390 CHEMODENERV MUSC MIGRAINE DISPOSITION & COMMUNICATION FOLLOW UP FOLLOW UP WITH FACILITIES PAINTER (REASON: POST BOTOX) ELECTRONICALLY SIGNED BY SCOTT BRUCE MD, MD ON 06/26/2020 AT 01:37 PM EDT DISCLAIMER : THIS IS A VISIT SUMMARY EXTRACTED FROM THE [employer] CHART. IT IS NOT A COPY OF THE [employer] PROGRESS NOTE. CAN
== END ==
LOC: M PAIN 10:30
PROVIDERS: ATTEND Anesthesiology
DX: G43.709 Chronic migraine without aura, not intractable, without status migrainosus (principal); I10 Essential (primary) hypertension; E03.9 Hypothyroidism, unspecified; F32.9 Major depressive disorder, single episode, unspecified; F41.9 Anxiety disorder, unspecified; M79.7 Fibromyalgia; K21.9 Gastro-esophageal reflux disease without esophagitis; E78.5 Hyperlipidemia, unspecified; J44.9 Chronic obstructive pulmonary disease, unspecified; E55.9 Vitamin D deficiency, unspecified; I69.351 Hemiplegia and hemiparesis following cerebral infarction affecting right dominant side; Z87.891 Personal history of nicotine dependence; Z79.82 Long term (current) use of aspirin; Z79.891 Long term (current) use of opiate analgesic; Z79.899 Other long term (current) drug therapy; Z88.0 Allergy status to penicillin; Z91.018 Allergy to other foods; Z91.048 Other nonmedicinal substance allergy status
CPT/HCPCS: 64615; J0585

== ENCOUNTER → 2020-07-21 | Outpatient (CLI) | payer MEDICARE ==
[~2020-07-21] MED LIST changes: -BOTOX THERAPEUTIC 100 UNIT VIAL (J0585 PER 1 UNIT) IM ONE
--- NOTE | 2020-07-26 03:58 | ECWPNPC ---
PATIENT NAME: LUIS ENRIQUE MCMILLAN : 1955 GENDER: FEMALE VISIT DATE: 07/21/2020 DISCHARGE DATE: 07/21/20 1406 VISIT LOCKED DATE TIME: PHYSICIAN: MEAGAN OROSCO RESOURCE: MEAGAN OROSCO REASON FOR APPOINTMENT 1. POST BOTOX HISTORY OF PRESENT ILLNESS DEPRESSION SCREENING: PHQ-2 (2015 EDITION) LITTLE INTEREST OR PLEASURE IN DOING THINGS?NOT AT ALL FEELING DOWN, DEPRESSED, OR HOPELESS?NOT AT ALL TOTAL SCORE0 GENERAL: HERE FOR POST BOTOX F/U AND CHRONIC LBP.HAD BOTOX ON 06/21/2020 .REPORTING LESS FREQUENT AND LESS INTENSE HEADACHES SINCE STARTING Q3 MOS BOTOX THERAPY.REPORTS ONLY 2 HEADACHES SINCE LAST BOTOX.TODAY COMPLAINING OF SEVERE MID BACK PAIN. THIS BEGAN ABOUT 5 DAYS AGO WITHOUT PRECIPITATING EVENT. SHE WAS SEEN BY PRIMARY CARE AND THEY'VE ORDERED X-RAYS. THIS IS A NEW AREA OF PAIN FOR HER. -. FALL RISK SCREENING: SCREENING :NO FALLS REPORTED IN THE LAST YEAR NONE PAIN SCREENING: PATIENT HAS A COMPLAINT OF ACUTE OR CHRONIC PAIN :YES LOCATION OF PAIN:LOW BACK [place] AREA INTENSITY OF PAIN (SCALE OF 1 TO 10):6 WHAT DOES YOUR PAIN FEEL LIKE:ACHING DURATION:CONTINOUS PAIN IS INCREASED BY:ACTIVITIES PAIN IS DECREASED BY:USE OF PAIN MEDICATIONS NURSING NOTE: -. PAIN CENTER INTAKE QUESTIONS: DO YOU HAVE A HISTORY OF MRSA? :NO DO YOU TAKE A BLOOD THINNERS? :NO DO YOU HAVE ANY BLEEDING DISORDERS? :NO ANY NEW NUMBNESS OR WEAKNESS IN YOUR LEGS OR ARMS? :NO ANY PACEMAKER,DEFIBRILLATOR, OR DORSAL COLUMN STIMULATOR? :NO DO YOU HAVE ANY RASHES OR OPEN SORES? :NO ARE YOU ALLERGIC TO IV DYE? :NO ARE YOU DIABETIC? :NO ANY NEW PROBLEMS WITH YOUR MEDICATIONS? :NO HAVE YOU RECEIVED A VACCINE IN THE PAST 30 DAYS? :NO DO YOU PLAN TO RECEIVE A VACCINE IN THE NEXT 21 DAYS? :NO DO YOU NEED ANY PRESCRIPTION? :NO DO YOU TAKE ANY IMMUNOSUPPRESSIVE MEDICATIONS? :NO IS THERE A CHANCE YOU COULD BE ? :NO ARE YOU BREAST FEEDING? :NO CURRENT MEDICATIONS TAKING ZOCOR 40 MG TABLET 1 TABLET EVERY EVENING ORALLY ONCE A DAY, NOTES: 06/21/2020 2200 TAKING LEVOTHYROXINE SODIUM 100 MCG TABLET 1 TABLET EVERY MORNING ON AN EMPTY STOMACH ORALLY ONCE A DAY, NOTES: 06/21/20201099 TAKING VENTOLIN HFA 108 (90 BASE) MCG/ACT AEROSOL SOLUTION 2 PUFFS INHALATION Q4-6H PRN, NOTES: NONE RECENT TAKING OXYBUTYNIN CHLORIDE ER 10 MG TABLET EXTENDED RELEASE 24 HOUR 1 TABLET ORALLY ONCE A DAY, NOTES: 06/21/20201099 TAKING HYDROCHLOROTHIAZIDE 25 MG TABLET 1 TABLET ORALLY ONCE A DAY, NOTES: 06/21/20201099 TAKING NEBULIZERS - MISCELLANEOUS ALBUTEROL INHALATION Q 4-6 HRS. PRN TAKING MAXALT 10 MG TABLET 1 TABLET NEEDED ONE TIME ORALLY ONCE AT ONSET OF H/A,REPEAT IN 2HR IF NO IMPROVEMENT, NOTES: 06/21/20201099 TAKING SERTRALINE HCL 25 MG TABLET 1 TABLET ORALLY ONCE A DAY, NOTES: 06/21/20201099 TAKING TRAZODONE HCL 50 MG TABLET 1 TABLET AT BEDTIME ORALLY ONCE A DAY, NOTES: 06/21/20202199 TAKING ZANTAC 150 MG TABLET 1 TABLET ORALLY DAILY, NOTES: 06/21/20201099 TAKING MUCINEX 600 MG TABLET EXTENDED RELEASE 1 TABLET NEEDED ORALLY EVERY 12 HRS, NOTES: 06/21/20201099 TAKING ASPIRIN 81 81 MG TABLET DELAYED RELEASE 1 TABLET ORALLY ONCE A DAY, NOTES: 06/21/20201099 TAKING ADVAIR DISKUS 250-50 MCG/DOSE MISCELLANEOUS 1 INHALATION EVERY 12 HRS, NOTES: 06/21/20201099 TAKING TIZANIDINE HCL 4 MG TABLET 1 TABLET NEEDED ORALLY Q8H PRN MUSC;E SPASM PAIN, NOTES: 06/21/20201099 TAKING VITAMIN D3 MAXIMUM STRENGTH 125 MCG (5000 UT) CAPSULE DIRECTED ORALLY TWICE WEEKLY, NOTES: 06/18/2020 TAKING LACTULOSE 10 GM/15ML SYRUP 15 ML ORALLY ONCE A DAY, NOTES: 06/21/20201099 TAKING VITAMIN B12 500 MCG TABLET 1 TABLET ORALLY ONCE A DAY, NOTES: 06/21/20201099 TAKING VITAMIN C 500 MG CAPSULE DIRECTED ORALLY , NOTES: 06/21/20201099 TAKING DULCOLAX 5 MG TABLET DELAYED RELEASE 1 TABLET NEEDED ORALLY ONCE A DAY, NOTES: 06/21/20201099 TAKING NORCO 7.5-325 MG TABLET 1 TABLET NEEDED ORALLY EVERY 6 HRS MDD4, NOTES: 06/22/2020 0500 NOT-TAKING GENERLAC 10 GM/15ML SOLUTION 30 ML NEEDED ORALLY BID NOT-TAKING HYDROCODONE-ACETAMINOPHEN 7.5-325 MG TABLET (SCHEDULE II DRUG) ORAL Q6H PRN MDD4 MEDICATION LIST REVIEWED AND RECONCILED WITH THE PATIENT PAST MEDICAL HISTORY HYPERTENSION HYPOTHYROIDISM DEPRESSION BIPOLAR DISORDER ANXIETY LOW BACK PAIN FIBROMYALGIA ARTHRITIS ESOPHAGEAL REFLUX HYPERLIPIDEMIA COPD CVA S/P R SIDE WEAKNESS MIGRAINE HEADACHE VITAMIN D DEFICIENCY ETOH HX OF SUBSTANCE ABUSE HX OF TIETZE SYNDROME BRONCHITIS 03/2016 TIA 08/2018 ALLERGIES LITHIUM CARBONATE: COLLEPSED, WENT TO ED - ALLERGY PENICILLIN (FOR ALLERGIES USE ONLY): HIVES - ALLERGY NUTS: SOB - ALLERGY ADHESIVES: TEARS SKINS - ALLERGY SURGICAL HISTORY T&A APPENDECTOMY C SECTION X 3 BILAT EYE LID LIFT 04/2018 HYSTERECTOMY 1982 FAMILY HISTORY FATHER: ALIVE, LUNG CA, DIAGNOSED WITH HYPERTENSION, OTHER MALIGNANT NEOPLASM OF UNSPECIFIED SITE MOTHER: , DIABETES, UNSPECIFIED NONPSYCHOTIC MENTAL DISORDER FOLLOWING ORGANIC BRAIN DAMAGE, OTHER SPECIFIED CONDITIONS INFLUENCING HEALTH STATUS 3 BROTHER(S) . 1 SON(S) , 2 DAUGHTER(S) . MOTHER - PARKINSON, JEAN'S DISEASE\\\\\\'S\\\\NBROTHER - COLON CANCER\\\\NDAUGHTERS - FIBROMYALGIA//SON DDD, DAUGHTER RA. DENIES HX OF MELANOMA AND PANCREATIC CANCER. SOCIAL HISTORY GENERAL: TOBACCO USE ARE YOU A: QUIT SMOKING ABOUT 7 YEARS AGO LATEX QUESTIONNAIRE LATEX ALLERGY : HAVE YOU EVER DEVELOPED ANY TYPE OF REACTION AFTER HANDLING LATEX PRODUCTS SUCH RUBBER GLOVES, CONDOMS, DIAPHRAGMS, BALLOONS, SOCKS, OR UNDERWEAR?NO LATEX ALLERGY : HAVE YOU EVER DEVELOPED ANY TYPE OF REACTION DURING OR AFTER DENTAL APPOINTMENT, VAGINAL/RECTAL EXAMINATION, SURGICAL PROCEDURE, OR ANY OTHER EXPOSURE?NO LATEX RISK : HAVE YOU EVER HAD ANY DIFFICULTY BREATHING OR HIVES AFTER EATING OR HANDLING ANY FRUITS, OR VEGETABLES; SUCH KIWI, BANANAS, STONE FRUITS, OR CHESTNUTSYES - PLEASE INDICATE : CHESTNUTS LATEX RISK : DO YOU HAVE A PREVIOUS PERSONAL HISTORY OF MORE THAN NINE SURGERIES, SPINA BIFIDA, OR REPEATED CATHERIZATIONS? NO LATEX RISK : ARE YOU FREQUENTLY EXPOSED TO LATEX PRODUCTS IN YOUR OCCUPATION?NO DATE ASKED : 07/21/2020 ALCOHOL SCREENING POINTS: 0, INTERPRETATION: NEGATIVE. RECREATIONAL DRUG USE DENIES; HISTORY OF ETOH DRUG ABUSE. CLEAN/SOBER SINCE EARLY . CAFFEINE >5/DAY. SEXUAL HX HAD SEX IN THE LAST 12 MONTHS (VAGINAL, ORAL, OR ANAL)?: NO, HAVE YOU EVER HAD AN STD?: NO. JEW NO SPIRITISM BELIEFS THAT WOULD IMPACT HEALTH CARE. LANGUAGE MALTESE. LEARNING BARRIERS / SPECIAL NEEDS CHANGE FROM LAST VISIT?NO 12/16/19 BARRIERS TO LEARNING?NO HEARING IMPAIRED?NO VISION IMPAIRED?YES COGNITIVELY IMPAIRED?NO :CORRECTIVE LENSES READINESS TO LEARN?YES LEARNING PREFERENCES?NO LEARNING CAPABILITIES PRESENT?YES EMOTIONAL BARRIERS?NO SPECIAL DEVICES?YES :CANE BAG PRESSER NEEDED?NO DOMESTIC VIOLENCE DO YOU FEEL SAFE IN YOUR ENVIRONMENT?YES OCCUPATION: UNEMPLOYED. DIET: REG. EXERCISE: WALKS,WATER AEROBICS. MARITAL STATUS: . OTHERS AT HOME: DAUGHTER. PAIN CLINIC PFS, CLERGY, PUBLIC HEALTH REFERRALS PFS REFERRAL NEEDED?NO CLERGY REFERRAL NEEDED?NO PUBLIC HEALTH REFERRAL NEEDED?NO WAS THE PROVIDER NOTIFIED OF ANY PERTINENT INFO?YES HAS THE PATIENT BEEN EDUCATED REGARDING HIS/HER PLAN OF CARE?YES HAS THE PATIENT BEEN EDUCATED REGARDING PAIN, THE RISK FOR PAIN, THE IMPORTANCE OF EFFECTIVE PAIN MANAGEMENT, AND THE PAIN ASSESSMENT PROCESS?YES ADVANCE DIRECTIVE ADVANCE DIRECTIVE DISCUSSED WITH PATIENT:YES PT DOES NOT HAVE ANY ADVANCED DIRECTIVES AND SHE DECLINED HCP INFO AND ASSISTANCE WITH FORM AT THIS TIME. STATES SHE HAS THE INFORMATION BUT HASN'T COMPLETED THEM YET. HOSPITALIZATION/MAJOR DIAGNOSTIC PROCEDURE SURGICAL RELATED BACK PAIN MHE UTI CVA REVIEW OF SYSTEMS CONSTITUTIONAL: ANY RECENT FEVER NO . CHILLS NO . WEIGHT CHANGE OF UNKNOWN REASONS NO . GASTROENTEROLOGY: NEW UNEXPLAINABLE CHANGES IN BOWEL CONTROL NO . CONSTIPATION NO . GENITOURINARY: ANY NEW CHANGE IN BLADDER CONTROL? NO . NEUROLOGY: NEW ONSET DIZZINESS OR NEUROLOGICAL CHANGES NOT MENTIONED NO . NEW NUMBNESS OR PAIN PATTERNS NOT MENTIONED AND PERTINENT TO TODAY'S VISIT NO . CARDIOLOGY: NEW CHEST PRESSURE NO . NEW CHEST PAIN NO . RESPIRATORY: UNEXPLAINABLE COUGH NO . NEW SHORTNESS OF BREATH NO . VITAL SIGNS WT 238.8 LBS, HT 60.5", BMI 45.86 INDEX, BP 127/77 MM HG, HR 74 /MIN, RR 18 /MIN, TEMP 98.2 F, OXYGEN SAT % 97%, SAFE IN ENV? (Y/N) YES, NA INITIALS AW 1313, REVIEWED BY: JOSE. EXAMINATION GENERAL EXAMINATION: LUNGS: LUNG SOUNDS ARE CLEAR. HEART: HEART SOUNDS ARE NORMAL, RHYTHM IS REGULAR, NO MURMUR. ASSESSMENTS CHRONIC MIGRAINE WITHOUT AURA, NOT INTRACTABLE, WITHOUT STATUS MIGRAINOSUS - G43.709 (PRIMARY) TREATMENT CHRONIC MIGRAINE WITHOUT AURA, NOT INTRACTABLE, WITHOUT STATUS MIGRAINOSUS PAIN PROCEDURE LOGDATE OF [id number]/07/2020PROCEDURE:BOTOXAMOUNT OF PRE SEDATENONERESULT:MARKED REDUCTION IN FREQUENCY AND INTENSITY OF MIGRAINE HEADACHES NOTES: SCHEDULE BOTOX. PROCEDURE CODES [id number] ESTABILISHED PATIENT [facility] FACILITY CHARGE DISPOSITION & COMMUNICATION FOLLOW UP 2 MONTHS/LOW BACK F/U (REASON: SCHEDULE BOTOX 3 MOS FROM LAST) ELECTRONICALLY SIGNED BY ESTER DUARTE ON 07/25/2020 AT 12:56 PM EST DISCLAIMER : THIS IS A VISIT SUMMARY EXTRACTED FROM THE [employer] CHART. IT IS NOT A COPY OF THE [employer] PROGRESS NOTE. MTDD
== END ==
LOC: M PAIN 13:30
PROVIDERS: ATTEND Nurse Practitioner Family
DX: G43.709 Chronic migraine without aura, not intractable, without status migrainosus (principal); I10 Essential (primary) hypertension; E03.9 Hypothyroidism, unspecified; F32.9 Major depressive disorder, single episode, unspecified; F41.9 Anxiety disorder, unspecified; M79.7 Fibromyalgia; K21.9 Gastro-esophageal reflux disease without esophagitis; E78.5 Hyperlipidemia, unspecified; J44.9 Chronic obstructive pulmonary disease, unspecified; I69.351 Hemiplegia and hemiparesis following cerebral infarction affecting right dominant side; E55.9 Vitamin D deficiency, unspecified; G43.909 Migraine, unspecified, not intractable, without status migrainosus; Z87.891 Personal history of nicotine dependence; Z79.82 Long term (current) use of aspirin; Z79.891 Long term (current) use of opiate analgesic; Z79.899 Other long term (current) drug therapy; Z88.0 Allergy status to penicillin; Z88.8 Allergy status to other drugs, medicaments and biological substances; Z91.018 Allergy to other foods; Z91.048 Other nonmedicinal substance allergy status

== ENCOUNTER → 2020-10-12 | Outpatient (CLI) | payer MEDICARE | LOC: M LABSMTC 11:47 | PROVIDERS: ATTEND Anesthesiology | DX: Z20.822 Contact with and (suspected) exposure to COVID-19 (principal) ==

== ENCOUNTER → 2020-10-17 | Outpatient (CLI) | payer MEDICARE ==
[~2020-10-17] MED LIST changes: +BOTOX THERAPEUTIC 100 UNIT VIAL (J0585 PER 1 UNIT) IM ONE
--- NOTE | 2020-10-19 01:06 | ECWPNPC ---
PATIENT NAME: LUIS ENRIQUE MCMILLAN : 1955 GENDER: FEMALE VISIT DATE: 10/17/2020 DISCHARGE DATE: 10/17/20 1513 VISIT LOCKED DATE TIME: PHYSICIAN: SCOTT BRUCE MD RESOURCE: SCOTT BRUCE MD REASON FOR APPOINTMENT 1. BOTOX INJECTIONS TO HEAD, NECK AND SHOULDER AREAS HISTORY OF PRESENT ILLNESS GENERAL: -. FALL RISK SCREENING: SCREENING :ONE FALL WITH INJURY IN THE PAST YEAR PAIN SCREENING: PATIENT HAS A COMPLAINT OF ACUTE OR CHRONIC PAIN :YES LOCATION OF PAIN: WHOLE BODY INTENSITY OF PAIN (SCALE OF 1 TO 10):6 WHAT DOES YOUR PAIN FEEL LIKE:THROBBING DURATION:INTERMITTENT PAIN IS INCREASED BY:ACTIVITIES PAIN IS DECREASED BY:USE OF PAIN MEDICATIONS TREATMENT/MEDICATIONS USED TO MANAGE PAIN:OTC PAIN RELIEVERS LEVEL OF RELIEF FROM PAIN TREATMENTS IN THE PAST:50% PAIN HAS INTERFERED WITH THE FOLLOWING:BATHING/DRESSING, WALKING ABILITY, HOUSEWORK, SLEEP, TRANSPORTATION, TOILETING NURSING NOTE: -. PAIN CENTER INTAKE QUESTIONS: DO YOU HAVE A HISTORY OF MRSA? :NO DO YOU TAKE A BLOOD THINNERS? :NO DO YOU HAVE ANY BLEEDING DISORDERS? :NO ANY NEW NUMBNESS OR WEAKNESS IN YOUR LEGS OR ARMS? :NO ANY PACEMAKER,DEFIBRILLATOR, OR DORSAL COLUMN STIMULATOR? :NO DO YOU HAVE ANY RASHES OR OPEN SORES? :NO ARE YOU ALLERGIC TO IV DYE? :NO ARE YOU DIABETIC? :NO ANY NEW PROBLEMS WITH YOUR MEDICATIONS? :NO HAVE YOU RECEIVED A VACCINE IN THE PAST 30 DAYS? :NO DO YOU PLAN TO RECEIVE A VACCINE IN THE NEXT 21 DAYS? :NO DO YOU TAKE ANY IMMUNOSUPPRESSIVE MEDICATIONS? :NO ANY HISTORY OF SEIZURES? :NO ANY HISTORY OF CARDIAC ISSUES OR EVENTS? :NO DO YOU HAVE SLEEP APNEA? :NO ANY RECENT HEAD INJURY? :YES 3 WEEKS AGO PT FELL AND HIT HEAD, DID NOT SEEK MEDICAL TX, PT DENIED LOC. ALSO HX OF CONCUSIONS X 3 DO YOU HAVE ANY NEW INFECTIONS? :NO IS THERE A CHANCE YOU COULD BE ? :NO ARE YOU BREAST FEEDING? :NO WHEN DID YOU LAST EAT? : 10/16/20 1900 WHEN DID YOU LAST DRINK? : -DIET COKE WHAT DID YOU LAST DRINK? : 10/17/20 0500 NAME OF PERSON DRIVING YOU HOME? : DAUGHTER DO YOU HAVE ANY OTHER QUESTIONS OR CONCERNS? : - CURRENT MEDICATIONS TAKING ZOCOR 40 MG TABLET 1 TABLET EVERY EVENING ORALLY ONCE A DAY TAKING LEVOTHYROXINE SODIUM 100 MCG TABLET 1 TABLET EVERY MORNING ON AN EMPTY STOMACH ORALLY ONCE A DAY TAKING VENTOLIN HFA 108 (90 BASE) MCG/ACT AEROSOL SOLUTION 2 PUFFS INHALATION Q4-6H PRN TAKING OXYBUTYNIN CHLORIDE ER 10 MG TABLET EXTENDED RELEASE 24 HOUR 1 TABLET ORALLY ONCE A DAY TAKING HYDROCHLOROTHIAZIDE 25 MG TABLET 1 TABLET ORALLY ONCE A DAY TAKING NEBULIZERS - MISCELLANEOUS ALBUTEROL INHALATION Q 4-6 HRS. PRN TAKING MAXALT 10 MG TABLET 1 TABLET NEEDED ONE TIME ORALLY ONCE AT ONSET OF H/A,REPEAT IN 2HR IF NO IMPROVEMENT TAKING SERTRALINE HCL 25 MG TABLET 1 TABLET ORALLY ONCE A DAY TAKING TRAZODONE HCL 50 MG TABLET 1 TABLET AT BEDTIME ORALLY ONCE A DAY, NOTES: 10/13/20 TAKING ZANTAC 150 MG TABLET 1 TABLET ORALLY DAILY TAKING MUCINEX 600 MG TABLET EXTENDED RELEASE 1 TABLET NEEDED ORALLY EVERY 12 HRS TAKING ASPIRIN 81 81 MG TABLET DELAYED RELEASE 1 TABLET ORALLY ONCE A DAY TAKING ADVAIR DISKUS 250-50 MCG/DOSE MISCELLANEOUS 1 INHALATION EVERY 12 HRS TAKING VITAMIN D3 MAXIMUM STRENGTH 125 MCG (5000 UT) CAPSULE DIRECTED ORALLY TWICE WEEKLY TAKING LACTULOSE 10 GM/15ML SYRUP 15 ML ORALLY ONCE A DAY TAKING VITAMIN B12 500 MCG TABLET 1 TABLET ORALLY ONCE A DAY TAKING VITAMIN C 500 MG CAPSULE DIRECTED ORALLY TAKING DULCOLAX 5 MG TABLET DELAYED RELEASE 1 TABLET NEEDED ORALLY ONCE A DAY TAKING TIZANIDINE HCL 4 MG TABLET 1 TABLET NEEDED ORALLY Q8H PRN MUSC;E SPASM PAIN, NOTES: 10/15/20 TAKING NORCO 7.5-325 MG TABLET 1 TABLET NEEDED ORALLY EVERY 6 HRS MDD4, NOTES: 10/16/20 TAKING BOTOX 100 UNIT SOLUTION RECONSTITUTED FOR IM INJECTION AT THE HEAD, NECK AND SHOULDER MUSCLES ICD G43.709 BOTOX SCHEDULED 10/17/2020 AT 2:30 PM. NOT-TAKING GENERLAC 10 GM/15ML SOLUTION 30 ML NEEDED ORALLY BID NOT-TAKING HYDROCODONE-ACETAMINOPHEN 7.5-325 MG TABLET (SCHEDULE II DRUG) ORAL Q6H PRN MDD4 MEDICATION LIST REVIEWED AND RECONCILED WITH THE PATIENT PAST MEDICAL HISTORY HYPERTENSION HYPOTHYROIDISM DEPRESSION BIPOLAR DISORDER ANXIETY LOW BACK PAIN FIBROMYALGIA ARTHRITIS ESOPHAGEAL REFLUX HYPERLIPIDEMIA COPD CVA S/P R SIDE WEAKNESS MIGRAINE HEADACHE VITAMIN D DEFICIENCY ETOH HX OF SUBSTANCE ABUSE HX OF TIETZE SYNDROME BRONCHITIS 03/2016 TIA 08/2018 ALLERGIES LITHIUM CARBONATE: COLLEPSED, WENT TO ED - ALLERGY PENICILLIN (FOR ALLERGIES USE ONLY): HIVES - ALLERGY NUTS: SOB - ALLERGY ADHESIVES: TEARS SKINS - ALLERGY SOCIAL HISTORY GENERAL: TOBACCO USE ARE YOU A: QUIT SMOKING ABOUT 7 YEARS AGO LATEX QUESTIONNAIRE LATEX ALLERGY : HAVE YOU EVER DEVELOPED ANY TYPE OF REACTION AFTER HANDLING LATEX PRODUCTS SUCH RUBBER GLOVES, CONDOMS, DIAPHRAGMS, BALLOONS, SOCKS, OR UNDERWEAR?NO LATEX ALLERGY : HAVE YOU EVER DEVELOPED ANY TYPE OF REACTION DURING OR AFTER DENTAL APPOINTMENT, VAGINAL/RECTAL EXAMINATION, SURGICAL PROCEDURE, OR ANY OTHER EXPOSURE?NO DATE ASKED : 07/21/2020 LATEX RISK : HAVE YOU EVER HAD ANY DIFFICULTY BREATHING OR HIVES AFTER EATING OR HANDLING ANY FRUITS, OR VEGETABLES; SUCH KIWI, BANANAS, STONE FRUITS, OR CHESTNUTSYES - PLEASE INDICATE : CHESTNUTS LATEX RISK : DO YOU HAVE A PREVIOUS PERSONAL HISTORY OF MORE THAN NINE SURGERIES, SPINA BIFIDA, OR REPEATED CATHERIZATIONS? NO LATEX RISK : ARE YOU FREQUENTLY EXPOSED TO LATEX PRODUCTS IN YOUR OCCUPATION?NO ALCOHOL SCREENING POINTS: 0, INTERPRETATION: NEGATIVE. RECREATIONAL DRUG USE DENIES; HISTORY OF ETOH DRUG ABUSE. CLEAN/SOBER SINCE EARLY . CAFFEINE >5/DAY. SEXUAL HX HAD SEX IN THE LAST 12 MONTHS (VAGINAL, ORAL, OR ANAL)?: NO, HAVE YOU EVER HAD AN STD?: NO. PENTECOSTALISM NO YAZIDISM BELIEFS THAT WOULD IMPACT HEALTH CARE. LANGUAGE MONGOLIAN. LEARNING BARRIERS / SPECIAL NEEDS CHANGE FROM LAST VISIT?NO 12/16/19 BARRIERS TO LEARNING?NO HEARING IMPAIRED?NO VISION IMPAIRED?YES COGNITIVELY IMPAIRED?NO :CORRECTIVE LENSES READINESS TO LEARN?YES LEARNING PREFERENCES?NO LEARNING CAPABILITIES PRESENT?YES EMOTIONAL BARRIERS?NO SPECIAL DEVICES?YES :CANE LIBRARIAN HELPER NEEDED?NO DOMESTIC VIOLENCE DO YOU FEEL SAFE IN YOUR ENVIRONMENT?YES OCCUPATION: UNEMPLOYED. DIET: REG. EXERCISE: WALKS,WATER AEROBICS. MARITAL STATUS: . OTHERS AT HOME: DAUGHTER. - PFS REFERRAL NEEDED?NO CLERGY REFERRAL NEEDED?NO PUBLIC HEALTH REFERRAL NEEDED?NO WAS THE PROVIDER NOTIFIED OF ANY PERTINENT INFO?YES HAS THE PATIENT BEEN EDUCATED REGARDING HIS/HER PLAN OF CARE?YES HAS THE PATIENT BEEN EDUCATED REGARDING PAIN, THE RISK FOR PAIN, THE IMPORTANCE OF EFFECTIVE PAIN MANAGEMENT, AND THE PAIN ASSESSMENT PROCESS?YES ADVANCE DIRECTIVE ADVANCE DIRECTIVE DISCUSSED WITH PATIENT:YES PT DOES NOT HAVE ANY ADVANCED DIRECTIVES AND SHE DECLINED HCP INFO AND ASSISTANCE WITH FORM AT THIS TIME. STATES SHE HAS THE INFORMATION BUT HASN'T COMPLETED THEM YET. VITAL SIGNS WT 232.2 LBS, HT 60.5", BMI 44.60 INDEX, BP 174/81 MM HG, HR 94 /MIN, RR 18 /MIN, TEMP 97.2 F, OXYGEN SAT % 99%, SAFE IN ENV? (Y/N) YES, NA INITIALS AW 1340, REVIEWED BY: CARLOS. EXAMINATION GENERAL EXAMINATION: THE PATIENT IS ALERT, ORIENTED TIMES THREE AND COOPERATIVE. LUNGS ARE CLEAR TO AUSCULTATION. HEART SHOWS REGULAR RHYTHM, NO MURMURS AND NO GALLOPS. ASSESSMENTS CHRONIC MIGRAINE - G43.709 (PRIMARY) TREATMENT CHRONIC MIGRAINE COMPLETION OF PROCEDURAL VISIT WHEN MEETS CRITERIAFÉLIX YING 10/17/2020 3:16:15 PM > CRITERIA MET OTHERS NOTES: JULY WYNNE, MATERIAL PLANNER 10/16/20. PROCEDURES PAIN NURSING RECORD PROCEDURE IN ROOM 1345, PHYSICIAN IN ROOM 1439, START 1444, FINISH 1454, PHYSICIAN OUT OF ROOM 1454, OUT OF ROOM 1512, ECG N/A, PATIENT SHIELDED NO, SAFETY STRAP NO, PREP ALCOHOL BY DR BRUCE, DRESSING N/A LOC: 1. ALERT, ORIENTED, FÉLIX YING 10/17/2020 2:52:00 PM > RESP: 1. REGULAR, NO DYSPNEADEONNA TOM 10/17/2020 2:52:08 PM > COLOR: 1. PINKDEONNA TOM 10/17/2020 2:52:14 PM > SKIN: 1. WARM, DRY, DEONNAFÉLIX 10/17/2020 2:52:23 PM > POSITION: SUPINE,, 5. SITTING, DEONNAFÉLIX 10/17/2020 2:52:55 PM > VITALS: EXIT VITALS HR 84, 161/10 DEONNAFÉLIX 10/17/2020 3:12:16 PM > , 3, 97% PRERNA YING RN COMPLETION OF PROCEDURE APPOINTMENT: POST PAIN 3, DRESSING SITE NO DRESSING, IV N/A, GAIT STEADY, TEACHING COMPLETED, PATIENT ACKNOWLEDGES UNDERSTANDING YES VERBALIZES UNDERSTANDING, PROCEDURE APPOINTMENT COMPLETED AT 1512 : PATIENT WAS MARKED BY DR BRUCE IN LEIU OF SPECIALIZED BRACELET. PN BOTOX INJECTIONS SUBSEQUENT INJECTIONS PRE PROCEDURE DIAGNOSIS CHRONIC MIGRAINE HEADACHES POST PROCEDURE DIAGNOSIS CHRONIC MIGRAINE HEADACHES PROCEDURE BOTOX INJECTION AT THE HEAD, NECK AND SHOULDERS SURGEON DR. SCOTT BRUCE CHEMISTRY ASSOCIATE NONE ANESTHESIA NONE PRE PROCEDURE NOTE THE PATIENT WITH HISTORY OF CHRONIC MIGRAINE HEADACHES. I EVALUATED THE PATIENT AND REVIEWED THE CHART. I WENT OVER THE RISKS, ALTERNATIVES, AND BENEFITS ASSOCIATED WITH THIS PROCEDURE. THE PATIENT WOULD LIKE TO PROCEED AND GAVE CONSENT TO PERFORM THE PROCEDURE. THE PATIENT DENIES UNEXPLAINABLE WEIGHT LOSS, FEVER, CHILLS, OR NEW CHANGES IN URINARY OR BOWEL CONTROL. BEFORE BOTOX, THE PATIENT WAS HAVING HEADACHES EVERY DAY OF THE MONTH. AFTER BOTOX, SHE WAS HAVING ABOUT 10 HEADACHES PER MONTH. SHE DID NOT HAVE BOTOX INJECTIONS LAST MONTH AND THE HEADACHES HAVE STARTED TO COME BACK. THE PATIENT SAID THAT THE USE OF BOTOX HAS REDUCED SIGNIFICANTLY THE SEVERITY OF THE HEADACHES. THE PATIENT WOULD LIKE TO PROCEED WITH THIS PROCEDURE AGAIN TODAY. THE PATIENT IS COVID-19 NEGATIVE DESCRIPTION OF PROCEDURE THE PATIENT WAS BROUGHT TO THE PROCEDURE ROOM AND PLACED IN THE SUPINE POSITION. I CHECKED THE AREAS WHERE THE PROCEDURE WAS GOING TO BE PERFORMED WITH THE PATIENT AND THE SUPPORTING STAFF AT THE MOMENT OF THE TIME OUT IN THE PROCEDURE ROOM. FOR THE PROCEDURE I USED A SOLUTION OF 5 UNITS OF BOTOX PER EACH 0.1 ML OF THE SOLUTION. I USED A 30-GAUGE NEEDLE TO INJECT THE SOLUTION AT THE SELECTED LOCATIONS. I INJECTED FIRST THE RIGHT AND LEFT COMMERCIAL REAL ESTATE APPRAISER MUSCLES. THE LANDMARK FOR BOTH INJECTIONS WAS APPROXIMATELY 1 CM ABOVE THE SUPERIOR MEDIAL EDGE OF THE EYEBROW. AFTER THESE TWO INJECTIONS, I INJECTED THE PROCERUS MUSCLE AT THE MIDLINE POINT BETWEEN THESE FIRST TWO INJECTIONS. THEN I PROCEEDED TO INJECT THE RIGHT AND LEFT FRONTALIS MUSCLE. TWO INJECTIONS WERE DONE IN EACH SIDE. THE FIRST INJECTION WAS DONE APPROXIMATELY 2 CM ABOVE THE FIRST INJECTION OF THE COMMERCIAL REAL ESTATE APPRAISER. THE SECOND INJECTION WAS DONE APPROXIMATELY 1.5 CM LATERAL TO THIS FIST INJECTION OF THE FRONTALIS OF EACH SIDE. AFTER THE INJECTIONS OVER THE FOREHEAD WERE DONE, THE PATIENT'S HEAD WAS TURNED TO THE LEFT SIDE AND WE STARTED TO WORK WITH THE RIGHT TEMPORALIS MUSCLE. FIRST INJECTION WAS DONE IN A VERTICAL LINE OF THE TRAGUS APPROXIMATELY 3 CM ABOVE THE TRAGUS. THE SECOND INJECTION WAS DONE APPROXIMATELY 2 CM ABOVE THE FIRST INJECTION. THE THIRD INJECTION WAS DONE APPROXIMATELY 1 CM FRONTWARD FROM THIS VERTICAL LINE CREATED AT THE LEVEL OF THE TRAGUS, SENIOR CARE BETWEEN THESE TWO INJECTIONS. THE FOURTH INJECTION WAS DONE APPROXIMATELY 1.5 CM BACK FROM THE SECOND INJECTION TO THE TEMPORALIS IN LINE TO THE MIDPORTION OF THE EAR. THEN, WE PROCEEDED TO INJECT THE LEFT TEMPORALIS MUSCLE. WE CLEANED THE AREA WITH ALCOHOL AND PROCEEDED TO PERFORM THE SAME FOR INJECTIONS DESCRIBED ABOVE BUT IN THE LEFT TEMPORALIS MUSCLE USING THE SAME LANDMARKS. AFTER THESE INJECTIONS WERE DONE, THE PATIENT WAS SEATED. FIRST, WE STARTED TO INJECT THE LEFT AND RIGHT OCCIPITALIS MUSCLE. I INJECTED AT THE FOLLOWING PLACES IN THE RIGHT AND LEFT MUSCLE. THE FIRST INJECTION WAS DONE AT THE MIDPOINT POSITION BETWEEN THE MASTOID PROCESS AND THE INION OF THE OCCIPITAL PROTUBERANCE. THE SECOND INJECTION WAS DONE APPROXIMATELY 1.5 CM SUPERIOR AND LATERAL OF THIS POINT. THE THIRD INJECTION WAS DONE APPROXIMATELY 1.5 CM SUPERIOR AND MEDIAL TO THIS FIRST INJECTION. NEXT, I PROCEEDED TO INJECT THE RIGHT AND LEFT PARASPINAL MUSCLES. LANDMARK OF THE INJECTION WERE APPROXIMATELY: FIRST INJECTION 3 CM BELOW THE INION AND 1 CM LATERAL TO THE MIDLINE AND SECOND INJECTION AT EACH SIDE WAS DONE APPROXIMATELY 1.5 CM SUPERIOR AND LATERAL OF THE FIRST INJECTION. THE LAST GROUP OF INJECTIONS WAS DONE OVER THE RIGHT AND LEFT TRAPEZIUS MUSCLE OVER THE SHOULDER AREA. THE FIRST INJECTION WAS DONE AT THE MIDPOINT BETWEEN THE INFLECTION POINT BETWEEN THE NECK AND SHOULDER AND THE ACROMION. THE SECOND AND THIRD INJECTIONS WERE DONE APPROXIMATELY 2.5 CM LATERAL AND MEDIAL FROM THIS FIRST INJECTION. SAME TARGETS WERE USED IN THE RIGHT AND LEFT SIDE. IN TOTAL, I INJECTED 155 UNITS OF BOTOX. THE MEDICATION WAS VERIFIED WITH THE NURSE. PROCEDURE WAS DONE WITHOUT EVIDENCE OF PARESTHESIA, PNEUMOTHORAX, OR ANY COMPLICATIONS. THE PATIENT TOLERATED THE PROCEDURE VERY WELL. EBL LESS THAN 5 ML. THE PATIENT WAS SENT TO THE RECOVERY ROOM FOR OBSERVATIONS. INJECTIONS WERE DONE AFTER CLEANING WITH ALCOHOL, USING ASEPTIC TECHNIQUES POST PROCEDURE NOTE THE PROCEDURE WAS DISCUSSED WITH THE PATIENT. THE PATIENT WILL BE SEEN IN A FOLLOW UP IN THE NEXT FEW WEEKS. I AM LOOKING FOR LONG LASTING PAIN RELIEF FOR THE PATIENT WITH THIS INTERVENTION. INSTRUCTIONS WERE GIVEN, QUESTIONS WERE ANSWERED, AND THE PATIENT EXPRESSED UNDERSTANDING AND AGREED WITH THE PLAN. I, ANTOINETTE LINDA, DOCUMENTED THE ABOVE INFORMATION ACTING A SCRIBE FOR DR. BRUCE. I HAVE REVIEWED THE ABOVE DOCUMENT, WRITTEN BY ANTOINETTE LINDA, HOUSING DEVELOPMENT SPECIALIST, AND I VERIFY THAT IT IS ACCURATE PROCEDURE CODES 20815 CHEMODENERV MUSC MIGRAINE DISPOSITION & COMMUNICATION FOLLOW UP FOLLOW UP WITH CHAR BELT OPERATOR (REASON: POST BOTOX INJECTIONS TO HEAD, NECK AND SHOULDER AREAS) ELECTRONICALLY SIGNED BY SCOTT BRUCE MD, MD ON 10/18/2020 AT 12:55 PM EST DISCLAIMER : THIS IS A VISIT SUMMARY EXTRACTED FROM THE [employer] CHART. IT IS NOT A COPY OF THE [employer] PROGRESS NOTE. CAN
== END ==
LOC: M PAIN 13:30
PROVIDERS: ATTEND Anesthesiology
DX: G43.709 Chronic migraine without aura, not intractable, without status migrainosus (principal); I10 Essential (primary) hypertension; E03.9 Hypothyroidism, unspecified; F32.9 Major depressive disorder, single episode, unspecified; F41.9 Anxiety disorder, unspecified; M79.7 Fibromyalgia; K21.9 Gastro-esophageal reflux disease without esophagitis; E78.5 Hyperlipidemia, unspecified; J44.9 Chronic obstructive pulmonary disease, unspecified; I69.351 Hemiplegia and hemiparesis following cerebral infarction affecting right dominant side; E55.9 Vitamin D deficiency, unspecified; Z87.891 Personal history of nicotine dependence; Z79.82 Long term (current) use of aspirin; Z79.891 Long term (current) use of opiate analgesic; Z79.899 Other long term (current) drug therapy; Z88.0 Allergy status to penicillin; Z88.8 Allergy status to other drugs, medicaments and biological substances; Z91.018 Allergy to other foods; Z91.048 Other nonmedicinal substance allergy status
CPT/HCPCS: 64615; J0585

== ENCOUNTER → 2020-11-14 | Outpatient (CLI) | payer MEDICARE ==
[~2020-11-14] MED LIST changes: -AMIT10TA PO; +AMIT10TA7 PO; -BOTOX THERAPEUTIC 100 UNIT VIAL (J0585 PER 1 UNIT) IM ONE; +HYDR-3490 PO; -HYDR25TAB PO
--- NOTE | 2020-11-21 04:33 | ECWPNPC ---
PATIENT NAME: LUIS ENRIQUE MCMILLAN : 1955 GENDER: FEMALE VISIT DATE: 11/14/2020 DISCHARGE DATE: 11/14/20 1230 VISIT LOCKED DATE TIME: PHYSICIAN: MEAGAN OROSCO RESOURCE: MEAGAN OROSCO REASON FOR APPOINTMENT 1. POST BOTOX HISTORY OF PRESENT ILLNESS GENERAL: HERE FOR POST PROCEDURE FOLLOW-UP. HAD BOTOX INJECTIONS TO HEAD AND NECK AND SHOULDER AREA ON 10/17/2020. REPORTING MARKED REDUCTION IN PAIN THAT CONTINUES TODAY. REPORTING LESS NEED FOR MIGRAINE HEADACHE MEDICATION. SHE IS UNDER A LOT OF STRESS TODAY WITH A LOSS OF FRIEND RECENTLY. REPORTS HER CURRENT CHRONIC PAIN MEDICATION IS HELPFUL WITHOUT SIDE EFFECTS. -. FALL RISK SCREENING: SCREENING : ONE FALL WITH INJURY IN THE PAST YEAR. PAIN SCREENING: PATIENT HAS A COMPLAINT OF ACUTE OR CHRONIC PAIN :YES LOCATION OF PAIN:UPPER BACK, MID BACK, LOW BACK, LEFT HIP, RIGHT HIP INTENSITY OF PAIN (SCALE OF 1 TO 10):7 WHAT DOES YOUR PAIN FEEL LIKE:ACHING DURATION:CONTINOUS, CONSTANT PAIN IS INCREASED BY:ACTIVITIES PAIN IS DECREASED BY:USE OF PAIN MEDICATIONS NURSING NOTE: -. PAIN CENTER INTAKE QUESTIONS: DO YOU HAVE A HISTORY OF MRSA? :NO DO YOU TAKE A BLOOD THINNERS? :NO DO YOU HAVE ANY BLEEDING DISORDERS? :NO ANY NEW NUMBNESS OR WEAKNESS IN YOUR LEGS OR ARMS? :NO ANY PACEMAKER,DEFIBRILLATOR, OR DORSAL COLUMN STIMULATOR? :NO DO YOU HAVE ANY RASHES OR OPEN SORES? :NO ARE YOU ALLERGIC TO IV DYE? :NO ARE YOU DIABETIC? :NO ANY NEW PROBLEMS WITH YOUR MEDICATIONS? :NO HAVE YOU RECEIVED A VACCINE IN THE PAST 30 DAYS? :NO DO YOU PLAN TO RECEIVE A VACCINE IN THE NEXT 21 DAYS? :NO DO YOU NEED ANY PRESCRIPTION? :YES HYDRO, MAXALT DO YOU TAKE ANY IMMUNOSUPPRESSIVE MEDICATIONS? :NO IS THERE A CHANCE YOU COULD BE ? :NO ARE YOU BREAST FEEDING? :NO CURRENT MEDICATIONS TAKING ZOCOR 40 MG TABLET 1 TABLET EVERY EVENING ORALLY ONCE A DAY TAKING LEVOTHYROXINE SODIUM 100 MCG TABLET 1 TABLET EVERY MORNING ON AN EMPTY STOMACH ORALLY ONCE A DAY TAKING VENTOLIN HFA 108 (90 BASE) MCG/ACT AEROSOL SOLUTION 2 PUFFS INHALATION Q4-6H PRN TAKING OXYBUTYNIN CHLORIDE ER 10 MG TABLET EXTENDED RELEASE 24 HOUR 1 TABLET ORALLY ONCE A DAY TAKING HYDROCHLOROTHIAZIDE 25 MG TABLET 1 TABLET ORALLY ONCE A DAY TAKING NEBULIZERS - MISCELLANEOUS ALBUTEROL INHALATION Q 4-6 HRS. PRN TAKING MAXALT 10 MG TABLET 1 TABLET NEEDED ONE TIME ORALLY ONCE AT ONSET OF H/A,REPEAT IN 2HR IF NO IMPROVEMENT TAKING SERTRALINE HCL 25 MG TABLET 1 TABLET ORALLY ONCE A DAY TAKING TRAZODONE HCL 50 MG TABLET 1 TABLET AT BEDTIME ORALLY ONCE A DAY, NOTES: 10/13/20 TAKING ZANTAC 150 MG TABLET 1 TABLET ORALLY DAILY TAKING MUCINEX 600 MG TABLET EXTENDED RELEASE 1 TABLET NEEDED ORALLY EVERY 12 HRS TAKING ASPIRIN 81 81 MG TABLET DELAYED RELEASE 1 TABLET ORALLY ONCE A DAY TAKING ADVAIR DISKUS 250-50 MCG/DOSE MISCELLANEOUS 1 INHALATION EVERY 12 HRS TAKING VITAMIN D3 MAXIMUM STRENGTH 125 MCG (5000 UT) CAPSULE DIRECTED ORALLY TWICE WEEKLY TAKING LACTULOSE 10 GM/15ML SYRUP 15 ML ORALLY ONCE A DAY TAKING VITAMIN B12 500 MCG TABLET 1 TABLET ORALLY ONCE A DAY TAKING VITAMIN C 500 MG CAPSULE DIRECTED ORALLY TAKING DULCOLAX 5 MG TABLET DELAYED RELEASE 1 TABLET NEEDED ORALLY ONCE A DAY TAKING TIZANIDINE HCL 4 MG TABLET 1 TABLET NEEDED ORALLY Q8H PRN MUSC;E SPASM PAIN, NOTES: 10/15/20 TAKING NORCO 7.5-325 MG TABLET 1 TABLET NEEDED ORALLY EVERY 6 HRS MDD4, NOTES: 10/16/20 TAKING BOTOX 100 UNIT SOLUTION RECONSTITUTED FOR IM INJECTION AT THE HEAD, NECK AND SHOULDER MUSCLES ICD G43.709 BOTOX SCHEDULED 10/17/2020 AT 2:30 PM. NOT-TAKING HYDROCODONE-ACETAMINOPHEN 7.5-325 MG TABLET 1 TABLET NEEDED ORALLY EVERY 6 HRS FOR PAIN MDD4 NOT-TAKING GENERLAC 10 GM/15ML SOLUTION 30 ML NEEDED ORALLY BID NOT-TAKING HYDROCODONE-ACETAMINOPHEN 7.5-325 MG TABLET (SCHEDULE II DRUG) ORAL Q6H PRN MDD4 MEDICATION LIST REVIEWED AND RECONCILED WITH THE PATIENT PAST MEDICAL HISTORY HYPERTENSION HYPOTHYROIDISM DEPRESSION BIPOLAR DISORDER ANXIETY LOW BACK PAIN FIBROMYALGIA ARTHRITIS ESOPHAGEAL REFLUX HYPERLIPIDEMIA COPD CVA S/P R SIDE WEAKNESS MIGRAINE HEADACHE VITAMIN D DEFICIENCY ETOH HX OF SUBSTANCE ABUSE HX OF TIETZE SYNDROME BRONCHITIS 03/2016 TIA 08/2018 ALLERGIES LITHIUM CARBONATE: COLLEPSED, WENT TO ED - ALLERGY PENICILLIN (FOR ALLERGIES USE ONLY): HIVES - ALLERGY NUTS: SOB - ALLERGY ADHESIVES: TEARS SKINS - ALLERGY SOCIAL HISTORY GENERAL: TOBACCO USE ARE YOU A: QUIT SMOKING ABOUT 7 YEARS AGO LATEX QUESTIONNAIRE LATEX ALLERGY : HAVE YOU EVER DEVELOPED ANY TYPE OF REACTION AFTER HANDLING LATEX PRODUCTS SUCH RUBBER GLOVES, CONDOMS, DIAPHRAGMS, BALLOONS, SOCKS, OR UNDERWEAR?NO LATEX ALLERGY : HAVE YOU EVER DEVELOPED ANY TYPE OF REACTION DURING OR AFTER DENTAL APPOINTMENT, VAGINAL/RECTAL EXAMINATION, SURGICAL PROCEDURE, OR ANY OTHER EXPOSURE?NO DATE ASKED : 07/21/2020 LATEX RISK : HAVE YOU EVER HAD ANY DIFFICULTY BREATHING OR HIVES AFTER EATING OR HANDLING ANY FRUITS, OR VEGETABLES; SUCH KIWI, BANANAS, STONE FRUITS, OR CHESTNUTSYES - PLEASE INDICATE : CHESTNUTS LATEX RISK : DO YOU HAVE A PREVIOUS PERSONAL HISTORY OF MORE THAN NINE SURGERIES, SPINA BIFIDA, OR REPEATED CATHERIZATIONS? NO LATEX RISK : ARE YOU FREQUENTLY EXPOSED TO LATEX PRODUCTS IN YOUR OCCUPATION?NO ALCOHOL SCREENING POINTS: 0, INTERPRETATION: NEGATIVE. RECREATIONAL DRUG USE DENIES; HISTORY OF ETOH DRUG ABUSE. CLEAN/SOBER SINCE EARLY . CAFFEINE >5/DAY. SEXUAL HX HAD SEX IN THE LAST 12 MONTHS (VAGINAL, ORAL, OR ANAL)?: NO, HAVE YOU EVER HAD AN STD?: NO. ANABAPTIST NO BUDDHISM BELIEFS THAT WOULD IMPACT HEALTH CARE. LANGUAGE ARGENTINE. LEARNING BARRIERS / SPECIAL NEEDS CHANGE FROM LAST VISIT?NO 12/16/19 BARRIERS TO LEARNING?NO HEARING IMPAIRED?NO VISION IMPAIRED?YES COGNITIVELY IMPAIRED?NO :CORRECTIVE LENSES READINESS TO LEARN?YES LEARNING PREFERENCES?NO LEARNING CAPABILITIES PRESENT?YES EMOTIONAL BARRIERS?NO SPECIAL DEVICES?YES :CANE CLIENT SERVER DEVELOPER NEEDED?NO DOMESTIC VIOLENCE DO YOU FEEL SAFE IN YOUR ENVIRONMENT?YES OCCUPATION: UNEMPLOYED. DIET: REG. EXERCISE: WALKS,WATER AEROBICS. MARITAL STATUS: . OTHERS AT HOME: DAUGHTER. - PFS REFERRAL NEEDED?NO CLERGY REFERRAL NEEDED?NO PUBLIC HEALTH REFERRAL NEEDED?NO WAS THE PROVIDER NOTIFIED OF ANY PERTINENT INFO?YES HAS THE PATIENT BEEN EDUCATED REGARDING HIS/HER PLAN OF CARE?YES HAS THE PATIENT BEEN EDUCATED REGARDING PAIN, THE RISK FOR PAIN, THE IMPORTANCE OF EFFECTIVE PAIN MANAGEMENT, AND THE PAIN ASSESSMENT PROCESS?YES ADVANCE DIRECTIVE ADVANCE DIRECTIVE DISCUSSED WITH PATIENT:YES PT DOES NOT HAVE ANY ADVANCED DIRECTIVES AND SHE DECLINED HCP INFO AND ASSISTANCE WITH FORM AT THIS TIME. STATES SHE HAS THE INFORMATION BUT HASN'T COMPLETED THEM YET. REVIEW OF SYSTEMS CONSTITUTIONAL: ANY RECENT FEVER NO . CHILLS NO . WEIGHT CHANGE OF UNKNOWN REASONS NO . GASTROENTEROLOGY: NEW UNEXPLAINABLE CHANGES IN BOWEL CONTROL NO . CONSTIPATION NO . GENITOURINARY: ANY NEW CHANGE IN BLADDER CONTROL? NO . NEUROLOGY: NEW ONSET DIZZINESS OR NEUROLOGICAL CHANGES NOT MENTIONED NO . NEW NUMBNESS OR PAIN PATTERNS NOT MENTIONED AND PERTINENT TO TODAY'S VISIT NO . CARDIOLOGY: NEW CHEST PRESSURE NO . PATIENT DENIES NO . RESPIRATORY: UNEXPLAINABLE COUGH NO . NEW SHORTNESS OF BREATH NO . VITAL SIGNS WT 231 LBS, HT 60.5", BMI 44.37 INDEX, BP 140/77 MM HG, HR 85 /MIN, RR 16 /MIN, TEMP 97.5 F, OXYGEN SAT % 94, SAFE IN ENV? (Y/N) Y, REVIEWED BY: DUONG GONGORA. EXAMINATION GENERAL EXAMINATION: GENERALAWAKE,ALERT ,PLEASANT . PSYCHAFFECT NORMAL . LUNGS:LUNG NUÑEZ ARE CLEAR TO AUSCULTATION BILATERALLY. GOOD MOVEMENT OF AIR . HEART:S1, S2 IN A REGULAR RATE AND RHYTHM. NO SIGNIFICANT MURMURS, RUBS OR GALLOPS NOTED . ASSESSMENTS OTHER CHRONIC PAIN - G89.29 (PRIMARY) CHRONIC MIGRAINE WITHOUT AURA, NOT INTRACTABLE, WITHOUT STATUS MIGRAINOSUS - G43.709 TREATMENT OTHER CHRONIC PAIN STOP NORCO TABLET, 7.5-325 MG, 1 TABLET NEEDED, ORALLY, EVERY 6 HRS MDD4, NOTES: 10/16/20 REFILL HYDROCODONE-ACETAMINOPHEN TABLET, 7.5-325 MG, 1 TABLET NEEDED, ORALLY, EVERY 6 HRS FOR PAIN MDD4, 30 DAYS, 120, REFILLS 0 REFILL MAXALT TABLET, 10 MG, 1 TABLET NEEDED ONE TIME, ORALLY, ONCE AT ONSET OF H/A,REPEAT IN 2HR IF NO IMPROVEMENT, 30 DAY(S), 30, REFILLS 2 PAIN PROCEDURE LOGDATE OF PROCEDURE10/17/20PROCEDURE:BOTOX INJECTIONS TO HEAD, NECK AND SHOULDER AREAAMOUNT OF PRE SEDATENONERESULT:MARKED REDUCTION IN PAIN NOTES: BOTOX INJECTIONS TO THE HEAD, NECK AND SHOULDER AREAS PRINTED AND REVIEWED PRE PROCEDURE WITH PATIENT DARREN GONGORA. PROCEDURE CODES FA211 ESTABILISHED PATIENT [facility] FACILITY CHARGE DISPOSITION & COMMUNICATION FOLLOW UP POST (REASON: BOTOX INJECTIONS TO THE HEAD, NECK AND SHOULDER AREAS) ELECTRONICALLY SIGNED BY MEAGAN NORMAN, ESTER ON 11/20/2020 AT 05:03 PM EST DISCLAIMER : THIS IS A VISIT SUMMARY EXTRACTED FROM THE [employer] CHART. IT IS NOT A COPY OF THE [employer] PROGRESS NOTE. CAN
== END ==
LOC: M PAIN 11:30
PROVIDERS: ATTEND Nurse Practitioner Family
DX: G89.29 Other chronic pain (principal); G43.709 Chronic migraine without aura, not intractable, without status migrainosus; I10 Essential (primary) hypertension; E03.9 Hypothyroidism, unspecified; F31.9 Bipolar disorder, unspecified; F41.9 Anxiety disorder, unspecified; M54.5 Low back pain; M79.7 Fibromyalgia; K21.9 Gastro-esophageal reflux disease without esophagitis; E78.5 Hyperlipidemia, unspecified; J44.9 Chronic obstructive pulmonary disease, unspecified; I69.351 Hemiplegia and hemiparesis following cerebral infarction affecting right dominant side; E55.9 Vitamin D deficiency, unspecified; Z87.891 Personal history of nicotine dependence; Z79.891 Long term (current) use of opiate analgesic; Z79.899 Other long term (current) drug therapy; Z79.82 Long term (current) use of aspirin; Z88.0 Allergy status to penicillin; Z88.8 Allergy status to other drugs, medicaments and biological substances; Z91.018 Allergy to other foods; Z91.048 Other nonmedicinal substance allergy status

== ENCOUNTER → 2020-12-29 | Outpatient (REF) | payer MEDICARE ==
[~2020-12-29] MED LIST changes: -SIME180C PO; +SIME180C25 PO
[2020-12-29 12:44] LABS: ALBUMIN 3.6 GM/DL (3.2-5.2); ALT/SGPT 30 U/L (12-78); BILIRUBIN,TOTAL 0.2 MG/DL (0.2-1.0); BLOOD UREA NITROGEN 24 MG/DL (7-18); CALCIUM LEVEL 9.6 MG/DL (8.8-10.2); CARBON DIOXIDE LEVEL 28 MEQ/L (21-32); CHLORIDE LEVEL 103 MEQ/L (98-107); CHOLESTEROL LEVEL 293 MG/DL (<200); CHOLESTEROL RISK RATIO 6.369 (<5); CREATININE FOR GFR 0.99 MG/DL (0.55-1.30); GLOMERULAR FILTRATION RATE > 60.0 (>45); GLUCOSE, FASTING 115 MG/DL (70-100); HDL CHOLESTEROL 46 MG/DL (>40); LDL CHOLESTEROL 180 MG/DL (<100); NON-HDL-C 247 MG/DL; POTASSIUM SERUM 3.8 MEQ/L (3.5-5.1); SODIUM LEVEL 139 MEQ/L (136-145); TOTAL PROTEIN 6.8 GM/DL (6.4-8.2); TRIGLYCERIDES LEVEL 334 MG/DL (<150)
== END ==
LOC: M LAB REF 11:14
PROVIDERS: ATTEND Family Medicine Addiction Medicine
DX: R73.03 Prediabetes (principal); Z79.899 Other long term (current) drug therapy

== ENCOUNTER → 2021-01-12 | Outpatient (CLI) | payer MEDICARE | LOC: M LABSMTC 11:17 | PROVIDERS: ATTEND Anesthesiology | DX: Z01.812 Encounter for preprocedural laboratory examination (principal); Z11.52 Encounter for screening for COVID-19 ==

== ENCOUNTER → 2021-01-12 | Outpatient (CLI) | payer MEDICARE ==
--- NOTE | 2021-01-15 23:25 | ECWPNPC ---
PATIENT NAME: LUIS ENRIQUE MCMILLAN : 1955 GENDER: FEMALE VISIT DATE: 01/12/2021 DISCHARGE DATE: 01/12/21 1105 VISIT LOCKED DATE TIME: PHYSICIAN: KATHY TORREZ RESOURCE: KATHY TORRZE REASON FOR APPOINTMENT 1. UTOX HISTORY OF PRESENT ILLNESS GENERAL: -. FALL RISK SCREENING: SCREENING : NO FALLS REPORTED IN THE LAST YEAR. PAIN SCREENING: PATIENT HAS A COMPLAINT OF ACUTE OR CHRONIC PAIN :NO NURSING NOTE: -. PAIN CENTER INTAKE QUESTIONS: DO YOU HAVE A HISTORY OF MRSA? :NO DO YOU TAKE A BLOOD THINNERS? :NO DO YOU HAVE ANY BLEEDING DISORDERS? :NO ANY NEW NUMBNESS OR WEAKNESS IN YOUR LEGS OR ARMS? :NO ANY PACEMAKER,DEFIBRILLATOR, OR DORSAL COLUMN STIMULATOR? :NO DO YOU HAVE ANY RASHES OR OPEN SORES? :NO ARE YOU ALLERGIC TO IV DYE? :NO ARE YOU DIABETIC? :NO ANY NEW PROBLEMS WITH YOUR MEDICATIONS? :NO HAVE YOU RECEIVED A VACCINE IN THE PAST 30 DAYS? :NO DO YOU PLAN TO RECEIVE A VACCINE IN THE NEXT 21 DAYS? :NO DO YOU NEED ANY PRESCRIPTION? :YES HYDRO, MAXALT DO YOU TAKE ANY IMMUNOSUPPRESSIVE MEDICATIONS? :NO IS THERE A CHANCE YOU COULD BE ? :NO ARE YOU BREAST FEEDING? :NO ALLERGIES NO[ALLERGIES VERIFIED] ASSESSMENTS CHRONIC PRESCRIPTION OPIATE USE - Z79.891 TREATMENT CHRONIC PRESCRIPTION OPIATE USE LAB: URINE TEST GROUP ALETA LESTER 01/12/2021 11:01:13 AM > LAST DOSE: NORCO (01/12/21 1030) DISPOSITION & COMMUNICATION ELECTRONICALLY SIGNED BY ESTER PADILLA ON 01/15/2021 AT 12:39 PM EDT DISCLAIMER : THIS IS A VISIT SUMMARY EXTRACTED FROM THE [employer] CHART. IT IS NOT A COPY OF THE [employer] PROGRESS NOTE. MTDD
== END ==
LOC: M PAIN 11:15
PROVIDERS: ATTEND Family Medicine
DX: Z79.891 Long term (current) use of opiate analgesic (principal)

== ENCOUNTER → 2021-01-17 | Outpatient (CLI) | payer MEDICARE ==
[~2021-01-17] MED LIST changes: +BOTOX THERAPEUTIC 100 UNIT VIAL (J0585 PER 1 UNIT) IM ONE
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
== END ==
LOC: M PAIN 10:40
PROVIDERS: ATTEND Anesthesiology
DX: G43.709 Chronic migraine without aura, not intractable, without status migrainosus (principal); I10 Essential (primary) hypertension; E03.9 Hypothyroidism, unspecified; F31.9 Bipolar disorder, unspecified; F41.9 Anxiety disorder, unspecified; M79.7 Fibromyalgia; M54.5 Low back pain; K21.9 Gastro-esophageal reflux disease without esophagitis; E78.5 Hyperlipidemia, unspecified; J44.9 Chronic obstructive pulmonary disease, unspecified; I69.351 Hemiplegia and hemiparesis following cerebral infarction affecting right dominant side; E55.9 Vitamin D deficiency, unspecified; Z87.891 Personal history of nicotine dependence; Z79.891 Long term (current) use of opiate analgesic; Z79.899 Other long term (current) drug therapy; Z88.0 Allergy status to penicillin; Z91.018 Allergy to other foods; Z91.048 Other nonmedicinal substance allergy status; Z88.8 Allergy status to other drugs, medicaments and biological substances
CPT/HCPCS: 64615; J0585

== ENCOUNTER → 2021-02-06 | Outpatient (CLI) | payer MEDICARE ==
[~2021-02-06] MED LIST changes: -BOTOX THERAPEUTIC 100 UNIT VIAL (J0585 PER 1 UNIT) IM ONE
--- NOTE | 2021-02-06 15:13 | REPMRS ---
Patient History The patient states she has not had a clinical breast exam in over a year. Family history of unknown cancer in maternal grandmother, unknown cancer at age 65 in father, prostate cancer at age 50 or over in brother. Took hormonal contraceptives for 5 years. Patient states no breast complaints. Patient has signed the MRS history sheet. Digital Woman Screen Mammo: February 06, 2021 - Exam #: [id number] Bilateral CC and MLO view(s) were taken. Technologist: Jayda Sanford, Technologist Prior study comparison: July 16, 2018, bilateral digital mammo screening bilat, performed at [facility]. November 13, 2012, bilateral bilat screen digital mammo, performed at [facility] ([facility]). August 20, 2004, bilateral screening mammogram, performed at [facility] ([facility]). FINDINGS: The breast tissue is almost entirely fat. The Volpara volumetric breast density category is: A. There has been no change in the appearance of the mammogram from the prior studies. There is no interval development of dominant mass, architectural distortion, or grouped microcalcification typical of malignancy. 3-D tomosynthesis shows no additional findings. Assessment: BI-RADS/ACR category 1 mammogram. Negative Mammogram. Recommendation Routine screening mammogram of both breasts in 1 year (for women over age 40). This patient's [facility] Lifetime Breast Cancer RIsk is estimated at 6.0 %. This mammogram was interpreted with the aid of an FDA-approved computer-aided dectection system. Electronically Signed By: Roman Woods MD 02/06/21 0746
== END ==
LOC: M WHC 12:41
PROVIDERS: ATTEND Family Medicine Addiction Medicine
DX: Z12.31 Encounter for screening mammogram for malignant neoplasm of breast (principal); Z80.42 Family history of malignant neoplasm of prostate; Z80.8 Family history of malignant neoplasm of other organs or systems

== ENCOUNTER → 2021-02-16 | Outpatient (CLI) | payer MEDICARE ==
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
== END ==
LOC: M PAIN 11:15
PROVIDERS: ATTEND Nurse Practitioner Family
DX: G89.29 Other chronic pain (principal); G43.709 Chronic migraine without aura, not intractable, without status migrainosus; I10 Essential (primary) hypertension; E03.9 Hypothyroidism, unspecified; F31.9 Bipolar disorder, unspecified; F41.9 Anxiety disorder, unspecified; M54.5 Low back pain; M79.7 Fibromyalgia; K21.9 Gastro-esophageal reflux disease without esophagitis; E78.5 Hyperlipidemia, unspecified; J44.9 Chronic obstructive pulmonary disease, unspecified; I69.351 Hemiplegia and hemiparesis following cerebral infarction affecting right dominant side; E55.9 Vitamin D deficiency, unspecified; Z87.891 Personal history of nicotine dependence; Z79.891 Long term (current) use of opiate analgesic; Z79.82 Long term (current) use of aspirin; Z79.899 Other long term (current) drug therapy; Z88.0 Allergy status to penicillin; Z88.8 Allergy status to other drugs, medicaments and biological substances; Z91.018 Allergy to other foods; Z91.048 Other nonmedicinal substance allergy status

== ENCOUNTER → 2021-04-18 | Outpatient (CLI) | payer MEDICARE | LOC: M LABSMTC 12:33 | PROVIDERS: ATTEND Anesthesiology | DX: Z01.812 Encounter for preprocedural laboratory examination (principal); Z20.822 Contact with and (suspected) exposure to COVID-19 ==

== ENCOUNTER → 2021-05-24 | Outpatient (CLI) | payer MEDICARE | LOC: M LABSMTC 11:13 | PROVIDERS: ATTEND Anesthesiology | DX: Z11.52 Encounter for screening for COVID-19 (principal) ==

== ENCOUNTER → 2021-05-29 | Outpatient (CLI) | payer MEDICARE ==
[~2021-05-29] MED LIST changes: +BOTOX THERAPEUTIC 100 UNIT VIAL (J0585 PER 1 UNIT) IM ONE
== END ==
LOC: M PAIN 10:40
PROVIDERS: ATTEND Anesthesiology
DX: G43.709 Chronic migraine without aura, not intractable, without status migrainosus (principal); I10 Essential (primary) hypertension; E03.9 Hypothyroidism, unspecified; F31.9 Bipolar disorder, unspecified; F41.9 Anxiety disorder, unspecified; M54.5 Low back pain; M79.7 Fibromyalgia; K21.9 Gastro-esophageal reflux disease without esophagitis; E78.5 Hyperlipidemia, unspecified; J44.9 Chronic obstructive pulmonary disease, unspecified; I69.351 Hemiplegia and hemiparesis following cerebral infarction affecting right dominant side; E55.9 Vitamin D deficiency, unspecified; Z87.891 Personal history of nicotine dependence; Z79.82 Long term (current) use of aspirin; Z79.891 Long term (current) use of opiate analgesic; Z88.0 Allergy status to penicillin; Z88.8 Allergy status to other drugs, medicaments and biological substances; Z91.018 Allergy to other foods; Z91.048 Other nonmedicinal substance allergy status
CPT/HCPCS: 64615; J0585

== ENCOUNTER → 2021-08-01 | Outpatient (CLI) | payer MEDICARE ==
[~2021-08-01] MED LIST changes: -BOTOX THERAPEUTIC 100 UNIT VIAL (J0585 PER 1 UNIT) IM ONE
== END ==
LOC: M PAIN 11:45
PROVIDERS: ATTEND Anesthesiology
DX: G89.29 Other chronic pain (principal); M79.18 Myalgia, other site; M54.50 Low back pain, unspecified; Z87.891 Personal history of nicotine dependence; Z79.899 Other long term (current) drug therapy; Z79.82 Long term (current) use of aspirin

== ENCOUNTER → 2021-08-29 | Outpatient (CLI) | payer MEDICARE | LOC: M LABSMTC 11:50 | PROVIDERS: ATTEND Anesthesiology | DX: Z01.812 Encounter for preprocedural laboratory examination (principal); Z11.52 Encounter for screening for COVID-19 ==

== ENCOUNTER → 2021-08-30 | Outpatient (CLI) | payer MEDICAID, MEDICARE ==
[~2021-08-30] MED LIST changes: +TIZA10TA PO; -TIZA4TAB4 PO
== END ==
LOC: M PLAIMG 10:50
PROVIDERS: ATTEND Anesthesiology
DX: M54.50 Low back pain, unspecified (principal); N28.1 Cyst of kidney, acquired; M51.36 Other intervertebral disc degeneration, lumbar region; M51.26 Other intervertebral disc displacement, lumbar region; M25.78 Osteophyte, vertebrae; M51.46 Schmorl's nodes, lumbar region

== ENCOUNTER → 2021-09-03 | Outpatient (CLI) | payer MEDICARE ==
[~2021-09-03] MED LIST changes: +BUPIVACAINE HCL 0.25% 10ML VIAL As Ordered ONE; +BUPIVACAINE HCL 0.25% 30ML VIAL As Ordered ONE; -TIZA10TA PO; +TIZA4TAB4 PO; +TRIAMCINOLONE ACETONIDE SUSP 40 MG/ML VIAL (J3301) As Ordered ONE; +diazePAM 5MG TABLET As Ordered ONE; +oxyCODONE 5MG TAB As Ordered ONE
== END ==
LOC: M PAIN 08:30
PROVIDERS: ATTEND Anesthesiology
DX: M79.18 Myalgia, other site (principal); I10 Essential (primary) hypertension; E03.9 Hypothyroidism, unspecified; F31.9 Bipolar disorder, unspecified; F41.9 Anxiety disorder, unspecified; M54.50 Low back pain, unspecified; M79.7 Fibromyalgia; M19.90 Unspecified osteoarthritis, unspecified site; K21.9 Gastro-esophageal reflux disease without esophagitis; E78.5 Hyperlipidemia, unspecified; J44.9 Chronic obstructive pulmonary disease, unspecified; I69.351 Hemiplegia and hemiparesis following cerebral infarction affecting right dominant side; G43.909 Migraine, unspecified, not intractable, without status migrainosus; E55.9 Vitamin D deficiency, unspecified; Z87.891 Personal history of nicotine dependence; Z79.82 Long term (current) use of aspirin; Z79.891 Long term (current) use of opiate analgesic; Z79.899 Other long term (current) drug therapy; Z88.0 Allergy status to penicillin; Z88.8 Allergy status to other drugs, medicaments and biological substances; Z91.018 Allergy to other foods; Z91.048 Other nonmedicinal substance allergy status
CPT/HCPCS: 20552; J3301

== ENCOUNTER → 2021-10-04 | Outpatient (CLI) | payer MEDICARE ==
[~2021-10-04] MED LIST changes: -BUPIVACAINE HCL 0.25% 10ML VIAL As Ordered ONE; -BUPIVACAINE HCL 0.25% 30ML VIAL As Ordered ONE; +TIZA10TA PO; -TIZA4TAB4 PO; -TRIAMCINOLONE ACETONIDE SUSP 40 MG/ML VIAL (J3301) As Ordered ONE; -diazePAM 5MG TABLET As Ordered ONE; -oxyCODONE 5MG TAB As Ordered ONE
== END ==
LOC: M LABSMTC 11:14
PROVIDERS: ATTEND Anesthesiology
DX: Z11.52 Encounter for screening for COVID-19 (principal)

== ENCOUNTER → 2021-10-09 | Outpatient (CLI) | payer MEDICARE ==
[~2021-10-09] MED LIST changes: +BOTOX THERAPEUTIC 100 UNIT VIAL (J0585 PER 1 UNIT) IM ONE
== END ==
LOC: M PAIN 10:40
PROVIDERS: ATTEND Anesthesiology
DX: G43.709 Chronic migraine without aura, not intractable, without status migrainosus (principal); I10 Essential (primary) hypertension; E03.9 Hypothyroidism, unspecified; F31.9 Bipolar disorder, unspecified; F41.9 Anxiety disorder, unspecified; M54.50 Low back pain, unspecified; M79.7 Fibromyalgia; K21.9 Gastro-esophageal reflux disease without esophagitis; E78.5 Hyperlipidemia, unspecified; J44.9 Chronic obstructive pulmonary disease, unspecified; I69.351 Hemiplegia and hemiparesis following cerebral infarction affecting right dominant side; E55.9 Vitamin D deficiency, unspecified; Z87.891 Personal history of nicotine dependence; Z79.82 Long term (current) use of aspirin; Z79.899 Other long term (current) drug therapy; Z79.891 Long term (current) use of opiate analgesic; Z88.0 Allergy status to penicillin; Z88.8 Allergy status to other drugs, medicaments and biological substances; Z91.018 Allergy to other foods; Z91.048 Other nonmedicinal substance allergy status
CPT/HCPCS: 64615; J0585

== ENCOUNTER → 2021-10-29 | Outpatient (CLI) | payer MEDICARE ==
[~2021-10-29] MED LIST changes: -BOTOX THERAPEUTIC 100 UNIT VIAL (J0585 PER 1 UNIT) IM ONE
== END ==
LOC: M PLAIMG 07:34
PROVIDERS: ATTEND Anesthesiology
DX: M48.02 Spinal stenosis, cervical region (principal); M50.30 Other cervical disc degeneration, unspecified cervical region

== ENCOUNTER → 2021-11-08 | Outpatient (CLI) | payer MEDICARE | LOC: M PAIN 09:00 | PROVIDERS: ATTEND Nurse Practitioner Family | DX: G89.29 Other chronic pain (principal); G43.709 Chronic migraine without aura, not intractable, without status migrainosus; I10 Essential (primary) hypertension; E03.9 Hypothyroidism, unspecified; F31.9 Bipolar disorder, unspecified; F41.9 Anxiety disorder, unspecified; M54.50 Low back pain, unspecified; M79.7 Fibromyalgia; K21.9 Gastro-esophageal reflux disease without esophagitis; E78.5 Hyperlipidemia, unspecified; J44.9 Chronic obstructive pulmonary disease, unspecified; I69.351 Hemiplegia and hemiparesis following cerebral infarction affecting right dominant side; E55.9 Vitamin D deficiency, unspecified; Z87.891 Personal history of nicotine dependence; Z79.891 Long term (current) use of opiate analgesic; Z79.82 Long term (current) use of aspirin; Z79.899 Other long term (current) drug therapy; Z88.0 Allergy status to penicillin; Z88.8 Allergy status to other drugs, medicaments and biological substances; Z91.018 Allergy to other foods; Z91.048 Other nonmedicinal substance allergy status ==

== ENCOUNTER → 2021-11-15 | Outpatient (REF) | payer MEDICARE ==
[~2021-11-15] MED LIST changes: +TRAM100T14 PO; -TRAM100T18 PO
[2021-11-15 14:58] LABS: TOTAL PROTEIN 7.6 GM/DL (6.4-8.2)
== END ==
LOC: M LAB REF 13:20
PROVIDERS: ATTEND Internal Medicine Nephrology
DX: N18.31 Chronic kidney disease, stage 3a (principal)

== ENCOUNTER → 2021-11-28 | Outpatient (CLI) | payer MEDICARE | LOC: M RAD 10:38 | PROVIDERS: ATTEND Internal Medicine Nephrology | DX: N18.30 Chronic kidney disease, stage 3 unspecified (principal) ==

== ENCOUNTER → 2022-01-02 | Outpatient (CLI) | payer MEDICARE, MEDICAID | LOC: M LABSMTC 09:09 | PROVIDERS: ATTEND Anesthesiology | DX: Z01.812 Encounter for preprocedural laboratory examination (principal); Z20.822 Contact with and (suspected) exposure to COVID-19 ==

== ENCOUNTER → 2022-01-04 | Outpatient (CLI) | payer MEDICARE ==
[~2022-01-04] MED LIST changes: +ISOVUE-M 300 61% 15ML VIAL As Ordered ONE; +LIDOCAINE 1% SDV 30ML VIAL As Ordered ONE; +methylPREDNISolone SUSP 40MG/ML 1ML VIAL (DEPO MEDROL) As Ordered ONE
[2022-01-04] MEDS: oxyCODONE 5MG TAB As Ordered ONE ×2 (10:20→11:58)
[2022-01-04] MEDS: diazePAM 5MG TABLET As Ordered ONE ×2 (10:20→11:58)
[2022-01-04 12:55] VITALS: BP 119/63
== END ==
LOC: M IRPRO 11:22
PROVIDERS: ATTEND Anesthesiology
DX: M51.16 Intervertebral disc disorders with radiculopathy, lumbar region (principal); J44.9 Chronic obstructive pulmonary disease, unspecified; G47.30 Sleep apnea, unspecified; Z88.0 Allergy status to penicillin; Z91.018 Allergy to other foods; Z91.09 Other allergy status, other than to drugs and biological substances; Z86.59 Personal history of other mental and behavioral disorders; Z87.891 Personal history of nicotine dependence
CPT/HCPCS: 62323; J1030; Q9967

== ENCOUNTER → 2022-04-08 | Outpatient (CLI) | payer MEDICARE ==
[~2022-04-08] MED LIST changes: -ISOVUE-M 300 61% 15ML VIAL As Ordered ONE; -LIDOCAINE 1% SDV 30ML VIAL As Ordered ONE; -methylPREDNISolone SUSP 40MG/ML 1ML VIAL (DEPO MEDROL) As Ordered ONE
== END ==
LOC: M LABSMTC 09:11
PROVIDERS: ATTEND Anesthesiology
DX: Z11.52 Encounter for screening for COVID-19 (principal); Z20.822 Contact with and (suspected) exposure to COVID-19

== ENCOUNTER → 2022-04-11 | Outpatient (CLI) | payer MEDICARE ==
[~2022-04-11] MED LIST changes: +BOTOX THERAPEUTIC 100 UNIT VIAL (J0585 PER 1 UNIT) IM ONE
== END ==
LOC: M PAIN 08:30
PROVIDERS: ATTEND Anesthesiology
DX: G43.709 Chronic migraine without aura, not intractable, without status migrainosus (principal); I10 Essential (primary) hypertension; E03.9 Hypothyroidism, unspecified; F31.9 Bipolar disorder, unspecified; F41.9 Anxiety disorder, unspecified; M54.50 Low back pain, unspecified; M79.7 Fibromyalgia; M19.90 Unspecified osteoarthritis, unspecified site; K21.9 Gastro-esophageal reflux disease without esophagitis; E78.5 Hyperlipidemia, unspecified; J44.9 Chronic obstructive pulmonary disease, unspecified; I69.351 Hemiplegia and hemiparesis following cerebral infarction affecting right dominant side; E55.9 Vitamin D deficiency, unspecified; Z87.891 Personal history of nicotine dependence; Z79.890 Hormone replacement therapy; Z79.899 Other long term (current) drug therapy; Z79.891 Long term (current) use of opiate analgesic; Z88.0 Allergy status to penicillin; Z88.8 Allergy status to other drugs, medicaments and biological substances; Z91.018 Allergy to other foods; Z91.048 Other nonmedicinal substance allergy status
CPT/HCPCS: 64615; J0585

== ENCOUNTER → 2022-04-16 | Outpatient (CLI) | payer MEDICARE ==
[~2022-04-16] MED LIST changes: -BOTOX THERAPEUTIC 100 UNIT VIAL (J0585 PER 1 UNIT) IM ONE
== END ==
LOC: M PAIN 10:45
PROVIDERS: ATTEND Nurse Practitioner Family
DX: G89.29 Other chronic pain (principal); M79.18 Myalgia, other site; I10 Essential (primary) hypertension; E03.9 Hypothyroidism, unspecified; F32.A Depression, unspecified; F41.9 Anxiety disorder, unspecified; M54.50 Low back pain, unspecified; M79.7 Fibromyalgia; M19.90 Unspecified osteoarthritis, unspecified site; K21.9 Gastro-esophageal reflux disease without esophagitis; E78.5 Hyperlipidemia, unspecified; J44.9 Chronic obstructive pulmonary disease, unspecified; I69.351 Hemiplegia and hemiparesis following cerebral infarction affecting right dominant side; G43.909 Migraine, unspecified, not intractable, without status migrainosus; E55.9 Vitamin D deficiency, unspecified; Z87.891 Personal history of nicotine dependence; Z79.890 Hormone replacement therapy; Z79.891 Long term (current) use of opiate analgesic; Z79.899 Other long term (current) drug therapy; Z88.0 Allergy status to penicillin; Z88.8 Allergy status to other drugs, medicaments and biological substances; Z91.018 Allergy to other foods; Z91.048 Other nonmedicinal substance allergy status

== ENCOUNTER → 2022-05-23 | Outpatient (CLI) | payer MEDICARE | LOC: M PAIN 11:00 | PROVIDERS: ATTEND Nurse Practitioner Family | DX: G43.709 Chronic migraine without aura, not intractable, without status migrainosus (principal); G89.29 Other chronic pain; G47.30 Sleep apnea, unspecified; E03.9 Hypothyroidism, unspecified; M79.7 Fibromyalgia; J44.9 Chronic obstructive pulmonary disease, unspecified; E55.9 Vitamin D deficiency, unspecified; Z86.59 Personal history of other mental and behavioral disorders; Z87.891 Personal history of nicotine dependence; Z88.0 Allergy status to penicillin; Z88.8 Allergy status to other drugs, medicaments and biological substances; Z91.018 Allergy to other foods; Z91.09 Other allergy status, other than to drugs and biological substances; E66.01 Morbid (severe) obesity due to excess calories; Z68.41 Body mass index [BMI] 40.0-44.9, adult; Z79.82 Long term (current) use of aspirin; Z79.890 Hormone replacement therapy; Z79.899 Other long term (current) drug therapy ==

== ENCOUNTER → 2022-07-04 | Outpatient (CLI) | payer MEDICARE | LOC: M LABSMTC 09:30 | PROVIDERS: ATTEND Anesthesiology | DX: Z01.818 Encounter for other preprocedural examination (principal); Z11.52 Encounter for screening for COVID-19 ==

== ENCOUNTER → 2022-07-09 | Outpatient (CLI) | payer MEDICARE ==
[~2022-07-09] MED LIST changes: +BUPIVACAINE HCL 0.25% 10ML VIAL As Ordered ONE; +BUPIVACAINE HCL 0.25% 30ML VIAL As Ordered ONE; +LIDOCAINE 1% SDV 30ML VIAL As Ordered ONE; +TRIAMCINOLONE ACETONIDE SUSP 40 MG/ML VIAL (J3301) As Ordered ONE; +diazePAM 5MG TABLET As Ordered ONE; +oxyCODONE 5MG TAB As Ordered ONE
== END ==
LOC: M PAIN 10:00
PROVIDERS: ATTEND Anesthesiology
DX: M79.18 Myalgia, other site (principal); I10 Essential (primary) hypertension; E03.9 Hypothyroidism, unspecified; F31.9 Bipolar disorder, unspecified; F41.9 Anxiety disorder, unspecified; M54.50 Low back pain, unspecified; M79.7 Fibromyalgia; M19.90 Unspecified osteoarthritis, unspecified site; K21.9 Gastro-esophageal reflux disease without esophagitis; E78.5 Hyperlipidemia, unspecified; J44.9 Chronic obstructive pulmonary disease, unspecified; I69.351 Hemiplegia and hemiparesis following cerebral infarction affecting right dominant side; G43.909 Migraine, unspecified, not intractable, without status migrainosus; E55.9 Vitamin D deficiency, unspecified; M94.0 Chondrocostal junction syndrome [Tietze]; Z87.891 Personal history of nicotine dependence; Z79.890 Hormone replacement therapy; Z79.891 Long term (current) use of opiate analgesic; Z79.899 Other long term (current) drug therapy; Z88.0 Allergy status to penicillin; Z88.8 Allergy status to other drugs, medicaments and biological substances; Z91.018 Allergy to other foods; Z91.048 Other nonmedicinal substance allergy status
CPT/HCPCS: 20553; J3301

== ENCOUNTER → 2022-07-28 | Outpatient (CLI) | payer MEDICARE ==
[~2022-07-28] MED LIST changes: -BUPIVACAINE HCL 0.25% 10ML VIAL As Ordered ONE; -BUPIVACAINE HCL 0.25% 30ML VIAL As Ordered ONE; -LIDOCAINE 1% SDV 30ML VIAL As Ordered ONE; -TRIAMCINOLONE ACETONIDE SUSP 40 MG/ML VIAL (J3301) As Ordered ONE; -diazePAM 5MG TABLET As Ordered ONE; -oxyCODONE 5MG TAB As Ordered ONE
== END ==
LOC: M LABSMTC 10:32
PROVIDERS: ATTEND Anesthesiology
DX: Z01.812 Encounter for preprocedural laboratory examination (principal); Z20.822 Contact with and (suspected) exposure to COVID-19

== ENCOUNTER → 2022-08-01 | Outpatient (CLI) | payer MEDICARE ==
[~2022-08-01] MED LIST changes: +BOTOX THERAPEUTIC 100 UNIT VIAL (J0585 PER 1 UNIT) IM ONE
== END ==
LOC: M PAIN 11:00
PROVIDERS: ATTEND Anesthesiology
DX: G43.709 Chronic migraine without aura, not intractable, without status migrainosus (principal); I10 Essential (primary) hypertension; E03.9 Hypothyroidism, unspecified; F31.9 Bipolar disorder, unspecified; F41.9 Anxiety disorder, unspecified; M54.50 Low back pain, unspecified; M79.7 Fibromyalgia; M19.90 Unspecified osteoarthritis, unspecified site; K21.9 Gastro-esophageal reflux disease without esophagitis; E78.5 Hyperlipidemia, unspecified; J44.9 Chronic obstructive pulmonary disease, unspecified; I69.351 Hemiplegia and hemiparesis following cerebral infarction affecting right dominant side; E55.9 Vitamin D deficiency, unspecified; Z86.73 Personal history of transient ischemic attack (TIA), and cerebral infarction without residual deficits; Z87.891 Personal history of nicotine dependence; Z79.82 Long term (current) use of aspirin; Z79.891 Long term (current) use of opiate analgesic; Z79.890 Hormone replacement therapy; Z79.899 Other long term (current) drug therapy; Z88.0 Allergy status to penicillin; Z88.8 Allergy status to other drugs, medicaments and biological substances; Z91.018 Allergy to other foods; Z91.048 Other nonmedicinal substance allergy status
CPT/HCPCS: 64615; J0585

== ENCOUNTER → 2022-08-06 | Outpatient (CLI) | payer MEDICARE ==
[~2022-08-06] MED LIST changes: -BOTOX THERAPEUTIC 100 UNIT VIAL (J0585 PER 1 UNIT) IM ONE
== END ==
LOC: M PAIN 13:45
PROVIDERS: ATTEND Nurse Practitioner Family
DX: Z53.29 Procedure and treatment not carried out because of patient's decision for other reasons (principal)

== ENCOUNTER → 2022-08-14 | Outpatient (REF) | payer MEDICARE ==
[2022-08-14 20:33] LABS: THYROID STIMULATING HORMONE 0.181 uIU/ML (0.55-4.78)
[2022-08-14 20:40] LABS: BILIRUBIN,TOTAL 0.3 MG/DL (0.3-1.2); CALCIUM LEVEL 9.6 MG/DL (8.3-10.6); CHOLESTEROL RISK RATIO 4.05 (<5); CREATININE FOR GFR 1.06 MG/DL (0.55-1.30); GLOMERULAR FILTRATION RATE 55.6 (>45); HDL CHOLESTEROL 49.8 MG/DL (>40); LDL CHOLESTEROL 103.4 MG/DL (<100); POTASSIUM SERUM 3.8 MMOL/L (3.5-5.1)
[2022-08-14 22:26] LABS: HEMOGLOBIN A1c 5.5 % (4.0-6.0)
== END ==
LOC: M LAB REF 16:46
PROVIDERS: ATTEND Family Medicine Addiction Medicine
DX: R73.03 Prediabetes (principal)

== ENCOUNTER → 2022-08-19 | Outpatient (CLI) | payer MEDICARE | LOC: M PAIN 11:15 | PROVIDERS: ATTEND Nurse Practitioner Family | DX: M47.812 Spondylosis without myelopathy or radiculopathy, cervical region (principal); G89.29 Other chronic pain; M79.10 Myalgia, unspecified site; R73.03 Prediabetes; G47.30 Sleep apnea, unspecified; I10 Essential (primary) hypertension; E03.9 Hypothyroidism, unspecified; J44.9 Chronic obstructive pulmonary disease, unspecified; G43.909 Migraine, unspecified, not intractable, without status migrainosus; E55.9 Vitamin D deficiency, unspecified; Z86.59 Personal history of other mental and behavioral disorders; Z86.73 Personal history of transient ischemic attack (TIA), and cerebral infarction without residual deficits; Z87.891 Personal history of nicotine dependence; Z88.0 Allergy status to penicillin; Z88.8 Allergy status to other drugs, medicaments and biological substances; Z91.018 Allergy to other foods; Z91.09 Other allergy status, other than to drugs and biological substances; E66.01 Morbid (severe) obesity due to excess calories; Z68.42 Body mass index [BMI] 45.0-49.9, adult; Z79.82 Long term (current) use of aspirin; Z79.890 Hormone replacement therapy; Z79.899 Other long term (current) drug therapy ==

== ENCOUNTER → 2022-10-20 | Outpatient (CLI) | payer MEDICARE | LOC: M LABSMTC 10:03 | PROVIDERS: ATTEND Anesthesiology | DX: Z01.812 Encounter for preprocedural laboratory examination (principal); Z20.822 Contact with and (suspected) exposure to COVID-19 ==

== ENCOUNTER → 2022-11-29 | Outpatient (CLI) | payer MEDICARE | LOC: M PAIN 11:15 | PROVIDERS: ATTEND Nurse Practitioner Family | DX: G43.709 Chronic migraine without aura, not intractable, without status migrainosus (principal); G89.29 Other chronic pain; I10 Essential (primary) hypertension; E03.9 Hypothyroidism, unspecified; F31.9 Bipolar disorder, unspecified; F41.9 Anxiety disorder, unspecified; M54.50 Low back pain, unspecified; M79.7 Fibromyalgia; K21.9 Gastro-esophageal reflux disease without esophagitis; E78.5 Hyperlipidemia, unspecified; J44.9 Chronic obstructive pulmonary disease, unspecified; E55.9 Vitamin D deficiency, unspecified; Z87.891 Personal history of nicotine dependence; Z79.82 Long term (current) use of aspirin; Z79.891 Long term (current) use of opiate analgesic; Z79.899 Other long term (current) drug therapy; Z88.0 Allergy status to penicillin; Z88.8 Allergy status to other drugs, medicaments and biological substances; Z91.018 Allergy to other foods; Z91.048 Other nonmedicinal substance allergy status; Z20.822 Contact with and (suspected) exposure to COVID-19 | CPT/HCPCS: 87635; G0463 ==

== ENCOUNTER → 2022-11-29 | Outpatient (CLI) | payer MEDICARE | LOC: M LABSMTC 10:20 | PROVIDERS: ATTEND Anesthesiology | DX: Z01.812 Encounter for preprocedural laboratory examination (principal) ==

== ENCOUNTER → 2022-12-13 | Outpatient (REF) | payer MEDICARE ==
[2022-12-13 18:04] LABS: ALBUMIN 3.9 G/DL (3.2-5.2); BILIRUBIN,TOTAL 0.2 MG/DL (0.3-1.2); CALCIUM LEVEL 9.8 MG/DL (8.3-10.6); CHOLESTEROL RISK RATIO 4.65 (<5); CREATININE FOR GFR 0.99 MG/DL (0.55-1.30); GLOMERULAR FILTRATION RATE 59.9 (>45); HDL CHOLESTEROL 47.5 MG/DL (>40); LDL CHOLESTEROL 120.5 MG/DL (<100); NON-HDL-C 173.5 MG/DL; POTASSIUM SERUM 4.6 MMOL/L (3.5-5.1); TOTAL PROTEIN 6.8 G/DL (5.7-8.2)
[2022-12-13 18:06] LABS: THYROID STIMULATING HORMONE 0.291 uIU/ML (0.55-4.78)
== END ==
LOC: M LAB REF 16:41
PROVIDERS: ATTEND Family Medicine Addiction Medicine
DX: E03.9 Hypothyroidism, unspecified (principal)

== ENCOUNTER → 2023-01-03 | Outpatient (CLI) | payer MEDICARE ==
[~2023-01-03] MED LIST changes: +BOTOX THERAPEUTIC 100 UNIT VIAL IM ONE
== END ==
LOC: M PAIN 11:00
PROVIDERS: ATTEND Anesthesiology
DX: G43.009 Migraine without aura, not intractable, without status migrainosus (principal); I10 Essential (primary) hypertension; E03.9 Hypothyroidism, unspecified; F31.9 Bipolar disorder, unspecified; F41.9 Anxiety disorder, unspecified; M54.50 Low back pain, unspecified; M79.7 Fibromyalgia; K21.9 Gastro-esophageal reflux disease without esophagitis; E78.5 Hyperlipidemia, unspecified; J44.9 Chronic obstructive pulmonary disease, unspecified; E55.9 Vitamin D deficiency, unspecified; Z87.891 Personal history of nicotine dependence; Z79.890 Hormone replacement therapy; Z79.82 Long term (current) use of aspirin; Z79.899 Other long term (current) drug therapy; Z79.891 Long term (current) use of opiate analgesic; Z88.0 Allergy status to penicillin; Z88.8 Allergy status to other drugs, medicaments and biological substances; Z91.018 Allergy to other foods; Z91.048 Other nonmedicinal substance allergy status
CPT/HCPCS: 64615; J0585

== ENCOUNTER → 2023-02-11 | Outpatient (CLI) | payer MEDICARE ==
[~2023-02-11] MED LIST changes: -BOTOX THERAPEUTIC 100 UNIT VIAL IM ONE
== END ==
LOC: M PAIN 11:00
PROVIDERS: ATTEND Nurse Practitioner Family
DX: G43.009 Migraine without aura, not intractable, without status migrainosus (principal); I10 Essential (primary) hypertension; E03.9 Hypothyroidism, unspecified; F31.9 Bipolar disorder, unspecified; F41.9 Anxiety disorder, unspecified; M54.50 Low back pain, unspecified; M79.7 Fibromyalgia; M19.90 Unspecified osteoarthritis, unspecified site; K21.9 Gastro-esophageal reflux disease without esophagitis; E78.5 Hyperlipidemia, unspecified; J44.9 Chronic obstructive pulmonary disease, unspecified; E55.9 Vitamin D deficiency, unspecified; Z87.891 Personal history of nicotine dependence; Z79.82 Long term (current) use of aspirin; Z79.899 Other long term (current) drug therapy; Z79.891 Long term (current) use of opiate analgesic; Z88.0 Allergy status to penicillin; Z88.8 Allergy status to other drugs, medicaments and biological substances; Z91.018 Allergy to other foods; Z91.048 Other nonmedicinal substance allergy status

== ENCOUNTER → 2023-04-14 | Outpatient (CLI) | payer MEDICARE ==
[~2023-04-14] MED LIST changes: +BOTOX THERAPEUTIC 100 UNIT VIAL IM ONE
== END ==
LOC: M PAIN 08:00
PROVIDERS: ATTEND Anesthesiology
DX: G43.009 Migraine without aura, not intractable, without status migrainosus (principal); I10 Essential (primary) hypertension; E03.9 Hypothyroidism, unspecified; F31.9 Bipolar disorder, unspecified; F41.9 Anxiety disorder, unspecified; M54.50 Low back pain, unspecified; M79.7 Fibromyalgia; M19.90 Unspecified osteoarthritis, unspecified site; K21.9 Gastro-esophageal reflux disease without esophagitis; E78.5 Hyperlipidemia, unspecified; J44.9 Chronic obstructive pulmonary disease, unspecified; I69.351 Hemiplegia and hemiparesis following cerebral infarction affecting right dominant side; E55.9 Vitamin D deficiency, unspecified; Z87.891 Personal history of nicotine dependence; Z79.890 Hormone replacement therapy; Z79.82 Long term (current) use of aspirin; Z79.891 Long term (current) use of opiate analgesic; Z79.899 Other long term (current) drug therapy; Z88.0 Allergy status to penicillin; Z88.8 Allergy status to other drugs, medicaments and biological substances; Z91.018 Allergy to other foods; Z91.048 Other nonmedicinal substance allergy status
CPT/HCPCS: 64615; J0585

== ENCOUNTER → 2023-04-17 | Outpatient (CLI) | payer MEDICARE ==
[~2023-04-17] MED LIST changes: -BOTOX THERAPEUTIC 100 UNIT VIAL IM ONE
== END ==
LOC: M PAIN 11:00
PROVIDERS: ATTEND Anesthesiology
DX: M50.10 Cervical disc disorder with radiculopathy, unspecified cervical region (principal); G47.30 Sleep apnea, unspecified; I10 Essential (primary) hypertension; E03.9 Hypothyroidism, unspecified; M79.7 Fibromyalgia; J44.9 Chronic obstructive pulmonary disease, unspecified; G43.909 Migraine, unspecified, not intractable, without status migrainosus; E55.9 Vitamin D deficiency, unspecified; Z86.59 Personal history of other mental and behavioral disorders; Z86.73 Personal history of transient ischemic attack (TIA), and cerebral infarction without residual deficits; Z87.891 Personal history of nicotine dependence; Z88.0 Allergy status to penicillin; Z88.8 Allergy status to other drugs, medicaments and biological substances; Z91.018 Allergy to other foods; Z91.09 Other allergy status, other than to drugs and biological substances; E66.01 Morbid (severe) obesity due to excess calories; Z68.41 Body mass index [BMI] 40.0-44.9, adult; Z79.82 Long term (current) use of aspirin; Z79.890 Hormone replacement therapy; Z79.899 Other long term (current) drug therapy

== ENCOUNTER → 2023-06-17 | Day surgery (SDC) | payer MEDICARE ==
[~2023-06-17] VITALS: Ht 152.4 cm; Wt 104.8 kg
[~2023-06-17] MED LIST changes: +ACETYLCHOLINE OPHTH SOLN 1% 2ML (MIOCHOL-E) As Ordered ONE; +ALBU6.7H6 INH; +BSS IRR 500ML/OMIDRIA 4ML IRR BAG (OR ONLY) As Ordered ONE; +CYCLOPENTOLATE 1% OPHTH SOLN 2ML BTL OD SCH; +ESOM40CA35; +LIDOCAINE 1% SDV 5ML VIAL As Ordered ONE; +MIDAZOLAM INJ 2MG/2ML VIAL As Ordered ONE; +OFLOXACIN 0.3 % (OCUFLOX) OPTH SOL 5ML OD SCH; +PHENYLEPHRINE 2.5% OPHTH SOL 2ML OD SCH; +PROPARACAINE 0.5% OPHTH SOL 15ML OD ONE; +RIZA10TA2; +TOBRADEX OPHTH OINT 3.5 GM As Ordered ONE; +TRAZ1TAB14; +TROPICAMIDE 1% OPHTH SOLN 15ML OD SCH; +fentaNYL 100 MCG/2 ML INJECTION As Ordered ONE
[2023-06-17 10:42] VITALS: BP 128/66; TEMP 98.2; O2SAT 96
== END | disposition home or self-care (01) ==
LOC: M SDC 08:54
PROVIDERS: ATTEND Ophthalmology
DX: H25.11 Age-related nuclear cataract, right eye (principal); G47.30 Sleep apnea, unspecified; Z86.73 Personal history of transient ischemic attack (TIA), and cerebral infarction without residual deficits; Z87.891 Personal history of nicotine dependence; Z88.8 Allergy status to other drugs, medicaments and biological substances; Z88.0 Allergy status to penicillin; Z91.048 Other nonmedicinal substance allergy status; Z91.018 Allergy to other foods; Z79.899 Other long term (current) drug therapy
CPT/HCPCS: 66984; J1097; J2250; J3010; V2632

== ENCOUNTER → 2023-07-11 | Outpatient (CLI) | payer MEDICARE ==
[~2023-07-11] MED LIST changes: -ACETYLCHOLINE OPHTH SOLN 1% 2ML (MIOCHOL-E) As Ordered ONE; -BSS IRR 500ML/OMIDRIA 4ML IRR BAG (OR ONLY) As Ordered ONE; -CYCLOPENTOLATE 1% OPHTH SOLN 2ML BTL OD SCH; -LIDOCAINE 1% SDV 5ML VIAL As Ordered ONE; -MIDAZOLAM INJ 2MG/2ML VIAL As Ordered ONE; -OFLOXACIN 0.3 % (OCUFLOX) OPTH SOL 5ML OD SCH; -OXYB5TAB10 PO; +OXYB5TAB11 PO; -PHENYLEPHRINE 2.5% OPHTH SOL 2ML OD SCH; -PROPARACAINE 0.5% OPHTH SOL 15ML OD ONE; -TOBRADEX OPHTH OINT 3.5 GM As Ordered ONE; -TROPICAMIDE 1% OPHTH SOLN 15ML OD SCH; -fentaNYL 100 MCG/2 ML INJECTION As Ordered ONE
== END ==
LOC: M PAIN 11:30
PROVIDERS: ATTEND Anesthesiology
DX: M46.96 Unspecified inflammatory spondylopathy, lumbar region (principal); M47.816 Spondylosis without myelopathy or radiculopathy, lumbar region; I10 Essential (primary) hypertension; E03.9 Hypothyroidism, unspecified; F31.9 Bipolar disorder, unspecified; F41.9 Anxiety disorder, unspecified; M54.50 Low back pain, unspecified; M79.7 Fibromyalgia; M19.90 Unspecified osteoarthritis, unspecified site; K21.9 Gastro-esophageal reflux disease without esophagitis; E78.5 Hyperlipidemia, unspecified; J44.9 Chronic obstructive pulmonary disease, unspecified; E55.9 Vitamin D deficiency, unspecified; G43.909 Migraine, unspecified, not intractable, without status migrainosus; Z87.891 Personal history of nicotine dependence; Z79.890 Hormone replacement therapy; Z79.82 Long term (current) use of aspirin; Z79.891 Long term (current) use of opiate analgesic; Z79.899 Other long term (current) drug therapy; Z88.0 Allergy status to penicillin; Z88.8 Allergy status to other drugs, medicaments and biological substances; Z91.018 Allergy to other foods; Z91.048 Other nonmedicinal substance allergy status

== ENCOUNTER 2023-07-15 08:31 | Day surgery (SDC) | payer MEDICARE ==
[~2023-07-15] VITALS: Ht 152.4 cm; Wt 106.8 kg
[~2023-07-15 08:31] MED LIST changes: +ACETYLCHOLINE OPHTH SOLN 1% 2ML (MIOCHOL-E) As Ordered ONE; +CEFUROXIME 1MG/0.1ML INTRACAMERAL INJ As Ordered ONE; +CYCLOPENTOLATE 1% OPHTH SOLN 2ML BTL OS SCH; +LIDOCAINE 1% SDV 5ML VIAL As Ordered ONE; +OFLOXACIN 0.3 % (OCUFLOX) OPTH SOL 5ML OS SCH; +PHENYLEPHRINE 2.5% OPHTH SOL 2ML OS SCH; +PROPARACAINE 0.5% OPHTH SOL 15ML OS ONE; +TROPICAMIDE 1% OPHTH SOLN 15ML OS SCH
[2023-07-15] MEDS ORDERED: BSS IRR 500ML/OMIDRIA 4ML IRR BAG (OR ONLY) As Ordered ONE (08:39)
[2023-07-15] MEDS ORDERED: fentaNYL 100 MCG/2 ML INJECTION As Ordered ONE (09:28)
[2023-07-15] MEDS ORDERED: MIDAZOLAM INJ 2MG/2ML VIAL As Ordered ONE (09:29)
[2023-07-15 11:51] VITALS: BP 143/70; TEMP 96.9; O2SAT 95
== END 2023-07-15 12:10 | disposition home or self-care (01) ==
LOC: M SDC 08:31
PROVIDERS: ATTEND Ophthalmology
DX: H25.12 Age-related nuclear cataract, left eye (principal); G47.30 Sleep apnea, unspecified; Z86.73 Personal history of transient ischemic attack (TIA), and cerebral infarction without residual deficits; I11.0 Hypertensive heart disease with heart failure; E78.00 Pure hypercholesterolemia, unspecified; E03.9 Hypothyroidism, unspecified; Z88.0 Allergy status to penicillin; Z88.8 Allergy status to other drugs, medicaments and biological substances; Z91.018 Allergy to other foods; Z91.048 Other nonmedicinal substance allergy status; Z79.899 Other long term (current) drug therapy; Z79.82 Long term (current) use of aspirin; Z79.890 Hormone replacement therapy; Z79.891 Long term (current) use of opiate analgesic; Z87.891 Personal history of nicotine dependence
CPT/HCPCS: 66984; J0697; J1097; J2250; J3010; V2632

== ENCOUNTER → 2023-08-15 | Outpatient (CLI) | payer MEDICARE ==
[~2023-08-15] MED LIST changes: -ACETYLCHOLINE OPHTH SOLN 1% 2ML (MIOCHOL-E) As Ordered ONE; +BOTOX THERAPEUTIC 100 UNIT VIAL IM ONE; -CEFUROXIME 1MG/0.1ML INTRACAMERAL INJ As Ordered ONE; +CYAN500T14 PO; -CYCLOPENTOLATE 1% OPHTH SOLN 2ML BTL OS SCH; +HYDR-4431 PO; -LIDOCAINE 1% SDV 5ML VIAL As Ordered ONE; -OFLOXACIN 0.3 % (OCUFLOX) OPTH SOL 5ML OS SCH; -PHENYLEPHRINE 2.5% OPHTH SOL 2ML OS SCH; -PROPARACAINE 0.5% OPHTH SOL 15ML OS ONE; -RIZA10TA2; +RIZA10TA2 PO; +SIME1CAP3 PO; -TRAZ1TAB14; +TRAZ1TAB14 PO; -TROPICAMIDE 1% OPHTH SOLN 15ML OS SCH; +VITA100093 PO
== END ==
LOC: M PAIN 12:45
PROVIDERS: ATTEND Anesthesiology
DX: G43.709 Chronic migraine without aura, not intractable, without status migrainosus (principal); Z80.1 Family history of malignant neoplasm of trachea, bronchus and lung; Z87.891 Personal history of nicotine dependence; Z88.0 Allergy status to penicillin; Z88.8 Allergy status to other drugs, medicaments and biological substances; Z91.018 Allergy to other foods; Z91.09 Other allergy status, other than to drugs and biological substances; E66.01 Morbid (severe) obesity due to excess calories; Z68.42 Body mass index [BMI] 45.0-49.9, adult; Z79.82 Long term (current) use of aspirin; Z79.899 Other long term (current) drug therapy
CPT/HCPCS: 64615; J0585

== ENCOUNTER → 2023-08-28 | Outpatient (CLI) | payer MEDICARE ==
[~2023-08-28] MED LIST changes: -BOTOX THERAPEUTIC 100 UNIT VIAL IM ONE; +ISOVUE-M 300 61% 15ML VIAL As Ordered ONE; +LIDOCAINE 1% SDV 30ML VIAL As Ordered ONE
== END ==
LOC: M PAIN 10:15
PROVIDERS: ATTEND Anesthesiology
DX: M47.816 Spondylosis without myelopathy or radiculopathy, lumbar region (principal); G89.29 Other chronic pain; Z87.891 Personal history of nicotine dependence; Z88.0 Allergy status to penicillin; Z88.8 Allergy status to other drugs, medicaments and biological substances; Z91.018 Allergy to other foods; Z91.09 Other allergy status, other than to drugs and biological substances; E66.01 Morbid (severe) obesity due to excess calories; Z68.42 Body mass index [BMI] 45.0-49.9, adult; Z79.82 Long term (current) use of aspirin; Z79.899 Other long term (current) drug therapy
CPT/HCPCS: 64493; 64494; J0665; Q9967

== ENCOUNTER 2023-09-03 10:55 | Day surgery (SDC) | payer MEDICARE ==
[~2023-09-03] VITALS: Ht 152.4 cm; Wt 104.9 kg
[~2023-09-03 10:55] MED LIST changes: -ISOVUE-M 300 61% 15ML VIAL As Ordered ONE; -LIDOCAINE 1% SDV 30ML VIAL As Ordered ONE; +NS 1,000 ML IV ONE
[2023-09-03] MEDS ORDERED: fentaNYL 100 MCG/2 ML INJECTION As Ordered ONE (12:00)
[2023-09-03] MEDS ORDERED: PHENYLephrine 500MCG 5ML (100MCG/ML) SYRINGE As Ordered ONE (12:10)
[2023-09-03] MEDS ORDERED: propofoL 200 MG/20 ML VIAL As Ordered ONE (12:15)
[2023-09-03] MEDS ORDERED: ePHEDrine SULFATE 25 MG/5 ML(5MG/ML) SYRINGE As Ordered ONE (12:18)
[2023-09-03 12:25] VITALS: TEMP 97.6
[2023-09-03 12:45] VITALS: BP 135/73; O2SAT 96
== END 2023-09-03 12:51 | disposition home or self-care (01) ==
LOC: M OPP 10:55
PROVIDERS: ATTEND Surgery
DX: Z86.010 Personal history of colon polyps (principal); Z80.0 Family history of malignant neoplasm of digestive organs; K63.5 Polyp of colon; K22.89 Other specified disease of esophagus; K29.70 Gastritis, unspecified, without bleeding; K31.89 Other diseases of stomach and duodenum; Z87.891 Personal history of nicotine dependence; Z79.02 Long term (current) use of antithrombotics/antiplatelets; Z79.51 Long term (current) use of inhaled steroids; Z79.52 Long term (current) use of systemic steroids; Z79.82 Long term (current) use of aspirin; Z79.891 Long term (current) use of opiate analgesic; Z79.899 Other long term (current) drug therapy; Z88.0 Allergy status to penicillin; Z91.018 Allergy to other foods; Z91.048 Other nonmedicinal substance allergy status
CPT/HCPCS: 43239; 45380; 88305; J2371; J3010

== ENCOUNTER → 2023-10-15 | Outpatient (CLI) | payer MEDICARE ==
[~2023-10-15] MED LIST changes: -NS 1,000 ML IV ONE
== END ==
LOC: M PAIN 10:30
PROVIDERS: ATTEND Anesthesiology
DX: M47.816 Spondylosis without myelopathy or radiculopathy, lumbar region (principal); G89.29 Other chronic pain; M54.50 Low back pain, unspecified; I10 Essential (primary) hypertension; E03.9 Hypothyroidism, unspecified; F31.9 Bipolar disorder, unspecified; F41.9 Anxiety disorder, unspecified; M79.7 Fibromyalgia; K21.9 Gastro-esophageal reflux disease without esophagitis; E78.5 Hyperlipidemia, unspecified; J44.9 Chronic obstructive pulmonary disease, unspecified; G43.909 Migraine, unspecified, not intractable, without status migrainosus; Z87.891 Personal history of nicotine dependence; Z79.890 Hormone replacement therapy; Z79.82 Long term (current) use of aspirin; Z79.891 Long term (current) use of opiate analgesic; Z79.899 Other long term (current) drug therapy; Z88.0 Allergy status to penicillin; Z88.8 Allergy status to other drugs, medicaments and biological substances; Z91.018 Allergy to other foods; Z91.048 Other nonmedicinal substance allergy status

== ENCOUNTER → 2023-10-23 | Outpatient (CLI) | payer MEDICARE ==
[~2023-10-23] MED LIST changes: -OXYB5TAB11 PO; +OXYB5TAB14 PO
== END ==
LOC: M PAIN 10:45
PROVIDERS: ATTEND Nurse Practitioner Family
DX: G43.709 Chronic migraine without aura, not intractable, without status migrainosus (principal); I10 Essential (primary) hypertension; E03.9 Hypothyroidism, unspecified; F31.9 Bipolar disorder, unspecified; F41.9 Anxiety disorder, unspecified; M54.50 Low back pain, unspecified; M79.7 Fibromyalgia; K21.9 Gastro-esophageal reflux disease without esophagitis; E78.5 Hyperlipidemia, unspecified; J44.9 Chronic obstructive pulmonary disease, unspecified; Z87.891 Personal history of nicotine dependence; Z79.890 Hormone replacement therapy; Z79.82 Long term (current) use of aspirin; Z79.891 Long term (current) use of opiate analgesic; Z79.899 Other long term (current) drug therapy; Z88.0 Allergy status to penicillin; Z88.8 Allergy status to other drugs, medicaments and biological substances; Z91.018 Allergy to other foods; Z91.048 Other nonmedicinal substance allergy status; R26.89 Other abnormalities of gait and mobility
CPT/HCPCS: 73502; G0463

== ENCOUNTER → 2023-10-23 | Outpatient (CLI) | payer MEDICARE ==
[~2023-10-23] MED LIST changes: +OXYB5TAB11 PO; -OXYB5TAB14 PO
== END ==
LOC: M RAD 11:31
PROVIDERS: ATTEND Nurse Practitioner Adult Health
DX: R26.89 Other abnormalities of gait and mobility (principal)

== ENCOUNTER → 2023-11-20 | Outpatient (CLI) | payer MEDICARE ==
[~2023-11-20] MED LIST changes: +ISOVUE-M 300 61% 15ML VIAL As Ordered ONE; +LIDOCAINE 1% SDV 30ML VIAL As Ordered ONE; -OXYB5TAB11 PO; +OXYB5TAB14 PO
== END ==
LOC: M PAIN 08:30
PROVIDERS: ATTEND Anesthesiology
DX: M47.816 Spondylosis without myelopathy or radiculopathy, lumbar region (principal); I10 Essential (primary) hypertension; E03.9 Hypothyroidism, unspecified; M79.7 Fibromyalgia; K21.9 Gastro-esophageal reflux disease without esophagitis; E78.5 Hyperlipidemia, unspecified; J44.9 Chronic obstructive pulmonary disease, unspecified; G43.909 Migraine, unspecified, not intractable, without status migrainosus; E55.9 Vitamin D deficiency, unspecified; Z79.890 Hormone replacement therapy; Z79.82 Long term (current) use of aspirin; Z79.891 Long term (current) use of opiate analgesic; Z79.899 Other long term (current) drug therapy; Z87.891 Personal history of nicotine dependence; Z88.0 Allergy status to penicillin; Z88.8 Allergy status to other drugs, medicaments and biological substances; Z91.018 Allergy to other foods; Z91.048 Other nonmedicinal substance allergy status
CPT/HCPCS: 64493; 64494; J0665; Q9967

== ENCOUNTER → 2023-12-10 | Outpatient (CLI) | payer MEDICARE ==
[~2023-12-10] MED LIST changes: -ISOVUE-M 300 61% 15ML VIAL As Ordered ONE; -LIDOCAINE 1% SDV 30ML VIAL As Ordered ONE
== END ==
LOC: M PAIN 11:00
PROVIDERS: ATTEND Anesthesiology
DX: M47.816 Spondylosis without myelopathy or radiculopathy, lumbar region (principal); Z79.891 Long term (current) use of opiate analgesic; G89.29 Other chronic pain; M54.50 Low back pain, unspecified; I10 Essential (primary) hypertension; E03.9 Hypothyroidism, unspecified; F31.9 Bipolar disorder, unspecified; F41.9 Anxiety disorder, unspecified; M79.7 Fibromyalgia; K21.9 Gastro-esophageal reflux disease without esophagitis; E78.5 Hyperlipidemia, unspecified; J44.9 Chronic obstructive pulmonary disease, unspecified; G43.909 Migraine, unspecified, not intractable, without status migrainosus; E55.9 Vitamin D deficiency, unspecified; Z87.891 Personal history of nicotine dependence; Z79.82 Long term (current) use of aspirin; Z79.899 Other long term (current) drug therapy; Z88.0 Allergy status to penicillin; Z88.8 Allergy status to other drugs, medicaments and biological substances; Z91.018 Allergy to other foods; Z91.048 Other nonmedicinal substance allergy status

== ENCOUNTER → 2024-03-10 | Outpatient (CLI) | payer MEDICARE ==
[~2024-03-10] MED LIST changes: +ESOM1CAP20 PO; -ESOM1CAP5 PO
== END ==
LOC: M PAIN 11:00
PROVIDERS: ATTEND Anesthesiology
DX: M47.816 Spondylosis without myelopathy or radiculopathy, lumbar region (principal); G89.29 Other chronic pain; M54.50 Low back pain, unspecified; I10 Essential (primary) hypertension; E03.9 Hypothyroidism, unspecified; F31.9 Bipolar disorder, unspecified; F41.9 Anxiety disorder, unspecified; M79.7 Fibromyalgia; K21.9 Gastro-esophageal reflux disease without esophagitis; E78.5 Hyperlipidemia, unspecified; J44.9 Chronic obstructive pulmonary disease, unspecified; G43.909 Migraine, unspecified, not intractable, without status migrainosus; E55.9 Vitamin D deficiency, unspecified; Z87.891 Personal history of nicotine dependence; Z79.891 Long term (current) use of opiate analgesic; Z79.899 Other long term (current) drug therapy; Z79.82 Long term (current) use of aspirin; Z88.0 Allergy status to penicillin; Z88.8 Allergy status to other drugs, medicaments and biological substances; Z91.018 Allergy to other foods; Z91.048 Other nonmedicinal substance allergy status

== ENCOUNTER → 2024-04-01 | Outpatient (REF) | payer MEDICARE ==
[2024-04-01 13:24] LABS: INR 0.97; PROTHROMBIN TIME 12.6 SECONDS (12.5-14.5)
== END ==
LOC: M LAB REF 12:23
PROVIDERS: ATTEND Nurse Practitioner Adult Health
DX: R23.3 Spontaneous ecchymoses (principal)

== ENCOUNTER → 2024-04-06 | Outpatient (CLI) | payer MEDICARE ==
[~2024-04-06] MED LIST changes: +BOTOX THERAPEUTIC 100 UNIT VIAL IM ONE
== END ==
LOC: M PAIN 10:00
PROVIDERS: ATTEND Anesthesiology
DX: G43.101 Migraine with aura, not intractable, with status migrainosus (principal); I10 Essential (primary) hypertension; Z79.82 Long term (current) use of aspirin; Z79.891 Long term (current) use of opiate analgesic; Z79.899 Other long term (current) drug therapy; Z88.0 Allergy status to penicillin; Z88.8 Allergy status to other drugs, medicaments and biological substances; Z91.018 Allergy to other foods; Z91.048 Other nonmedicinal substance allergy status
CPT/HCPCS: 64615; J0585

== ENCOUNTER → 2024-06-02 | Outpatient (CLI) | payer MEDICARE ==
[~2024-06-02] MED LIST changes: -BOTOX THERAPEUTIC 100 UNIT VIAL IM ONE
== END ==
LOC: M PAIN 14:30
PROVIDERS: ATTEND Anesthesiology
DX: G43.709 Chronic migraine without aura, not intractable, without status migrainosus (principal); I10 Essential (primary) hypertension; E03.9 Hypothyroidism, unspecified; F31.9 Bipolar disorder, unspecified; F41.9 Anxiety disorder, unspecified; M54.50 Low back pain, unspecified; M79.7 Fibromyalgia; K21.9 Gastro-esophageal reflux disease without esophagitis; E78.5 Hyperlipidemia, unspecified; J44.9 Chronic obstructive pulmonary disease, unspecified; E55.9 Vitamin D deficiency, unspecified; Z87.891 Personal history of nicotine dependence; Z79.890 Hormone replacement therapy; Z79.82 Long term (current) use of aspirin; Z79.891 Long term (current) use of opiate analgesic; Z79.899 Other long term (current) drug therapy; Z88.0 Allergy status to penicillin; Z88.8 Allergy status to other drugs, medicaments and biological substances; Z91.018 Allergy to other foods; Z91.048 Other nonmedicinal substance allergy status

== ENCOUNTER → 2024-06-16 | Outpatient (CLI) | payer MEDICARE ==
[~2024-06-16] MED LIST changes: -SIME180C25 PO; +SIME1CAP4 PO
== END ==
LOC: M PAIN 12:45
PROVIDERS: ATTEND Anesthesiology
DX: M47.816 Spondylosis without myelopathy or radiculopathy, lumbar region (principal); Z79.891 Long term (current) use of opiate analgesic; M79.18 Myalgia, other site; M47.814 Spondylosis without myelopathy or radiculopathy, thoracic region; I10 Essential (primary) hypertension; E03.9 Hypothyroidism, unspecified; F31.9 Bipolar disorder, unspecified; F41.9 Anxiety disorder, unspecified; M54.50 Low back pain, unspecified; K21.9 Gastro-esophageal reflux disease without esophagitis; E55.9 Vitamin D deficiency, unspecified; Z87.891 Personal history of nicotine dependence; Z79.890 Hormone replacement therapy; Z79.899 Other long term (current) drug therapy; Z79.82 Long term (current) use of aspirin; Z88.0 Allergy status to penicillin; Z88.8 Allergy status to other drugs, medicaments and biological substances; Z91.018 Allergy to other foods; Z91.048 Other nonmedicinal substance allergy status

== ENCOUNTER → 2024-07-23 | Outpatient (CLI) | payer MEDICARE ==
[~2024-07-23] MED LIST changes: +BOTOX THERAPEUTIC 100 UNIT VIAL IM ONE
== END ==
LOC: M PAIN 11:00
PROVIDERS: ATTEND Anesthesiology
DX: G43.709 Chronic migraine without aura, not intractable, without status migrainosus (principal); I10 Essential (primary) hypertension; E03.9 Hypothyroidism, unspecified; F31.9 Bipolar disorder, unspecified; F41.9 Anxiety disorder, unspecified; M54.50 Low back pain, unspecified; M79.7 Fibromyalgia; K21.9 Gastro-esophageal reflux disease without esophagitis; E78.5 Hyperlipidemia, unspecified; J44.9 Chronic obstructive pulmonary disease, unspecified; Z87.891 Personal history of nicotine dependence; Z79.890 Hormone replacement therapy; Z79.891 Long term (current) use of opiate analgesic; Z79.82 Long term (current) use of aspirin; Z79.899 Other long term (current) drug therapy; Z88.0 Allergy status to penicillin; Z88.8 Allergy status to other drugs, medicaments and biological substances; Z91.018 Allergy to other foods; Z91.048 Other nonmedicinal substance allergy status
CPT/HCPCS: 64615; J0585

== ENCOUNTER → 2024-09-22 | Outpatient (CLI) | payer MEDICARE ==
[~2024-09-22] MED LIST changes: -BOTOX THERAPEUTIC 100 UNIT VIAL IM ONE
== END ==
LOC: M PAIN 14:00
PROVIDERS: ATTEND Anesthesiology
DX: M54.9 Dorsalgia, unspecified (principal); Z53.9 Procedure and treatment not carried out, unspecified reason